=== PATIENT | female | born 1965 | race Caucasian/White ===

== ENCOUNTER 2023-12-12 14:05 | Inpatient (IN) | payer OTHER, SELFPAY ==
[2023-12-10] VITALS (22 sets, daily range): BP systolic 109–240; BP diastolic 67–109; BMI 17.8; BMI 17.2
--- NOTE | 2023-12-10 04:35 | ED.GENMED ---
History of Present Illness
<AUDREY Lopez - Last Filed: 12/10/23 05:26>
General
Chief Complaint: Chest Pain
Source: patient
Exam Limitations: none
Time Seen by Provider: 12/10/23 04:30
History of Present Illness
History of Present Illness:
Patient is a 58 year old female with a PMH of WA and CVA presenting to the ED with complaints of chest pain x 3 hours. This pain was stated as sharp and rated an 8/10. The pain does not radiate anywhere. She admits that this pain is similar to the
episode she had in August when she had an WA. The pain is not worse with exertion or laying back. Patient admits that nitro and aspirin mildly alleviated symptoms. She denies any dizziness headache palpitations sob dyspnea on exertion weakness.
Patient has a PMH of HLD HTN DM CAD afib CKD CVA. She had a CVA in August while she was admitted to the hospital before she had the WA. She is non compliant with her Eliquis use. EKG similar to last one NSR with partial right bundle branch block.
Past History
<AUDREY Lopez - Last Filed: 12/10/23 05:26>
Past History
ED Past Medical History: Arrthythmia, CAD, CHF, COPD, CVA, GERD, HTN, Hypercholesterolemia, WA, Renal failure, Psychiatric (anxiety, depression) and Other (anemia)
ED Past Surgical History: Cardiac (multiple cardiac catheters, coronary stent)
Social History
Alcohol: Chronic alcoholic
Family History
Family History: Diabetes (sister), Hypertension (daughter and mother ), Cancer (pancreatic cancer in mother ) and Other (heart disease in brother and mother )
<Estella Villafana DO - Last Filed: 12/10/23 06:20>
Past History
ED Past Medical History: Renal failure (Right renal artery stenosis status post stent renal artery.)
ED Past Surgical History: Cardiac (multiple cardiac catheters, coronary stent Placed in 2008)
Social History
Alcohol: Former
Living: penitentiary
Employment: Disabled
Review of Systems
<AUDREY Lopez - Last Filed: 12/10/23 05:26>
Review of Systems
Allergies reviewed?: Yes
Constitutional: Reports no symptoms
Respiratory: Reports no symptoms
Cardiac: Reports chest pain
ABD/GI: Reports no symptoms
Neurological: Reports no symptoms
Phy Exam
<AUDREY Lopez - Last Filed: 12/10/23 05:26>
General Physical Exam
General Presentation: mild distress
General age: appears older than age
General Habitus: elderly
General Mental: alert
Cardiovascular Exam
Cardiovascular Exam: regular rate/rhythm, no edema, no gallop, no JVD and no murmur
Pulmonary Exam
Pulmonary Exam: lungs clear, no respiratory distress, no rales, chest non tender, no crackles, no rhonchi, no stridor, no wheezing and no cough
Sensory
Sensory Exam: intact (sensation intact to light touch in upper and lower extremities b/l)
Scores
<AUDREY Lopez - Last Filed: 12/10/23 05:26>
Heart Score for Chest Pain Patients
STEMI patient?: No
History: Slightly or Non-Suspicious
ECG: Normal
Age: >45 - <65 years
Risk Factors: >/= 3 Risk Factors or History of CAD
<Estella Villafana DO - Last Filed: 12/10/23 06:20>
Heart Score for Chest Pain Patients
History: Moderately Suspicious
ECG: Nonspecific Repolarization
Troponin: </= Normal Limit
Heart Score for Chest Pain Patients: 5
Heart Score Risk: 20.3% MACE over next 6 weeks
Course
<AUDREY Lopez - Last Filed: 12/10/23 05:26>
Orders/Labs/Results
Orders:
Orders
12/10/23 04:26
Electrocardiogram (*1) Urgent
Reason for Study: Chest Pain
Cardiac Monitoring- Treatment ONCE
EKG- Treatment ONCE
IV Insert/Care/Rem.- Treatment PRN
O2 Therapy [RESP] Urgent
Titrate/Wean O2 to maintain O2 sat greater than (%): 90
Special Instructions: Maintain sats >/=90%
Pulse Ox/spot Check [RESP] Urgent
Quantity: 1
Special Instructions: ON ROOM AIR
12/10/23 04:49
Complete Blood Count/With Diff Urgent
Comprehensive Metabolic Panel Urgent
Troponin I Urgent
12/10/23 05:10
Nitroglycerin Ointment [Nitro-Bid] 1 inch TOPICAL NOW STA
12/10/23 05:21
Metoprolol [Lopressor] 5 mg IV NOW STA
12/10/23 05:49
Metoprolol [Lopressor] 5 mg IV NOW STA
12/10/23 05:50
Metoprolol [Lopressor] 5 mg .ROUTE .[facility]-MED ONE
Abnormal Lab Results
12/10/23
04:49
RBC 2.99 L 10^6/uL
(4.20-5.40)
Hgb 9.4 L g/dL
(12.0-16.0)
Hct 27.6 L %
(37.0-47.0)
MCH 31.4 H pg
(27.0-31.0)
RDW 15.7 H %
(11.5-14.5)
Absolute Monos (auto) 0.7 H 10^3/uL
(0.1-0.6)
Chloride 111 H mmol/L
(98-107)
Carbon Dioxide 19 L mmol/L
(22-30)
BUN 51 H mg/dl
(7-17)
Creatinine 2.6 H mg/dL
(0.6-1.0)
Glucose 162 H mg/dl
(70-99)
AST 60 H U/L
(14-36)
ALT 85 H U/L
(0-35)
Total Protein 6.1 L g/dl
(6.3-8.2)
Albumin 3.4 L g/dl
(3.5-5.0)
12/10/23 04:49
12/10/23 04:49
Vital Signs
Initial and Last Documented VS:
Initial Vital Signs
Temp Pulse Resp BP Pulse Ox
97.9 F 80 16 220/106 100
12/10/23 04:27 12/10/23 04:27 12/10/23 04:27 12/10/23 04:27 12/10/23 04:27
Last Documented Vital Signs
Temp Pulse Resp BP Pulse Ox
97.9 F 67 14 224/101 97
12/10/23 04:27 12/10/23 06:00 12/10/23 06:00 12/10/23 06:00 12/10/23 05:45
<Estella Villafana, DO - Last Filed: 12/10/23 06:20>
Orders/Labs/Results
Orders:
Orders
12/10/23 04:26
Electrocardiogram (*1) Urgent
Reason for Study: Chest Pain
Cardiac Monitoring- Treatment ONCE
EKG- Treatment ONCE
IV Insert/Care/Rem.- Treatment PRN
O2 Therapy [RESP] Urgent
Titrate/Wean O2 to maintain O2 sat greater than (%): 90
Special Instructions: Maintain sats >/=90%
Pulse Ox/spot Check [RESP] Urgent
Quantity: 1
Special Instructions: ON ROOM AIR
12/10/23 04:49
Complete Blood Count/With Diff Urgent
Comprehensive Metabolic Panel Urgent
Troponin I Urgent
12/10/23 05:10
Nitroglycerin Ointment [Nitro-Bid] 1 inch TOPICAL NOW STA
12/10/23 05:21
Metoprolol [Lopressor] 5 mg IV NOW STA
12/10/23 05:49
Metoprolol [Lopressor] 5 mg IV NOW STA
12/10/23 05:50
Metoprolol [Lopressor] 5 mg .ROUTE .[facility]
Abnormal Lab Results
12/10/23
04:49
RBC 2.99 L 10^6/uL
(4.20-5.40)
Hgb 9.4 L g/dL
(12.0-16.0)
Hct 27.6 L %
(37.0-47.0)
MCH 31.4 H pg
(27.0-31.0)
RDW 15.7 H %
(11.5-14.5)
Absolute Monos (auto) 0.7 H 10^3/uL
(0.1-0.6)
Chloride 111 H mmol/L
(98-107)
Carbon Dioxide 19 L mmol/L
(22-30)
BUN 51 H mg/dl
(7-17)
Creatinine 2.6 H mg/dL
(0.6-1.0)
Glucose 162 H mg/dl
(70-99)
AST 60 H U/L
(14-36)
ALT 85 H U/L
(0-35)
Total Protein 6.1 L g/dl
(6.3-8.2)
Albumin 3.4 L g/dl
(3.5-5.0)
12/10/23 04:49
12/10/23 04:49
Vital Signs
Initial and Last Documented VS:
Initial Vital Signs
Temp Pulse Resp BP Pulse Ox
97.9 F 80 16 220/106 100
12/10/23 04:27 12/10/23 04:27 12/10/23 04:27 12/10/23 04:27 12/10/23 04:27
Last Documented Vital Signs
Temp Pulse Resp BP Pulse Ox
97.9 F 67 14 224/101 97
12/10/23 04:27 12/10/23 06:00 12/10/23 06:00 12/10/23 06:00 12/10/23 05:45
<AUDREY Lopez - Last Filed: 12/10/23 05:26>
MDM/Problems Addressed
Differential Diagnosis Includes:
stable angina, unstable angina, WA
MDM/Problems Addressed:
order labs, ekg normal, give nitro and aspirin for symptoms.
<Cali Oliva [facility] - Last Filed: 12/10/23 05:26>
*Pulse Oximetry
Patient hypoxic: no
*EKG
Interpreted by ED Provider?: Yes
Interpretation: normal
Comparison EKG: no changes
Rate: normal
Rhythm: sinus
Interval: normal interval
QRS Pattern: right bundle branch block
Ischemia: no ischemia
*Critical Care Note
Total Time (30-74mins, 75-104mins- exclusive of procedures): Not Applicable
<Estella Villafana DO - Last Filed: 12/10/23 06:20>
*EKG
Interpretation: abnormal
Comparison EKG: changes noted (Incomplete right bundle branch block is new compared to previous EKGs [place] 1 [place] [facility])
QRS Pattern: right bundle branch block (Incomplete right bundle branch block)
*Varnish Maker Interpretation
Rate: normal
Interpretation: normal
Rhythm: sinus
ED Attending Note
<AUDREY Lopez - Last Filed: 12/10/23 05:26>
-
Portions of this chart may have been created with voice recognition software.� Occasional wrong word or��sound alike� substitutions may have occurred due to the inherent limitations of voice recognition software.
<Estella Villafana DO - Last Filed: 12/10/23 06:20>
ED Attending Note
Patient seen and examined by attending physician: Yes
I performed the substantive portion of visit, reviewed & personally made and approve the management plan that is documented in note by myself or STUART.: Yes
ED Attending Note:
This is a 58-year-old woman, current [facility] pen[facility] who presents via EMS with complaints of substernal chest pain that woke her from sleep 1 to 2 hours ago. Was given 324 mg chewable aspirin and 1 sublingual nitroglycerin by
EMS. Initially reported no improvement in pain but since arrival to the ED pain is improving and she is now chest pain-free. No associated symptoms, no shortness of breath nor diaphoresis nor nausea, no palpitations, no radiation of the pain.
She has extensive past medical history including acute hospitalization in August of this year at outside hospital for acute right hemiparesis, noncompliance with Eliquis with MRI showing multiple acute infarcts. She has history of A-fib, maintained
on Eliquis, history of hypertension, chronic kidney disease stage IV, insulin requiring diabetes, CAD and suffered an WA during hospitalization in August. History of PTCA with stent 2008. History of CHF, GERD, hyperlipidemia, prior history of
alcohol abuse with alcohol related chronic pancreatitis, history of anxiety.
She was most recently hospitalized at [facility] November 07 to November 16 for acute on chronic anemia with hemoglobin of 5, previously 8.2. She received 3 units of packed red blood cells. She was treated for UTI during that hospitalization.
She did suffer an episode of chest pain during that hospitalization, no evidence of WA, no relief with nitroglycerin but did afford relief with GI cocktail.
Patient states current chest pain feels different from that episode of chest pain November 15.
GENERAL: 58-year-old woman appears older than stated age, appears somewhat chronically debilitated. Awake and alert, resting comfortably, appears in no acute distress.
EYE: pupils equal and reactive. Conjunctiva mildly pale. Anicteric
NECK: Supple, nontender, no meningismus, no significant adenopathy. No JVD.
ENT: oral mucosa is moist. No rhinorrhea.
CARDIAC: Regular rate and rhythm. no murmur.
LUNGS: Clear breath sounds bilaterally, no acute respiratory distress, no wheezes/rales/rhonchi
ABDOMEN: Soft, nondistended, without focal tenderness, normoactive BS.
NEUROLOGICAL: Alert and oriented x3, mild, chronic right hemiparesis
SKIN: Warm and dry, mildly pale in color, skin intact. No rash.
MUSCULOSKELETAL: No C/C/E. peripheral pulses are full and equal b/l. No palpable tenderness.
PSYCH: Normal and appropriate interaction.
Concern for ACS, GERD, aortic dissection, PE, musculoskeletal chest pain.
Initial EKG shows normal sinus rhythm, incomplete right bundle branch block appears new compared to previous EKG from [facility], there is no evidence of STEMI.
It is reassuring that patient is currently chest pain-free and comfortable.
Noted to be moderately hypertensive. And prior records no blood pressure is generally well-controlled.
Labs are pending. Will initiate Nitropaste and continue close monitoring. Will give an IV dose of Lopressor for hypertension.
12/10/2023 05:50 AM
Patient remains chest pain-free and comfortable.
Labs are reassuring with stable, slightly improved chronic kidney disease, stable anemia.
Initial troponin within normal limits.
She does however remain significantly hypertensive, thus far no significant improvement after an IV dose of Lopressor. Remains in normal sinus rhythm in the 70s. Will give an additional dose of IV Lopressor.
She has history of extensive atherosclerosis thus dissection is a consideration however reassuring that chest pain has resolved promptly with 1 sublingual nitroglycerin, she has had no associated back pain nor radicular pain, no associated paresis,
paresthesia.
Could consider CTA for evaluation of potential dissection, however will discuss with hospitalist as patient has chronic kidney disease, with creatinine of 2.6.
Consider IV hydralazine if hypertension persists.
Due to significant concern for ACS, non-STEMI, malignant hypertension, will admit to hospitalist service for continued care/evaluation.
Discharge Plan
Departure
Patient Disposition: Admit
Date of Disposition: 12/10/23
Time of Disposition: 05:52
Admit to: IMU
Admit to doctor: Melisa
Presentation/result/management discussed w/ accepting MD/DO: Hospitalist
Condition: Serious
Discharge Problem:
CP r/o WA, Accelerated essential hypertension
Prescriptions:
No Action
acetaminophen 325 mg Tablet
650 mg PO Q6H PRN (Reason: pain/fever)
Rx Instructions:
do not exceed 3g in 24 hours
aspirin 81 mg Tablet,Delayed Release (Dr/Ec)
81 mg PO DAILY
bisacodyl 5 mg Tablet
5 mg PO HS PRN (Reason: constipation)
atorvastatin [Lipitor] 80 mg Tablet
80 mg PO HS
carvedilol 25 mg Tablet
12.5 mg PO BID
ipratropium-albuterol 0.5 mg-3 mg(2.5 mg base)/3 mL Solution For Nebulization
3 ml INHALATION 6XD
dextrose [Glucose Gel] 40 % Gel
15 g PO Q15M PRN (Reason: hypoglycemia)
Rx Instructions:
x3 for blood sugar <60 and able to swallow oral
hydralazine 25 mg Tablet
25 mg PO TID
isosorbide mononitrate 60 mg Tablet Extended Release 24 Hr
60 mg PO DAILY
magnesium hydroxide 400 mg/5 mL Suspension
5 ml PO DAILY
magnesium hydroxide [Milk of Magnesia] 400 mg/5 mL Suspension
30 ml PO DAILY
sodium bicarbonate 650 mg Tablet
1,300 mg PO BID
pantoprazole 40 mg Tablet,Delayed Release (Dr/Ec)
40 mg PO DAILY
ferrous sulfate 325 mg (65 mg iron) Tablet
325 mg PO TID
Fleet Enema 19-7 gram/118 mL Enema
118 ml ME ONCE PRN (Reason: constipation)
folic acid 1 mg Tablet
1 mg PO DAILY
Glucagon Emergency Kit (human) 1 mg Recon Soln
1 mg IM ONCE PRN (Reason: hypoglycemia)
Rx Instructions:
blood glucose <60 and pt unable to take po food/fluids
insulin lispro [Humalog KwikPen Insulin] 100 unit/mL Insulin Pen
4 unit SC AC
insulin lispro [Humalog KwikPen Insulin] 100 unit/mL Insulin Pen
1 sliding scale dose SC DIRECTED
Rx Instructions:
0-200=0
201-250=1U
251-300=2U
301-350=3U
351-400=4U
401-450=5U
Eliquis 2.5 mg Tablet
2.5 mg PO BID
Retacrit 4,000 unit/mL Solution
4,000 unit SC WEEKLY
Rx Instructions:
on tuesday
Referrals:
Galo Palmer DO [Family Provider] -
Interventions
Interventions:
*Risk Screen - Suicide Last Done: 12/10/23 04:27
*General Assessment Last Done: 12/10/23 04:27
*Neglect/Abuse Screening Last Done: 12/10/23 04:27
ED- Cardiac Assessment Last Done: 12/10/23 04:49
Discharge Date and Time
Print Language: SWAZI
[2023-12-10 05:17] LABS: % Basophils 0.6 % (0-2); % Eosinophils 2.2 % (0-6); % Immature Granulocytes 0.4 % (0-0.5); % Lymphocytes 25.4 % (20.5-51.1); % Monocytes 8.5 % (1.7-9.3); % Neutrophils 62.9 % (42.2-75.2); Absolute Basophils 0.1 10^3/uL (0-0.2); Absolute Eosinophils 0.2 10^3/uL (0-0.7); Absolute Monocytes 0.7 10^3/uL (0.1-0.6); Hematocrit 27.6 % (37.0-47.0); Hemoglobin 9.4 g/dL (12.0-16.0); Mean Corp Hgb Conc. 34.1 g/dL (33.0-37.0); Mean Corpuscular Hgb 31.4 pg (27.0-31.0); Mean Corpuscular Volume 92.3 fL (81.0-99.0); Mean Platelet Volume 9.8 fL (7.4-10.4); Nucleated Red Blood Cells % 0 %; Platelet Count 194 10^3/uL (130-400); Red Blood Cell Count 2.99 10^6/uL (4.20-5.40); Red Cell Dist. Width 15.7 % (11.5-14.5); White Blood Cell Count 7.9 10^3/uL (4.8-10.8)
[2023-12-10] MEDS: LOPRESSOR 5 MG IV ×2 (05:23→05:52)
[2023-12-10] MEDS: NITRO-BID 1 INCH TOPICAL (05:23)
[2023-12-10 05:36] LABS: ALT (SGPT) 85 U/L (0-35); AST (SGOT) 60 U/L (14-36); Albumin 3.4 g/dl (3.5-5.0); Alkaline Phosphatase 109 U/L (38-126); Blood Urea Nitrogen 51 mg/dl (7-17); Calcium 9.8 mg/dl (8.4-10.2); Carbon Dioxide 19 mmol/L (22-30); Chloride 111 mmol/L (98-107); Estimated Creatinine Clearance 18 ml/min; Glucose 162 mg/dl (70-99); Sodium 141 mmol/L (135-145); Total Bilirubin 0.3 mg/dl (0.2-1.3); Total Protein 6.1 g/dl (6.3-8.2); eGFR 20.62
[2023-12-10 05:48] LABS: Troponin I 0.032 ng/ml
--- NOTE | 2023-12-10 06:21 | HPS.HSE ---
Family Physician
-
Family Physician: Galo Palmer, DO
Chief Complaint
-
Chest pain
History of Present Illness
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
right-sided weakness iron deficiency anemia insulin-dependent diabetes, h/o alcoholic pancreatitis and chronic panc who presents to the emergency department from senior care with episode of chest pain.
Patient reports going to bed in usual state of health. The pain aroused from sleep. It was substernal pain that was a 10 out of 10. It was nonradiating. There was no associated nausea or vomiting. There was no associated diaphoresis. There was
no associated shortness of breath. No immediate relieving or exacerbating factors.
EMS was called. According to records the patient received sublingual nitroglycerin as well as a aspirin 324 mg. Patient stated that the pain resolved with this initial treatment. Per record EMS felt that the pain continued. On arrival in the
emergency department the patient was chest pain-free.
Patient had multiple recent hospitalizations. She had a hospitalization in August at an outside hospital she was found to have multi embolic infarct secondary to noncompliance with anticoagulation. She had residual dysarthria and weakness and was
discharged to senior care. Patient reports that she is nonambulatory. In November she was admitted to the hospital with anemia thought to be secondary to bowel blood loss. She had a negative occult stool, negative CTA of the abdomen pelvis and
declined upper endoscopy. She was treated with 3 units of packed red blood cells. Hemoglobin on discharge is at around a baseline of around 9.
In the ED patient hypotensive blood pressure of 226/103, pulse 79 oxygen saturation is 96% on room air. ECG with normal sinus rhythm and incomplete right bundle branch block, no acute ST or T wave changes. Troponin 0.03. White count was 7.9,
hemoglobin 9.4 platelet count 194. Electrolytes unremarkable. BUN 51 creatinine 2.6. AST 60 and ALT 85.
Medical History
Past Medical History
Past Medical History: Reports Arrhythmia (paroxysamal atrial fibrillation), CAD, CVA, HTN, Hypercholesterolemia, IDDM, Renal Failure (CKD 4) and Psychiatric (Anxiety)
Past Surgical History: Reports None
Social History
Tobacco: Non-smoker
Alcohol: Former
Drug: None
Personal: Single
Living: [facility]
Employment: Disabled
Family History
Family History: Not pertinent
Allergies / Home Medications
Allergies reflects when Allergies were last updated in [employer].
Home Medications with original date entered in [employer]
Allergy/Medication List:
Allergies
Allergy/AdvReac Type Severity Reaction Status Date / Time
adhesive tape Allergy Rash Verified 12/10/23 04:31
cephalexin [From Keflex] Allergy Unknown Verified 12/10/23 04:31
Home Medications
acetaminophen 325 mg tablet 650 mg PO Q6H PRN pain/fever 12/10/23
apixaban 2.5 mg tablet (Eliquis) 2.5 mg PO BID 12/10/23
aspirin 81 mg tablet,delayed release 81 mg PO DAILY 12/10/23
atorvastatin 80 mg tablet (Lipitor) 80 mg PO HS 12/10/23
bisacodyl 5 mg tablet 5 mg PO HS PRN constipation 12/10/23
carvedilol 25 mg tablet 12.5 mg PO BID 12/10/23
dextrose 40 % oral gel (Glucose Gel) 15 g PO Q15M PRN hypoglycemia 12/10/23
epoetin jaimee-epbx 4,000 unit/mL injection solution (Retacrit) 4,000 unit SC WEEKLY 12/10/23
ferrous sulfate 325 mg (65 mg iron) tablet 325 mg PO TID 12/10/23
folic acid 1 mg tablet 1 mg PO DAILY 12/10/23
glucagon 1 mg solution for injection (Glucagon Emergency Kit) 1 mg IM ONCE PRN hypoglycemia 12/10/23
hydralazine 25 mg tablet 25 mg PO TID 12/10/23
insulin lispro 100 unit/mL subcutaneous pen (Humalog KwikPen (U-100) Insulin) 1 sliding scale dose SC DIRECTED 12/10/23
insulin lispro 100 unit/mL subcutaneous pen (Humalog KwikPen (U-100) Insulin) 4 unit SC AC 12/10/23
ipratropium 0.5 mg-albuterol 3 mg (2.5 mg base)/3 mL nebulization soln 3 ml inhalation 6XD 12/10/23
isosorbide mononitrate 60 mg tablet,extended release 24 hr 60 mg PO DAILY 12/10/23
magnesium hydroxide 400 mg/5 mL oral suspension 5 ml PO DAILY 12/10/23
magnesium hydroxide 400 mg/5 mL oral suspension (Milk of Magnesia) 30 ml PO DAILY 12/10/23
pantoprazole 40 mg tablet,delayed release 40 mg PO DAILY 12/10/23
sodium bicarbonate 650 mg tablet 1,300 mg PO BID 12/10/23
sodium phosphates 19 gram-7 gram/118 mL enema (Fleet Enema) 118 ml MD ONCE PRN constipation 12/10/23
Review of Systems
-
History Source: Patient
Constitutional: Reports No Symptoms
EENT: Reports No Symptoms
Respiratory: Reports No Symptoms
Cardiac: Reports Chest Pain
Abdomen/GI: Reports Abdominal Pain
: Reports No Symptoms
Musculoskeletal: Reports No Symptoms
Skin: Reports No Symptoms
Neurological: Reports No Symptoms
Endocrine: Reports No Symptoms
Hematologic/Lymphatic: Reports No Symptoms
Psych: Reports No Symptoms
Physical Exam
Vital Signs
Vital Signs
Temp Pulse Resp BP Pulse Ox
97.9 F 67 14 224/101 97
12/10/23 04:27 12/10/23 06:00 12/10/23 06:00 12/10/23 06:00 12/10/23 05:45
Physical Exam
General: No Apparent Distress, Comfortable and Slurred Speech
HEENT: NormoCephalic, Anicteric, Moist mucous membranes, Atraumatic, PERRLA and Other (slight right facial droop)
Respiratory: Clear
Cardiac: S1/S2 and Regular Rhythm
Breast: Deferred by me
GI: Soft, Non Tender, Non Distended and Normal Bowel Sounds
Rectal: Deferred by Provider
Genito-urinary: Deferred by me
Musculoskeletal: No Clubbing, No Cyanosis and No Edema
Skin: Warm
Neuro: AO x 3
Hematologic/Lymphatic: No Lymphadenopathy
Psych: Calm
Laboratory Results
-
12/10/23 04:49
12/10/23 04:49
Laboratory Results
Total Bilirubin 0.3 mg/dl (0.2-1.3) 12/10/23 04:49
AST 60 U/L (14-36) H 12/10/23 04:49
ALT 85 U/L (0-35) H 12/10/23 04:49
Alkaline Phosphatase 109 U/L (38-126) 12/10/23 04:49
Troponin I 0.032 ng/ml 12/10/23 04:49
Data Reviewed
-
Medical Tests (Nuc Med, Echo, EKG etc): Image Personally Visualized and interpreted
Lab Data: Labs Reviewed by me
Old Records: Requested and Reviewed
Impression/Plan
-
IMPRESSION:
PLAN:
1. Chest pain - Substernal cp, non-radiating, no associated sob, diaphoresis, nausea or vomiting. No tingling, numbness or weakness. ECG is non-ischemic. Trop negative. CP free in ED after getting aspirin 324 and sl-ntg x 1 by ems. Currently
without chest pain despite HTN. Atypical chest pain versus ACS (1 hour since onset and known CAD s/p PCI)
- admit to telemetry
- troponin q3H
- continue aspirin, eliquis, statin
- continue imdur
- BP management as below
- did not consult cardiology as patient is cp free, normal trop and non-ischemic ECG with uncontrolled HTN
- no CT dissection as patient is free of chest pain
2. HTN - HTN urgency with BP 226/ 105. Denies any neurological symptoms. Reports h/o elevated BP usually however records from [place] on prior hospitalizaton shows BPs 140 systolic. No improvement with lopressor and nitro-paste and adjustment of the
cuff.
- PRN labetolol IV for SBP > 180
- continue coreg 12.5 bid, hydralazine 25 tid imdur 60 daily
- no volume overload on exam, no diuresis
- consider nifedipine if BP uncontrolled with home meds
3. DM II - on premeal and sliding scale only
- aspart 4 units tidac
- sliding scale sensitive achs
4. CVA - embolic cva w/ residual dysarthria. Mild residual right sided weakness. Patient intelligible and coherent. Non-ambulatory
- continue aspirin 81 and eliquis
- continue statin
5. CKD - CKD 4. Cr 2.6. Improvement from around 3 on last hospital admission.
- renal dose all meds
- avoid nephrotoxins
- patient on bicarb supplementation 1300 bid
6. Anemia - blood loss anemia. HGb 9.4, baseline
- iron supplementation
- folate
7. Transaminitis - mild transamintis which is a change from prior normal lfts. AST 60, ALT 80. Normal bili, lipase. No RUQ pain.
- trend for now.
8. pAFIB - Sinus rhythm.
- continue coreg, ac with eliquis 2.5 given weight and renal function.
DVT PPX - on apixaban
Code Status - Full Code
[2023-12-10] MEDS: APRESOLINE 15 MG IV (06:42)
[2023-12-10] MEDS: FLUSH (NSS) 1 FLUSH IV (06:44)
[2023-12-10 06:53] LABS: Lipase 85 U/L (23-300)
[2023-12-10] MEDS: TYLENOL 650 MG PO (07:50)
[2023-12-10] MEDS: ELIQUIS 2.5 MG PO ×2 (08:35→19:49)
[2023-12-10] MEDS: ASPIR LOW (ENTERIC COATED) 81 MG PO (08:35)
[2023-12-10] MEDS: FOLVITE 1 MG PO (08:36)
[2023-12-10] MEDS: FEOSOL 325 MG PO ×3 (08:36→22:44)
[2023-12-10] MEDS: IMDUR (EXTENDED RELEASE) 60 MG PO (08:36)
[2023-12-10] MEDS: SODIUM BICARBONATE 1300 MG PO ×2 (08:37→19:49)
[2023-12-10] MEDS: MILK OF MAGNESIA 5 ML PO (08:37)
[2023-12-10] MEDS: PROTONIX 40 MG PO (08:37)
[2023-12-10] MEDS: DUONEB 3 ML INH (08:54)
--- NOTE | 2023-12-10 11:21 | W.PN.UPDATE ---
Update Note
Progress Note Update
Non-billable addendum
Admitted earlier this AM
reports dull chest pain, central chest
no SOB
feels tired
BP remains elevated in 200s
Assessment:
Central chest pain
Hx of CAD s/p ID with stenting
- suspected related to elevated BP
- initial trop negative, repeat now
- EKG non-ischemic
- obtain Echo
- continue ASA/BB/Statin/Eliquis
- with history of noncompliance with Eliquis; check V/Q scan
Essential HTN with urgency
- reported non-compliance at [facility] and previously
- continue Coreg, Hydralazine, Imdur - titrate as indicated
- may need to add CCB such as nifedipine
IDDM
- continue Aspart 4 units AC
- SSI
- diabetic diet
- A1c: pending
Hx of embolic CVA, in setting of Eliquis noncompliance
- continue ASA/Statin/Eliquis
- reported non-ambulatory at baseline
CKD stage 4
- renally dose all meds
- follow BMP
- avoid nephrotoxins
- continue sodium bicarbonate 1300mg BID
Chronic anemia
- continue oral iron
Transaminitis
- unsure of acute or chronic
- no abd pain
- trend for now
hx of PAF
- continue BB/Eliquis
HX of CHF, unknown type
GERD
HLD
prior history of alcohol abuse with alcohol related chronic pancreatitis
DVT ppx: Eliquis
Code: Full
No prior records available to review. Records requested from [facility]
[2023-12-10] MEDS: COREG 12.5 MG PO ×2 (11:50→19:49)
[2023-12-10] MEDS: APRESOLINE 25 MG PO (11:50)
[2023-12-10] MEDS: DUONEB INH ×4 (12:30→23:17)
[2023-12-10] MEDS: ULTRAM 25 MG PO (14:11)
[2023-12-10 14:51] LABS: Troponin I 0.027 ng/ml
[2023-12-10] MEDS: APRESOLINE 50 MG PO ×2 (15:46→22:44)
[2023-12-10] MEDS: PROCARDIA XL (EXTENDED RELEASE) 30 MG PO (15:46)
[2023-12-10] MEDS: APRESOLINE PO (16:20)
[2023-12-10] MEDS: NOVOLOG FLEXPEN-LOW RESISTANCE SC ×2 (16:21→18:29)
[2023-12-10] MEDS: NOVOLOG FLEXPEN SC ×2 (16:21→18:28)
[2023-12-10 16:56] LABS: Glucose - Point of Care 159 mg/dl (70-99)
[2023-12-10 20:36] LABS: Troponin I 0.027 ng/ml
[2023-12-10 21:36] LABS: Glucose - Point of Care 203 mg/dl (70-99)
[2023-12-10] MEDS: LIPITOR 80 MG PO (22:44)
[2023-12-11] VITALS (7 sets, daily range): BP systolic 95–202; BP diastolic 65–98
[2023-12-11] MEDS: DUONEB INH ×2 (03:27→11:24)
[2023-12-11] MEDS: DUONEB 3 ML INH (07:17)
[2023-12-11 07:21] LABS: Hematocrit 28.9 % (37.0-47.0); Hemoglobin 10.2 g/dL (12.0-16.0); Mean Corp Hgb Conc. 35.3 g/dL (33.0-37.0); Mean Corpuscular Hgb 31.6 pg (27.0-31.0); Mean Corpuscular Volume 89.5 fL (81.0-99.0); Mean Platelet Volume 10.3 fL (7.4-10.4); Platelet Count 189 10^3/uL (130-400); Red Blood Cell Count 3.23 10^6/uL (4.20-5.40); Red Cell Dist. Width 15.3 % (11.5-14.5); White Blood Cell Count 7.5 10^3/uL (4.8-10.8)
[2023-12-11 07:47] LABS: Glucose - Point of Care 172 mg/dl (70-99)
[2023-12-11 08:06] LABS: ALT (SGPT) 63 U/L (0-35); AST (SGOT) 39 U/L (14-36); Albumin 3.5 g/dl (3.5-5.0); Alkaline Phosphatase 93 U/L (38-126); Blood Urea Nitrogen 52 mg/dl (7-17); Calcium 9.7 mg/dl (8.4-10.2); Carbon Dioxide 18 mmol/L (22-30); Chloride 110 mmol/L (98-107); Estimated Creatinine Clearance 19 ml/min; Glucose 165 mg/dl (70-99); Sodium 142 mmol/L (135-145); Total Bilirubin 0.4 mg/dl (0.2-1.3)
[2023-12-11] MEDS: NOVOLOG FLEXPEN 4 UNITS SC ×3 (08:47→17:48)
[2023-12-11] MEDS: NOVOLOG FLEXPEN-LOW RESISTANCE 1 UNITS SC ×3 (08:47→17:47)
[2023-12-11] MEDS: MILK OF MAGNESIA 5 ML PO (08:47)
[2023-12-11] MEDS: FOLVITE 1 MG PO (08:48)
[2023-12-11] MEDS: ELIQUIS 2.5 MG PO ×2 (08:48→19:27)
[2023-12-11] MEDS: FEOSOL 325 MG PO ×3 (08:48→21:42)
[2023-12-11] MEDS: ASPIR LOW (ENTERIC COATED) 81 MG PO (08:48)
[2023-12-11] MEDS: IMDUR (EXTENDED RELEASE) 60 MG PO (08:48)
[2023-12-11] MEDS: PROTONIX 40 MG PO (08:48)
[2023-12-11] MEDS: COREG 12.5 MG PO ×2 (08:48→19:27)
[2023-12-11] MEDS: SODIUM BICARBONATE 1300 MG PO ×2 (08:48→19:27)
[2023-12-11] MEDS: APRESOLINE 50 MG PO ×3 (08:48→21:43)
[2023-12-11] MEDS: PROCARDIA XL (EXTENDED RELEASE) 30 MG PO (08:48)
[2023-12-11 09:44] LABS: Glycohemoglobin (HgbA1c) 5.8 % (4.0-5.6)
--- NOTE | 2023-12-11 11:03 | W.PN.HOSP.TC ---
Today's Communication/Plan
-
stop recently started Nifedipine with hypotension; monitor BPs
V/Q and Echo Tuesday
Assessment / Plan
Assessment / Plan
Assessment:
Central chest pain
Hx of CAD s/p DE with stenting
- suspected related to elevated BP vs PE with Eliquis noncompliance
- trops negative
- EKG non-ischemic
- obtain Echo
- obtain records from [place] regarding recent DE history
- continue ASA/BB/Statin/Eliquis
- with history of noncompliance with Eliquis; check V/Q scan
Essential HTN with urgency
- reported non-compliance at [facility] and previously
- continue Coreg
- continue Hydralazine increased to 50mg TID
- continue Imdur
- trialed added Nifedipine but now hypotension; will hold Nifedipine and reassess.
IDDM
- continue Aspart 4 units AC
- SSI
- diabetic diet
- A1c: 5.8%
Hx of embolic CVA, in setting of Eliquis noncompliance
- continue ASA/Statin/Eliquis
- reported non-ambulatory at baseline therefore defer rehab evals currently
CKD stage 4
- renally dose all meds
- follow BMP
- avoid nephrotoxins
- continue sodium bicarbonate 1300mg BID
Chronic anemia
- continue oral iron
Transaminitis
- unsure of acute or chronic
- no abd pain
- trend for now
hx of PAF
- continue BB/Eliquis
HX of CHF, unknown type
GERD
HLD
prior history of alcohol abuse with alcohol related chronic pancreatitis
DVT ppx: Eliquis
Code: Full
Anticipated Discharge: 24 - 48 hours
Subjective/Interval History
-
Date of Service: December 11, 2023
resting comfortably no complaints at present
Objective Data
-
Labs:
Laboratory Results
12/11/23
05:59
WBC 7.5
Hgb 10.2 L
Hct 28.9 L
Plt Count 189
Sodium 142
Potassium 4.0
Chloride 110 H
Carbon Dioxide 18 L
BUN 52 H
Creatinine 2.4 H
Glucose 165 H
Calcium 9.7
Total Bilirubin 0.4
AST 39 H
ALT 63 H
Alkaline Phosphatase 93
Vital Signs:
Vital Signs
Temp Pulse Resp BP Pulse Ox
97.7 F 71 18 150/94 99
12/11/23 07:10 12/11/23 07:21 12/11/23 07:21 12/11/23 08:49 12/11/23 07:21
I&O
12/10/23 12/11/23 12/12/23
06:59 06:59 06:59
Intake Total 240 / 240
Balance 240 / 240
Physical Exam
-
General: No Apparent Distress and Appears Chronically Ill
HEENT: Normocephalic and Atraumatic
Respiratory: Negative Wheezes
Cardiac: Regular Rhythm and S1/S2
GI: Soft
Genito-urinary: No Costovertebral Tender
Neuro: AO x 3
Hematologic / Lymphatic: No Lymphadenopathy
Psych: Calm
Data Reviewed
-
Total Time Spent with Patient (in minutes): 41
Labs: Labs Reviewed by me
[2023-12-11 11:36] LABS: Glucose - Point of Care 157 mg/dl (70-99)
--- NOTE | 2023-12-11 12:59 | CM ---
CM spoke with nursing at [facility]
Pt is a ST resident there, recent admit from [facility]
Been there for approx one month
She is non-ambulatory, stands/pivots into with assist
Nursing assist with coaxing and cueing for personal care
Notes pt self propels and AxO 3x, difficult speech/understand
Rx- Concept
Per SNF, dtr is primary contact
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
Bedside meeting with pt
OBS form reviewed- copy provided
Return SNF referral sent via [facility]
Will need discussion with SNF on whether [facility] auth will be needed for SNF return
Discharge Disposition- return [facility]
[2023-12-11 17:33] LABS: Glucose - Point of Care 199 mg/dl (70-99)
[2023-12-11 21:18] LABS: Glucose - Point of Care 162 mg/dl (70-99)
[2023-12-11] MEDS: LIPITOR 80 MG PO (21:42)
[2023-12-12] VITALS (8 sets, daily range): BP systolic 109–155; BP diastolic 58–89; PULSE 67; O2SAT 99; BMI 17.0
[2023-12-12 08:03] LABS: Glucose - Point of Care 236 mg/dl (70-99)
[2023-12-12 08:05] LABS: Hematocrit 25.8 % (37.0-47.0); Mean Corp Hgb Conc. 34.9 g/dL (33.0-37.0); Mean Corpuscular Hgb 31.9 pg (27.0-31.0); Mean Corpuscular Volume 91.5 fL (81.0-99.0); Mean Platelet Volume 9.9 fL (7.4-10.4); Platelet Count 182 10^3/uL (130-400); Red Blood Cell Count 2.82 10^6/uL (4.20-5.40); Red Cell Dist. Width 15.3 % (11.5-14.5); White Blood Cell Count 8.9 10^3/uL (4.8-10.8)
[2023-12-12 08:23] LABS: ALT (SGPT) 54 U/L (0-35); AST (SGOT) 37 U/L (14-36); Albumin 3.3 g/dl (3.5-5.0); Alkaline Phosphatase 90 U/L (38-126); Blood Urea Nitrogen 60 mg/dl (7-17); Calcium 9.4 mg/dl (8.4-10.2); Carbon Dioxide 19 mmol/L (22-30); Chloride 107 mmol/L (98-107); Estimated Creatinine Clearance 18 ml/min; Glucose 189 mg/dl (70-99); Potassium 3.9 mmol/L (3.5-5.1); Sodium 138 mmol/L (135-145); Total Bilirubin 0.4 mg/dl (0.2-1.3); Total Protein 5.8 g/dl (6.3-8.2); eGFR 21.61
[2023-12-12] MEDS: NOVOLOG FLEXPEN-LOW RESISTANCE 2 UNITS SC ×2 (10:29→18:02)
[2023-12-12] MEDS: NOVOLOG FLEXPEN 4 UNITS SC ×3 (10:30→18:02)
[2023-12-12] MEDS: FEOSOL 325 MG PO ×3 (10:31→22:55)
[2023-12-12] MEDS: SODIUM BICARBONATE 1300 MG PO ×2 (10:31→19:49)
[2023-12-12] MEDS: FOLVITE 1 MG PO (10:31)
[2023-12-12] MEDS: ASPIR LOW (ENTERIC COATED) 81 MG PO (10:31)
[2023-12-12] MEDS: ELIQUIS 2.5 MG PO ×2 (10:32→19:49)
[2023-12-12] MEDS: PROTONIX 40 MG PO (10:32)
[2023-12-12] MEDS: APRESOLINE 50 MG PO ×3 (10:32→22:55)
[2023-12-12] MEDS: MILK OF MAGNESIA 5 ML PO (10:33)
[2023-12-12] MEDS: COREG 12.5 MG PO ×2 (10:40→19:49)
[2023-12-12] MEDS: IMDUR (EXTENDED RELEASE) 60 MG PO (10:40)
[2023-12-12] MEDS: NOVOLOG FLEXPEN-LOW RESISTANCE 1 UNITS SC (13:58)
[2023-12-12 13:59] LABS: Glucose - Point of Care 160 mg/dl (70-99)
--- NOTE | 2023-12-12 14:12 | W.PN.HOSP.TC ---
Today's Communication/Plan
-
V/Q scan
Assessment / Plan
Assessment / Plan
58yo F with PMHx of Afib on ELiquis, HTN, GURDEEP, DM, CKD stage 4, HTN, embolic stroke with residual dysarthria and R sided weakness, Hx of alcoholic pancreatitis was brought to ED with chest pain. Found HTN urgency. Troponin were low without uptrend,
EKG without acute ST elevation or TWI. Chest pain subsided. w/u for pulmonary embolism with V/Q scan is ongoing
A/P:
#Chest pain, non-cardiac
Serial trop unremarkable
resolved
#Essential HTN with HTN urgency
BP improved
cont home meds
#Chronic transaminitis
2/2 Hx of alcohol abuse
check hepC Ab
outpatient f/u with PCP - referral to GI
#DM type 1
cont insulin, accuchecks, Insulin SS and DM diet
#CKD stage 4
#GURDEEP
#Afib, unspecified
#Hx of CVA
cont home meds
DVT ppx on Eliquis
Full code
I have spent at least 38min reviewing chart, test results and providing direct patient care
Anticipated Discharge: Within 24 hours
Subjective/Interval History
-
Date of Service: December 12, 2023
Objective Data
-
Labs:
Laboratory Results
12/12/23
07:19
WBC 8.9
Hgb 9.0 L
Hct 25.8 L
Plt Count 182
Sodium 138
Potassium 3.9
Chloride 107
Carbon Dioxide 19 L
BUN 60 H
Creatinine 2.5 H
Glucose 189 H
Calcium 9.4
Total Bilirubin 0.4
AST 37 H
ALT 54 H
Alkaline Phosphatase 90
Vital Signs:
Vital Signs
Temp Pulse Resp BP Pulse Ox
98 F 66 20 155/79 99
12/12/23 13:58 12/12/23 13:58 12/12/23 13:58 12/12/23 13:58 12/12/23 13:58
I&O
12/11/23 12/12/23 12/13/23
06:59 06:59 06:59
Intake Total 240 / 240 600 / 600
Balance 240 / 240 600 / 600
Review of Systems
-
History Source: Patient
All other systems: Reviewed and negative
Physical Exam
-
General: No Apparent Distress
HEENT: Normocephalic
Respiratory: Clear to Auscultation
Cardiac: Regular Rhythm
GI: Soft, Nontender and Nondistended
Genito-urinary: No Costovertebral Tender
Musculoskeletal: No Clubbing, No Cyanosis and No Edema
Neuro: Awake, Alert, Oriented and Other (R hemiparesis, dysarthria)
Psych: Calm
--- NOTE | 2023-12-12 16:13 | CM ---
Addendum entered by Mylene Jovel 12/12/23 16:20:
Auth given to Anabel at [facility]
Report# [phone] 2nd floor

Original Note:
Patient for possible transfer back to [facility] tomorrow.
TC to [facility] [phone]
Spoke with [facility]
approved skilled rehab
authorization # [id number]
start date 12/13/23. LCD 12/19/23, NRD 12/20/23
updates to [phone]
patient will require ambulance transport.
Plan: [facility] once medically stable
[2023-12-12 16:21] LABS: Glucose - Point of Care 248 mg/dl (70-99)
[2023-12-12 21:20] LABS: Hepatitis C Antibody Negative (Negative)
[2023-12-12 21:54] LABS: Glucose - Point of Care 111 mg/dl (70-99)
[2023-12-12] MEDS: LIPITOR 40 MG PO (22:55)
[2023-12-13 06:00] VITALS: BMI 17.4
[2023-12-13 07:34] LABS: % Basophils 0.4 % (0-2); % Eosinophils 1.8 % (0-6); % Immature Granulocytes 0.4 % (0-0.5); % Lymphocytes 20.9 % (20.5-51.1); % Monocytes 8.1 % (1.7-9.3); % Neutrophils 68.4 % (42.2-75.2); Absolute Eosinophils 0.2 10^3/uL (0-0.7); Absolute Lymphocytes 1.8 10^3/uL (1.2-3.4); Absolute Monocytes 0.7 10^3/uL (0.1-0.6); Absolute Neutrophils 5.8 10^3/uL (1.4-6.5); Hematocrit 24.6 % (37.0-47.0); Hemoglobin 8.7 g/dL (12.0-16.0); Mean Corp Hgb Conc. 35.4 g/dL (33.0-37.0); Mean Corpuscular Hgb 31.2 pg (27.0-31.0); Mean Corpuscular Volume 88.2 fL (81.0-99.0); Mean Platelet Volume 9.6 fL (7.4-10.4); Nucleated Red Blood Cells % 0 %; Platelet Count 182 10^3/uL (130-400); Red Blood Cell Count 2.79 10^6/uL (4.20-5.40); Red Cell Dist. Width 15.3 % (11.5-14.5); White Blood Cell Count 8.4 10^3/uL (4.8-10.8)
[2023-12-13 07:36] VITALS: BP 130/84
[2023-12-13 08:09] LABS: ALT (SGPT) 47 U/L (0-35); AST (SGOT) 38 U/L (14-36); Albumin 3.1 g/dl (3.5-5.0); Alkaline Phosphatase 84 U/L (38-126); Blood Urea Nitrogen 66 mg/dl (7-17); Calcium 9.3 mg/dl (8.4-10.2); Carbon Dioxide 22 mmol/L (22-30); Chloride 105 mmol/L (98-107); Estimated Creatinine Clearance 19 ml/min; Glucose 155 mg/dl (70-99); Potassium 3.8 mmol/L (3.5-5.1); Sodium 136 mmol/L (135-145); Total Bilirubin 0.3 mg/dl (0.2-1.3); Total Protein 5.5 g/dl (6.3-8.2); eGFR 21.61
[2023-12-13 08:12] LABS: Glucose - Point of Care 180 mg/dl (70-99)
[2023-12-13] MEDS: NOVOLOG FLEXPEN-LOW RESISTANCE 1 UNITS SC (10:39)
[2023-12-13] MEDS: NOVOLOG FLEXPEN 4 UNITS SC ×2 (10:41→13:52)
[2023-12-13] MEDS: MILK OF MAGNESIA 5 ML PO (10:45)
[2023-12-13] MEDS: SODIUM BICARBONATE 1300 MG PO (10:46)
[2023-12-13] MEDS: APRESOLINE 50 MG PO (10:46)
[2023-12-13] MEDS: PROTONIX 40 MG PO (10:46)
[2023-12-13] MEDS: ASPIR LOW (ENTERIC COATED) 81 MG PO (10:46)
[2023-12-13] MEDS: FEOSOL 325 MG PO (10:47)
[2023-12-13] MEDS: ELIQUIS 2.5 MG PO (10:47)
[2023-12-13] MEDS: FOLVITE 1 MG PO (10:47)
[2023-12-13] MEDS: IMDUR (EXTENDED RELEASE) 60 MG PO (10:50)
[2023-12-13] MEDS: COREG 12.5 MG PO (10:50)
--- NOTE | 2023-12-13 11:00 | CM ---
Addendum entered by Mylene Jovel 12/13/23 11:53:
Daughter updated re transport time 2:30 pm.
[facility].
Original Note:
Patient seen bedside.
Patient for possible transfer back to [facility] today.
IMM reviewed with patient and she verbalized understanding.
Auth given to facility.
Ambulance forms completed.
[facility]
Report# [phone] 2nd floor
--- NOTE | 2023-12-13 11:27 | W.PN.HOSP.TC ---
Today's Communication/Plan
-
d/c
Assessment / Plan
Assessment / Plan
58yo F with PMHx of Afib on ELiquis, HTN, GURDEEP, DM, CKD stage 4, HTN, embolic stroke with residual dysarthria and R sided weakness, Hx of alcoholic pancreatitis was brought to ED with chest pain. Found HTN urgency. Troponin were low without uptrend,
EKG without acute ST elevation or TWI. Chest pain subsided. w/u for pulmonary embolism with V/Q scan was not suggestive of PE. BP improved with increase in Hydralazine to 50mg. Medically steady to be d/c
A/P:
#Chest pain, non-cardiac
Serial trop unremarkable
resolved
#Essential HTN with HTN urgency
BP improved
cont home meds
#Chronic transaminitis 2/2 chronic alcohol abuse, concern for cirrhosis
Outpatient GI recommneded to the patient - patient verbalized understanding of the instructions
2/2 Hx of alcohol abuse
check hepC Ab
outpatient f/u with PCP - referral to GI
#DM type 1
cont insulin, accuchecks, Insulin SS and DM diet
#CKD stage 4
#GURDEEP
#Afib, unspecified
#Hx of CVA
cont home meds
DVT ppx on Eliquis
Full code
I have spent at least 38min reviewing chart, test results and providing direct patient care
Anticipated Discharge: Today
Subjective/Interval History
-
Date of Service: December 13, 2023
Objective Data
-
Labs:
Laboratory Results
12/13/23
07:06
WBC 8.4
Hgb 8.7 L
Hct 24.6 L
Plt Count 182
Sodium 136
Potassium 3.8
Chloride 105
Carbon Dioxide 22
BUN 66 H
Creatinine 2.5 H
Glucose 155 H
Calcium 9.3
Total Bilirubin 0.3
AST 38 H
ALT 47 H
Alkaline Phosphatase 84
Vital Signs:
Vital Signs
Temp Pulse Resp BP Pulse Ox
98.6 F 78 18 130/84 95
12/13/23 07:36 12/13/23 07:36 12/13/23 07:36 12/13/23 07:36 12/13/23 07:36
I&O
12/12/23 12/13/23 12/14/23
06:59 06:59 06:59
Intake Total 600 / 600 360 / 360
Balance 600 / 600 360 / 360
Review of Systems
-
History Source: Patient
All other systems: Reviewed and negative
Physical Exam
-
General: No Apparent Distress
HEENT: Normocephalic
Cardiac: Regular Rhythm
Neuro: Awake, Alert, Oriented, AO x 3 and Other (R hemiparesis, chronic dysarthria)
Psych: Calm
--- NOTE | 2023-12-13 11:31 | W.DCSUMMARY ---
Discharge Summary
Discharge Data
Date of Admission: 12/12/23
Date of Discharge: 12/13/23
-
Pending Results: No
Hospital Course
58yo F with PMHx of Afib on ELiquis, HTN, GURDEEP, DM, CKD stage 4, HTN, embolic stroke with residual dysarthria and R sided weakness, Hx of alcoholic pancreatitis was brought to ED with chest pain. Found HTN urgency. Troponin were low without uptrend,
EKG without acute ST elevation or TWI. Chest pain subsided. w/u for pulmonary embolism with V/Q scan was not suggestive of PE. BP improved with increase in Hydralazine to 50mg. Medically steady to be d/c
I have spent at least 37min discharging the patient
A/P:
#Chest pain, non-cardiac
#Essential HTN with HTN urgency
#Chronic anemia with stable Hgb 2/2 CKD
#Chronic transaminitis 2/2 chronic alcohol abuse, concern for cirrhosis
#DM type 1
#CKD stage 4
#GURDEEP
#Afib, unspecified
#Hx of CVA
#L2 compression Fx without new neurological deficit and no pain upon d/c
Discharge Plan
-
Patient Disposition: Intermediate/SNF
Discharge Diagnosis/Procedures: CHest pain
Diet: Diabetic, Carb Controlled
Activity: As tolerated
Driving Restrictions: As prior to admission
Referrals:
Galo Palmer, [Family Provider] -
Prescriptions:
New
atorvastatin 40 mg Tablet
40 mg PO HS Qty: 30 0RF
hydralazine 25 mg Tablet
50 mg PO TID Qty: 90 0RF
Continued
acetaminophen 325 mg Tablet
650 mg PO Q6H PRN (Reason: pain/fever)
Rx Instructions:
do not exceed 3g in 24 hours
aspirin 81 mg Tablet,Delayed Release (Dr/Ec)
81 mg PO DAILY
bisacodyl 5 mg Tablet
5 mg PO HS PRN (Reason: constipation)
carvedilol 25 mg Tablet
12.5 mg PO BID
ipratropium-albuterol 0.5 mg-3 mg(2.5 mg base)/3 mL Solution For Nebulization
3 ml INHALATION 6XD
dextrose [Glucose Gel] 40 % Gel
15 g PO Q15M PRN (Reason: hypoglycemia)
Rx Instructions:
x3 for blood sugar <60 and able to swallow oral
isosorbide mononitrate 60 mg Tablet Extended Release 24 Hr
60 mg PO DAILY
magnesium hydroxide 400 mg/5 mL Suspension
5 ml PO DAILY
magnesium hydroxide [Milk of Magnesia] 400 mg/5 mL Suspension
30 ml PO DAILY
sodium bicarbonate 650 mg Tablet
1,300 mg PO BID
pantoprazole 40 mg Tablet,Delayed Release (Dr/Ec)
40 mg PO DAILY
ferrous sulfate 325 mg (65 mg iron) Tablet
325 mg PO TID
Fleet Enema 19-7 gram/118 mL Enema
118 ml UT ONCE PRN (Reason: constipation)
folic acid 1 mg Tablet
1 mg PO DAILY
Glucagon Emergency Kit (human) 1 mg Recon Soln
1 mg IM ONCE PRN (Reason: hypoglycemia)
Rx Instructions:
blood glucose <60 and pt unable to take po food/fluids
insulin lispro [Humalog KwikPen Insulin] 100 unit/mL Insulin Pen
4 unit SC AC
insulin lispro [Humalog KwikPen Insulin] 100 unit/mL Insulin Pen
1 sliding scale dose SC DIRECTED
Rx Instructions:
0-200=0
201-250=1U
251-300=2U
301-350=3U
351-400=4U
401-450=5U
Eliquis 2.5 mg Tablet
2.5 mg PO BID
Retacrit 4,000 unit/mL Solution
4,000 unit SC WEEKLY
Rx Instructions:
on tuesday
Discontinued
atorvastatin [Lipitor] 80 mg Tablet
80 mg PO HS
hydralazine 25 mg Tablet
25 mg PO TID
Discharge Orders:
Discharge Patient (As Directed); Ordered 12/13/23
Ordered By: Carlos Saba
Discharge Date and Time
Print Language: ARMENIAN
[2023-12-13 11:46] LABS: Glucose - Point of Care 280 mg/dl (70-99)
[2023-12-13] MEDS: NOVOLOG FLEXPEN-LOW RESISTANCE 3 UNITS SC (13:53)
[2023-12-13 14:23] VITALS: BP 110/64
== END 2023-12-13 14:57 | DRG 313 ==
LOC: 4 WEST ACU 14:05
PROVIDERS: Internal Medicine; ADMITTING PHYSICIAN Internal Medicine; ATTENDING PHYSICIAN Internal Medicine; EMERGENCY PHYSICIAN Emergency Medicine; FAMILY PHYSICIAN Internal Medicine
DX: R07.2 Precordial pain (principal); I13.0 Hypertensive heart and chronic kidney disease with heart failure and stage 1 through stage 4 chronic kidney disease, or unspecified chronic kidney disease; N18.4 Chronic kidney disease, stage 4 (severe); I69.351 Hemiplegia and hemiparesis following cerebral infarction affecting right dominant side; I50.9 Heart failure, unspecified; I16.0 Hypertensive urgency; E11.22 Type 2 diabetes mellitus with diabetic chronic kidney disease; I48.0 Paroxysmal atrial fibrillation; F10.10 Alcohol abuse, uncomplicated; R74.01 Elevation of levels of liver transaminase levels; D50.0 Iron deficiency anemia secondary to blood loss (chronic); I25.10 Atherosclerotic heart disease of native coronary artery without angina pectoris; I25.2 Old myocardial infarction; I69.322 Dysarthria following cerebral infarction
CPT/HCPCS: 71045; 71046; 78582; 80053; 82962; 83036; 83690; 84484; 85025; 85027; 86803; 87070; 93005; 93306; 94640; 96374; 96375; 97163; 97167; 99285; A9540; A9567

== ENCOUNTER 2023-12-31 23:24 | Inpatient (IN) | payer OTHER, SELFPAY ==
[2023-12-31 21:28] VITALS: BP 203/74
[2023-12-31 21:29] VITALS: BP 203/74
[2023-12-31 21:52] LABS: % Basophils 0.3 % (0-2); % Eosinophils 3.1 % (0-6); % Immature Granulocytes 0.4 % (0-0.5); % Lymphocytes 21.6 % (20.5-51.1); % Monocytes 9.3 % (1.7-9.3); % Neutrophils 65.3 % (42.2-75.2); Absolute Eosinophils 0.2 10^3/uL (0-0.7); Absolute Lymphocytes 1.6 10^3/uL (1.2-3.4); Absolute Monocytes 0.7 10^3/uL (0.1-0.6); Absolute Neutrophils 4.7 10^3/uL (1.4-6.5); Hematocrit 18.9 % (37.0-47.0); Hemoglobin 6.4 g/dL (12.0-16.0); Mean Corp Hgb Conc. 33.9 g/dL (33.0-37.0); Mean Corpuscular Hgb 32.8 pg (27.0-31.0); Mean Corpuscular Volume 96.9 fL (81.0-99.0); Mean Platelet Volume 9.9 fL (7.4-10.4); Nucleated Red Blood Cells % 0 %; Platelet Count 198 10^3/uL (130-400); Red Blood Cell Count 1.95 10^6/uL (4.20-5.40); Red Cell Dist. Width 15.9 % (11.5-14.5); White Blood Cell Count 7.2 10^3/uL (4.8-10.8)
[2023-12-31 21:55] LABS: ALT (SGPT) 30 U/L (0-35); AST (SGOT) 34 U/L (14-36); Alkaline Phosphatase 98 U/L (38-126); Blood Urea Nitrogen 59 mg/dl (7-17); Carbon Dioxide 18 mmol/L (22-30); Chloride 105 mmol/L (98-107); Glucose 294 mg/dl (70-99); Potassium 4.6 mmol/L (3.5-5.1); Sodium 134 mmol/L (135-145); Total Bilirubin 0.3 mg/dl (0.2-1.3); Total Protein 5.4 g/dl (6.3-8.2); eGFR 18.09
[2023-12-31 22:00] VITALS: BP 187/52
--- NOTE | 2023-12-31 22:07 | ED.GENMED ---
History of Present Illness
General
Chief Complaint: Abnormal Lab Value
Source: patient
Time Seen by Provider: 12/31/23 22:01
History of Present Illness
History of Present Illness:
58yoF with a history of atrial fibrillation on Eliquis, hypertension, prior CVA, type 1 diabetes, chronic anemia, and CKD presenting via EMS for evaluation of an abnormal outpatient lab. Patient had outpatient lab work which showed a hemoglobin of
6.4. She was sent to the ED from [facility] for evaluation. Patient is relatively asymptomatic currently but does states she feels generally weak. She denies any hematochezia or melena. No dizziness, syncope, shortness of breath, fatigue.
Patient was recently hospitalized for chest pain and hemoglobin was 8.7 on 12/13/2023.
Past History
Past History
ED Past Medical History: Arrthythmia, CAD, CHF, COPD, CVA, GERD, HTN, Hypercholesterolemia, [place], Renal failure (Right renal artery stenosis status post stent renal artery.), Psychiatric (anxiety, depression) and Other (anemia)
ED Past Surgical History: Cardiac (multiple cardiac catheters, coronary stent Placed in 2008)
Social History
Alcohol: Former
Living: half-way
Employment: Disabled
Family History
Family History: Diabetes (sister), Hypertension (daughter and mother ), Cancer (pancreatic cancer in mother ) and Other (heart disease in brother and mother )
Phy Exam
Physical Exam
Physical Exam:
Chronically ill appearing female, pallor noted
General Physical Exam
General age: appears older than age
General Skin: warm, dry and pale
ENT Exam
ENT Exam: normocephalic
Cardiovascular Exam
Cardiovascular Exam: regular rate/rhythm
Pulmonary Exam
Pulmonary Exam: lungs clear, no respiratory distress, no crackles and no wheezing
Gastrointestinal Exam
Gastrointestinal Exam: non tender, soft and non distended
Rectal Exam: other (Stool dark brown with positive hemoccult testing. )
Guaiac Status: positive
Neurological Exam
Neurological Exam: other (Chronic dysarthria noted from prior CVA)
Skin Exam
Skin Exam: warm/dry and pallor
Psychiatric Exam
Psychiatric Exam: normal mood/affect
Course
Orders/Labs/Results
Orders:
Orders
12/31/23 21:36
ABO2 Urgent
BBK Wristband Number:
Associate notified that ABO2 has been ordered: [id number]
Date: 12/31/23
Time: 21:49
Foundation Engineer ID: [id number]
Complete Blood Count/With Diff Urgent
Comprehensive Metabolic Panel Routine
12/31/23 22:09
Type+Screen Urgent
BBK Wristband Number:
PTT Urgent
Prothrombin Time Urgent
12/31/23 22:15
Blood Bank Products [* Blood Bank Products] Urgent
Blood Bank Products: *Packed RBC Leuko(PRBC's)
Quantity: 1
Transfuse Today: Yes
Reason: Anemia
Pantoprazole [Protonix IV] 40 mg IV NOW STA
12/31/23 22:44
Admit/Transfer Patient As Directed
Co-Sign Provider:
Level of Care: Inpatient admission
Assign to:: Telemetry
Physician / Group: monae
Diagnosis: rectal bleed
Reason for Telemetry: Arrhythmia
Date to Stop Telemetry: 01/03/24
Time to Stop Telemetry: 11:00
Reason for Hospitalization: rectal bleed
Expected length of stay greater than two midnights?: Yes
ELOS- Estimated Length of Stay in days: 3
I certify the patient meets the requirements for IP care: Yes
PRN Pain Medication Management As Directed
May give lesser potent ordered pain med per pt: Yes
preference::
Protocol:: Medication orders for pain may be administered in a
manner that supports deferring to patient preference
when the pt is:
- Requesting an ordered lesser potent pain medication.
Least to most potent pain medications are defined
as: acetaminophen < NSAID < tramadol < opioids
(morphine, oxycodone, hydromorphone).
- Requesting a lesser dose of the same medication IF
ORDERED.
- Requesting a less intrusive route of administration
if both routes are prescribed by the provider (PO <
IV).
12/31/23 22:46
Code Status As Directed
Resuscitation Status: Full Code
12/31/23 22:49
EKG [Electrocardiogram (*1)] Stat
Reason for Study: Atrial Fibrillation
12/31/23 22:54
HydrALAZINE [Apresoline] 50 mg PO NOW STA
12/31/23 23:03
Carvedilol [Coreg] 25 mg PO NOW STA
01/03/24 11:00
DC Protocol for Telemetry ONCE
Abnormal Lab Results
12/31/23 12/31/23
21:36 22:09
RBC 1.95 L 10^6/uL
(4.20-5.40)
Hgb 6.4 L* g/dL
(12.0-16.0)
Hct 18.9 L* %
(37.0-47.0)
MCH 32.8 H pg
(27.0-31.0)
RDW 15.9 H %
(11.5-14.5)
Absolute Monos (auto) 0.7 H 10^3/uL
(0.1-0.6)
PT 16.3 H Sec
(11.4-14.6)
Sodium 134 L mmol/L
(135-145)
Carbon Dioxide 18 L mmol/L
(22-30)
BUN 59 H mg/dl
(7-17)
Creatinine 2.9 H mg/dL
(0.6-1.0)
Glucose 294 H mg/dl
(70-99)
Total Protein 5.4 L g/dl
(6.3-8.2)
Albumin 3.0 L g/dl
(3.5-5.0)
Antibody Screen Positive A
(Negative)
12/31/23 21:36
12/31/23 21:36
Vital Signs
Initial and Last Documented VS:
Initial Vital Signs
Temp Pulse Resp BP Pulse Ox
98 F 67 15 203/74 99
12/31/23 21:28 12/31/23 21:28 12/31/23 21:28 12/31/23 21:28 12/31/23 21:28
Last Documented Vital Signs
Temp Pulse Resp BP Pulse Ox
98 F 77 14 174/68 100
12/31/23 21:28 12/31/23 23:09 12/31/23 23:00 12/31/23 23:09 12/31/23 21:45
MDM/Problems Addressed
Differential Diagnosis Includes:
58yoF here with a hemoglobin of 6.4 on outpatient labs. Relatively asymptomatic currently. Hx of chronic anemia although hemoglobin was 8.7 earlier this month. She denies active bleeding. VSS. She is pale on exam and chronically ill appearing. Stool
is dark and hemoccult positive. Differential diagnosis includes but is not limited to: GI bleed, iron deficiency anemia, anemia of chronic disease
Initial ED plan: Check CBC, CMP, coags, and type and screen.
*Critical Care Note
Total Time (30-74mins, 75-104mins- exclusive of procedures): Not Applicable
Update Note
Update Note:
Hemoglobin 6.4. Consent obtained and 1 unit PRBC ordered for transfusion as well as 40mg IV Protonix. She was admitted for further evaluation and management.
ED Attending Note
-
Portions of this chart may have been created with voice recognition software.� Occasional wrong word or��sound alike� substitutions may have occurred due to the inherent limitations of voice recognition software.
Discharge Plan
Departure
Patient Disposition: Admit
Date of Disposition: 12/31/23
Time of Disposition: 22:19
Presentation/result/management discussed w/ accepting MD/DO: Hospitalist
Discharge Problem:
GI bleed
Interventions
Interventions:
*Risk Screen - Suicide Last Done: 12/31/23 21:28
*General Assessment Last Done: 12/31/23 21:28
*Neglect/Abuse Screening Last Done: 12/31/23 21:28
*ED COVID-19 Vaccine History Last Done: 12/31/23 21:28
--- NOTE | 2023-12-31 22:23 | HPS.HSE ---
Addendum entered and electronically signed by Aidan Chambers DO 12/31/23 23:22:
Patient seen and examined independently. Agree with findings and plan as set forth by ELLEN Paris.
Patient is a 58y F with PMH significant for prior CVA, DM-I, A-Fib and CKD who [place] to ED from local [place] for evaluation of worsening anemia noted on outpatient labs. Patient herself denies any complaints. She specifically denies any evident
blood loss including epistaxis, hematuria, BRBPR or black stools. She is somewhat pale appearing. Hgb today is 6.4 g/dL and patient was noted to have heme positive stools in the ED.
Ass:
Acute Blood Loss Anemia
Anemia of CKD
Heme Positive Stools / GI Bleed
Paroxysmal A-Fib
Prior CVA - Presumed Embolic
IDDM
CKD IV
Tobacco Use Disorder
Plan:
Admit for further evaluation and treatment.
PRBCs ordered in the ED - patient with positive antibodies so transfusion will be delayed somewhat.
Hemodynamically stable at present.
Hold Eliquis acutely.
PPI infusion started in the ED.
GI evaluation for additional recommendations / possible endoscopic examinations.
Continue other outpatient medications.
Follow H&H for changes and provide additional PRBCs if needed.
Original Note:
Family Physician
-
Family Physician:
Chief Complaint
-
abnormal labs.
History of Present Illness
58yoF with a history of atrial fibrillation on Eliquis, hypertension, prior CVA, type 1 diabetes, chronic anemia, and CKD presenting via EMS for evaluation of an abnormal outpatient lab. patient denied any black stool, bloody stool. denied abdominal
pain,nausea and vomiting. patient denied fever, chills, chest pain, sob.denied dysuria or hematuria.
hgb 6.4, ordered one unit of blood. admitting for further management.
Medical History
Past Medical History
Past Medical History: Reports Other
Additional Past Medical History:
alcohol induced pancreatitis
chest pain
constipation
dysphagia
insomnia
hld
MRSA
CHF
anxiety
CVA
CKD
HTn
GURDEEP
paroxysmal atrial fib
type 2 Dm
UTI
Past Surgical History: Reports None
Social History
Tobacco: Smoker (1.5 packa day)
Alcohol: Former
Drug: None
Personal: Single
Living: Assisted Living
Family History
Family History: Not pertinent
Allergies / Home Medications
Allergies reflects when Allergies were last updated in [facility].
Home Medications with original date entered in [facility]
Allergy/Medication List:
Allergies
Allergy/AdvReac Type Severity Reaction Status Date / Time
adhesive tape Allergy Rash Verified 12/10/23 04:31
cephalexin [From Keflex] Allergy Unknown Verified 12/10/23 04:31
Home Medications
acetaminophen 325 mg tablet 650 mg PO Q6H PRN pain/fever 12/10/23
apixaban 2.5 mg tablet (Eliquis) 2.5 mg PO BID a-FIB 12/10/23
aspirin 81 mg tablet,delayed release 81 mg PO DAILY Blood Clot Prevention/Tx 12/10/23
bisacodyl 5 mg tablet 5 mg PO DAILY PRN constipation 12/10/23
carvedilol 25 mg tablet 25 mg PO BID Blood Pressure 12/10/23
dextrose 40 % oral gel (Glucose Gel) 15 g PO Q15M PRN hypoglycemia 12/10/23
epoetin jaimee-epbx 4,000 unit/mL injection solution (Retacrit) 4,000 unit SC WEEKLY RENAL 12/10/23
ferrous sulfate 325 mg (65 mg iron) tablet 650 mg PO BID Supplement 12/10/23
folic acid 1 mg tablet 1 mg PO DAILY Supplement 12/10/23
glucagon 1 mg solution for injection (Glucagon Emergency Kit) 1 mg IM ONCE PRN hypoglycemia 12/10/23
insulin lispro 100 unit/mL subcutaneous pen (Humalog KwikPen (U-100) Insulin) 1 sliding scale dose SC DIRECTED Diabetes 12/10/23
insulin lispro 100 unit/mL subcutaneous pen (Humalog KwikPen (U-100) Insulin) 4 unit SC AC Diabetes 12/10/23
ipratropium 0.5 mg-albuterol 3 mg (2.5 mg base)/3 mL nebulization soln 3 ml inhalation 6XD Lung/Breathing Issues 12/10/23
isosorbide mononitrate 60 mg tablet,extended release 24 hr 60 mg PO DAILY Heart Disease/Condition 12/10/23
magnesium hydroxide 400 mg/5 mL oral suspension 5 ml PO DAILY Gastrointestinal Issue 12/10/23
magnesium hydroxide 400 mg/5 mL oral suspension (Milk of Magnesia) 30 ml PO DAILY Constipation 12/10/23
pantoprazole 40 mg tablet,delayed release 40 mg PO DAILY Gastrointestinal Issue 12/10/23
sodium bicarbonate 650 mg tablet 1,300 mg PO BID Electrolyte Repletion 12/10/23
sodium phosphates 19 gram-7 gram/118 mL enema (Fleet Enema) 118 ml [place] ONCE PRN constipation 12/10/23
atorvastatin 40 mg tablet 40 mg PO HS #30 tabs 12/13/23
hydralazine 25 mg tablet 50 mg (2 x 25 mg) PO TID #90 tabs 12/13/23
bisacodyl 5 mg rectal suppository 5 mg IL DAILY PRN constipation 12/31/23
insulin glargine 100 unit/mL subcutaneous solution 5 unit SC DAILY 12/31/23
lorazepam 0.5 mg tablet (Ativan) 0.5 mg PO DAILY anxiety 12/31/23
Review of Systems
-
Constitutional: Reports No Symptoms
EENT: Reports No Symptoms
Respiratory: Reports No Symptoms
Cardiac: Reports No Symptoms
Abdomen/GI: Reports No Symptoms
: Reports No Symptoms
Musculoskeletal: Reports No Symptoms
Skin: Reports No Symptoms
Neurological: Reports No Symptoms
Endocrine: Reports No Symptoms
Hematologic/Lymphatic: Reports No Symptoms
Psych: Reports No Symptoms
Physical Exam
Vital Signs
Vital Signs
Temp Pulse Resp BP Pulse Ox
98 F 71 12 187/52 100
12/31/23 21:28 12/31/23 22:00 12/31/23 22:00 12/31/23 22:00 12/31/23 21:45
Physical Exam
General: Well Developed, Well Nourished and No Apparent Distress
HEENT: NormoCephalic, Moist mucous membranes and Atraumatic
Respiratory: Clear
Cardiac: S1/S2 and Regular Rhythm; No Murmur or Rub
GI: Soft, Non Tender, Non Distended and Normal Bowel Sounds; No Organomegaly
Rectal: Deferred by Provider
Musculoskeletal: No Clubbing, No Cyanosis and No Edema
Skin: No Rash
Neuro: Nonfocal/grossly intact
Psych: Agitated
Laboratory Results
-
12/31/23 21:36
12/31/23 21:36
Laboratory Results
Total Bilirubin 0.3 mg/dl (0.2-1.3) 12/31/23 21:36
AST 34 U/L (14-36) 12/31/23 21:36
ALT 30 U/L (0-35) 12/31/23 21:36
Alkaline Phosphatase 98 U/L (38-126) 12/31/23 21:36
Data Reviewed
-
Lab Data: Labs Reviewed by me
Impression/Plan
-
#acute on chronic anemia likely from GI bleed
-hgb 6.4
-Hemoccult positive
-1unit PRBC in ER
-continue to trend hgb
-keep patient NPO
-IV PPI
-GI consult
#CKD stage 1v
-cr 2.9
-ctm
#Essential HTN
-Coreg continued
-BP elevated in ER
-hydralazine continued
-Imdur continued
-gave one dose of hydralazine and Coreg in ER.
#anxiety
Ativan continued
#paroxysmal atrial fib
-obtain EKG
-hold eliquis
#DM type 2
-sliding scale
-Lantus 5units daily
#CKD stage 4
#GURDEEP
#Hx of CVA
-asa continued
-statin continued
#Nicotine dependence
-denied nicotine patch
DVT ppx on scd
Full code
[2023-12-31 22:27] LABS: INR 1.33; PT 16.3 Sec (11.4-14.6)
[2023-12-31 22:28] LABS: APTT 29.9 Sec (23.4-35.0)
[2023-12-31] MEDS: PROTONIX IV 40 MG IV (22:49)
[2023-12-31 23:00] VITALS: BP 174/68
--- NOTE | 2023-12-31 23:04 | W.PN.UPDATE ---
Update Note
Progress Note Update
patient has positive antibody screen so there will be a delay in getting blood for her as they work that up.
[2023-12-31] MEDS: COREG 25 MG PO (23:09)
[2023-12-31] MEDS: APRESOLINE 50 MG PO (23:09)
[2024-01-01] VITALS (13 sets, daily range): BP systolic 82–172; BP diastolic 58–115; PULSE 59–81; BMI 18.0
--- NOTE | 2024-01-01 00:51 | PTCARENOTE ---
Pt arrived onto floor @0051. Pt AAOx3 and a dross puller to the bed. Pt with no complaints of pain or SOB at this time. Pt oriented to room and call jaquez; will continue to monitor.
[2024-01-01] MEDS: DUONEB INH ×3 (03:42→15:45)
[2024-01-01 06:02] LABS: Blood Urea Nitrogen 53 mg/dl (7-17); Carbon Dioxide 20 mmol/L (22-30); Chloride 107 mmol/L (98-107); Estimated Creatinine Clearance 16 ml/min; Glucose 198 mg/dl (70-99); Potassium 4.1 mmol/L (3.5-5.1); Sodium 137 mmol/L (135-145); eGFR 17.37
[2024-01-01 06:44] LABS: Hematocrit 17.6 % (37.0-47.0); Hemoglobin 5.9 g/dL (12.0-16.0); Mean Corp Hgb Conc. 33.5 g/dL (33.0-37.0); Mean Corpuscular Hgb 32.2 pg (27.0-31.0); Mean Corpuscular Volume 96.2 fL (81.0-99.0); Mean Platelet Volume 9.8 fL (7.4-10.4); Platelet Count 196 10^3/uL (130-400); Red Blood Cell Count 1.83 10^6/uL (4.20-5.40); Red Cell Dist. Width 15.7 % (11.5-14.5); White Blood Cell Count 6.2 10^3/uL (4.8-10.8)
[2024-01-01] MEDS: IMDUR (EXTENDED RELEASE) PO (07:46)
[2024-01-01] MEDS: COREG PO ×2 (07:46→19:33)
[2024-01-01] MEDS: APRESOLINE PO ×2 (07:46→23:55)
[2024-01-01] MEDS: ATIVAN 0.5 MG PO (07:47)
[2024-01-01] MEDS: SODIUM BICARBONATE 1300 MG PO ×2 (07:47→19:33)
[2024-01-01] MEDS: FOLVITE 1 MG PO (07:47)
[2024-01-01] MEDS: TYLENOL 650 MG PO ×3 (07:47→22:53)
[2024-01-01] MEDS: ASPIR LOW (ENTERIC COATED) 81 MG PO (07:47)
[2024-01-01] MEDS: FEOSOL 650 MG PO ×2 (07:47→19:33)
[2024-01-01] MEDS: NSS (PRESERVATIVE FREE) 10 ML IV (07:48)
[2024-01-01] MEDS: PROTONIX IV 40 MG IV (07:48)
[2024-01-01 07:49] LABS: Glucose - Point of Care 235 mg/dl (70-99)
[2024-01-01] MEDS: LANTUS 0.05 UNITS SC (07:49)
[2024-01-01] MEDS: DUONEB 3 ML INH (07:59)
[2024-01-01] MEDS: NOVOLOG FLEXPEN-MODERATE RESISTANCE 3 UNITS SC (09:17)
--- NOTE | 2024-01-01 10:30 | PTCARENOTE ---
Patient's H&H 5.9 17.6, blood bank states will take multiple days to receive blood due to positive antibodies, MD Gastelum aware.
--- NOTE | 2024-01-01 11:20 | W.PN.HOSP.TC ---
Today's Communication/Plan
-
Await transfusion
GI consult
Assessment / Plan
Assessment / Plan
Gen-awake, alert, NAD
HEENT-NC, AT, anicteric, clear oral mm
Neck-supple
CV-reg, no M, +S1/S2
Lungs-clear B/L
Abd-soft, NT, ND
Ext-no edema
Musculoskeletal-no cyanosis, clubbing
Skin-warm and dry
Neuro-grossly non-focal
Psych-calm, cooperative
Acute on chronic anemia -likely multifactorial etiology for acute anemia including GI blood loss given heme positive stools. Does have baseline chronic kidney disease induced anemia.
Hemoglobin down to 5.9 this morning. Baseline unknown but but appears to be around 9.
Transfusions ordered but patient has multiple antibodies and blood bank reports there will be a delay in obtaining the blood.
Acute/subacute GI bleed -currently n.p.o. awaiting GI input. Hemodynamically stable. Patient is a unreliable historian. Denies melena or hematochezia. Lives in a detention.
Hold Eliquis.
CKD 4 -stable.
Hyponatremia -resolved.
Paroxysmal atrial fibrillation -hold Eliquis as above.
History of stroke
Hyperlipidemia -on atorvastatin.
DM2 with hyperglycemia -glucose 198 this morning. She in the detention she is on glargine insulin 5 units daily, lispro insulin 4 units AC, lispro sliding scale.
Tobacco dependence
Full code
Anticipated Discharge: > 48 hours
Subjective/Interval History
-
Date of Service: January 01, 2024
Patient seen and examined. No complaints.
Objective Data
-
Labs:
Laboratory Results
01/01/24
05:07
WBC 6.2
Hgb 5.9 L*
Hct 17.6 L*
Plt Count 196
Sodium 137
Potassium 4.1
Chloride 107
Carbon Dioxide 20 L
BUN 53 H
Creatinine 3.0 H
Glucose 198 H
Calcium 9.0
Vital Signs:
Vital Signs
Temp Pulse Resp BP Pulse Ox
97.9 F 65 16 102/59 100
01/01/24 07:41 01/01/24 08:05 01/01/24 08:05 01/01/24 07:41 01/01/24 08:05
Review of Systems
-
History Source: Patient
All other systems: Reviewed and negative
[2024-01-01 11:55] LABS: Glucose - Point of Care 178 mg/dl (70-99)
[2024-01-01] MEDS: NOVOLOG FLEXPEN-MODERATE RESISTANCE 1 UNITS SC (12:05)
--- NOTE | 2024-01-01 13:39 | CON.GI ---
Consultation
-
Date/Time Consultation Requested: 01/01/24 at 8am
Date/Time Consultation Performed: 01/01/24 at 11:30
Requesting Provider: Nirav
Performing Provider: marco
Reason for Consultation: GIBleed
Medical History
Chief Complaint / HPI
Chief Complaint: GI bleed
History of Present Illness:
This patient is a 58-year-old woman with a history of atrial fibrillation on Eliquis, hypertension, CVA and diabetes as well as chronic kidney disease she was sent from [facility] to the [facility] because of low hemoglobin seen on labs. She does
deny GI symptoms such as black stool, nausea or vomiting. She has not had either endoscopy or colonoscopy in the past. Her hgb was 5.9 and the baseline is believed to be 9. She has dysarthria but able to communicate w/o issue
Past Medical History
Past Medical History: Other (Pancreatitis, chest pain, MRSA, CVA, chronic kidney disease, hypertension, iron deficiency anemia, paroxysmal A-fib, diabetes)
Past Surgical History: None
Social History
Tobacco: Smoker
Alcohol: Former
Family History
Family History: Reviewed & Not Pertinent
Allergies / Home Medications
Allergy/AdvReac Type Severity Reaction Status Date / Time
adhesive tape Allergy Rash Verified 12/10/23 04:31
cephalexin [From Keflex] Allergy Unknown Verified 12/10/23 04:31
�Medication �Instructions �Recorded
acetaminophen 325 mg tablet 650 mg PO Q6H PRN pain/fever 12/10/23
apixaban 2.5 mg tablet (Eliquis) 2.5 mg PO BID a-FIB 12/10/23
aspirin 81 mg tablet,delayed 81 mg PO DAILY Blood Clot 12/10/23
release Prevention/Tx
bisacodyl 5 mg tablet 5 mg PO DAILY PRN constipation 12/10/23
carvedilol 25 mg tablet 25 mg PO BID Blood Pressure 12/10/23
dextrose 40 % oral gel (Glucose 15 g PO Q15M PRN hypoglycemia 12/10/23
Gel)
epoetin jaimee-epbx 4,000 unit/mL 4,000 unit SC WEEKLY ANEMIA DUE TO 12/10/23
injection solution (Retacrit) CKD
ferrous sulfate 325 mg (65 mg 650 mg PO BID Supplement 12/10/23
iron) tablet
folic acid 1 mg tablet 1 mg PO DAILY Supplement 12/10/23
glucagon 1 mg solution for 1 mg IM ONCE PRN hypoglycemia 12/10/23
injection (Glucagon Emergency Kit)
insulin lispro 100 unit/mL 1 sliding scale dose SC 12/10/23
subcutaneous pen (Humalog KwikPen DIRECTED Diabetes
(U-100) Insulin)
insulin lispro 100 unit/mL 4 unit SC AC Diabetes 12/10/23
subcutaneous pen (Humalog KwikPen
(U-100) Insulin)
ipratropium 0.5 mg-albuterol 3 mg 3 ml inhalation 6XD Lung/Breathing 12/10/23
(2.5 mg base)/3 mL nebulization Issues
soln
isosorbide mononitrate 60 mg 60 mg PO DAILY Heart 12/10/23
tablet,extended release 24 hr Disease/Condition
magnesium hydroxide 400 mg/5 mL 5 ml PO DAILY Gastrointestinal 12/10/23
oral suspension Issue
magnesium hydroxide 400 mg/5 mL 30 ml PO DAILY Constipation 12/10/23
oral suspension (Milk of Magnesia)
pantoprazole 40 mg tablet,delayed 40 mg PO DAILY Gastrointestinal 12/10/23
release Issue
sodium bicarbonate 650 mg tablet 1,300 mg PO BID Electrolyte 12/10/23
Repletion
sodium phosphates 19 gram-7 118 ml [place] ONCE PRN constipation 12/10/23
gram/118 mL enema (Fleet Enema)
atorvastatin 40 mg tablet 40 mg PO HS #30 tabs 12/13/23
hydralazine 25 mg tablet 50 mg (2 x 25 mg) PO TID #90 tabs 12/13/23
bisacodyl 5 mg rectal suppository 5 mg UT DAILY PRN constipation 12/31/23
insulin glargine 100 unit/mL 5 unit SC DAILY Diabetes 12/31/23
subcutaneous solution
lorazepam 0.5 mg tablet (Ativan) 0.5 mg PO DAILY anxiety 12/31/23
Review of Systems
-
All other systems: A 12 pt ROS was Negative except as stated above in HPI
Vital Signs
Temp Pulse Resp BP Pulse Ox
98.1 F 68 17 103/63 99
01/01/24 11:00 01/01/24 11:00 01/01/24 11:00 01/01/24 11:00 01/01/24 11:00
Physical Exam
Exam
General: No Apparent Distress
Cardiac: S1/S2
GI: Soft and Non Tender
Rectal: Other (hard stool in vault)
Neuro: Awake and Alert
Psych: Calm
Results
WBC 6.2 10^3/uL (4.8-10.8) 01/01/24 05:07
Hgb 5.9 g/dL (12.0-16.0) L* 01/01/24 05:07
Hct 17.6 % (37.0-47.0) L* 01/01/24 05:07
MCV 96.2 fL (81.0-99.0) 01/01/24 05:07
Plt Count 196 10^3/uL (130-400) 01/01/24 05:07
Absolute Neuts (auto) 4.7 10^3/uL (1.4-6.5) 12/31/23 21:36
PT 16.3 Sec (11.4-14.6) H 12/31/23 22:09
INR 1.33 12/31/23 22:09
APTT 29.9 Sec (23.4-35.0) 12/31/23 22:09
Sodium 137 mmol/L (135-145) 01/01/24 05:07
Potassium 4.1 mmol/L (3.5-5.1) 01/01/24 05:07
Chloride 107 mmol/L (98-107) 01/01/24 05:07
Carbon Dioxide 20 mmol/L (22-30) L 01/01/24 05:07
BUN 53 mg/dl (7-17) H 01/01/24 05:07
Creatinine 3.0 mg/dL (0.6-1.0) H 01/01/24 05:07
Calcium 9.0 mg/dl (8.4-10.2) 01/01/24 05:07
Total Bilirubin 0.3 mg/dl (0.2-1.3) 12/31/23 21:36
AST 34 U/L (14-36) 12/31/23 21:36
ALT 30 U/L (0-35) 12/31/23 21:36
Alkaline Phosphatase 98 U/L (38-126) 12/31/23 21:36
Assessment / Plan
-
This patient is a 58-year-old woman with history of atrial fibrillation on Eliquis who has acute drop in her hemoglobin from baseline. She does not have a history of any GI symptoms but is also not had either endoscopy or colonoscopy. She does have
hard stool in the vault. For now I do the following;
1. clear liquids if allowed (d/w Rena nurse to ensure she is allowed based on dysphagia risk)
2. miralax daily
3. enema x1
4. holding eliquis
5. transfuse when able (she has antibodies)
6. ideally start with an egd when able.
-
-
Thank you for consultation and allowing me to participate in the patient's care. Please call the workforce consultant GI physician during the after hours with any questions or concerns.
[2024-01-01] MEDS: MIRALAX 17 GRAMS PO (14:56)
--- NOTE | 2024-01-01 15:25 | PTCARENOTE ---
patient's daughter, evgeny, called nurses unit to receive information regarding her mother. Patient's daughter used a civil engineering project designer via telephone and Mrs. Kim gave floor nurse, Catina, permission to share her information with her
daughter.
[2024-01-01] MEDS: APRESOLINE 50 MG PO (16:32)
[2024-01-01 16:56] LABS: Glucose - Point of Care 121 mg/dl (70-99)
[2024-01-01] MEDS: NOVOLOG FLEXPEN-MODERATE RESISTANCE SC (16:59)
[2024-01-01] MEDS: LIPITOR 40 MG PO (19:35)
[2024-01-01 21:05] LABS: Glucose - Point of Care 256 mg/dl (70-99)
[2024-01-02] VITALS (9 sets, daily range): BP systolic 81–168; BP diastolic 52–81; PULSE 61–87; BMI 18.4
[2024-01-02] MEDS: TYLENOL 650 MG PO (05:49)
[2024-01-02 07:39] LABS: Glucose - Point of Care 162 mg/dl (70-99)
[2024-01-02 07:54] LABS: % Basophils 0.2 % (0-2); % Eosinophils 1.9 % (0-6); % Immature Granulocytes 0.3 % (0-0.5); % Lymphocytes 20.2 % (20.5-51.1); % Monocytes 10.2 % (1.7-9.3); % Neutrophils 67.2 % (42.2-75.2); Absolute Eosinophils 0.1 10^3/uL (0-0.7); Absolute Lymphocytes 1.3 10^3/uL (1.2-3.4); Absolute Monocytes 0.7 10^3/uL (0.1-0.6); Absolute Neutrophils 4.3 10^3/uL (1.4-6.5); Hematocrit 19.7 % (37.0-47.0); Hemoglobin 6.7 g/dL (12.0-16.0); Mean Platelet Volume 9.5 fL (7.4-10.4); Nucleated Red Blood Cells % 0 %; Platelet Count 209 10^3/uL (130-400); Red Blood Cell Count 2.03 10^6/uL (4.20-5.40); Red Cell Dist. Width 15.9 % (11.5-14.5); White Blood Cell Count 6.4 10^3/uL (4.8-10.8)
[2024-01-02 08:07] LABS: Blood Urea Nitrogen 51 mg/dl (7-17); Calcium 9.3 mg/dl (8.4-10.2); Carbon Dioxide 22 mmol/L (22-30); Chloride 104 mmol/L (98-107); Estimated Creatinine Clearance 18 ml/min; Glucose 140 mg/dl (70-99); Potassium 4.4 mmol/L (3.5-5.1); Sodium 137 mmol/L (135-145); eGFR 18.86
[2024-01-02 08:22] LABS: Iron 33 ug/dl (37-170)
[2024-01-02 08:38] LABS: Percent Saturation 14 % (20-50); Total Iron Binding Capacity 225 ug/dl (265-497)
[2024-01-02] MEDS: LANTUS 0.05 UNITS SC (08:41)
[2024-01-02] MEDS: NOVOLOG FLEXPEN-MODERATE RESISTANCE 1 UNITS SC (08:43)
[2024-01-02] MEDS: NSS (PRESERVATIVE FREE) 10 ML IV (08:44)
[2024-01-02] MEDS: PROTONIX IV 40 MG IV (08:44)
[2024-01-02] MEDS: FEOSOL 650 MG PO ×2 (08:44→20:11)
[2024-01-02] MEDS: FOLVITE 1 MG PO (08:45)
[2024-01-02] MEDS: COREG 25 MG PO (08:45)
[2024-01-02] MEDS: APRESOLINE 50 MG PO (08:45)
[2024-01-02] MEDS: IMDUR (EXTENDED RELEASE) 60 MG PO (08:45)
[2024-01-02] MEDS: ASPIR LOW (ENTERIC COATED) 81 MG PO (08:45)
[2024-01-02] MEDS: SODIUM BICARBONATE 1300 MG PO ×2 (08:45→20:11)
[2024-01-02] MEDS: ATIVAN 0.5 MG PO (08:45)
[2024-01-02] MEDS: MIRALAX PO (08:46)
[2024-01-02 11:15] LABS: Glucose - Point of Care 328 mg/dl (70-99)
[2024-01-02] MEDS: NOVOLOG FLEXPEN-MODERATE RESISTANCE 7 UNITS SC ×2 (12:24→17:10)
--- NOTE | 2024-01-02 12:40 | CON.ONC ---
Documented by User: Veronica Wilson MD, Resident 01/02/24 12:59
Impression
Impression
58-year-old female living in a correction with past medical history of chronic kidney disease hypertension diabetes type 1, CVA, paroxysmal A-fib admitted with anemia. 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
Anti-C). Transfusion is not an option for this patient due to potential reactions. Patient is hemodynamically stable and does not have any symptoms of anemia.
Plan
Plan
# Anemia
- Likely multifactorial in the setting of chronic kidney disease, heme positive --> endoscopic evaluation appreciated
- hgb 6.7 today
- Antibody screen positive --> transfusion not possible
- SREEKANTH is an option but is prothrombotic given this patient's history of CVA
- Hold Eliquis
- Check for hemolysis (LDH, haptoglobin, bilirubin)
Patient History
History of Present Illness
Patient is a 58-year-old female with past medical history of CVA, hypertension, diabetes mellitus type 1, paroxysmal A-fib, CKD stage IV presenting with low hemoglobin level on outside studies. Patient does not report any complaints, epistaxis,
melena, hematuria, hematochezia. Her hemoglobin is 6.7 today (baseline seems to be ~9). Patient has had heme positive stools in the ED.
Patient Medication
�Medication �Instructions �Recorded �Confirmed �Last Taken �Type
acetaminophen 325 mg tablet 650 mg PO Q6H PRN pain/fever 12/10/23 12/31/23 Unknown History
apixaban 2.5 mg tablet (Eliquis) 2.5 mg PO BID a-FIB 12/10/23 12/31/23 Unknown History
aspirin 81 mg tablet,delayed 81 mg PO DAILY Blood Clot 12/10/23 12/31/23 Unknown History
release Prevention/Tx
bisacodyl 5 mg tablet 5 mg PO DAILY PRN constipation 12/10/23 12/31/23 Unknown History
carvedilol 25 mg tablet 25 mg PO BID Blood Pressure 12/10/23 12/31/23 Unknown History
dextrose 40 % oral gel (Glucose 15 g PO Q15M PRN hypoglycemia 12/10/23 12/31/23 Unknown History
Gel)
epoetin jaimee-epbx 4,000 unit/mL 4,000 unit SC WEEKLY ANEMIA DUE TO 12/10/23 12/31/23 Unknown History
injection solution (Retacrit) CKD
ferrous sulfate 325 mg (65 mg 650 mg PO BID Supplement 12/10/23 12/31/23 Unknown History
iron) tablet
folic acid 1 mg tablet 1 mg PO DAILY Supplement 12/10/23 12/31/23 Unknown History
glucagon 1 mg solution for 1 mg IM ONCE PRN hypoglycemia 12/10/23 12/31/23 Unknown History
injection (Glucagon Emergency Kit)
insulin lispro 100 unit/mL 1 sliding scale dose SC 12/10/23 12/31/23 Unknown History
subcutaneous pen (Humalog KwikPen DIRECTED Diabetes
(U-100) Insulin)
insulin lispro 100 unit/mL 4 unit SC AC Diabetes 12/10/23 12/31/23 Unknown History
subcutaneous pen (Humalog KwikPen
(U-100) Insulin)
ipratropium 0.5 mg-albuterol 3 mg 3 ml inhalation 6XD Lung/Breathing 12/10/23 12/31/23 Unknown History
(2.5 mg base)/3 mL nebulization Issues
soln
isosorbide mononitrate 60 mg 60 mg PO DAILY Heart 12/10/23 12/31/23 Unknown History
tablet,extended release 24 hr Disease/Condition
magnesium hydroxide 400 mg/5 mL 5 ml PO DAILY Gastrointestinal 12/10/23 12/31/23 Unknown History
oral suspension Issue
magnesium hydroxide 400 mg/5 mL 30 ml PO DAILY Constipation 12/10/23 12/31/23 Unknown History
oral suspension (Milk of Magnesia)
pantoprazole 40 mg tablet,delayed 40 mg PO DAILY Gastrointestinal 12/10/23 12/31/23 Unknown History
release Issue
sodium bicarbonate 650 mg tablet 1,300 mg PO BID Electrolyte 12/10/23 12/31/23 Unknown History
Repletion
sodium phosphates 19 gram-7 118 ml OH ONCE PRN constipation 12/10/23 12/31/23 Unknown History
gram/118 mL enema (Fleet Enema)
atorvastatin 40 mg tablet 40 mg PO HS #30 tabs 12/13/23 12/31/23 Unknown Rx
hydralazine 25 mg tablet 50 mg (2 x 25 mg) PO TID #90 tabs 12/13/23 12/31/23 Unknown Rx
bisacodyl 5 mg rectal suppository 5 mg OH DAILY PRN constipation 12/31/23 12/31/23 Unknown History
insulin glargine 100 unit/mL 5 unit SC DAILY Diabetes 12/31/23 12/31/23 Unknown History
subcutaneous solution
lorazepam 0.5 mg tablet (Ativan) 0.5 mg PO DAILY anxiety 12/31/23 12/31/23 Unknown History
Active Medications
Generic Name Dose Route Start Last Admin
Trade Name Freq PRN Reason Stop Dose Admin
Acetaminophen 650 mg 01/01/24 00:41 01/02/24 05:49
Acetaminophen 325 Mg Tablet PO 01/29/24 00:40 650 mg
Q6H PRN Administration
pain/fever
Albuterol/Ipratropium 3 ml 01/01/24 15:48
Ipratropium 0.5/Albuterol 3 Mg (3 Ml Ampul) INH
R Q4HPRN PRN
SOB, wheezing
Protocol
Aspirin 81 mg 01/01/24 08:00 01/02/24 08:45
Aspirin 81 Mg (Enteric Coated) Tablet PO 01/29/24 07:59 81 mg
DAILY KANIKA Administration
Atorvastatin Calcium 40 mg 01/01/24 22:00 01/01/24 19:35
Atorvastatin (Lipitor) 40 Mg Tablet PO 01/29/24 21:59 40 mg
HS KANIKA Administration
Carvedilol 25 mg 01/01/24 08:00 01/02/24 08:45
Carvedilol 25 Mg Tablet PO 01/29/24 07:59 25 mg
BID KANIKA Administration
Dextrose 12.5 grams 01/01/24 00:41
Dextrose 50% (0.5 Grams/Ml) 50 Ml Syringe IV 01/29/24 00:40
[id number] PRN
hypoglycemia
Protocol
Ferrous Sulfate 650 mg 01/01/24 08:00 01/02/24 08:44
Ferrous Sulfate 325 Mg Tablet PO 01/29/24 07:59 650 mg
BID KANIKA Administration
Folic Acid 1 mg 01/01/24 08:00 01/02/24 08:45
Folic Acid 1 Mg Tablet PO 01/29/24 07:59 1 mg
DAILY KANIKA Administration
Glucagon 1 mg 01/01/24 00:41
Glucagon 1 Mg Vial IM 01/29/24 00:40
PRN PRN
hypoglycemia
Protocol
Hydralazine HCl 50 mg 01/01/24 08:00 01/02/24 08:45
Hydralazine 50 Mg Tablet PO 01/29/24 07:59 50 mg
TID KANIKA Administration
Insulin Glargine 5 units/ 0.05 mls @ 0 mls/hr 01/01/24 08:00 01/02/24 08:41
Device SC 01/29/24 07:59 0.05 mls
DAILY KANIKA Administration
As Directed
Insulin Aspart 0 units 01/01/24 07:30 01/02/24 12:24
Insulin Aspart Moderate Resistance 300 Units/3 Ml Pen.Injctr SC 01/29/24 07:29 7 units
AC KANIKA Administration
Protocol
Isosorbide Mononitrate 60 mg 01/01/24 08:00 01/02/24 08:45
Isosorbide Mononitrate 60 Mg Extended Release Tablet PO 01/29/24 07:59 60 mg
DAILY KANIKA Administration
Lorazepam 0.5 mg 01/01/24 08:00 01/02/24 08:45
Lorazepam 0.5 Mg Tablet PO 01/29/24 07:59 0.5 mg
DAILY KANIKA Administration
Pantoprazole Sodium 40 mg 01/01/24 08:00 01/02/24 08:44
Pantoprazole Sodium 40 Mg/10 Ml Vial IV 01/29/24 07:59 40 mg
DAILY KANIKA Administration
Polyethylene Glycol 17 grams 01/01/24 14:00 01/02/24 08:46
Polyethylene Glycol Powder 17 Grams Packet PO 01/29/24 13:59 Not Given
DAILY KANIKA
Sodium Bicarbonate 1,300 mg 01/01/24 08:00 01/02/24 08:45
Sodium Bicarbonate 650 Mg Tablet PO 01/29/24 07:59 1,300 mg
BID KAINKA Administration
Sodium Chloride 0 flush 01/01/24 03:00
Sodium Chloride 0.9% (Flush) Syringe IV 01/29/24 02:59
PER PROTOCOL KANIKA
Sodium Chloride 10 ml 01/01/24 08:00 01/02/24 08:44
Sodium Chloride 0.9% (Preservative Free) 10 Ml Vial IV 01/29/24 07:59 10 ml
DAILY KANIKA Administration
Review of Systems
-
Unable to obtain full review of systems at this time due to: Dementia and Other (Dysarthria)
History Source: Patient
Physical Exam
-
General: No Apparent Distress
HEENT: Other (Pale )
Genito-Urinary: No Costovertebral Tenderness
Musculoskeletal: No Clubbing, No Cyanosis and No Edema
Psych: Calm
Labs
Lab Results
WBC 6.4 10^3/uL (4.8-10.8) 01/02/24 07:16
RBC 2.03 10^6/uL (4.20-5.40) L 01/02/24 07:16
Hgb 6.7 g/dL (12.0-16.0) L* 01/02/24 07:16
Hct 19.7 % (37.0-47.0) L* 01/02/24 07:16
MCV 97.0 fL (81.0-99.0) 01/02/24 07:16
MCH 33.0 pg (27.0-31.0) H 01/02/24 07:16
MCHC 34.0 g/dL (33.0-37.0) 01/02/24 07:16
RDW 15.9 % (11.5-14.5) H 01/02/24 07:16
Plt Count 209 10^3/uL (130-400) 01/02/24 07:16
MPV 9.5 fL (7.4-10.4) 01/02/24 07:16
Abs Immat Gran (auto) 0.0 10^3/uL (0-0.05) 01/02/24 07:16
Absolute Neuts (auto) 4.3 10^3/uL (1.4-6.5) 01/02/24 07:16
Absolute Lymphs (auto) 1.3 10^3/uL (1.2-3.4) 01/02/24 07:16
Absolute Monos (auto) 0.7 10^3/uL (0.1-0.6) H 01/02/24 07:16
Absolute Eos (auto) 0.1 10^3/uL (0-0.7) 01/02/24 07:16
Absolute Basos (auto) 0.0 10^3/uL (0-0.2) 01/02/24 07:16
Immature Gran % 0.3 % (0-0.5) 01/02/24 07:16
Neutrophils % 67.2 % (42.2-75.2) 01/02/24 07:16
Lymphocytes % 20.2 % (20.5-51.1) L 01/02/24 07:16
Monocytes % 10.2 % (1.7-9.3) H 01/02/24 07:16
Eosinophils % 1.9 % (0-6) 01/02/24 07:16
Basophils % 0.2 % (0-2) 01/02/24 07:16
Creatinine 2.8 mg/dL (0.6-1.0) H 01/02/24 07:16
Vital Signs
Vital Signs
Temp Pulse Resp BP Pulse Ox
98.1 F 61 18 168/61 98
01/02/24 11:09 01/02/24 11:09 01/02/24 11:09 01/02/24 11:09 01/02/24 11:09

Documented by User: Bridget Parsons MD 01/02/24 20:02
Plan
Plan
# Anemia
- Likely multifactorial in the setting of chronic kidney disease, heme positive --> endoscopic evaluation appreciated
- hgb 6.7 today
- Antibody screen positive --> transfusion not possible
- SREEKANTH is an option but is prothrombotic given this patient's history of CVA
- Hold Eliquis
- Check for hemolysis (LDH, haptoglobin, bilirubin)
ATTENDING SUPPLEMENT
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 Hemolysis labs and direct Amaury with AM labs.
Discussed case with blood bank. It would take at least two weeks to find for blood for transfusion. Options would be to use national registry to see if an appropriate donor could be found, or directed donation which would take at least two weeks,
and donor blood could still be incompatible.
She has had transfusions in the past but may not have had this many antibodies at that time.
Transfusion not a realist strategy for her.
With iron sat 14% and ferritin 68 are consistent with deficiency. Start IV iron.
Ideally, she would continue off anticoagulation to prevent further blood loss.
Could consider SREEKANTH but prothrombotic.
Thank you for consult, will follow along with you.
--- NOTE | 2024-01-02 13:01 | W.PN.HOSP.TC ---
Today's Communication/Plan
-
Monitor vital signs see plan
Hold Eliquis
Continue to monitor hemoglobin
Check iron panel, B12, folate
Hematology evaluation
GI to see today
Spoke with daughter through j2ee software engineer
Assessment / Plan
Assessment / Plan
Gen-awake, alert, NAD
HEENT-NC, AT, anicteric, clear oral mm
Neck-supple
CV-reg, no M, +S1/S2
Lungs-clear B/L
Abd-soft, NT, ND
Ext-no edema
Musculoskeletal-no cyanosis, clubbing
Skin-warm and dry
Neuro-grossly non-focal
Psych-calm, cooperative
Acute on chronic anemia -likely multifactorial etiology for acute anemia including GI blood loss given heme positive stools. Does have baseline chronic kidney disease induced anemia.
Hemoglobin 6.7 this morning. has not received any blood transfusion since admission and hgb slowly improving. Baseline unknown but but appears to be around 9.
Transfusions ordered but patient has multiple antibodies and blood bank reports she wont be able to get blood transfusion since she has a lot of antibodies. Spoke with hematology and they do not think patient can get safely blood transfusion. They
advised patient to be off Eliquis. This was discussed with daughter by me as well as explained risk versus benefit. Patient has history of CVA
check iron panel,b12,folate
Acute/subacute GI bleed -on clears; awaiting GI input. Hemodynamically stable. Patient is a unreliable historian. Denies melena or hematochezia. Lives in a residential.
Hold Eliquis.
CKD 4 -stable.
Hyponatremia -resolved.
Paroxysmal atrial fibrillation -hold Eliquis as above.
History of CVA
On aspirin
History of stroke
Hyperlipidemia -on atorvastatin.
DM2 with hyperglycemia -She in the residential she is on glargine insulin 5 units daily, lispro insulin 4 units AC, lispro sliding scale.
Tobacco dependence
Full code
I spent a total of 52 minutes with the patient or on the floor. More than 50% of this time involved counseling and coordination of care.
Anticipated Discharge: 24 - 48 hours
Subjective/Interval History
-
Date of Service: January 02, 2024
denies pain
Objective Data
-
Labs:
Laboratory Results
01/02/24
07:16
WBC 6.4
Hgb 6.7 L*
Hct 19.7 L*
Plt Count 209
Sodium 137
Potassium 4.4
Chloride 104
Carbon Dioxide 22
BUN 51 H
Creatinine 2.8 H
Glucose 140 H
Calcium 9.3
Vital Signs:
Vital Signs
Temp Pulse Resp BP Pulse Ox
98.1 F 61 18 168/61 98
01/02/24 11:09 01/02/24 11:09 01/02/24 11:09 01/02/24 11:09 01/02/24 11:09
I&O
01/01/24 01/02/24 01/03/24
06:59 06:59 06:59
Intake Total 1140 / 1140
Balance 1140 / 1140
--- NOTE | 2024-01-02 13:21 | W.PN.GI.CBS2 ---
Today's Communication / Plan
-
await transfusion
Assessment / Plan
-
This patient is a 58-year-old woman with history of atrial fibrillation on Eliquis who has acute drop in her hemoglobin from baseline. She does not have a history of any GI symptoms but is also not had either endoscopy or colonoscopy. She does have
hard stool in the vault. For now I do the following;
1. clear liquids
2. miralax daily
3. holding eliquis
5. transfuse when able (she has multiple antibodies and still awaiting blood)
6. ideally start with an egd if needed, she does have anemia of chronic disease by iron studies.
Subjective
Subjective
Date of Service: January 02, 2024
Pt did respond to MOM enema and miralax. No vomiting or bleeding
Objective
Data Reviewed
Laboratory Data:
Laboratory Results
01/02/24 07:16
01/02/24 07:16
Laboratory Results
PT 16.3 Sec (11.4-14.6) H 12/31/23 22:09
INR 1.33 12/31/23 22:09
APTT 29.9 Sec (23.4-35.0) 12/31/23 22:09
Total Bilirubin 0.3 mg/dl (0.2-1.3) 12/31/23 21:36
AST 34 U/L (14-36) 12/31/23 21:36
ALT 30 U/L (0-35) 12/31/23 21:36
Alkaline Phosphatase 98 U/L (38-126) 12/31/23 21:36
Vital Signs and I&O:
Vital Signs
Temp Pulse Resp BP Pulse Ox
98.1 F 61 18 168/61 98
01/02/24 11:09 01/02/24 11:09 01/02/24 11:09 01/02/24 11:09 01/02/24 11:09
I&O
01/01/24 01/02/24 01/03/24
06:59 06:59 06:59
Intake Total 1140 / 1140
Balance 1140 / 1140
Physical Exam
Physical Exam
GI: Soft, Non Distended and Non Tender
[2024-01-02 14:39] LABS: Folate > 20.0 ng/ml (2.76-20); Vitamin B12 731 pg/ml (239-931)
[2024-01-02 15:16] LABS: Glucose - Point of Care 334 mg/dl (70-99)
[2024-01-02] MEDS: APRESOLINE PO ×2 (16:00→22:56)
--- NOTE | 2024-01-02 16:21 | CM ---
delicatessen department manager reviewed patient's chart and met with patient and patient was admitted from [facility] in [place], patient was able to stand and pivot to w/c, message left for Anabel at [facility] [phone], to obtain base line
information and bedhold status. delicatessen department manager also asking if patient needs Auth to return, referral sent through [employer].
[facility] [phone] [facility] [phone].
[2024-01-02] MEDS: FERRLECIT 110 MG IV (17:09)
--- NOTE | 2024-01-02 18:00 | PTCARENOTE ---
this RN went in pts room to give evening medication and found open bag of lithuanian fish candy on table. pt admits that her daughter brought in bag of candy for her earlier today. pt is aware that she is on a clear liquid diet and not supposed to be
eating anything. candy moved out of reach and MD notified.
[2024-01-02] MEDS: COREG PO (20:11)
[2024-01-02] MEDS: LIPITOR 40 MG PO (20:15)
--- NOTE | 2024-01-02 20:59 | W.PN.UPDATE ---
Update Note
Progress Note Update
RN notified NEWS VIDEOGRAPHER BP 82/53 @1900, states she feels tired, no active bleeding. Advised manual BP, 84/56, 87, 16, 99, 100%, continuos to wait for blood transfusion, hgb 6.7 in AM, just received Iron transfusion. Will order a NS 500 CC IV bolus,
encourage PO intake.
BP 116/81 HR 70's post fluids.
[2024-01-02 21:13] LABS: Glucose - Point of Care 390 mg/dl (70-99)
[2024-01-02] MEDS: NSS 500 IV (22:17)
[2024-01-03] VITALS (8 sets, daily range): BP systolic 101–128; BP diastolic 64–83; PULSE 64–80; BMI 19.5
[2024-01-03] MEDS: TYLENOL 650 MG PO ×3 (00:47→17:17)
[2024-01-03 07:36] LABS: Glucose - Point of Care 181 mg/dl (70-99)
[2024-01-03] MEDS: NOVOLOG FLEXPEN-MODERATE RESISTANCE 1 UNITS SC (08:12)
[2024-01-03] MEDS: ASPIR LOW (ENTERIC COATED) 81 MG PO (08:13)
[2024-01-03] MEDS: LANTUS 0.05 UNITS SC (08:13)
[2024-01-03] MEDS: NSS (PRESERVATIVE FREE) 10 ML IV (08:13)
[2024-01-03] MEDS: SODIUM BICARBONATE 1300 MG PO ×2 (08:13→21:40)
[2024-01-03] MEDS: PROTONIX IV 40 MG IV (08:13)
[2024-01-03] MEDS: FOLVITE 1 MG PO (08:14)
[2024-01-03] MEDS: FEOSOL 650 MG PO ×2 (08:14→21:40)
[2024-01-03] MEDS: ATIVAN 0.5 MG PO (08:14)
[2024-01-03] MEDS: MIRALAX 17 GRAMS PO (08:15)
[2024-01-03] MEDS: COREG 25 MG PO ×2 (08:15→21:48)
[2024-01-03] MEDS: IMDUR (EXTENDED RELEASE) 60 MG PO (08:15)
[2024-01-03] MEDS: APRESOLINE 50 MG PO ×2 (08:15→17:17)
[2024-01-03 08:39] LABS: % Basophils 0.3 % (0-2); % Eosinophils 3.7 % (0-6); % Immature Granulocytes 0.3 % (0-0.5); % Lymphocytes 22.4 % (20.5-51.1); % Monocytes 10.5 % (1.7-9.3); % Neutrophils 62.5 % (42.2-75.2); Absolute Eosinophils 0.2 10^3/uL (0-0.7); Absolute Lymphocytes 1.3 10^3/uL (1.2-3.4); Absolute Monocytes 0.6 10^3/uL (0.1-0.6); Absolute Neutrophils 3.7 10^3/uL (1.4-6.5); Hematocrit 18.9 % (37.0-47.0); Hemoglobin 6.2 g/dL (12.0-16.0); Mean Corp Hgb Conc. 33.5 g/dL (33.0-37.0); Mean Corpuscular Hgb 31.8 pg (27.0-31.0); Mean Corpuscular Volume 94.9 fL (81.0-99.0); Mean Platelet Volume 9.7 fL (7.4-10.4); Nucleated Red Blood Cells % 0 %; Platelet Count 205 10^3/uL (130-400); Red Blood Cell Count 1.98 10^6/uL (4.20-5.40); Red Cell Dist. Width 15.9 % (11.5-14.5)
[2024-01-03 08:46] LABS: ALT (SGPT) 26 U/L (0-35); AST (SGOT) 28 U/L (14-36); Albumin 2.9 g/dl (3.5-5.0); Alkaline Phosphatase 76 U/L (38-126); Blood Urea Nitrogen 42 mg/dl (7-17); Carbon Dioxide 20 mmol/L (22-30); Chloride 104 mmol/L (98-107); Direct Bilirubin 0.1 mg/dl (0.0-0.4); Estimated Creatinine Clearance 19 ml/min; Glucose 154 mg/dl (70-99); LDH 171 U/L (120-246); Potassium 4.5 mmol/L (3.5-5.1); Sodium 135 mmol/L (135-145); Total Bilirubin 0.2 mg/dl (0.2-1.3); Total Protein 5.3 g/dl (6.3-8.2); eGFR 19.71
--- NOTE | 2024-01-03 10:14 | W.PN.ONC ---
Today's Communication / Plan
-
- Continue IV iron.
- Monitor vitals.
Impression
Impression
58-year-old female living in a senior living with past medical history of chronic kidney disease, hypertension, diabetes type 1, CVA, paroxysmal A-fib admitted with anemia. 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 Patient is hemodynamically stable.
# Anemia
- Likely multifactorial in the setting of chronic kidney disease, heme positive --> endoscopic evaluation appreciated
- hgb 6.2 today
- Antibody screen positive --> transfusion
- SREEKANTH could be considered but is prothrombotic given this patient's history of CVA
- Hold Eliquis
- LDH, bilirubin: WNL
Plan
Plan
Discussed case with blood bank. It would take at least two weeks to find for blood for transfusion. Options would be to use national registry to see if an appropriate donor could be found, or directed donation which would take at least two weeks,
and donor blood could still be incompatible.
She has had transfusions in the past but may not have had this many antibodies at that time.
Transfusion not a realist strategy for her.
Iron sat 14% and ferritin 68 are consistent with deficiency. Continue IV iron.
Hemolysis labs wnl.
Continue off anticoagulation to prevent further blood loss.
Could consider SREEKANTH, but prothrombotic.
Subjective/Objective
Subjective/Objective
Vital Signs:
Vital Signs
Temp Pulse Resp BP Pulse Ox
98.2 F 76 20 114/70 98
01/03/24 07:23 01/03/24 07:23 01/03/24 07:23 01/03/24 07:23 01/03/24 07:23
Lab Results:
Laboratory Data
WBC 6.0 10^3/uL (4.8-10.8) 01/03/24 07:27
Hgb 6.2 g/dL (12.0-16.0) L* 01/03/24 07:27
Plt Count 205 10^3/uL (130-400) 01/03/24 07:27
PT 16.3 Sec (11.4-14.6) H 12/31/23 22:09
INR 1.33 12/31/23 22:09
APTT 29.9 Sec (23.4-35.0) 12/31/23 22:09
eGFR 19.71 01/03/24 07:27
[2024-01-03 11:32] LABS: Glucose - Point of Care 336 mg/dl (70-99)
[2024-01-03] MEDS: NOVOLOG FLEXPEN-MODERATE RESISTANCE 7 UNITS SC ×2 (11:46→17:17)
--- NOTE | 2024-01-03 12:00 | W.PN.HOSP.TC ---
Today's Communication/Plan
-
monitor vitals
see plan
monitor hgb; limit blood draws
cw IV iron
hematology and GI following
no compatible blood available for transfusion
Assessment / Plan
Assessment / Plan
Gen-awake, alert, NAD
HEENT-NC, AT, anicteric, clear oral mm
Neck-supple
CV-reg, no M, +S1/S2
Lungs-clear B/L
Abd-soft, NT, ND
Ext-no edema
Musculoskeletal-no cyanosis, clubbing
Skin-warm and dry
Neuro-grossly non-focal
Psych-calm, cooperative
Acute on chronic anemia -likely multifactorial etiology for acute anemia including GI blood loss given heme positive stools. Does have baseline chronic kidney disease induced anemia.
Hemoglobin 6.2 this morning. has not received any blood transfusion since admission and hgb slowly improving. Baseline unknown but but appears to be around 9.
Transfusions ordered but patient has multiple antibodies and blood bank reports she wont be able to get blood transfusion since she has a lot of antibodies. Spoke with hematology and they do not think patient can get safely blood transfusion. They
advised patient to be off Eliquis. This was discussed with daughter and patient by me as well as explained risk versus benefit. Patient has history of CVA
Iron panel suggestive of iron deficiency anemia, started IV iron
Per hematology continue SREEKANTH however pro thrombotic
Acute/subacute GI bleed -on clears; awaiting GI input. Hemodynamically stable. Patient is a unreliable historian. Denies melena or hematochezia. Lives in a [facility].
Hold Eliquis.
CKD 4 -stable.
Hyponatremia -resolved.
Paroxysmal atrial fibrillation -hold Eliquis as above.
History of CVA
On aspirin
History of stroke
Hyperlipidemia -on atorvastatin.
DM2 with hyperglycemia -She in the [facility] she is on glargine insulin 5 units daily, lispro insulin 4 units AC, lispro sliding scale. Increase glargine to 7 units
Tobacco dependence
Full code
I spent a total of 51 minutes with the patient or on the floor. More than 50% of this time involved counseling and coordination of care.
Anticipated Discharge: Within 24 hours
Subjective/Interval History
-
Date of Service: January 03, 2024
denies pain
Objective Data
-
Labs:
Laboratory Results
01/03/24
07:27
WBC 6.0
Hgb 6.2 L*
Hct 18.9 L*
Plt Count 205
Sodium 135
Potassium 4.5
Chloride 104
Carbon Dioxide 20 L
BUN 42 H
Creatinine 2.7 H
Glucose 154 H
Calcium 9.0
Total Bilirubin 0.2
AST 28
ALT 26
Alkaline Phosphatase 76
Vital Signs:
Vital Signs
Temp Pulse Resp BP Pulse Ox
98.3 F 73 16 113/70 93
01/03/24 11:45 01/03/24 11:45 01/03/24 11:45 01/03/24 11:45 01/03/24 11:45
I&O
01/02/24 01/03/24 01/04/24
06:59 06:59 06:59
Intake Total 1140 / 1140 460 / 460
Balance 1140 / 1140 460 / 460
--- NOTE | 2024-01-03 12:59 | CM ---
Chart reviewed and patient to return to [facility] when stable. Patient will need Auth per Elly in admissions at [facility] [phone]. Patient will need Auth will need to obtain NPI numbers.
Plan; Patient to return to [facility] when stable.
--- NOTE | 2024-01-03 13:10 | W.PN.GI.CBS2 ---
Addendum entered and electronically signed by Jarad Muniz MD 01/03/24 15:47:
I saw and examined the patient.
The ASSISTANT FOREMAN or PA's note was reviewed and I agree with the note.
Comment: No bleeding noted. Brown stool
ABD soft NT
REC:
Unable to get blood transfusion due to Abs
Hgb 6.2 still
Hold off on EGD. Pt somewhat reluctant to have procedures but would agree 'if I had too'
Will follow and recommend EGD when Hgb improved.
Original Note:
Today's Communication / Plan
-
etiology of anemia multi factorial with CKD, dark stools
EGD held for now awaiting transfusion but make take a while with antibodies
cont IV iron
hematology pending
will review timing for EGD +/- colon with Dr. Muniz if unable to get transfusion soon-- IP Vs OP
remains on clear diet
transfuse when able
Eliquis on hold
cont mirlalax daily
cont protonix
Assessment / Plan
-
This patient is a 58-year-old woman with history of atrial fibrillation on Eliquis who has acute drop in her hemoglobin from baseline. She does not have a history of any GI symptoms but is also not had either endoscopy or colonoscopy. She does have
hard stool in the vault. For now I do the following;
-anemia with noted antibodies
-dark stools
-CKD
-PAF - Eliquis prior to admission
-CVA on ASA
-DM
PLAN:
etiology of anemia multi factorial with CKD, dark stools
EGD held for now awaiting transfusion but make take a while with antibodies
cont IV iron
hematology pending
will review timing for EGD +/- colon with Dr. Muniz if unable to get transfusion soon-- IP Vs OP
remains on clear diet
transfuse when able
Eliquis on hold
cont mirlalax daily
cont protonix
Subjective
Subjective
Date of Service: January 03, 2024
01/01 brown stool on clear diet
Objective
Data Reviewed
Laboratory Data:
Laboratory Results
01/03/24 07:27
01/03/24 07:27
Laboratory Results
PT 16.3 Sec (11.4-14.6) H 12/31/23 22:09
INR 1.33 12/31/23 22:09
APTT 29.9 Sec (23.4-35.0) 12/31/23 22:09
Total Bilirubin 0.2 mg/dl (0.2-1.3) 01/03/24 07:27
AST 28 U/L (14-36) 01/03/24 07:27
ALT 26 U/L (0-35) 01/03/24 07:27
Alkaline Phosphatase 76 U/L (38-126) 01/03/24 07:27
Vital Signs and I&O:
Vital Signs
Temp Pulse Resp BP Pulse Ox
98.3 F 73 16 113/70 93
01/03/24 11:45 01/03/24 11:45 01/03/24 11:45 01/03/24 11:45 01/03/24 11:45
I&O
01/02/24 01/03/24 01/04/24
06:59 06:59 06:59
Intake Total 1140 / 1140 460 / 460
Balance 1140 / 1140 460 / 460
Physical Exam
Physical Exam
HEENT: Anicteric and Moist mucous membranes
Cardiology: Normal Sinus Rhythm
Pulmonary: Clear
GI: Soft, Non Distended and Non Tender
Extremities: No Edema
Neuro: Non Focal
[2024-01-03] MEDS: FERRLECIT 110 MG IV (13:49)
[2024-01-03 16:04] LABS: Glucose - Point of Care 320 mg/dl (70-99)
[2024-01-03 21:17] LABS: Glucose - Point of Care 136 mg/dl (70-99)
[2024-01-03] MEDS: LIPITOR 40 MG PO (21:40)
[2024-01-03] MEDS: APRESOLINE PO (21:49)
[2024-01-04] VITALS (10 sets, daily range): BP systolic 78–217; BP diastolic 50–86; PULSE 75–107; BMI 17.7
[2024-01-04] MEDS: TYLENOL 650 MG PO (00:23)
--- NOTE | 2024-01-04 03:25 | PTCARENOTE ---
Pt found to have drastically different blood pressures in each arm. Manual blood pressure in RUE reads 216/68, while manual blood pressure LUE is 116/62. Pt asymptomatic, and reports she 'does not feel any different than before.' Pt denies
headache, and has been voiding fine overnight. ENGINE DESIGNER notified. Will continue to monitor
--- NOTE | 2024-01-04 06:09 | W.PN.ONC2 ---
Today's Communication / Plan
-
Cont IV Ferrlecit Iron 125 mg IV 01/01-01/05 ordered. Hold Kinjalquis. Options limited as suspected GI bleed without ability to safely give transfusions because of multiple antibodies found on crossmatch.
Monitor CBC.
Impression
Impression
58-year-old female living in a custodial with past medical history of chronic kidney disease, hypertension, diabetes type 1, CVA, paroxysmal A-fib admitted with anemia. 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 Patient is hemodynamically stable.
# Anemia
- Likely multifactorial in the setting of chronic kidney disease, heme positive --> endoscopic evaluation appreciated
- Antibody screen positive --> transfusion
- SREEKANTH could be considered but is prothrombotic given this patient's history of CVA
- Hold Eliquis
- LDH, bilirubin: WNL
Plan
Plan
Discussed case with blood bank. It would take at least two weeks to find for blood for transfusion. Options would be to use national registry to see if an appropriate donor could be found, or directed donation which would take at least two weeks,
and donor blood could still be incompatible.
She has had transfusions in the past but may not have had this many antibodies at that time.
Transfusion not a realist strategy for her.
Iron sat 14% and ferritin 68 are consistent with deficiency. Continue IV iron.
Hemolysis labs wnl.
Continue off anticoagulation to prevent further blood loss.
Could consider SREEKANTH, but prothrombotic.
Subjective/Objective
Chief Complaint
ACS Heme Onc F/U
Subjective
Awake and offers no complaints. Dysathria.
Vital Signs:
Vital Signs
Temp Pulse Resp BP Pulse Ox
98.0 F 65 18 116/62 98
01/04/24 03:18 01/04/24 03:18 01/04/24 03:18 01/04/24 03:24 01/04/24 03:18
Lab Results:
Laboratory Data
WBC 6.0 10^3/uL (4.8-10.8) 01/03/24 07:27
Hgb 6.2 g/dL (12.0-16.0) L* 01/03/24 07:27
Plt Count 205 10^3/uL (130-400) 01/03/24 07:27
PT 16.3 Sec (11.4-14.6) H 12/31/23 22:09
INR 1.33 12/31/23 22:09
APTT 29.9 Sec (23.4-35.0) 12/31/23 22:09
eGFR 19.71 01/03/24 07:27
Physical Exam
Cardiology: S1 and S2
Pulmonary: Clear
GI: Soft
Extremities: No C/C/E
[2024-01-04 08:02] LABS: Glucose - Point of Care 150 mg/dl (70-99)
[2024-01-04] MEDS: ASPIR LOW (ENTERIC COATED) 81 MG PO (08:14)
[2024-01-04] MEDS: IMDUR (EXTENDED RELEASE) 60 MG PO (08:15)
[2024-01-04] MEDS: FEOSOL 650 MG PO ×2 (08:15→20:59)
[2024-01-04] MEDS: COREG 25 MG PO (08:16)
[2024-01-04] MEDS: FOLVITE 1 MG PO (08:16)
[2024-01-04] MEDS: ATIVAN 0.5 MG PO (08:19)
[2024-01-04] MEDS: SODIUM BICARBONATE 1300 MG PO ×2 (08:19→20:59)
[2024-01-04] MEDS: APRESOLINE 50 MG PO ×2 (08:19→15:38)
[2024-01-04] MEDS: NOVOLOG FLEXPEN-MODERATE RESISTANCE 1 UNITS SC (08:20)
[2024-01-04] MEDS: LANTUS 0.07 UNITS SC (08:20)
[2024-01-04] MEDS: NSS (PRESERVATIVE FREE) 10 ML IV (08:21)
[2024-01-04] MEDS: PROTONIX IV 40 MG IV (08:22)
[2024-01-04] MEDS: MIRALAX PO (08:24)
[2024-01-04 08:43] LABS: % Basophils 0.4 % (0-2); % Eosinophils 4.2 % (0-6); % Immature Granulocytes 0.4 % (0-0.5); % Lymphocytes 20.3 % (20.5-51.1); % Monocytes 9.9 % (1.7-9.3); % Neutrophils 64.8 % (42.2-75.2); Absolute Eosinophils 0.2 10^3/uL (0-0.7); Absolute Monocytes 0.5 10^3/uL (0.1-0.6); Absolute Neutrophils 3.1 10^3/uL (1.4-6.5); Hematocrit 20.2 % (37.0-47.0); Hemoglobin 6.9 g/dL (12.0-16.0); Mean Corp Hgb Conc. 34.2 g/dL (33.0-37.0); Mean Corpuscular Hgb 32.7 pg (27.0-31.0); Mean Corpuscular Volume 95.7 fL (81.0-99.0); Mean Platelet Volume 9.5 fL (7.4-10.4); Nucleated Red Blood Cells % 0 %; Platelet Count 195 10^3/uL (130-400); Red Blood Cell Count 2.11 10^6/uL (4.20-5.40); Red Cell Dist. Width 15.4 % (11.5-14.5); White Blood Cell Count 4.7 10^3/uL (4.8-10.8)
--- NOTE | 2024-01-04 09:52 | W.PN.GI.CBS2 ---
Addendum entered and electronically signed by Jarad Muniz MD 01/04/24 16:04:
I saw and examined the patient.
The [employer]LD[employer]IDE CHIEF CREATIVE OFFICER or PA's note was reviewed and I agree with the note.
Comment: No complaints
ABD soft NT
Hgb up to 6.9
REC:
I discussed EGD/colonoscopy to evaluate her anemia, and she again declining procedures.
At this point, will sign off. Please call back if pt changes mind or if GI input needed
Original Note:
Today's Communication / Plan
-
etiology of anemia multi factorial with CKD, dark stools, etc
hbg up to 6.9, BUN coming down to 42
last stool 01/01 brown no signs of aggressive GI bleeding
T/c eventual EGD if neg colon
Pt continued to decline GI testing -- I reviewed may miss gastric/colon lesion, PUD, ectasia etc
cont IV iron
appreciate heme input
will allow low residue diet
transfuse when able
cont Miralax daily add Dulcolax today
cont protonix
I reviewed with daughter she will allow patient make decision about scopes. She is aware of risk of not proceeding (missed cancers, PUD, ectasias etc) -- she has declined prior request for EGD/colon at [place] or [place] in past and aware she
continued to decline
Eliquis remains on hold discussed risk with continued therapy vs restart with risk for worsening anemia with daughter
Assessment / Plan
-
This patient is a 58-year-old woman with history of atrial fibrillation on Eliquis who has acute drop in her hemoglobin from baseline. She does not have a history of any GI symptoms but is also not had either endoscopy or colonoscopy. She does have
hard stool in the vault. For now I do the following;
-anemia with noted antibodies
-dark stools
-CKD
-PAF - Eliquis prior to admission
-CVA on ASA
-DM
PLAN:
etiology of anemia multi factorial with CKD, dark stools, etc
hbg up to 6.9, BUN coming down to 42
last stool 01/01 brown no signs of aggressive GI bleeding
T/c eventual EGD if neg colon
Pt continued to decline GI testing -- I reviewed may miss gastric/colon lesion, PUD, ectasia etc
cont IV iron
appreciate heme input
will allow low residue diet
transfuse when able
cont Miralax daily add Dulcolax today
cont protonix
I reviewed with daughter she will allow patient make decision about scopes. She is aware of risk of not proceeding (missed cancers, PUD, ectasias etc) -- she has declined prior request for EGD/colon at [place] or [place] in past and aware she
continued to decline
Tabatha remains on hold discussed risk with continued therapy vs restart with risk for worsening anemia with daughter
Subjective
Subjective
Date of Service: January 04, 2024
01/01 brown loose stool, on clear diet
Objective
Data Reviewed
Laboratory Data:
Laboratory Results
01/04/24 08:07
01/03/24 07:27
Laboratory Results
PT 16.3 Sec (11.4-14.6) H 12/31/23 22:09
INR 1.33 12/31/23 22:09
APTT 29.9 Sec (23.4-35.0) 12/31/23 22:09
Total Bilirubin 0.2 mg/dl (0.2-1.3) 01/03/24 07:27
AST 28 U/L (14-36) 01/03/24 07:27
ALT 26 U/L (0-35) 01/03/24 07:27
Alkaline Phosphatase 76 U/L (38-126) 01/03/24 07:27
Vital Signs and I&O:
Vital Signs
Temp Pulse Resp BP Pulse Ox
98.0 F 70 18 190/70 96
01/04/24 07:45 01/04/24 08:16 01/04/24 07:45 01/04/24 08:16 01/04/24 07:45
I&O
01/03/24 01/04/24 01/05/24
06:59 06:59 06:59
Intake Total 460 / 460 840 / 840
Balance 460 / 460 840 / 840
Physical Exam
Physical Exam
HEENT: Anicteric and Moist mucous membranes
Cardiology: Normal Sinus Rhythm
Pulmonary: Clear
GI: Soft, Non Distended and Non Tender
Rectal: Brown (last stool 01/01 )
Neuro: Non Focal
[2024-01-04] MEDS: DULCOLAX 10 MG RECTAL (10:37)
[2024-01-04 11:47] LABS: Glucose - Point of Care 236 mg/dl (70-99)
[2024-01-04] MEDS: FERRLECIT 110 MG IV (12:48)
[2024-01-04] MEDS: NOVOLOG FLEXPEN-MODERATE RESISTANCE 3 UNITS SC (12:48)
--- NOTE | 2024-01-04 13:12 | W.PN.HOSP.TC ---
Today's Communication/Plan
-
Monitor vital signs
see plan
Continue to monitor hemoglobin
Continue with IV iron
Assessment / Plan
Assessment / Plan
Gen-awake, alert, NAD
HEENT-NC, AT, anicteric, clear oral mm
Neck-supple
CV-reg, no M, +S1/S2
Lungs-clear B/L
Abd-soft, NT, ND
Ext-no edema
Musculoskeletal-no cyanosis, clubbing
Skin-warm and dry
Neuro-grossly non-focal
Psych-calm, cooperative
Acute on chronic anemia -likely multifactorial etiology for acute anemia including GI blood loss given heme positive stools. Does have baseline chronic kidney disease induced anemia.
Hemoglobin 6.2 this morning. has not received any blood transfusion since admission and hgb slowly improving. Baseline unknown but but appears to be around 9.
Transfusions ordered but patient has multiple antibodies and blood bank reports she wont be able to get blood transfusion since she has a lot of antibodies. Spoke with hematology and they do not think patient can get safely blood transfusion. They
advised patient to be off Eliquis. This was discussed with daughter and patient by me as well as explained risk versus benefit. Patient has history of CVA
Iron panel suggestive of iron deficiency anemia, started IV iron
Per hematology continue SREEKANTH however pro thrombotic
Acute/subacute GI bleed -now on LRD; has refused GI scopes in the past. GI is following and will review need for any GI scope. Hemodynamically stable. Patient is a unreliable historian. Denies melena or hematochezia. Lives in a [facility].
Hold Eliquis.
CKD 4 -stable.
Hyponatremia -resolved.
Paroxysmal atrial fibrillation -hold Eliquis as above.
History of CVA
On aspirin
History of stroke
Hyperlipidemia -on atorvastatin.
DM2 with hyperglycemia -She in the [facility] she is on glargine insulin 5 units daily, lispro insulin 4 units AC, lispro sliding scale. Increase glargine to 7 units
Tobacco dependence
Full code
Anticipated Discharge: 24 - 48 hours
Subjective/Interval History
-
Date of Service: January 04, 2024
denies pain
Objective Data
-
Labs:
Laboratory Results
01/04/24
08:07
WBC 4.7 L
Hgb 6.9 L*
Hct 20.2 L*
Plt Count 195
Vital Signs:
Vital Signs
Temp Pulse Resp BP Pulse Ox
98.7 F 72 14 135/69 99
01/04/24 11:41 01/04/24 11:41 01/04/24 11:41 01/04/24 11:41 01/04/24 11:41
I&O
01/03/24 01/04/24 01/05/24
06:59 06:59 06:59
Intake Total 460 / 460 840 / 840
Balance 460 / 460 840 / 840
--- NOTE | 2024-01-04 15:43 | CM ---
senior quality manager reviewed patient's chart and spoke with Catina at [facility] and per Catina patient had switched to intermediate accountant care on 12/30/23 but if there are any new skilled needs binder caser may submit for Auth by calling long term
Authorization at [phone]. senior quality manager will update Elly in admissions at [facility].
[facility] in [place]
Report [phone] 2nd floor
.
[2024-01-04 16:00] LABS: Glucose - Point of Care 409 mg/dl (70-99)
[2024-01-04 16:43] LABS: Glucose 349 mg/dl (70-99)
[2024-01-04] MEDS: NOVOLOG FLEXPEN 4 UNITS SC (16:49)
[2024-01-04] MEDS: NOVOLOG FLEXPEN-MODERATE RESISTANCE 7 UNITS SC (16:50)
[2024-01-04 19:19] LABS: Glucose - Point of Care 215 mg/dl (70-99)
[2024-01-04] MEDS: COREG PO (20:59)
[2024-01-04] MEDS: LIPITOR 40 MG PO (20:59)
[2024-01-04] MEDS: APRESOLINE PO (21:06)
[2024-01-04 21:53] LABS: Glucose - Point of Care 126 mg/dl (70-99)
[2024-01-05] VITALS (7 sets, daily range): BP systolic 72–143; BP diastolic 47–77; PULSE 78–80; BMI 17.7
[2024-01-05 05:36] LABS: Haptoglobin 162 mg/dL (30-200)
[2024-01-05 07:22] LABS: % Basophils 0.4 % (0-2); % Eosinophils 3.1 % (0-6); % Immature Granulocytes 0.6 % (0-0.5); % Lymphocytes 20.9 % (20.5-51.1); Absolute Eosinophils 0.2 10^3/uL (0-0.7); Absolute Lymphocytes 1.4 10^3/uL (1.2-3.4); Absolute Monocytes 0.6 10^3/uL (0.1-0.6); Absolute Neutrophils 4.5 10^3/uL (1.4-6.5); Hemoglobin 6.9 g/dL (12.0-16.0); Mean Corp Hgb Conc. 34.5 g/dL (33.0-37.0); Mean Corpuscular Hgb 32.9 pg (27.0-31.0); Mean Corpuscular Volume 95.2 fL (81.0-99.0); Mean Platelet Volume 9.4 fL (7.4-10.4); Nucleated Red Blood Cells % 0 %; Platelet Count 202 10^3/uL (130-400); Red Cell Dist. Width 15.1 % (11.5-14.5); White Blood Cell Count 6.8 10^3/uL (4.8-10.8)
[2024-01-05 07:40] LABS: Glucose - Point of Care 121 mg/dl (70-99)
[2024-01-05] MEDS: NOVOLOG FLEXPEN-MODERATE RESISTANCE SC ×2 (07:44→12:27)
[2024-01-05] MEDS: COREG 25 MG PO (07:55)
[2024-01-05] MEDS: FOLVITE 1 MG PO (07:55)
[2024-01-05] MEDS: IMDUR (EXTENDED RELEASE) 60 MG PO (07:55)
[2024-01-05] MEDS: FEOSOL 650 MG PO ×2 (07:55→20:22)
[2024-01-05] MEDS: ASPIR LOW (ENTERIC COATED) 81 MG PO (07:55)
[2024-01-05] MEDS: SODIUM BICARBONATE 1300 MG PO ×2 (07:55→20:22)
[2024-01-05] MEDS: APRESOLINE 50 MG PO (07:55)
[2024-01-05] MEDS: PROTONIX IV 40 MG IV (07:56)
[2024-01-05] MEDS: NSS (PRESERVATIVE FREE) 10 ML IV (07:56)
[2024-01-05] MEDS: ATIVAN 0.5 MG PO (07:56)
[2024-01-05] MEDS: NOVOLOG FLEXPEN 4 UNITS SC ×3 (07:57→18:13)
[2024-01-05] MEDS: MIRALAX PO (08:02)
[2024-01-05] MEDS: LANTUS 0.07 UNITS SC (08:06)
--- NOTE | 2024-01-05 10:29 | PN.CDI ---
CDI
- -
CDI:
Physician Documentation Request
Admit Date: 12/31/23 23:24
Dear Doctor Sven ,
Please review the following and provide your response in the progress notes.
Clinical Indicators:
Height: 5 ft 6 in
Weight: 109 lb 8 oz
BMI: 17.7
Other Clinical Notes: Nutrition notes 12/31 & 01/04, '...she states that she lost 10 lbs over the past 3 months and she does not (01/02) 120 lbs 8 oz BMI: 19.4 (normal); (12/31) 111 lbs 3 oz BMI: 17.9 (underweight)...'
If possible, please provide an associated diagnosis related to the abnormal BMI, such as:
BMI < or = to 19
Underweight
Weight Loss
Cachectic
- Other
Use of terms such as suspected, likely, concern for, or probable (associated with a specific diagnosis that is being evaluated, monitored, or treated as if it exists) are acceptable and can be coded in the inpatient setting, when documented at the
time of discharge.
Thank you,
Effie Chase RN
CDI Specialist
[facility]
Please use your independent medical judgment in providing your response.
--- NOTE | 2024-01-05 10:38 | PN.CDI ---
CDI
- -
CDI:
Physician Documentation Request
Admit Date: 12/31/23 23:24
Dear Doctor Sven,
Please review the following and provide your response in the progress notes.
Clinical Indicators:
Pt admitted with GI bleed/ Acute on Chronic Blood loss anemia / Anemia of CKD/ Paroxysmal Afib on Eliquis
GI Progress note 01/03 , ' Eliquis remains on hold discussed risk with continued therapy vs restart with risk for worsening anemia with daughter ...'
Progress note 01/03, ' ... Spoke with hematology and they do not think patient can get safely blood transfusion. They advised patient to be off Eliquis. This was discussed with daughter and patient by me as well as explained risk versus
benefit....'
Please clarify the relationship between these conditions:
Yes, _ABLA/GI bleed __ is related to/associated with/exacerbated by Eliquis use ___.
No, _ABLA GI bleed __ is not related to/associated with/exacerbated by Eliquis use __ but it is due to ___. (Please specify)
Unable to determine
Use of terms such as suspected, likely, concern for, or probable (associated with a specific diagnosis that is being evaluated, monitored, or treated as if it exists) are acceptable and can be coded in the inpatient setting, when documented at the
time of discharge.
Thank you,
Effie Chase RN
CDI Specialist
[facility]
Please use your independent medical judgment in providing your response.
--- NOTE | 2024-01-05 11:21 | W.PN.ONC ---
Today's Communication / Plan
-
Continue IV iron
Minimize blood draws
Hold Eliquis
Monitor hemoglobin and vitals
Impression
Impression
58-year-old female living in a alf with past medical history of chronic kidney disease, hypertension, diabetes type 1, CVA, paroxysmal A-fib admitted with anemia. 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 Patient is hemodynamically stable.
# Anemia
- Likely multifactorial in the setting of chronic kidney disease, heme positive --> endoscopic evaluation appreciated
- Antibody screen positive --> transfusion if able to find matched units
- SREEKANTH could be considered but is prothrombotic given this patient's history of CVA
- Hold Eliquis
- LDH, bilirubin: WNL
Plan
Plan
Discussed case with blood bank. It would take at least two weeks to find for blood for transfusion. Options would be to use national registry to see if an appropriate donor could be found, or directed donation which would take at least two weeks,
and donor blood could still be incompatible.
She has had transfusions in the past but may not have had this many antibodies at that time.
Transfusion not a realist strategy for her.
Iron sat 14% and ferritin 68 are consistent with deficiency. Continue IV iron.
Hemolysis labs wnl.
Continue off anticoagulation to prevent further blood loss.
Could consider SREEKANTH, but prothrombotic.
Subjective/Objective
Subjective/Objective
Vital Signs:
Vital Signs
Temp Pulse Resp BP Pulse Ox
98.4 F 73 18 117/73 98
01/05/24 07:48 01/05/24 07:48 01/05/24 07:48 01/05/24 07:55 01/05/24 07:48
Lab Results:
Laboratory Data
WBC 6.8 10^3/uL (4.8-10.8) 01/05/24 06:26
Hgb 6.9 g/dL (12.0-16.0) L* 01/05/24 06:26
Plt Count 202 10^3/uL (130-400) 01/05/24 06:26
PT 16.3 Sec (11.4-14.6) H 12/31/23 22:09
INR 1.33 12/31/23 22:09
APTT 29.9 Sec (23.4-35.0) 12/31/23 22:09
eGFR 19.71 01/03/24 07:27
[2024-01-05 12:13] LABS: Glucose - Point of Care 97 mg/dl (70-99)
--- NOTE | 2024-01-05 12:45 | W.PN.HOSP.TC ---
Today's Communication/Plan
-
Monitor vital signs see plan
Hemoglobin 6.9, continue to monitor
Continue with IV iron
Hematology following
Continue to hold Eliquis
Assessment / Plan
Assessment / Plan
Gen-awake, alert, NAD
HEENT-NC, AT, anicteric, clear oral mm
Neck-supple
CV-reg, no M, +S1/S2
Lungs-clear B/L
Abd-soft, NT, ND
Ext-no edema
Musculoskeletal-no cyanosis, clubbing
Skin-warm and dry
Neuro-grossly non-focal
Psych-calm, cooperative
Acute on chronic anemia -likely multifactorial etiology for acute anemia including GI blood loss given heme positive stools. Does have baseline chronic kidney disease induced anemia.
Acute blood loss anemia/GI bleed likely exacerbated by Eliquis.
Hemoglobin 6.9 this morning. has not received any blood transfusion since admission and hgb slowly improving. Baseline unknown but but appears to be around 9.
Transfusions ordered but patient has multiple antibodies and blood bank reports she wont be able to get blood transfusion since she has a lot of antibodies. Spoke with hematology and they do not think patient can get safely blood transfusion. They
advised patient to be off Eliquis. This was discussed with daughter and patient by me as well as explained risk versus benefit. Patient has history of CVA. daughter and patient aware not to be on eliquis at this time
Iron panel suggestive of iron deficiency anemia, started IV iron
Per hematology continue SREEKANTH however pro thrombotic
Acute/subacute GI bleed -now on LRD; has refused GI scopes in the past. GI was following for any GI scope. now patient refusing any scope if needed. per daughter patient makes her own decisions per GI. Hemodynamically stable. Denies melena or
hematochezia. Lives in a [facility].
Hold Eliquis.
CKD 4 -stable.
Hyponatremia -resolved.
Paroxysmal atrial fibrillation -hold Eliquis as above.
History of CVA
On aspirin
History of stroke
Hyperlipidemia -on atorvastatin.
DM2 with hyperglycemia -She in the [facility] she is on glargine insulin 5 units daily, lispro insulin 4 units AC, lispro sliding scale. Increased glargine to 7 units
Underweight
Tobacco dependence
Full code
Anticipated Discharge: 24 - 48 hours
Subjective/Interval History
-
Date of Service: January 05, 2024
denies pain
Objective Data
-
Labs:
Laboratory Results
01/05/24
06:26
WBC 6.8
Hgb 6.9 L*
Hct 20.0 L*
Plt Count 202
Vital Signs:
Vital Signs
Temp Pulse Resp BP Pulse Ox
97.7 F 78 18 98/60 95
01/05/24 12:16 01/05/24 12:16 01/05/24 12:16 01/05/24 12:16 01/05/24 12:16
I&O
01/04/24 01/05/24 01/06/24
06:59 06:59 06:59
Intake Total 840 / 840 600 / 600
Balance 840 / 840 600 / 600
--- NOTE | 2024-01-05 13:30 | CM ---
regulated program manager reviewed patient's chart and plan is for patient to return to [facility] in [place] when stable, continuous pillowcase cutter spoke with [facility] , and admissions at [facility] [place]. Admissions have agreed that they will
accept patient back with a pending reference number.
[facility] in [place]
Report [phone] 2nd floor
.
[2024-01-05] MEDS: FERRLECIT 110 MG IV (13:54)
[2024-01-05] MEDS: APRESOLINE PO ×2 (17:18→22:43)
[2024-01-05 17:22] LABS: Glucose - Point of Care 416 mg/dl (70-99)
--- NOTE | 2024-01-05 18:05 | PTCARENOTE ---
Patient's POC BS >400, STAT venous done, resulted 395, MD Machuca notified insulin dose given as ordered. patient asymptomatic. will continue to monitor.
[2024-01-05 18:08] LABS: Glucose 395 mg/dl (70-99)
[2024-01-05] MEDS: NOVOLOG FLEXPEN-MODERATE RESISTANCE 9 UNITS SC (18:12)
[2024-01-05 19:24] LABS: Glucose - Point of Care 376 mg/dl (70-99)
[2024-01-05] MEDS: COREG PO (20:21)
[2024-01-05] MEDS: NOVOLOG FLEXPEN 9 UNITS SC (20:22)
[2024-01-05] MEDS: LIPITOR 40 MG PO (20:22)
[2024-01-05 22:35] LABS: Glucose - Point of Care 179 mg/dl (70-99)
[2024-01-06 03:03] VITALS: BP 106/64
[2024-01-06] MEDS: TYLENOL 650 MG PO (05:56)
[2024-01-06 06:00] VITALS: BMI 17.7
[2024-01-06 06:00] LABS: Glucose - Point of Care 93 mg/dl (70-99)
[2024-01-06 07:30] VITALS: BP 97/62
[2024-01-06 07:37] LABS: Glucose - Point of Care 106 mg/dl (70-99)
[2024-01-06 08:10] LABS: % Basophils 0.5 % (0-2); % Eosinophils 3.4 % (0-6); % Immature Granulocytes 0.3 % (0-0.5); % Lymphocytes 26.7 % (20.5-51.1); % Monocytes 10.3 % (1.7-9.3); % Neutrophils 58.8 % (42.2-75.2); Absolute Eosinophils 0.2 10^3/uL (0-0.7); Absolute Lymphocytes 1.6 10^3/uL (1.2-3.4); Absolute Monocytes 0.6 10^3/uL (0.1-0.6); Absolute Neutrophils 3.5 10^3/uL (1.4-6.5); Hematocrit 20.4 % (37.0-47.0); Hemoglobin 6.8 g/dL (12.0-16.0); Mean Corp Hgb Conc. 33.3 g/dL (33.0-37.0); Mean Corpuscular Hgb 31.5 pg (27.0-31.0); Mean Corpuscular Volume 94.4 fL (81.0-99.0); Mean Platelet Volume 9.4 fL (7.4-10.4); Nucleated Red Blood Cells % 0 %; Platelet Count 192 10^3/uL (130-400); Red Blood Cell Count 2.16 10^6/uL (4.20-5.40); Red Cell Dist. Width 15.3 % (11.5-14.5); White Blood Cell Count 5.9 10^3/uL (4.8-10.8)
--- NOTE | 2024-01-06 08:15 | PTCARENOTE ---
Patient's H&H 6.8/20.4, MD Machuca notified. new orders placed.
--- NOTE | 2024-01-06 08:49 | W.PN.ONC ---
Today's Communication / Plan
-
Continue IV iron
Continue to monitor hemoglobin level and vitals
Minimize blood draws
Impression
Impression
58-year-old female living in a retirement with past medical history of chronic kidney disease, hypertension, diabetes type 1, CVA, paroxysmal A-fib admitted with anemia. 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 Patient is hemodynamically stable.
# Anemia
- Likely multifactorial in the setting of chronic kidney disease, heme positive --> endoscopic evaluation appreciated
- Antibody screen positive --> transfusion if able to find matched units
- SREEKANTH could be considered but is prothrombotic given this patient's history of CVA
- Hold Eliquis
- Hemolysis labs: WNL
Plan
Plan
Discussed case with blood bank. It would take at least two weeks to find for blood for transfusion. Options would be to use national registry to see if an appropriate donor could be found, or directed donation which would take at least two weeks,
and donor blood could still be incompatible.
She has had transfusions in the past but may not have had this many antibodies at that time.
Transfusion not a realist strategy for her.
Iron sat 14% and ferritin 68 are consistent with deficiency. Continue IV iron.
Hemolysis labs wnl.
Continue off anticoagulation to prevent further blood loss.
Could consider SREEKANTH, but prothrombotic.
Subjective/Objective
Subjective/Objective
Vital Signs:
Vital Signs
Temp Pulse Resp BP Pulse Ox
98.4 F 63 18 97/62 92
01/06/24 07:30 01/06/24 07:30 01/06/24 07:30 01/06/24 07:30 01/06/24 07:30
Lab Results:
Laboratory Data
WBC 5.9 10^3/uL (4.8-10.8) 01/06/24 07:28
Hgb 6.8 g/dL (12.0-16.0) L* 01/06/24 07:28
Plt Count 192 10^3/uL (130-400) 01/06/24 07:28
PT 16.3 Sec (11.4-14.6) H 12/31/23 22:09
INR 1.33 12/31/23 22:09
APTT 29.9 Sec (23.4-35.0) 12/31/23 22:09
eGFR 19.71 01/03/24 07:27
[2024-01-06] MEDS: APRESOLINE PO (09:11)
[2024-01-06] MEDS: NOVOLOG FLEXPEN-MODERATE RESISTANCE SC (09:11)
[2024-01-06] MEDS: IMDUR (EXTENDED RELEASE) PO (09:12)
[2024-01-06] MEDS: COREG PO (09:12)
[2024-01-06] MEDS: SODIUM BICARBONATE 1300 MG PO ×2 (09:13→21:55)
[2024-01-06] MEDS: FOLVITE 1 MG PO (09:13)
[2024-01-06] MEDS: FEOSOL 650 MG PO ×2 (09:13→21:55)
[2024-01-06] MEDS: ASPIR LOW (ENTERIC COATED) 81 MG PO (09:13)
[2024-01-06] MEDS: ATIVAN 0.5 MG PO (09:14)
[2024-01-06] MEDS: LANTUS 0.07 UNITS SC (09:14)
[2024-01-06] MEDS: MIRALAX 17 GRAMS PO (09:14)
[2024-01-06] MEDS: NSS (PRESERVATIVE FREE) 10 ML IV (09:14)
[2024-01-06] MEDS: PROTONIX IV 40 MG IV (09:14)
[2024-01-06] MEDS: NOVOLOG FLEXPEN 4 UNITS SC ×3 (09:19→16:27)
[2024-01-06 11:13] VITALS: BP 91/56
[2024-01-06 11:46] LABS: Glucose - Point of Care 193 mg/dl (70-99)
--- NOTE | 2024-01-06 12:27 | W.PN.HOSP.TC ---
Today's Communication/Plan
-
monitor vitals
see plan
hematology following
cw IV iron
hold Eliquis
need better hgb before can plan on dc
hematology spoke with blood bank regarding finding compatible blood; efforts ongoing
Assessment / Plan
Assessment / Plan
Gen-awake, alert, NAD
HEENT-NC, AT, anicteric, clear oral mm
Neck-supple
CV-reg, no M, +S1/S2
Lungs-clear B/L
Abd-soft, NT, ND
Ext-no edema
Musculoskeletal-no cyanosis, clubbing
Skin-warm and dry
Neuro-grossly non-focal
Psych-calm, cooperative
Acute on chronic anemia -likely multifactorial etiology for acute anemia including GI blood loss given heme positive stools. Does have baseline chronic kidney disease induced anemia.
Acute blood loss anemia/GI bleed likely exacerbated by Eliquis.
Hemoglobin 6.9 this morning. has not received any blood transfusion since admission and hgb slowly improving. Baseline unknown but but appears to be around 8-9.
Transfusions ordered but patient has multiple antibodies and blood bank reports she wont be able to get blood transfusion since she has a lot of antibodies. Spoke with hematology and they do not think patient can get safely blood transfusion. They
advised patient to be off Eliquis. This was discussed with daughter and patient by me as well as explained risk versus benefit. Patient has history of CVA. daughter and patient aware not to be on eliquis at this time
Iron panel suggestive of iron deficiency anemia, started IV iron
Per hematology continue SREEKANTH however pro thrombotic
hematology asking blood bank to find from [facility] if can get any compatible blood
Acute/subacute GI bleed -now on LRD; has refused GI scopes in the past. GI was following for any GI scope. now patient refusing any scope if needed. per daughter patient makes her own decisions per GI. Hemodynamically stable. Denies melena or
hematochezia. Lives in a half-way.
Hold Eliquis.
CKD 4 -stable.
Hyponatremia -resolved.
Paroxysmal atrial fibrillation -hold Eliquis as above.
History of CVA
On aspirin
History of stroke
Hyperlipidemia -on atorvastatin.
DM2 with hyperglycemia -She in the half-way she is on glargine insulin 5 units daily, lispro insulin 4 units AC, lispro sliding scale. Increased glargine to 7 units
Underweight
Tobacco dependence
Full code
Anticipated Discharge: 24 - 48 hours
Subjective/Interval History
-
Date of Service: January 06, 2024
denies pain
Objective Data
-
Labs:
Laboratory Results
01/06/24
07:28
WBC 5.9
Hgb 6.8 L*
Hct 20.4 L*
Plt Count 192
Vital Signs:
Vital Signs
Temp Pulse Resp BP Pulse Ox
97.7 F 69 20 91/56 94
01/06/24 11:13 01/06/24 11:13 01/06/24 11:13 01/06/24 11:13 01/06/24 11:13
I&O
01/05/24 01/06/24 01/07/24
06:59 06:59 06:59
Intake Total 600 / 600 720 / 720
Balance 600 / 600 720 / 720
[2024-01-06] MEDS: NOVOLOG FLEXPEN-MODERATE RESISTANCE 1 UNITS SC (12:57)
[2024-01-06] MEDS: FERRLECIT 110 MG IV (14:16)
--- NOTE | 2024-01-06 14:30 | CM ---
Patient to return to [facility] when stable, clinical case manager will need to initiated auth, and provide pending reference number to [facility].
[facility] in [place]
Report [phone] 2nd floor
.
Plan; To return to [facility].
[2024-01-06 15:00] VITALS: BP 114/65
[2024-01-06 16:23] LABS: Glucose - Point of Care 224 mg/dl (70-99)
[2024-01-06] MEDS: APRESOLINE 50 MG PO ×2 (16:26→21:56)
[2024-01-06] MEDS: NOVOLOG FLEXPEN-MODERATE RESISTANCE 3 UNITS SC (16:28)
[2024-01-06 19:00] VITALS: BP 166/52
[2024-01-06 20:48] LABS: Glucose - Point of Care 203 mg/dl (70-99)
[2024-01-06] MEDS: COREG 25 MG PO (21:55)
[2024-01-06] MEDS: LIPITOR 40 MG PO (21:56)
[2024-01-06 23:10] VITALS: BP 118/75
[2024-01-07] VITALS (8 sets, daily range): BP systolic 79–163; BP diastolic 54–74; PULSE 64–67; O2SAT 97–98; BMI 18.2
[2024-01-07 08:08] LABS: % Basophils 0.3 % (0-2); % Eosinophils 4.2 % (0-6); % Immature Granulocytes 0.3 % (0-0.5); % Lymphocytes 22.6 % (20.5-51.1); % Monocytes 7.8 % (1.7-9.3); % Neutrophils 64.8 % (42.2-75.2); Absolute Eosinophils 0.3 10^3/uL (0-0.7); Absolute Lymphocytes 1.4 10^3/uL (1.2-3.4); Absolute Monocytes 0.5 10^3/uL (0.1-0.6); Absolute Neutrophils 4.1 10^3/uL (1.4-6.5); Hematocrit 20.8 % (37.0-47.0); Mean Corp Hgb Conc. 33.7 g/dL (33.0-37.0); Mean Corpuscular Hgb 31.7 pg (27.0-31.0); Mean Corpuscular Volume 94.1 fL (81.0-99.0); Mean Platelet Volume 9.5 fL (7.4-10.4); Nucleated Red Blood Cells % 0 %; Platelet Count 185 10^3/uL (130-400); Red Blood Cell Count 2.21 10^6/uL (4.20-5.40); Red Cell Dist. Width 14.8 % (11.5-14.5); White Blood Cell Count 6.4 10^3/uL (4.8-10.8)
[2024-01-07 09:01] LABS: Glucose - Point of Care 165 mg/dl (70-99)
[2024-01-07] MEDS: LANTUS 0.07 UNITS SC (10:38)
[2024-01-07] MEDS: NOVOLOG FLEXPEN 4 UNITS SC ×3 (10:39→17:47)
[2024-01-07] MEDS: SODIUM BICARBONATE 1300 MG PO ×2 (10:40→21:22)
[2024-01-07] MEDS: IMDUR (EXTENDED RELEASE) 60 MG PO (10:40)
[2024-01-07] MEDS: ASPIR LOW (ENTERIC COATED) 81 MG PO (10:40)
[2024-01-07] MEDS: NOVOLOG FLEXPEN-MODERATE RESISTANCE 1 UNITS SC (10:40)
[2024-01-07] MEDS: ATIVAN 0.5 MG PO (10:41)
[2024-01-07] MEDS: COREG 25 MG PO (10:41)
[2024-01-07] MEDS: NSS (PRESERVATIVE FREE) 10 ML IV (10:42)
[2024-01-07] MEDS: FOLVITE 1 MG PO (10:42)
[2024-01-07] MEDS: FEOSOL 650 MG PO ×2 (10:42→21:22)
[2024-01-07] MEDS: PROTONIX IV 40 MG IV (10:43)
[2024-01-07] MEDS: APRESOLINE PO ×2 (10:44→21:23)
[2024-01-07] MEDS: MIRALAX PO (10:44)
[2024-01-07 11:21] LABS: Glucose - Point of Care 326 mg/dl (70-99)
--- NOTE | 2024-01-07 12:36 | W.PN.HOSP.TC ---
Today's Communication/Plan
-
Monitor vital signs
see plan
Hemoglobin 7 today
If continues to be greater than 7 then likely will start discharge planning
Hematology to see today
Assessment / Plan
Assessment / Plan
Gen-awake, alert, NAD
HEENT-NC, AT, anicteric, clear oral mm
Neck-supple
CV-reg, no M, +S1/S2
Lungs-clear B/L
Abd-soft, NT, ND
Ext-no edema
Musculoskeletal-no cyanosis, clubbing
Skin-warm and dry
Neuro-grossly non-focal
Psych-calm, cooperative
Acute on chronic anemia -likely multifactorial etiology for acute anemia including GI blood loss given heme positive stools. Does have baseline chronic kidney disease induced anemia.
Acute blood loss anemia/GI bleed likely exacerbated by Eliquis.
Hemoglobin 67 this morning. has not received any blood transfusion since admission and hgb slowly improving. Baseline unknown but but appears to be around 8-9.
Transfusions ordered but patient has multiple antibodies and blood bank reports she wont be able to get blood transfusion since she has a lot of antibodies. Spoke with hematology and they do not think patient can get safely blood transfusion. They
advised patient to be off Eliquis. This was discussed with daughter and patient by me as well and explained risk versus benefit. Patient has history of CVA. daughter and patient aware not to be on eliquis at this time
Iron panel suggestive of iron deficiency anemia, finished IV iron
Per hematology continue SREEKANTH however pro thrombotic
hematology asking blood bank to find from [facility] if can get any compatible blood
Acute/subacute GI bleed -now on LRD; has refused GI scopes in the past. GI was following for any GI scope. now patient refusing any scope if needed. per daughter patient makes her own decisions per GI. Hemodynamically stable. Denies melena or
hematochezia. Lives in a retirement.
Hold Eliquis.
CKD 4 -stable.
Hyponatremia -resolved.
Paroxysmal atrial fibrillation -hold Eliquis as above.
History of CVA
On aspirin
History of stroke
Hyperlipidemia -on atorvastatin.
DM2 with hyperglycemia -She in the retirement she is on glargine insulin 5 units daily, lispro insulin 4 units AC, lispro sliding scale. Increased glargine to 7 units
Underweight
Tobacco dependence
Full code
Anticipated Discharge: Within 24 hours
Subjective/Interval History
-
Date of Service: January 07, 2024
Denies pain
Objective Data
-
Labs:
Laboratory Results
01/07/24
07:04
WBC 6.4
Hgb 7.0 L
Hct 20.8 L*
Plt Count 185
Vital Signs:
Vital Signs
Temp Pulse Resp BP Pulse Ox
97.9 F 65 16 110/67 99
01/07/24 07:05 01/07/24 10:41 01/07/24 07:05 01/07/24 10:41 01/07/24 07:05
I&O
01/06/24 01/07/24 01/08/24
06:59 06:59 06:59
Intake Total 720 / 720 720 / 720
Balance 720 / 720 720 / 720
[2024-01-07] MEDS: APRESOLINE 50 MG PO ×2 (13:09→17:46)
[2024-01-07] MEDS: NOVOLOG FLEXPEN-MODERATE RESISTANCE 7 UNITS SC (13:09)
[2024-01-07 16:59] LABS: Glucose - Point of Care 111 mg/dl (70-99)
[2024-01-07] MEDS: NOVOLOG FLEXPEN-MODERATE RESISTANCE SC (17:48)
[2024-01-07] MEDS: COREG PO (21:23)
[2024-01-07] MEDS: LIPITOR 40 MG PO (21:24)
[2024-01-07 21:31] LABS: Glucose - Point of Care 149 mg/dl (70-99)
[2024-01-08 03:00] VITALS: BP 89/63
[2024-01-08] MEDS: TYLENOL 650 MG PO ×2 (03:00→10:48)
[2024-01-08 06:00] VITALS: BMI 17.9
[2024-01-08 07:07] VITALS: BP 116/74
[2024-01-08 08:14] LABS: % Basophils 0.5 % (0-2); % Eosinophils 3.1 % (0-6); % Immature Granulocytes 0.3 % (0-0.5); % Monocytes 8.9 % (1.7-9.3); % Neutrophils 61.2 % (42.2-75.2); Absolute Eosinophils 0.2 10^3/uL (0-0.7); Absolute Lymphocytes 1.7 10^3/uL (1.2-3.4); Absolute Monocytes 0.6 10^3/uL (0.1-0.6); Absolute Neutrophils 3.9 10^3/uL (1.4-6.5); Hematocrit 19.9 % (37.0-47.0); Hemoglobin 6.7 g/dL (12.0-16.0); Mean Corp Hgb Conc. 33.7 g/dL (33.0-37.0); Mean Corpuscular Hgb 31.5 pg (27.0-31.0); Mean Corpuscular Volume 93.4 fL (81.0-99.0); Mean Platelet Volume 9.9 fL (7.4-10.4); Nucleated Red Blood Cells % 0 %; Platelet Count 194 10^3/uL (130-400); Red Blood Cell Count 2.13 10^6/uL (4.20-5.40); Red Cell Dist. Width 14.6 % (11.5-14.5); White Blood Cell Count 6.4 10^3/uL (4.8-10.8)
[2024-01-08 08:43] LABS: Glucose - Point of Care 136 mg/dl (70-99)
[2024-01-08] MEDS: NOVOLOG FLEXPEN 4 UNITS SC ×3 (10:30→17:21)
[2024-01-08] MEDS: NOVOLOG FLEXPEN-MODERATE RESISTANCE SC (10:31)
[2024-01-08] MEDS: NSS (PRESERVATIVE FREE) 10 ML IV (10:32)
[2024-01-08] MEDS: LANTUS 0.07 UNITS SC (10:32)
[2024-01-08] MEDS: PROTONIX IV 40 MG IV (10:32)
[2024-01-08] MEDS: MIRALAX PO (10:32)
[2024-01-08] MEDS: FEOSOL 650 MG PO ×2 (10:33→20:03)
[2024-01-08] MEDS: APRESOLINE 50 MG PO (10:33)
[2024-01-08] MEDS: FOLVITE 1 MG PO (10:33)
[2024-01-08] MEDS: ASPIR LOW (ENTERIC COATED) 81 MG PO (10:33)
[2024-01-08] MEDS: ATIVAN 0.5 MG PO (10:33)
[2024-01-08] MEDS: IMDUR (EXTENDED RELEASE) 60 MG PO (10:34)
[2024-01-08] MEDS: SODIUM BICARBONATE 1300 MG PO ×2 (10:34→20:03)
[2024-01-08] MEDS: COREG 25 MG PO (10:34)
[2024-01-08] MEDS: RETACRIT 10000 UNITS SC (10:35)
[2024-01-08 11:27] VITALS: BP 107/70
--- NOTE | 2024-01-08 11:31 | W.PN.HOSP.TC ---
Today's Communication/Plan
-
Monitor vitals
See plan
Hemoglobin 6.7 today, spoke with hematology and they requested patient to be started on EPO which I ordered
Continue to monitor hemoglobin
Assessment / Plan
Assessment / Plan
Gen-awake, alert, NAD
HEENT-NC, AT, anicteric, clear oral mm
Neck-supple
CV-reg, no M, +S1/S2
Lungs-clear B/L
Abd-soft, NT, ND
Ext-no edema
Musculoskeletal-no cyanosis, clubbing
Skin-warm and dry
Neuro-grossly non-focal
Psych-calm, cooperative
Acute on chronic anemia -likely multifactorial etiology for acute anemia including GI blood loss given heme positive stools. Does have baseline chronic kidney disease induced anemia.
Acute blood loss anemia/GI bleed likely exacerbated by Eliquis.
Hemoglobin 6.7 this morning. has not received any blood transfusion since admission and hgb slowly improving. Baseline unknown but but appears to be around 8-9.
Transfusions ordered but patient has multiple antibodies and blood bank reports she wont be able to get blood transfusion since she has a lot of antibodies. Spoke with hematology and they do not think patient can get safely blood transfusion. They
advised patient to be off Eliquis. This was discussed with daughter and patient by me as well and explained risk versus benefit. Patient has history of CVA. daughter and patient aware not to be on eliquis at this time
spoke with hematology Dr Bone 01/07; he asked me to start epo 95026 SQ every other day; will monitor closely
Iron panel suggestive of iron deficiency anemia, finished IV iron
hematology asking blood bank to find from [place] if can get any compatible blood
Acute/subacute GI bleed -now on LRD; has refused GI scopes in the past. GI was following for any GI scope. now patient refusing any scope if needed. per daughter patient makes her own decisions per GI. Hemodynamically stable. Denies melena or
hematochezia. Lives in a [facility].
Hold Eliquis.
CKD 4 -stable.
Hyponatremia -resolved.
Paroxysmal atrial fibrillation -hold Eliquis as above.
History of CVA
On aspirin
History of stroke
Hyperlipidemia -on atorvastatin.
DM2 with hyperglycemia -She in the [facility] she is on glargine insulin 5 units daily, lispro insulin 4 units AC, lispro sliding scale. Increased glargine to 7 units
Underweight
Tobacco dependence
Full code
I spent a total of 51 minutes with the patient or on the floor. More than 50% of this time involved counseling and coordination of care.
Anticipated Discharge: 24 - 48 hours
Subjective/Interval History
-
Date of Service: January 08, 2024
denies pain
Objective Data
-
Labs:
Laboratory Results
01/08/24
06:08
WBC 6.4
Hgb 6.7 L*
Hct 19.9 L*
Plt Count 194
Vital Signs:
Vital Signs
Temp Pulse Resp BP Pulse Ox
98.0 F 71 18 107/70 99
01/08/24 11:27 01/08/24 11:27 01/08/24 11:27 01/08/24 11:27 01/08/24 11:27
I&O
01/07/24 01/08/24 01/09/24
06:59 06:59 06:59
Intake Total 720 / 720 480 / 480
Balance 720 / 720 480 / 480
[2024-01-08 12:22] LABS: Glucose - Point of Care 198 mg/dl (70-99)
[2024-01-08] MEDS: NOVOLOG FLEXPEN-MODERATE RESISTANCE 1 UNITS SC (12:53)
--- NOTE | 2024-01-08 14:37 | CM ---
CM placed call to [facility] ( ), informed offices are closed, unable to start insurance authorization. Patient LTC resident at [facility], return to [facility] stable, pillowcase cutter will need to initiate auth and provide pending reference
number to [id number].
Plan; return to [facility], will need pending auth.
[facility] in [place]
Report [phone] 2nd floor
.
[2024-01-08 15:00] VITALS: BP 114/67
[2024-01-08 17:01] LABS: Glucose - Point of Care 242 mg/dl (70-99)
[2024-01-08] MEDS: APRESOLINE PO ×2 (17:19→20:04)
[2024-01-08] MEDS: NOVOLOG FLEXPEN-MODERATE RESISTANCE 3 UNITS SC (17:21)
[2024-01-08 19:45] VITALS: BP 95/60
[2024-01-08] MEDS: COREG PO (20:03)
[2024-01-08] MEDS: LIPITOR 40 MG PO (20:04)
[2024-01-08 21:06] LABS: Glucose - Point of Care 135 mg/dl (70-99)
[2024-01-08 23:42] VITALS: BP 130/80
[2024-01-09 03:35] VITALS: BP 138/83
[2024-01-09 06:00] VITALS: BMI 18.3
[2024-01-09 07:38] LABS: Glucose - Point of Care 148 mg/dl (70-99)
[2024-01-09 07:44] VITALS: BP 124/92
[2024-01-09 07:47] LABS: % Basophils 0.7 % (0-2); % Eosinophils 2.3 % (0-6); % Immature Granulocytes 0.3 % (0-0.5); % Lymphocytes 25.7 % (20.5-51.1); % Monocytes 8.5 % (1.7-9.3); % Neutrophils 62.5 % (42.2-75.2); Absolute Eosinophils 0.1 10^3/uL (0-0.7); Absolute Lymphocytes 1.5 10^3/uL (1.2-3.4); Absolute Monocytes 0.5 10^3/uL (0.1-0.6); Absolute Neutrophils 3.7 10^3/uL (1.4-6.5); Hematocrit 20.5 % (37.0-47.0); Hemoglobin 7.4 g/dL (12.0-16.0); Mean Corp Hgb Conc. 36.1 g/dL (33.0-37.0); Mean Corpuscular Hgb 33.3 pg (27.0-31.0); Mean Corpuscular Volume 92.3 fL (81.0-99.0); Mean Platelet Volume 9.4 fL (7.4-10.4); Nucleated Red Blood Cells % 0 %; Platelet Count 183 10^3/uL (130-400); Red Blood Cell Count 2.22 10^6/uL (4.20-5.40); Red Cell Dist. Width 14.3 % (11.5-14.5)
[2024-01-09] MEDS: NOVOLOG FLEXPEN-MODERATE RESISTANCE SC (09:26)
[2024-01-09] MEDS: SODIUM BICARBONATE 1300 MG PO ×2 (09:41→20:10)
[2024-01-09] MEDS: NSS (PRESERVATIVE FREE) 10 ML IV (09:41)
[2024-01-09] MEDS: ATIVAN 0.5 MG PO (09:41)
[2024-01-09] MEDS: PROTONIX IV 40 MG IV (09:41)
[2024-01-09] MEDS: IMDUR (EXTENDED RELEASE) 60 MG PO (09:41)
[2024-01-09] MEDS: FEOSOL 650 MG PO ×2 (09:41→20:10)
[2024-01-09] MEDS: APRESOLINE 50 MG PO ×3 (09:42→20:09)
[2024-01-09] MEDS: FOLVITE 1 MG PO (09:42)
[2024-01-09] MEDS: MIRALAX PO ×2 (09:42→09:59)
[2024-01-09] MEDS: ASPIR LOW (ENTERIC COATED) 81 MG PO (09:42)
[2024-01-09] MEDS: LANTUS 0.07 UNITS SC (09:42)
[2024-01-09] MEDS: COREG 25 MG PO ×2 (09:42→20:10)
[2024-01-09] MEDS: NOVOLOG FLEXPEN 4 UNITS SC ×3 (09:47→17:52)
--- NOTE | 2024-01-09 10:39 | W.PN.HOSP.TC ---
Today's Communication/Plan
-
Continue EPO 10,000 units every other day
Trend daily CBC
Discontinued Eliquis
Assessment / Plan
Assessment / Plan
#Acute on chronic anemia
#Acute blood loss anemia/GIB
#Chronic anemia of CKD
-Likely multifactorial worsening to her blood counts; 2/2 likely GI bleed and anemia from worsening renal function; Hgb baseline 8-9
-Hemoglobin was as low as 5.4 on this hospital stay; has not received any blood transfusions since admission due to antibody presence
-Hematology following, due to presence of antibodies from previous transfusions they do not think she could receive blood here
-Home Eliquis was discontinued; previous hospitalist had risks and benefits discussion with the patient and her daughter
-S/p IV iron; was started on EPO 10,000 units subcu every other day; hemoglobin up to 7.4 today
-Hematology in contact with blood bank, attempting to obtain compatible blood from [place]
-Patient has refused endoscopy, understands risks
Plan
-Continue with EPO SQ every other day
-Trend daily CBC to monitor hemoglobin
-Discontinue Eliquis permanently
-Monitor clinically for recurrent GI bleed
#CKD 4
-Baseline creatinine near 2.7-3.0; complicated by acidemia, anemia
-Unclear etiology but likely related to diabetes and hypertension
-Renal function has been at baseline here
-Stable
#Paroxysmal atrial fibrillation
-Home medications included carvedilol and Eliquis twice daily
-Eliquis was held on admission due to severe anemia and likely GIB
-Risk/benefits discussion with family, Eliquis discontinued
#History of CVA
-Suspect this is related to paroxysmal atrial fibrillation
-Home medications include high intensity statin, aspirin, Eliquis
-Eliquis was discontinued as above; remains on aspirin and statin
#Hyperlipidemia
-Unclear history of ASCVD, may be related to CVA
-Home medications include high intensity statin
#DM2 with hyperglycemia
-Home medications include Lantus 5 units daily, insulin lispro 4 units AC, ISS
-Was hyperglycemic despite home regimen here, Lantus increased to 7 units
-Continue with ISS and Accu-Cheks, glucose goal 140-200
#Underweight
-Will encourage oral intake, monitor calorie counts here
-Ordered Ensure with meals
#Tobacco dependence
-Encouraged cessation
DVT prophylaxis: SCDs
Diet: Carbohydrate controlled
CODE STATUS: Full code
Anticipated Discharge: 24 - 48 hours
Subjective/Interval History
-
Date of Service: January 09, 2024
Seen and examined at bedside. No acute events reported overnight. AFVSS as of this morning.
Her blood counts have started to improve, hemoglobin up from 6.7-7.4 this morning. Was started on EPO 10,000 units subcutaneous every other day
She denies any acute complaints today and states she feels well. Denies chest pain, fevers or chills, dyspnea, abdomen pain, lightheadedness, bleeding or bruising, paresthesias or weakness. Questions when she can leave the hospital.
Objective Data
-
Labs:
Laboratory Results
01/09/24
07:25
WBC 6.0
Hgb 7.4 L
Hct 20.5 L*
Plt Count 183
Vital Signs:
Vital Signs
Temp Pulse Resp BP Pulse Ox
98.1 F 65 17 124/92 97
01/09/24 07:44 01/09/24 07:44 01/09/24 07:44 01/09/24 07:44 01/09/24 07:44
I&O
01/08/24 01/09/24 01/10/24
06:59 06:59 06:59
Intake Total 480 / 480
Balance 480 / 480
Review of Systems
-
History Source: Patient
All other systems: Reviewed and negative
Physical Exam
-
General: No Apparent Distress, Comfortable and Other (Thin, frail-appearing)
HEENT: Normocephalic, Atraumatic, Moist Mucous Membranes and Anicteric
Respiratory: Clear to Auscultation and Non Labored Respirations; Negative Wheezes, Rales or Rhonchi
Cardiac: Regular Rhythm, S1/S2 and Murmur; Negative Rub or Gallop
GI: Soft, Nontender, Nondistended and Normal Bowel Sounds
Musculoskeletal: No Clubbing, No Cyanosis and No Edema
Skin: Warm, Dry and Normal Turgor; Negative Rash or Jaundice
Neuro: AO x 3, Nonfocal/Grossly Intact and Central Nerve's Intact
Psych: Calm
Data Reviewed
-
Labs: Labs Reviewed by me and Discussed with Patient
[2024-01-09 11:40] VITALS: BP 63/44
--- NOTE | 2024-01-09 12:05 | W.PN.ONC ---
Today's Communication / Plan
-
Continue EPO 28124 SQ every other day
Monitor Hb level and vitals closely
Impression
Impression
58-year-old female living in a long-term with past medical history of chronic kidney disease, hypertension, diabetes type 1, CVA, paroxysmal A-fib admitted with anemia. 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 Patient is hemodynamically stable. No new complaints.
# Anemia
- Likely multifactorial in the setting of chronic kidney disease, heme positive --> endoscopic evaluation appreciated - patient refusing
- Antibody screen positive --> transfusion if able to find matched units
- SREEKANTH could be considered but is prothrombotic given this patient's history of CVA
- Hold Eliquis
- Hemolysis labs: WNL
- Hemoglobin is 7.4 today after starting EPO yesterday
- Continue EPO SQ every other day
Plan
Plan
Discussed case with blood bank. It would take at least two weeks to find for blood for transfusion. Options would be to use national registry to see if an appropriate donor could be found, or directed donation which would take at least two weeks,
and donor blood could still be incompatible.
She has had transfusions in the past but may not have had this many antibodies at that time.
Transfusion not a realist strategy for her.
Iron sat 14% and ferritin 68 are consistent with deficiency. IV iron discontinued.
Hemolysis labs wnl.
Continue off anticoagulation to prevent further blood loss.
Could EPO SQ every other day.
Subjective/Objective
Subjective/Objective
Vital Signs:
Vital Signs
Temp Pulse Resp BP Pulse Ox
97.6 F 73 18 63/44 98
01/09/24 11:40 01/09/24 11:40 01/09/24 11:40 01/09/24 11:40 01/09/24 11:40
Lab Results:
Laboratory Data
WBC 6.0 10^3/uL (4.8-10.8) 01/09/24 07:25
Hgb 7.4 g/dL (12.0-16.0) L 01/09/24 07:25
Plt Count 183 10^3/uL (130-400) 01/09/24 07:25
PT 16.3 Sec (11.4-14.6) H 12/31/23 22:09
INR 1.33 12/31/23 22:09
APTT 29.9 Sec (23.4-35.0) 12/31/23 22:09
eGFR 19.71 01/03/24 07:27
[2024-01-09 12:52] LABS: Glucose - Point of Care 199 mg/dl (70-99)
[2024-01-09 14:47] VITALS: BP 147/65
[2024-01-09] MEDS: NOVOLOG FLEXPEN-MODERATE RESISTANCE 1 UNITS SC (15:17)
--- NOTE | 2024-01-09 16:13 | CM ---
Chart reviewed and plan is for patient to return to [facility] when stable. needs Auth initiated, but can leaving with pending Auth per admissions at [facility].
[facility] in [place]
Report [phone] 2nd floor
.
[2024-01-09 16:53] LABS: Glucose - Point of Care 269 mg/dl (70-99)
[2024-01-09] MEDS: NOVOLOG FLEXPEN-MODERATE RESISTANCE 5 UNITS SC (17:53)
[2024-01-09 19:30] VITALS: BP 94/56
[2024-01-09] MEDS: LIPITOR 40 MG PO (20:09)
--- NOTE | 2024-01-09 20:37 | W.PN.UPDATE ---
Update Note
Progress Note Update
pt looks like she may have shingles right hand. +vesicles not open. pt states she has had shingles before.
will start valtrex 1000mg daily (based on crcl)
[2024-01-09] MEDS: VALTREX 1000 MG PO (21:10)
[2024-01-09 21:48] LABS: Glucose - Point of Care 154 mg/dl (70-99)
[2024-01-09 23:00] VITALS: BP 172/66
[2024-01-10 04:00] VITALS: BP 94/64
[2024-01-10 05:24] VITALS: BMI 17.7
[2024-01-10 07:19] VITALS: BP 106/73
[2024-01-10 07:32] LABS: Glucose - Point of Care 131 mg/dl (70-99)
[2024-01-10 07:39] LABS: % Basophils 0.5 % (0-2); % Eosinophils 1.8 % (0-6); % Immature Granulocytes 0.2 % (0-0.5); % Lymphocytes 27.6 % (20.5-51.1); % Monocytes 9.3 % (1.7-9.3); % Neutrophils 60.6 % (42.2-75.2); Absolute Eosinophils 0.1 10^3/uL (0-0.7); Absolute Lymphocytes 1.7 10^3/uL (1.2-3.4); Absolute Monocytes 0.6 10^3/uL (0.1-0.6); Absolute Neutrophils 3.7 10^3/uL (1.4-6.5); Hematocrit 22.4 % (37.0-47.0); Hemoglobin 7.7 g/dL (12.0-16.0); Mean Corp Hgb Conc. 34.4 g/dL (33.0-37.0); Mean Corpuscular Hgb 33.5 pg (27.0-31.0); Mean Corpuscular Volume 97.4 fL (81.0-99.0); Mean Platelet Volume 9.5 fL (7.4-10.4); Nucleated Red Blood Cells % 0 %; Platelet Count 217 10^3/uL (130-400); Red Cell Dist. Width 14.4 % (11.5-14.5); White Blood Cell Count 6.1 10^3/uL (4.8-10.8)
[2024-01-10] MEDS: APRESOLINE PO (08:11)
[2024-01-10] MEDS: ASPIR LOW (ENTERIC COATED) 81 MG PO (08:12)
[2024-01-10] MEDS: ATIVAN 0.5 MG PO (08:13)
[2024-01-10] MEDS: COREG PO (08:13)
[2024-01-10] MEDS: FEOSOL 650 MG PO (08:13)
[2024-01-10] MEDS: FOLVITE 1 MG PO (08:13)
[2024-01-10] MEDS: NSS (PRESERVATIVE FREE) 10 ML IV (08:14)
[2024-01-10] MEDS: IMDUR (EXTENDED RELEASE) PO (08:14)
[2024-01-10] MEDS: SODIUM BICARBONATE 1300 MG PO (08:14)
[2024-01-10] MEDS: PROTONIX IV 40 MG IV (08:14)
[2024-01-10] MEDS: MIRALAX 17 GRAMS PO (08:14)
[2024-01-10] MEDS: LANTUS 0.07 UNITS SC (08:32)
[2024-01-10] MEDS: NOVOLOG FLEXPEN-MODERATE RESISTANCE SC ×2 (08:33→17:03)
[2024-01-10] MEDS: NOVOLOG FLEXPEN 4 UNITS SC ×2 (08:33→12:12)
[2024-01-10 08:38] LABS: Blood Urea Nitrogen 50 mg/dl (7-17); Calcium 9.3 mg/dl (8.4-10.2); Carbon Dioxide 24 mmol/L (22-30); Chloride 101 mmol/L (98-107); Estimated Creatinine Clearance 16 ml/min; Glucose 117 mg/dl (70-99); Potassium 4.2 mmol/L (3.5-5.1); Sodium 135 mmol/L (135-145); eGFR 17.37
[2024-01-10] MEDS: RETACRIT 10000 UNITS SC (09:30)
--- NOTE | 2024-01-10 10:20 | W.PN.HOSP.TC ---
Today's Communication/Plan
-
Supportive measures for suspected herpetic berta
Continue EPO EOD and trend CBC while here
Possible discharge today
Assessment / Plan
Assessment / Plan
#Acute on chronic anemia
#Acute blood loss anemia/GIB
#Chronic anemia of CKD
-Likely multifactorial worsening to her blood counts; 2/2 likely GI bleed and anemia from worsening renal function; Hgb baseline 8-9
-Hemoglobin was as low as 5.4 on this hospital stay; has not received any blood transfusions since admission due to antibody presence
-Hematology following, due to presence of antibodies from previous transfusions they do not think she could receive blood here
-Home Eliquis was discontinued; previous hospitalist had risks and benefits discussion with the patient and her daughter
-S/p IV iron; was started on EPO 10,000 units subcu every other day; hemoglobin up to 7.7 today
-Patient has refused endoscopy, understands risks
Plan
-Continue with EPO SQ every other day
-Trend daily CBC to monitor hemoglobin
-Discontinue Eliquis permanently
-Monitor clinically for recurrent GI bleed
#Pustular rash of RUE
-Suspect this is herpetic berta but cannot rule out HFMD yet to present elsewhere
-Pustular lesions with surrounding erythema/purple hue with some pain to palpation
-With her severe renal insufficiency would not benefit from antivirals
-Will continue supportive measurements and monitor clinically
#CKD 4
-Baseline creatinine near 2.7-3.0; complicated by acidemia, anemia
-Unclear etiology but likely related to diabetes and hypertension
-Renal function has been at baseline here
-Stable
#Paroxysmal atrial fibrillation
-Home medications included carvedilol and Eliquis twice daily
-Eliquis was held on admission due to severe anemia and likely GIB
-Risk/benefits discussion with family, Eliquis discontinued
#History of CVA
-Suspect this is related to paroxysmal atrial fibrillation
-Home medications include high intensity statin, aspirin, Eliquis
-Eliquis was discontinued as above; remains on aspirin and statin
#Hyperlipidemia
-Unclear history of ASCVD, may be related to CVA
-Home medications include high intensity statin
#DM2 with hyperglycemia
-Home medications include Lantus 5 units daily, insulin lispro 4 units AC, ISS
-Was hyperglycemic despite home regimen here, Lantus increased to 7 units
-Continue with ISS and Accu-Cheks, glucose goal 140-200
#Underweight
-Will encourage oral intake, monitor calorie counts here
-Ordered Ensure with meals
#Tobacco dependence
-Encouraged cessation
DVT prophylaxis: SCDs
Diet: Carbohydrate controlled
CODE STATUS: Full code
Anticipated Discharge: Within 24 hours
Subjective/Interval History
-
Date of Service: January 10, 2024
Seen and examined at bedside. No acute events overnight. AFVSS this point.
She does have a new rash on the right upper extremity, distally. Purple/pustular lesions with dorsal hand and palm, fingers as well. Denies pruritus, does have some pain to palpation. No signs of lesions on contralateral hand or oral mucosa.
Suspect herpetic berta
She denies any acute complaints other than the rash. Denies chest pain, dyspnea, fevers or chills, pruritus, abnormal bleeding or bruising, paresthesias or weakness.
Objective Data
-
Labs:
Laboratory Results
01/10/24
07:22
WBC 6.1
Hgb 7.7 L
Hct 22.4 L
Plt Count 217
Sodium 135
Potassium 4.2
Chloride 101
Carbon Dioxide 24
BUN 50 H
Creatinine 3.0 H
Glucose 117 H
Calcium 9.3
Vital Signs:
Vital Signs
Temp Pulse Resp BP Pulse Ox
98.0 F 75 17 106/73 99
01/10/24 07:19 01/10/24 07:19 01/10/24 07:19 01/10/24 08:13 01/10/24 07:19
I&O
01/09/24 01/10/24 01/11/24
06:59 06:59 06:59
Intake Total 1380 / 1380
Balance 1380 / 1380
Review of Systems
-
History Source: Patient
All other systems: Reviewed and negative
Physical Exam
-
General: No Apparent Distress, Comfortable and Other (Thin female)
HEENT: Normocephalic, Atraumatic and Moist Mucous Membranes
Respiratory: Clear to Auscultation and Non Labored Respirations
Cardiac: Regular Rhythm, S1/S2 and Murmur; Negative Rub or Gallop
GI: Soft, Nontender, Nondistended and Normal Bowel Sounds
Musculoskeletal: No Clubbing, No Cyanosis and No Edema
Skin: Warm, Dry and Rash (Discrete pustular lesions of the distal RUE including the palm; not seen contralaterally oral and oral mucosa); Negative Ulcers
Neuro: AO x 3, Nonfocal/Grossly Intact and Central Nerve's Intact
Psych: Calm
--- NOTE | 2024-01-10 11:03 | W.PN.UPDATE ---
Update Note
Progress Note Update
okay for d/c per heme standpoint
Would rec. weekly CBC monitoring
s/p course of IV iron
Eliquis has been d/c'd
SREEKANTH initiated inpatient, unlikely to be authorized for injection in NH setting
We'll arrange outpatient heme f/u in next 1-2 weeks to reassess and consider the role for continued SREEKANTH treatment
[2024-01-10] MEDS: TYLENOL 650 MG PO (11:08)
[2024-01-10 11:12] VITALS: BP 189/78
[2024-01-10 12:03] LABS: Glucose - Point of Care 329 mg/dl (70-99)
[2024-01-10] MEDS: NOVOLOG FLEXPEN-MODERATE RESISTANCE 7 UNITS SC (12:11)
[2024-01-10 15:16] VITALS: BP 163/56
--- NOTE | 2024-01-10 15:20 | CM ---
Patient has been approved for 6 days skilled at [facility], Auth received from insurance , Auth number [id number], from Becky at [facility].
[facility] in [place]
Report [phone] 2nd floor
.
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
[2024-01-10] MEDS: APRESOLINE 50 MG PO (15:36)
[2024-01-10 16:59] LABS: Glucose - Point of Care 120 mg/dl (70-99)
--- NOTE | 2024-01-10 17:01 | W.DCSUMMARY ---
Discharge Summary
Discharge Data
Date of Admission: 12/31/23
Date of Discharge: 01/10/24
-
Pending Results: No
Hospital Course
58-year-old female with AF (on Eliquis), stage IV CKD, T2DM, HTN, anemia, H/oh CVA, smoker that presented to the hospital with acute on chronic anemia and hemoglobin level of 5.4 at its lowest. Type and screen was obtained however patient had
complex antibody presence that prohibited blood transfusions in the hospital due to excessive risk for transfusion reactions. Suspected etiology for her anemia was multifactorial from iron deficiency, GIB (positive Hemoccult), as well as kidney
disease. She was started on IV iron and folate supportively. She was subsequently started on EPO injections of 10,000 units every other day while in the hospital. Hemoglobin started to improve with uptrend towards 7.7 on day of discharge. Will
follow-up with hematology at discharge for optimization of her EPO regimen. Should continue on current weekly dosing of Retacrit pending evaluation by hematology outpatient. Referral was provided should continue oral iron and B vitamins after
discharge. Discontinued Eliquis permanently after risk/benefits discussion with daughter and patient.
Over the night prior to discharge she developed a vesicular/pustular rash to the right hand and wrist. Was noted to be painful to palpation though not pruritic. No oral mucosal lesions seen while in the hospital, no involvement of contralateral
hand. Skin involvement did include the palm of the right hand. Suspicion high for herpetic berta though cannot rule out HFMD. With severe renal insufficiency and estimated creatinine clearance of 16 mL/min felt antiviral therapy high risk.
Recommend supportive care with [id number] Tylenol and follow-up with PCP at discharge.
Discharge Plan
-
Patient Disposition: Long-Term/SNF
Discharge Diagnosis/Procedures: Acute on chronic anemia
Herpetic berta
Condition: Fair
Diet: Low Sodium, Diabetic, Carb Controlled and Other diet
Additional Diets: Low potassium
Activity: As tolerated
Driving Restrictions: Not until seen by your Dr
Bathing Restrictions: None
Blood Work: CBC in 7 days after discharge to recheck hemoglobin
Activity Restrictions/Additional Instructions:
Patient should have follow-up with primary care physician/family doctor within 7 days of discharge from the hospital. Patient should also follow-up with hematology, referral provided if patient needs section gang.
Patient was started on Procrit in the hospital. Monitor for signs of new hypertension which may result from this medication, however blood pressure was stable upon initiation in the hospital.
Instructions: Epoetin Ricardo
Referrals:
Doretha Hicks MD [Active] - in two weeks (Call office to schedule)
Galo Palmer DO [Family Provider] -
Additional Discharge Medication Instructions: STOP Eliquis
CONTINUE with iron supplement and folate supplement
CONTINUE erythropoietin weekly as currently prescribed
PLAN for new Procrit regimen after office visit with hematology in 2 weeks
START Tylenol 650 mg as needed for pain from herpetic berta
Prescriptions:
Continued
acetaminophen 325 mg Tablet
650 mg PO Q6H PRN (Reason: pain/fever)
Rx Instructions:
do not exceed 3g in 24 hours
aspirin 81 mg Tablet,Delayed Release (Dr/Ec)
81 mg PO DAILY
bisacodyl 5 mg Tablet
5 mg PO DAILY PRN (Reason: constipation)
carvedilol 25 mg Tablet
25 mg PO BID
ipratropium-albuterol 0.5 mg-3 mg(2.5 mg base)/3 mL Solution For Nebulization
3 ml INHALATION 6XD
dextrose [Glucose Gel] 40 % Gel
15 g PO Q15M PRN (Reason: hypoglycemia)
Rx Instructions:
x3 for blood sugar <60 and able to swallow oral
isosorbide mononitrate 60 mg Tablet Extended Release 24 Hr
60 mg PO DAILY
magnesium hydroxide 400 mg/5 mL Suspension
5 ml PO DAILY
magnesium hydroxide [Milk of Magnesia] 400 mg/5 mL Suspension
30 ml PO DAILY
sodium bicarbonate 650 mg Tablet
1,300 mg PO BID
pantoprazole 40 mg Tablet,Delayed Release (Dr/Ec)
40 mg PO DAILY
ferrous sulfate 325 mg (65 mg iron) Tablet
650 mg PO BID
Fleet Enema 19-7 gram/118 mL Enema
118 ml NJ ONCE PRN (Reason: constipation)
folic acid 1 mg Tablet
1 mg PO DAILY
Glucagon Emergency Kit (human) 1 mg Recon Soln
1 mg IM ONCE PRN (Reason: hypoglycemia)
Rx Instructions:
blood glucose <60 and pt unable to take po food/fluids
insulin lispro [Humalog KwikPen Insulin] 100 unit/mL Insulin Pen
4 unit SC AC
insulin lispro [Humalog KwikPen Insulin] 100 unit/mL Insulin Pen
1 sliding scale dose SC DIRECTED
Rx Instructions:
0-200=0
201-250=1U
251-300=2U
301-350=3U
351-400=4U
401-450=5U
Retacrit 4,000 unit/mL Solution
4,000 unit SC WEEKLY
Rx Instructions:
on tuesday
atorvastatin 40 mg Tablet
40 mg PO HS Qty: 30 0RF
hydralazine 25 mg Tablet
50 mg PO TID Qty: 90 0RF
lorazepam [Ativan] 0.5 mg Tablet
0.5 mg PO DAILY
Changed
insulin glargine 100 unit/mL Solution
7 unit SC DAILY Qty: 0 0RF
Discontinued
Eliquis 2.5 mg Tablet
2.5 mg PO BID
bisacodyl 5 mg Suppository
5 mg NJ DAILY PRN (Reason: constipation)
Discharge Orders:
Discharge Patient (As Directed); Ordered 01/10/24
Ordered By: Steve Driver
Discharge Date and Time
Print Language: [id number]
== END 2024-01-10 17:15 | DRG 813 ==
LOC: 4 WEST ACU 23:24
PROVIDERS: Hospitalist; Internal Medicine; Physician Assistant; Registered Nurse; ADMITTING PHYSICIAN Hospitalist; ATTENDING PHYSICIAN Internal Medicine; CONSULT PHYSICIAN Internal Medicine; CONSULT PHYSICIAN Internal Medicine Hematology & Oncology; EMERGENCY PHYSICIAN Emergency Medicine; FAMILY PHYSICIAN Internal Medicine
DX: D68.32 Hemorrhagic disorder due to extrinsic circulating anticoagulants (principal); D62 Acute posthemorrhagic anemia; I13.0 Hypertensive heart and chronic kidney disease with heart failure and stage 1 through stage 4 chronic kidney disease, or unspecified chronic kidney disease; N18.4 Chronic kidney disease, stage 4 (severe); Z68.1 Body mass index [BMI] 19.9 or less, adult; K92.1 Melena; E87.1 Hypo-osmolality and hyponatremia; T45.515A Adverse effect of anticoagulants, initial encounter; E11.22 Type 2 diabetes mellitus with diabetic chronic kidney disease; E11.65 Type 2 diabetes mellitus with hyperglycemia; I48.0 Paroxysmal atrial fibrillation; I50.9 Heart failure, unspecified; I25.10 Atherosclerotic heart disease of native coronary artery without angina pectoris; G47.00 Insomnia, unspecified; D63.1 Anemia in chronic kidney disease; R63.6 Underweight; B02.9 Zoster without complications; E78.00 Pure hypercholesterolemia, unspecified; F17.200 Nicotine dependence, unspecified, uncomplicated; F32.A Depression, unspecified; F41.9 Anxiety disorder, unspecified; R76.0 Raised antibody titer; D50.9 Iron deficiency anemia, unspecified; Z86.73 Personal history of transient ischemic attack (TIA), and cerebral infarction without residual deficits; Z95.828 Presence of other vascular implants and grafts; Z95.5 Presence of coronary angioplasty implant and graft; Z88.1 Allergy status to other antibiotic agents; Z79.899 Other long term (current) drug therapy; Z79.82 Long term (current) use of aspirin; Z79.01 Long term (current) use of anticoagulants; Z79.4 Long term (current) use of insulin
CPT/HCPCS: 80048; 80053; 82248; 82607; 82728; 82746; 82947; 82962; 83010; 83540; 83550; 83615; 85025; 85027; 85610; 85730; 86850; 86870; 86900; 86901; 87070; 93005; 94640; 96374; 96375; 97162; 97166; 97530; 99284; 99406; J2916; Q5106

== ENCOUNTER 2024-01-31 12:17 | Inpatient (IN) | payer OTHER, SELFPAY ==
[2024-01-31] VITALS (20 sets, daily range): BP systolic 70–189; BP diastolic 57–109; BMI 16.5
[2024-01-31 08:52] LABS: % Basophils 0.6 % (0-2); % Eosinophils 4.7 % (0-6); % Immature Granulocytes 0.2 % (0-0.5); % Lymphocytes 31.7 % (20.5-51.1); % Monocytes 8.3 % (1.7-9.3); % Neutrophils 54.5 % (42.2-75.2); Absolute Eosinophils 0.2 10^3/uL (0-0.7); Absolute Lymphocytes 1.5 10^3/uL (1.2-3.4); Absolute Monocytes 0.4 10^3/uL (0.1-0.6); Absolute Neutrophils 2.6 10^3/uL (1.4-6.5); Hematocrit 34.2 % (37.0-47.0); Hemoglobin 11.2 g/dL (12.0-16.0); Mean Corp Hgb Conc. 32.7 g/dL (33.0-37.0); Mean Corpuscular Hgb 32.4 pg (27.0-31.0); Mean Corpuscular Volume 98.8 fL (81.0-99.0); Mean Platelet Volume 9.5 fL (7.4-10.4); Nucleated Red Blood Cells % 0 %; Platelet Count 184 10^3/uL (130-400); Red Blood Cell Count 3.46 10^6/uL (4.20-5.40); Red Cell Dist. Width 13.6 % (11.5-14.5); White Blood Cell Count 4.7 10^3/uL (4.8-10.8)
--- NOTE | 2024-01-31 09:02 | ED.GENMED ---
History of Present Illness
General
Chief Complaint: Blood Pressure Problem
Source: patient
Exam Limitations: none
Time Seen by Provider: 01/31/24 08:45
History of Present Illness
History of Present Illness:
58-year-old female with history of A-fib CHF coronary artery disease insulin-dependent diabetes presents from cardiology office today. Patient typically lives at [facility]. She was sent by the cardiology office as she was having elevated blood
pressure in the before her scheduled nuclear test. Patient notes ongoing chest pain as well. The pain started last evening is constant in nature to the center of her chest. She is accompanied by a DRIVER and caregiver from the facility. Patient
does have ability provide history. She has not had any of her morning medications yet.
Past History
Past History
ED Past Medical History: Arrthythmia, CAD, CHF, COPD, CVA, GERD, HTN, Hypercholesterolemia, [place], Renal failure (Right renal artery stenosis status post stent renal artery.), Psychiatric (anxiety, depression) and Other (anemia)
ED Past Surgical History: Cardiac (multiple cardiac catheters, coronary stent Placed in 2008)
Social History
Alcohol: Former
Living: senior care
Employment: Disabled
Family History
Family History: Diabetes (sister), Hypertension (daughter and mother ), Cancer (pancreatic cancer in mother ) and Other (heart disease in brother and mother )
Phy Exam
Physical Exam
Physical Exam:
General: Well-appearing female no acute respiratory distress
HEENT: Normocephalic atraumatic
Heart: Regular rate and rhythm no murmurs
Lungs: Clear no wheeze
Abdomen is soft nontender nondistended no guarding or rebound normal bowel sounds
Extremities: No cyanosis
Skin: Warm no rash
Course
Orders/Labs/Results
Orders:
Orders
01/31/24 08:33
Electrocardiogram (*1) Urgent
Reason for Study: Chest Pain
Cardiac Monitoring- Treatment ONCE
EKG- Treatment ONCE
IV Insert/Care/Rem.- Treatment PRN
O2 Therapy [RESP] Urgent
Titrate/Wean O2 to maintain O2 sat greater than (%): 90
Special Instructions: Maintain sats >/=90%
Pulse Ox/spot Check [RESP] Urgent
Quantity: 1
Special Instructions: ON ROOM AIR
01/31/24 08:34
Complete Blood Count/With Diff Urgent
Comprehensive Metabolic Panel Urgent
Troponin I Urgent
01/31/24 09:00
Aspirin Chewable [Low Strength Aspirin] 324 mg PO NOW STA
01/31/24 09:01
HydrALAZINE [Apresoline] 50 mg PO NOW STA
01/31/24 09:14
Carvedilol [Coreg] 25 mg PO NOW STA
01/31/24 09:25
CR Chest Portable - 1 View Urgent
Comment:
Reason For Exam: chest pain
Reason Study Needs to be Portable: Unable to Transport
01/31/24 09:42
Echo 2D MMode Color/Doppler Routine
Reason for Study: HTN Emergency, CP
01/31/24 12:00
EKG [Electrocardiogram (*1)] Routine
Reason for Study: Chest Pain
Comment: Complete with troponin
Troponin I Routine
Abnormal Lab Results
01/31/24
08:34
WBC 4.7 L 10^3/uL
(4.8-10.8)
RBC 3.46 L 10^6/uL
(4.20-5.40)
Hgb 11.2 L g/dL
(12.0-16.0)
Hct 34.2 L %
(37.0-47.0)
MCH 32.4 H pg
(27.0-31.0)
MCHC 32.7 L g/dL
(33.0-37.0)
BUN 38 H mg/dl
(7-17)
Creatinine 2.7 H mg/dL
(0.6-1.0)
Glucose 117 H mg/dl
(70-99)
AST 41 H U/L
(14-36)
ALT 56 H U/L
(0-35)
Troponin I 0.037 H* ng/ml
Total Protein 5.7 L g/dl
(6.3-8.2)
Albumin 3.3 L g/dl
(3.5-5.0)
01/31/24 08:34
01/31/24 08:34
Vital Signs
Initial and Last Documented VS:
Initial Vital Signs
Temp Pulse Resp BP Pulse Ox
98.3 F 56 16 189/109 100
01/31/24 08:27 01/31/24 08:27 01/31/24 08:27 01/31/24 08:27 01/31/24 08:27
Last Documented Vital Signs
Temp Pulse Resp BP Pulse Ox
98.3 F 52 11 178/101 100
01/31/24 08:27 01/31/24 09:33 01/31/24 08:45 01/31/24 09:33 01/31/24 08:27
MDM/Problems Addressed
Differential Diagnosis Includes:
Chest pain with elevated blood pressure. Differential could include ACS versus symptomatic hypertension versus GERD. Pain is not pleuritic she not hypoxic nor tachycardic. Do not PE.
Will obtain EKG and labs. Aspirin ordered for pain. Patient's normal blood pressure medicine ordered including Coreg and hydralazine.
*Critical Care Note
Total Time (30-74mins, 75-104mins- exclusive of procedures): Not Applicable
Update Note
Update Note:
Troponin slightly elevated at 0.037. Patient does have underlying kidney dysfunction but she is not a dialysis patient. In the setting of chest pain, will consider this as a source. Cannot did cardiology for their evaluation. Aspirin ordered
carvedilol and Coreg ordered. Chest x-ray ordered as well.
ED Attending Note
-
Portions of this chart may have been created with voice recognition software.� Occasional wrong word or��sound alike� substitutions may have occurred due to the inherent limitations of voice recognition software.
Discharge Plan
Departure
Patient Disposition: Admit
Date of Disposition: 01/31/24
Time of Disposition: 10:15
Admit to: Telemetry
Presentation/result/management discussed w/ accepting MD/DO: Hospitalist
Discharge Problem:
Hypertensive urgency, Elevated troponin level
Prescriptions:
No Action
acetaminophen 325 mg Tablet
650 mg PO Q6HPRN PRN (Reason: pain/fever)
Rx Instructions:
do not exceed 3g in 24 hours
aspirin 81 mg Tablet,Delayed Release (Dr/Ec)
81 mg PO DAILY
bisacodyl 5 mg Tablet
5 mg PO DAILYPRN PRN (Reason: constipation)
carvedilol 25 mg Tablet
25 mg PO BID
ipratropium-albuterol 0.5 mg-3 mg(2.5 mg base)/3 mL Solution For Nebulization
3 ml INHALATION Q4HPRN PRN (Reason: sob)
isosorbide mononitrate 60 mg Tablet Extended Release 24 Hr
60 mg PO DAILY
magnesium hydroxide 400 mg/5 mL Suspension
5 ml PO DAILY
magnesium hydroxide [Milk of Magnesia] 400 mg/5 mL Suspension
30 ml PO [id number] PRN (Reason: constipation)
sodium bicarbonate 650 mg Tablet
1,300 mg PO BID
pantoprazole 40 mg Tablet,Delayed Release (Dr/Ec)
40 mg PO DAILY
ferrous sulfate 325 mg (65 mg iron) Tablet
650 mg PO BID
Fleet Enema 19-7 gram/118 mL Enema
118 ml VT DAILYPRN PRN (Reason: if no bm aftr dulcolax)
folic acid 1 mg Tablet
1 mg PO DAILY
insulin lispro [Humalog KwikPen Insulin] 100 unit/mL Insulin Pen
4 unit SC AC
Retacrit 4,000 unit/mL Solution
4,000 unit SC WE
atorvastatin 40 mg Tablet
40 mg PO HS Qty: 30 0RF
hydralazine 25 mg Tablet
50 mg PO TID Qty: 90 0RF
lorazepam [Ativan] 0.5 mg Tablet
0.5 mg PO DAILY
insulin glargine 100 unit/mL Solution
7 unit SC DAILY Qty: 0 0RF
polyethylene glycol 3350 [Miralax] 17 gram Powder In Packet
17 g PO DAILY
acetaminophen [Tylenol 8 Hour] 650 mg Tablet Extended Release
1,300 mg PO Q12H
bisacodyl [Dulcolax (bisacodyl)] 10 mg Suppository
10 mg VT DAILYPRN PRN (Reason: if no bm aftr mom)
sorbitol 70 % Solution
30 ml PO DAILYPRN PRN (Reason: constipaiton)
simethicone [Gas-X] 80 mg Tablet,Chewable
125 mg PO Q6HPRN PRN (Reason: gas pains)
escitalopram oxalate [Lexapro] 10 mg Tablet
10 mg PO DAILY
acyclovir 5 % Cream
1 applic TOPICAL DAILY
cholecalciferol (vitamin D3) [Vitamin D3] 50 mcg (2,000 unit) Tablet
50 mcg PO DAILY
Nephronex-SL 800-2,000 mcg-unit Tablet,Disintegrating
1 tab PO DAILY
Referrals:
Galo Palmer DO [Family Provider] -
Interventions
Interventions:
*General Assessment Last Done: 01/31/24 09:25
*Neglect/Abuse Screening Last Done: 01/31/24 09:26
*ED COVID-19 Vaccine History Last Done: 01/31/24 09:24
ED- Neurological Assessment Last Done: 01/31/24 09:26
Discharge Date and Time
Print Language: SERBIAN
[2024-01-31 09:05] LABS: ALT (SGPT) 56 U/L (0-35); AST (SGOT) 41 U/L (14-36); Albumin 3.3 g/dl (3.5-5.0); Alkaline Phosphatase 75 U/L (38-126); Blood Urea Nitrogen 38 mg/dl (7-17); Calcium 9.4 mg/dl (8.4-10.2); Carbon Dioxide 23 mmol/L (22-30); Chloride 106 mmol/L (98-107); Glucose 117 mg/dl (70-99); Sodium 139 mmol/L (135-145); Total Bilirubin 0.2 mg/dl (0.2-1.3); Total Protein 5.7 g/dl (6.3-8.2); eGFR 19.71
[2024-01-31] MEDS: LOW STRENGTH ASPIRIN 324 MG PO (09:17)
[2024-01-31] MEDS: APRESOLINE 50 MG PO (09:18)
[2024-01-31 09:23] LABS: Troponin I 0.037 ng/ml
[2024-01-31] MEDS: COREG 25 MG PO ×2 (09:33→21:12)
--- NOTE | 2024-01-31 10:18 | CON.CAR ---
Addendum entered and electronically signed by ELLEN London 01/31/24 14:59:
Attempted to call patient's daughter x 2 for update at the patient's request.
Phone line busy on both attempts.
Addendum entered and electronically signed by Cornell Christensen MD 01/31/24 11:37:
I saw and examined the patient.
The LEATH[employer] M[employer]ER's note was reviewed and I agree with the note.
Comment:
Katelyn Kim is a 58-year-old female with hypertension, CKD stage IV, paroxysmal atrial fibrillation, prior CVA, dyslipidemia, type 2 diabetes, and recent admission with anemia who presented for a stress test today and was complaining of chest pain
with blood pressures > 200/100. She was sent to the ED where she was found to have a troponin of 0.03 and BP 189/109. On interview she continues to complain of 8/10 chest pain. On exam she has regular rate and rhythm with no murmurs/rubs/gallops,
clear lungs, and no lower extremity edema. Labs are notable for creatinine 2.7, Hemoglobin 11.2, Troponin 0.037. ECG shows sinus bradycardia with nonspecific ST T wave changes.
In summary, this is a 58-year-old female with multiple cardiac risk factors presenting with NSTEMI. It is unclear if this is type II NSTEMI due to demand in the setting of her hypertension (held meds for stress test) or if this is true ACS. Next
troponin is due at 12 PM and we will continue to follow until downtrending. We will also get an echocardiogram to further risk stratify her. We will start nitro drip with the goal of getting her chest pain-free. She has received 325 mg of
aspirin. We will not start systemic anticoagulation due to her recent admission in December with severe anemia (hemoglobin 5.4, unable to get blood transfusion due to complex antibodies). We can reevaluate once her next troponins come back and
echocardiogram results. Continue carvedilol, isosorbide, and hydralazine. Continue atorvastatin 40 mg daily. We will update a lipid panel.
Original Note:
Consultation
Consultation Request
Date/Time Consultation Requested: 01/31/2024 09:50
Date/Time Consultation Performed: 01/31/2024 10:20
Requesting Provider: Dr. Long
Performing Provider: ELLEN Nash for Dr. Christensen
Reason for Consultation: Chest pain
Medical History
-
Chief Complaint: Chest pain
History of Present Illness:
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
testing and was experiencing chest pain. BP when she arrived to 200/110. She was sent to the emergency department for evaluation. Initial troponin 0.037. She endorsed midsternal anterior chest pain that radiated into her left shoulder. She
denies associated symptoms of dizziness, shortness of breath, and diaphoresis. She was given 50 mg of hydralazine. Her systolic blood pressure is still greater than 170 mmHg and she is having residual chest discomfort 2/10 in severity. Start
nitroglycerin drip. CXR is pending. Her renal function is at its baseline.
She had a recent admission late last month with acute on chronic anemia. The suspected etiology for her anemia was multifactorial from iron deficiency, GI bleed (positive Hemoccult), and in the setting of her kidney disease. She was started on EPO
injections by hematology. She is on Retacrit and folate. Her apixaban was permanently discontinued.
Past Medical History
Past Medical History: Arrhythmias (Paroxysmal atrial fibrillation), CVA, HTN, Hypercholesterolemia, IDDM and Other (Chronic anemia)
Social History
Tobacco: Former Smoker
Alcohol: None
Drug: None
Living: Jail ([facility])
Family History
Family History: Unable to Obtain
Allergies / Home Medications
Allergy/AdvReac Type Severity Reaction Status Date / Time
adhesive tape Allergy Rash Verified 12/10/23 04:31
cephalexin [From Keflex] Allergy Unknown Verified 12/10/23 04:31
�Medication �Instructions �Recorded �Confirmed �Type
acetaminophen 325 mg tablet 650 mg PO Q6HPRN PRN pain/fever 12/10/23 01/31/24 History
aspirin 81 mg tablet,delayed 81 mg PO DAILY Blood Clot 12/10/23 01/31/24 History
release Prevention/Tx
bisacodyl 5 mg tablet 5 mg PO DAILYPRN PRN constipation 12/10/23 01/31/24 History
carvedilol 25 mg tablet 25 mg PO BID Blood Pressure 12/10/23 01/31/24 History
epoetin jaimee-epbx 4,000 unit/mL 4,000 unit SC WE 12/10/23 01/31/24 History
injection solution (Retacrit)
ferrous sulfate 325 mg (65 mg 650 mg PO BID Supplement 12/10/23 01/31/24 History
iron) tablet
folic acid 1 mg tablet 1 mg PO DAILY Supplement 12/10/23 01/31/24 History
insulin lispro 100 unit/mL 4 unit SC AC Diabetes 12/10/23 01/31/24 History
subcutaneous pen (Humalog KwikPen
(U-100) Insulin)
ipratropium 0.5 mg-albuterol 3 mg 3 ml inhalation Q4HPRN PRN sob 12/10/23 01/31/24 History
(2.5 mg base)/3 mL nebulization
soln
isosorbide mononitrate 60 mg 60 mg PO DAILY Heart 12/10/23 01/31/24 History
tablet,extended release 24 hr Disease/Condition
magnesium hydroxide 400 mg/5 mL 5 ml PO DAILY Gastrointestinal 12/10/23 01/31/24 History
oral suspension Issue
magnesium hydroxide 400 mg/5 mL 30 ml PO [id number] PRN constipation 12/10/23 01/31/24 History
oral suspension (Milk of Magnesia)
pantoprazole 40 mg tablet,delayed 40 mg PO DAILY Gastrointestinal 12/10/23 01/31/24 History
release Issue
sodium bicarbonate 650 mg tablet 1,300 mg PO BID Electrolyte 12/10/23 01/31/24 History
Repletion
sodium phosphates 19 gram-7 118 ml TN DAILYPRN PRN if no bm 12/10/23 01/31/24 History
gram/118 mL enema (Fleet Enema) aftr dulcolax
atorvastatin 40 mg tablet 40 mg PO HS #30 tabs 12/13/23 01/31/24 Rx
hydralazine 25 mg tablet 50 mg (2 x 25 mg) PO TID #90 tabs 12/13/23 01/31/24 Rx
lorazepam 0.5 mg tablet (Ativan) 0.5 mg PO DAILY anxiety 12/31/23 01/31/24 History
insulin glargine 100 unit/mL 7 unit (0.07 mL) SC DAILY Diabetes 01/10/24 01/31/24 Rx
subcutaneous solution #0 mL
acetaminophen 650 mg 1,300 mg PO Q12H 01/31/24 01/31/24 History
tablet,extended release (Tylenol 8
Hour)
acyclovir 5 % topical cream 1 applic topical DAILY right hand 01/31/24 01/31/24 History
bisacodyl 10 mg rectal suppository 10 mg TN DAILYPRN PRN if no bm 01/31/24 01/31/24 History
(Dulcolax (bisacodyl)) aftr mom
cholecalciferol (vitamin D3) 50 50 mcg PO DAILY 01/31/24 01/31/24 History
mcg (2,000 unit) tablet (Vitamin
D3)
escitalopram oxalate 10 mg tablet 10 mg PO DAILY 01/31/24 01/31/24 History
(Lexapro)
polyethylene glycol 3350 17 gram 17 g PO DAILY 01/31/24 01/31/24 History
oral powder packet (Miralax)
simethicone 80 mg chewable tablet 125 mg PO Q6HPRN PRN gas pains 01/31/24 01/31/24 History
sorbitol 70 % solution 30 ml PO DAILYPRN PRN constipaiton 01/31/24 01/31/24 History
vit B complex with C#19-FA-D3 800 1 tab PO DAILY 01/31/24 01/31/24 History
mcg-2,000 unit disintegrating
tablet
Review of Systems
-
History Source: Patient
All other systems: Negative unless noted
Constitutional: Fatigue
EENT: No Symptoms
Respiratory: No Symptoms
Cardiac: Chest Pain
Abdomen/GI: No Symptoms
: No Symptoms
Musculoskeletal: No Symptoms
Skin: No Symptoms
Neurological: Weakness
Endocrine: No Symptoms
Hematologic/Lymphatic: No Symptoms
Physical Exam
Vital Signs
Temp Pulse Resp BP Pulse Ox
98.3 F 52 11 178/101 100
01/31/24 08:27 01/31/24 09:33 01/31/24 08:45 01/31/24 09:33 01/31/24 08:27
Lab Results
01/31/24 08:34
01/31/24 08:34
Troponin I 0.037 ng/ml H* 01/31/24 08:34
Physical Exam
General: Well Developed and No Apparent Distress
HEENT: Normocephalic and Anicteric
Respiratory: Clear and Non Labored Respirations
Cardiac: S1/S2 and Regular Rhythm
Breast: Deferred by me
GI: Soft, Non Tender, Non Distended and Normal Bowel Sounds
Rectal: Deferred by Provider
Genito-urinary: No Costovertebral Tender
Musculoskeletal: No Clubbing, No Cyanosis and No Edema
Skin: Warm and Dry
Neuro: AO x 3
Hematologic/Lymphatic: No Lymphadenopathy
Psych: Calm
Impression / Plan
-
BACKGROUND: 58 F with hypertension, CKD, paroxysmal atrial fibrillation, prior CVA, dyslipidemia, type 2 diabetes mellitus, and recent admission with anemia presented for stress testing and was experiencing chest pain. BP when she
arrived to 200/110. She was sent to the emergency department for evaluation.
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 Gardner
IMPRESSION/PLAN:
NSTEMI
-Initial troponin 0.037, trend
-Start NTG gtt for 06/21 midsternal anterior CP
-Could be Type II in the setting of hypertensive emergency
-Inferior T wave inversion
-Echocardiogram today
-Cardiac catheterization would complicate both her renal disease and anemia if she required PCI
Hypertensive emergency
-Resume carvedilol and hydralazine
-Start nitroglycerin drip for BP and chest pain
-She reports gestational hypertension but no diagnosis of preeclampsia
Chronic kidney disease, Stage IV
-Renal function at baseline
-Avoid nephrotoxic agents and renally dose appropriate medications
Paroxysmal atrial fibrillation
-In sinus rhythm
-Oral Anticoagulation: Apixaban 2.5 mg BID discontinued last admission due to anemia
-[id number]: score at least 5 (HTN, Diabetes Mellitus, prior Stroke/TIA, female gender)
Anemia, chronic, multifactorial
-Her multiple antibodies make transfusions more challenging
-Prior admission suspected etiology was multifactorial from iron deficiency, GIB (positive Hemoccult), and kidney disease
-Continue folate and Retacrit
Prior CVA, embolic, with residual dysarthria and right-sided weakness
Dyslipidemia, on atorvastatin, fasting lipid panel in a.m.
Type 2 diabetes mellitus, on insulin, with chronic kidney disease and hyperglycemia, HgbA1c 5.8%
Chronic ambulatory dysfunction, wheelchair-bound
DATA:
Transthoracic echocardiogram, 12/12/2023:
Normal left ventricular chamber size. Moderate concentric left ventricular
hypertrophy. Overall, preserved left ventricular systolic function. Left
ventricular ejection fraction is 50-55%. Sharath EPIQ left ventricular global
longitudinal strain is -11.5%.
No significant valvular disease.
No prior study available for comparison.
Data Reviewed
-
EKG: Report Reviewed by me (Sinus bradycardia, left axis deviation, nonspecific ST abnormality, rate 54)
Medical Tests (Nuc Med, Echo etc): Report Reviewed by me (Prior echo as above)
Labs: Labs Reviewed by me
Old Records: Reviewed
[2024-01-31] MEDS: NITROGLYCERIN PREMIX 250 IV (10:52)
--- NOTE | 2024-01-31 11:51 | HPS.HSE ---
Family Physician
-
Family Physician: Galo Palmer, DO
Chief Complaint
-
Chest pain
History of Present Illness
58-year-old female with past medical history of hypertension, CKD stage IV, paroxysmal atrial fibrillation, prior CVA, hyperlipidemia, type 2 diabetes mellitus, anemia came to the hospital today with complaining of chest pain. Patient had stress
test scheduled today where prior to the test she started complaining of chest pain and had elevated blood pressure of 200/100. In the ED patient continued to have chest pain and mild troponin elevation. She was subsequently started on nitro drip.
She also did not got her blood pressure medication at [facility] so she was given her daily routine blood pressure medications in the ED. Currently she still has some chest pain. Denies any diaphoresis. Denies any shortness of breath. Denies any
abdominal pain, nausea, vomiting, diarrhea, constipation.
Medical History
Past Medical History
Past Medical History: Reports Arrhythmia (Paroxysmal atrial fibrillation), CVA, HTN, Hypercholesterolemia and IDDM
Past Surgical History: Reports Cardiac
Social History
Tobacco: Non-smoker
Alcohol: Former
Family History
Family History: Not pertinent
Allergies / Home Medications
Allergies reflects when Allergies were last updated in [facility].
Home Medications with original date entered in [facility]
Allergy/Medication List:
Allergies
Allergy/AdvReac Type Severity Reaction Status Date / Time
adhesive tape Allergy Rash Verified 12/10/23 04:31
cephalexin [From Keflex] Allergy Unknown Verified 12/10/23 04:31
Home Medications
acetaminophen 325 mg tablet 650 mg PO Q6HPRN PRN pain/fever 12/10/23
aspirin 81 mg tablet,delayed release 81 mg PO DAILY Blood Clot Prevention/Tx 12/10/23
bisacodyl 5 mg tablet 5 mg PO DAILYPRN PRN constipation 12/10/23
carvedilol 25 mg tablet 25 mg PO BID Blood Pressure 12/10/23
epoetin jaimee-epbx 4,000 unit/mL injection solution (Retacrit) 4,000 unit SC WE anemia 12/10/23
ferrous sulfate 325 mg (65 mg iron) tablet 650 mg PO BID Supplement 12/10/23
folic acid 1 mg tablet 1 mg PO DAILY Supplement 12/10/23
insulin lispro 100 unit/mL subcutaneous pen (Humalog KwikPen (U-100) Insulin) 4 unit SC AC Diabetes 12/10/23
ipratropium 0.5 mg-albuterol 3 mg (2.5 mg base)/3 mL nebulization soln 3 ml inhalation Q4HPRN PRN sob 12/10/23
isosorbide mononitrate 60 mg tablet,extended release 24 hr 60 mg PO DAILY Heart Disease/Condition 12/10/23
magnesium hydroxide 400 mg/5 mL oral suspension 5 ml PO DAILY Gastrointestinal Issue 12/10/23
magnesium hydroxide 400 mg/5 mL oral suspension (Milk of Magnesia) 30 ml PO [id number] PRN constipation 12/10/23
pantoprazole 40 mg tablet,delayed release 40 mg PO DAILY Gastrointestinal Issue 12/10/23
sodium bicarbonate 650 mg tablet 1,300 mg PO BID Electrolyte Repletion 12/10/23
sodium phosphates 19 gram-7 gram/118 mL enema (Fleet Enema) 118 ml [place] DAILYPRN PRN if no bm aftr dulcolax 12/10/23
lorazepam 0.5 mg tablet (Ativan) 0.5 mg PO DAILY anxiety 12/31/23
insulin glargine 100 unit/mL subcutaneous solution 7 unit (0.07 mL) SC DAILY Diabetes #0 mL 01/10/24
acetaminophen 650 mg tablet,extended release (Tylenol 8 Hour) 1,300 mg PO Q12H pain 01/31/24
acyclovir 5 % topical cream 1 applic topical DAILY right hand 01/31/24
atorvastatin 40 mg tablet 40 mg PO HS High Cholesterol 01/31/24
bisacodyl 10 mg rectal suppository (Dulcolax (bisacodyl)) 10 mg [place] DAILYPRN PRN if no bm aftr mom 01/31/24
cholecalciferol (vitamin D3) 50 mcg (2,000 unit) tablet (Vitamin D3) 50 mcg PO DAILY Supplement 01/31/24
escitalopram oxalate 10 mg tablet (Lexapro) 10 mg PO DAILY depression/anxiety 01/31/24
hydralazine 25 mg tablet 50 mg PO TID Blood Pressure 01/31/24
polyethylene glycol 3350 17 gram oral powder packet (Miralax) 17 g PO DAILY Constipation 01/31/24
simethicone 80 mg chewable tablet 125 mg PO Q6HPRN PRN gas pain 01/31/24
sorbitol 70 % solution 30 ml PO DAILYPRN PRN constipation 01/31/24
vit B complex with C#19-FA-D3 800 mcg-2,000 unit disintegrating tablet 1 tab PO DAILY Supplement 01/31/24
Review of Systems
-
History Source: Patient
A 12 point ROS was completed and negative except as noted: Yes
Cardiac: Reports Chest Pain
Physical Exam
Vital Signs
Vital Signs
Temp Pulse Resp BP Pulse Ox
98.3 F 57 11 178/101 95
01/31/24 08:27 01/31/24 10:30 01/31/24 10:30 01/31/24 09:33 01/31/24 11:01
Physical Exam
General: Well Nourished and No Apparent Distress
HEENT: Anicteric and Moist mucous membranes
Respiratory: Clear and Non Labored Respirations; No Wheezes
Cardiac: S1/S2 and Regular Rhythm
GI: Soft, Non Tender, Non Distended and Normal Bowel Sounds
Rectal: Deferred by Provider
Genito-urinary: No Davalos
Musculoskeletal: No Edema
Neuro: Awake, Alert, Oriented and AO x 3
Psych: Calm
Laboratory Results
-
01/31/24 08:34
01/31/24 08:34
Laboratory Results
Total Bilirubin 0.2 mg/dl (0.2-1.3) 01/31/24 08:34
AST 41 U/L (14-36) H 01/31/24 08:34
ALT 56 U/L (0-35) H 01/31/24 08:34
Alkaline Phosphatase 75 U/L (38-126) 01/31/24 08:34
Troponin I 0.037 ng/ml H* 01/31/24 08:34
Data Reviewed
-
Lab Data: Labs Reviewed by me and Discussed with Patient
Impression/Plan
-
Elevated troponin, suspect non-STEMI
Could be secondary to type II NSTEMI secondary to hypertension
Trend troponin
Echocardiogram
Cardiology following
Nitro drip
Full dose aspirin given
Daily aspirin starting tomorrow
History of multiple antibodies last admission blood where no blood was found per [facility]. Hematology recommended Retacrit periodically. Will have to be very cautious if requires any procedures.
Trial of Maalox
Discussed with cardiology, okay for diet today
Continue Coreg, isosorbide and hydralazine
Acute on chronic anemia
Follow-up with hematology outpatient
retacrit outpatient once ok with hematology
CKD stage IV
Baseline creatinine 2.7-3
Monitor
History of hypertension
Appears uncontrolled at this time
Continue with Coreg, isosorbide and hydralazine
Proximal atrial fibrillation
Continue with Coreg
Eliquis stopped on last admission due to GI bleed and severe anemia. This was discussed with patient and her daughter.
History of CVA
Continue aspirin
Hyperlipidemia
Type 2 diabetes mellitus
Continue with insulin
Insulin sliding scale, Accu-Cheks
Underweight
Tobacco dependence
DVT prophylaxis
SCDs
Full code
I spent a total of 78 minutes with the patient or on the floor. More than 50% of this time involved counseling and coordination of care.
[2024-01-31] MEDS: MAALOX 30 ML PO (12:08)
[2024-01-31 13:04] LABS: Troponin I 0.039 ng/ml
--- NOTE | 2024-01-31 16:22 | PTCARENOTE ---
Patient admitted to IVU. Left chest wall reproducible chest pain, rating it a 9 out 10. Nitro gtt infusing at 32 mcg/min, will titrate for BP per orders. BP 127/79, HR 64, resting on her left side. She is AO x 2, garbled speech. Lungs CTA on room
air, denies SOB. Healed old sacral ulcer. Skin on her feet are dry and flakey. Plan of care reviewed, call jaquez in reach
[2024-01-31] MEDS: TYLENOL 650 MG PO (17:53)
[2024-01-31] MEDS: PROTONIX 40 MG PO (17:53)
[2024-01-31] MEDS: APRESOLINE 75 MG PO ×2 (17:53→22:05)
[2024-01-31 18:20] LABS: Troponin I 0.041 ng/ml
[2024-01-31 18:35] LABS: Glucose - Point of Care 113 mg/dl (70-99)
[2024-01-31] MEDS: NOVOLOG FLEXPEN-LOW RESISTANCE SC (18:36)
[2024-01-31] MEDS: NOVOLOG FLEXPEN 4 UNITS SC (18:55)
[2024-01-31] MEDS: SODIUM BICARBONATE 1300 MG PO (21:13)
[2024-01-31] MEDS: FEOSOL 650 MG PO (21:13)
[2024-01-31] MEDS: LIPITOR 40 MG PO (22:06)
[2024-01-31 22:16] LABS: Glucose - Point of Care 262 mg/dl (70-99)
--- NOTE | 2024-01-31 22:17 | PTCARENOTE ---
Assumed pt care. Walking rounds completed with previous RN. Pt resting in bed at time of assessment. Sleeping between care, arousing to voice/tactile stimulation. Orientated to self and location, disoriented to time - reorientation provided. Pt
with chronic RUE/RLE weakness. Pt on RA, POX 95%, harsh/moist non-productive cough present. Posterior BS clear/equal. Pt in NSR/SB on monitor, denies CP, NTG gtt con't per protocol, heart tones normal, B/L pulses weakly palpable. Pt turned &
repositioned in bed. BS audible, NPO at midnight, tolerating sips of water & pills. Pt due to void - bladder scanned without any retention - purewik in place & maintained. PIV present & patent. See MAY.
[2024-01-31 23:18] LABS: Troponin I 0.057 ng/ml
[2024-01-31] MEDS: TYLENOL PO (23:46)
[2024-02-01] VITALS (39 sets, daily range): BP systolic 104–228; BP diastolic 60–105; PULSE 52; BMI 17.1
--- NOTE | 2024-02-01 00:44 | PTCARENOTE ---
Pt BP on RUE increasing > 170 despite addition of PO anti-hypertensives & titration of NTG gtt. BP obtained on LUE with a 80 mmHg differential from RUE. BP obtained on RLE and correlating with LUE. BP continued to be checked on LUE. CTS LEIF made
aware.
RUE:177/84
LUE:118/83
RLE:114/73
[2024-02-01 05:02] LABS: % Basophils 0.3 % (0-2); % Eosinophils 3.7 % (0-6); % Immature Granulocytes 0.3 % (0-0.5); % Lymphocytes 26.8 % (20.5-51.1); % Monocytes 9.9 % (1.7-9.3); Absolute Eosinophils 0.2 10^3/uL (0-0.7); Absolute Lymphocytes 1.6 10^3/uL (1.2-3.4); Absolute Monocytes 0.6 10^3/uL (0.1-0.6); Absolute Neutrophils 3.5 10^3/uL (1.4-6.5); Hematocrit 26.9 % (37.0-47.0); Hemoglobin 9.1 g/dL (12.0-16.0); Mean Corp Hgb Conc. 33.8 g/dL (33.0-37.0); Mean Corpuscular Hgb 32.5 pg (27.0-31.0); Mean Corpuscular Volume 96.1 fL (81.0-99.0); Mean Platelet Volume 9.4 fL (7.4-10.4); Nucleated Red Blood Cells % 0 %; Platelet Count 159 10^3/uL (130-400); Red Cell Dist. Width 13.2 % (11.5-14.5)
[2024-02-01 05:26] LABS: ALT (SGPT) 40 U/L (0-35); AST (SGOT) 30 U/L (14-36); Albumin 2.9 g/dl (3.5-5.0); Alkaline Phosphatase 67 U/L (38-126); Blood Urea Nitrogen 44 mg/dl (7-17); Calcium 8.9 mg/dl (8.4-10.2); Carbon Dioxide 21 mmol/L (22-30); Chloride 104 mmol/L (98-107); Estimated Creatinine Clearance 17 ml/min; Glucose 147 mg/dl (70-99); HDL Cholesterol 76 mg/dl; LDL Cholesterol, Calculated 65 mg/dl; Sodium 136 mmol/L (135-145); Total Bilirubin 0.2 mg/dl (0.2-1.3); Total Cholesterol 163 mg/dl (50-199); Total Protein 5.1 g/dl (6.3-8.2); Triglyceride 111 mg/dl (10-149); Very Low Density Lipoprotein 22 mg/dl (0-30); eGFR 19.71
[2024-02-01 05:44] LABS: Troponin I 0.047 ng/ml
[2024-02-01] MEDS: TYLENOL PO ×2 (06:17→23:38)
[2024-02-01] MEDS: ASPIR LOW (ENTERIC COATED) 81 MG PO (08:00)
[2024-02-01] MEDS: PROTONIX 40 MG PO (08:00)
[2024-02-01] MEDS: SODIUM BICARBONATE 1300 MG PO ×2 (08:01→19:56)
[2024-02-01] MEDS: FOLVITE 1 MG PO (08:01)
[2024-02-01] MEDS: FEOSOL 650 MG PO ×2 (08:01→19:56)
[2024-02-01] MEDS: ATIVAN 0.5 MG PO (08:01)
[2024-02-01] MEDS: VITAMIN D3 (cholecalciferol) 50 MCG PO (08:01)
[2024-02-01] MEDS: B COMPLEX w/VITAMIN C 1 CAPLET PO (08:01)
[2024-02-01] MEDS: LEXAPRO 10 MG PO (08:02)
[2024-02-01] MEDS: APRESOLINE 75 MG PO ×3 (08:02→22:06)
[2024-02-01] MEDS: MIRALAX 17 GRAMS PO (08:09)
[2024-02-01] MEDS: IMDUR (EXTENDED RELEASE) 90 MG PO (08:11)
[2024-02-01 09:01] LABS: Glucose - Point of Care 152 mg/dl (70-99)
[2024-02-01] MEDS: NOVOLOG FLEXPEN SC ×2 (09:30→12:44)
--- NOTE | 2024-02-01 09:34 | PTCARENOTE ---
Assumed care. Patient AO 2-3 confused to time, knows she is in a hospital. Right sided weakness and garbled speech from a prior CVA. SB BBB with PAC's and PVC's, denies pain. Pills given with water, NPO. Purwick draining dark yellow urine, call jaquez
in reach
[2024-02-01] MEDS: ZOVIRAX OINTMENT 5% 1 APPLIC TOPICAL (10:15)
[2024-02-01] MEDS: COREG 25 MG PO ×2 (10:15→19:56)
--- NOTE | 2024-02-01 11:17 | W.PN.CD ---
Today's Communication / Plan
-
Carotid/Subclavian US to evaluate for stenosis.
Renal US to evaluate for renal artery stenosis.
Check BP's on RUE only.
If BP cannot be controlled, we will add nifedipine 30 mg daily.
No role for invasive ischemic evaluation at this time. Troponin elevation is NOT consistent with ACS.
Impression / Plan
-
IMPRESSION/PLAN: 58 female with hypertension, CKD, paroxysmal atrial fibrillation, prior CVA with residual dysarthria and ambulatory dysfunction, dyslipidemia, type 2 diabetes mellitus, and recent admission with GIB/anemia
complicated by numerous antibodies making transfusion difficult, transferred from outpatient stress testing with chest pain/hypertensive emergency.
#Non-LA troponin elevation
-Acute.
-Troponin 0.037 --> 0.039 --> 0.041 --> 0.057 --> 0.047 in the context of severely elevated blood pressure and CKD.
-Nitro gtt for chest pain/BP control.
-Her GI blood loss, multiple anti-bodies, frailty and CKD make her a highly undesirable candidate for catheterization/PCI given its potential to worsen renal function and obligate the patient to anti-platelet medications.
#Hypertensive emergency
-Acute.
-Resume carvedilol and isosorbide mononitrate 60 mg daily + hydralazine at higher dose (50 mg TID --> 75 mg TID).
-If BP remains uncontrolled, we will start nifedipine 30 mg daily.
-Renal function limits ACEI/ARB/ARNi/MRA use.
-Renal artery Duplex.
-Given discrepancy in BP's, check carotid/subclavian US to evaluation for left subclavian stenosis.
#Chronic kidney disease, Stage IV
-Chronic, stable.
-Renal function at baseline.
-Avoid nephrotoxic agents and renally dose appropriate medications.
#Paroxysmal atrial fibrillation
-Currently in sinus rhythm.
-Rate control with carvedilol.
-[id number]: score at least 5 (HTN, Diabetes Mellitus, prior Stroke/TIA, female gender).
-Oral Anticoagulation: Apixaban 2.5 mg BID discontinued last admission due to anemia.
#Anemia
-Chronic, multifactorial (GI blood loss, CKD)
-Her multiple antibodies make transfusions more challenging.
-Prior admission suspected etiology was multifactorial from iron deficiency and kidney disease.
-Continue folate and Retacrit.
#Prior CVA, embolic, with residual dysarthria and right-sided weakness
#Dyslipidemia, on atorvastatin, fasting lipid panel in a.m.
#Type 2 diabetes mellitus, on insulin, with chronic kidney disease and hyperglycemia, HgbA1c 5.8%
#Chronic ambulatory dysfunction, wheelchair-bound
Primary aerial photograph interpreter: Dr. Gardner
Subjective/Interval History:
17 beats of NSVT earlier today.
Nursing documents an 80 mmHg difference in right vs. left brachial BP - implying left subclavian artery stenosis.
BP continues to remain elevated.
Home hydralazine increased to 75 mg TID (from 50 mg TID).
Hbg 11.2 --> 9.1.
Troponin trend is inconsistent with ACS, likely due to severe hypertension, likely decreased coronary perfusion pressure.
DATA:
Transthoracic echocardiogram, 12/12/2023:
Normal left ventricular chamber size. Moderate concentric left ventricular
hypertrophy. Overall, preserved left ventricular systolic function. Left
ventricular ejection fraction is 50-55%. Sharath EPIQ left ventricular global
longitudinal strain is -11.5%.
No significant valvular disease.
No prior study available for comparison.
Physical Exam
Vital Signs/Labs
Vital Signs
Temp Pulse Resp BP Pulse Ox
36.8 C 59 18 118/78 99
02/01/24 07:41 02/01/24 08:02 02/01/24 07:41 02/01/24 08:02 02/01/24 07:41
01/30/24 01/31/24 02/01/24
11:59 11:59 11:59
Actual Weight 48.9 kg 48 kg
02/01/24 04:42
02/01/24 04:42
Triglycerides 111 mg/dl (10-149) 02/01/24 04:42
LDL Cholesterol, Calc 65 mg/dl 02/01/24 04:42
VLDL Cholesterol, Calc 22 mg/dl (0-30) 02/01/24 04:42
HDL Cholesterol 76 mg/dl 02/01/24 04:42
LAB Results
01/31/24 01/31/24 01/31/24
08:34 12:18 17:19
Troponin I 0.037 H* 0.039 H* 0.041 H*
01/31/24 02/01/24
22:37 04:42
Troponin I 0.057 H* D 0.047 H*
Physical Exam
Constitutional: No acute distress and Comfortable
EENT: Anicteric and Moist mucous membranes
Cardiovascular: Rhythm & rate is regular, Pedal edema is absent, JVD pressure is normal, S1S2 is normal and Murmur/rub/gallop absent
Respiratory: Respiratory effort normal, Lungs clear to auscul., Wheeze Absent, Crackles Absent and Rhonchi Absent
GI: Soft, Distention absent, Flat, Non tender and Normal bowel sounds
Neuro/Psych: AO x 3
Data Reviewed
-
Date of Service: February 01, 2024
Medical Decision Making: Reviewed Test Results, Independent Historian Assessment, Test Interpretation and Review of Case with other Provider
EKG: Tracing Personally Visualized and interpreted and Report Reviewed by me
Echo: Report Reviewed by me
X-Ray/CT/US/MRI/NUC/PET: Report Reviewed by me
Labs: Labs Reviewed by me
Old Records: Reviewed
[2024-02-01] MEDS: NOVOLOG FLEXPEN-LOW RESISTANCE SC ×2 (11:55→12:45)
[2024-02-01 12:23] LABS: Glucose - Point of Care 149 mg/dl (70-99)
--- NOTE | 2024-02-01 12:32 | PTCARENOTE ---
Patient sleeping, 17 beat run of non-sustained wide complex tachycardia, denies chest pain. VSS
[2024-02-01] MEDS: LANTUS SC (12:43)
--- NOTE | 2024-02-01 12:59 | CM ---
Addendum entered by Jennifer Levin 02/01/24 15:39:
Received telephone call from Sabrina Aldridge to review discharge plans. She confirms the plan is for her to return to [facility] when medically stable.
Original Note:
Reviewed chart. Met with Mrs. Kim to review discharge plans. She could not recall the name of the facility that she is residing in. Telephone call to Sabrina aldridge to review discharge plans. Left message. Telephone call to [facility] to
review with them. Mrs. Kim was admitted to them on 11/17/23 for SNF/Rehab. Will need physical and occupational therapy Will need to pre-cert with her insurance to see if she will have any skilled care needs. Will need to pre-cert with her
insurance for SNF. Medical work-up in progress. The discharge plan is to return to [facility] when medically stable.
[2024-02-01] MEDS: TYLENOL 650 MG PO ×2 (13:03→18:19)
--- NOTE | 2024-02-01 13:08 | PTCARENOTE ---
Tylenol given for left upper tooth pain
--- NOTE | 2024-02-01 13:16 | W.PN.HOSP.TC ---
Addendum entered and electronically signed by Archie Machuca MD 02/01/24 18:28:
Discussed with daughter over the phone
Original Note:
Today's Communication/Plan
-
Monitor vital signs see plan
Continue with aspirin
Cardiology to see today, currently n.p.o.
monitor hgb
wean nitro as tolerated
Assessment / Plan
Assessment / Plan
General: Well Nourished and No Apparent Distress
HEENT: Anicteric and Moist mucous membranes
Respiratory: Clear and Non Labored Respirations; No Wheezes
Cardiac: S1/S2 and Regular Rhythm
GI: Soft, Non Tender, Non Distended and Normal Bowel Sounds
Musculoskeletal: No Edema
Neuro: Awake, Alert, Oriented and AO x 3
Psych: Calm
Elevated troponin, suspect non-STEMI
Could be secondary to type II NSTEMI secondary to hypertension
Echo 01/30 without wall motion abnormality
Cardiology following
Nitro drip, wean as tolerated
Continue with aspirin
History of multiple antibodies last admission blood where no blood was found per [place]. Hematology recommended Retacrit periodically. Will have to be very cautious if requires any procedures.
Trial of Maalox
N.p.o., diet per cardiology
Continue Coreg, isosorbide and hydralazine
Acute on chronic anemia
Follow-up with hematology outpatient
retacrit outpatient once ok with hematology
CKD stage IV
Baseline creatinine 2.7-3
Monitor
History of hypertension
Appears uncontrolled at this time
Continue with Coreg, isosorbide and hydralazine
Proximal atrial fibrillation
Continue with Coreg
Eliquis stopped on last admission due to GI bleed and severe anemia. This was discussed with patient and her daughter.
History of CVA
Continue aspirin
Hyperlipidemia
Type 2 diabetes mellitus
Continue with insulin
Insulin sliding scale, Accu-Cheks
Underweight
Tobacco dependence
DVT prophylaxis
SCDs
Full code
I spent a total of 52 minutes with the patient or on the floor. More than 50% of this time involved counseling and coordination of care.
Anticipated Discharge: Within 24 hours
Subjective/Interval History
-
Date of Service: February 01, 2024
denies nausea
Objective Data
-
Labs:
Laboratory Results
02/01/24
04:42
WBC 6.0
Hgb 9.1 L
Hct 26.9 L
Plt Count 159
Sodium 136
Potassium 4.0
Chloride 104
Carbon Dioxide 21 L
BUN 44 H
Creatinine 2.7 H
Glucose 147 H
Calcium 8.9
Total Bilirubin 0.2
AST 30
ALT 40 H
Alkaline Phosphatase 67
Vital Signs:
Vital Signs
Temp Pulse Resp BP Pulse Ox
98.4 F 58 18 145/91 99
02/01/24 11:26 02/01/24 12:33 02/01/24 11:26 02/01/24 12:33 02/01/24 11:26
I&O
01/31/24 02/01/24 02/02/24
06:59 06:59 06:59
Intake Total 400 / 400
Balance 400 / 400
[2024-02-01] MEDS: LANTUS 0.04 UNITS SC (14:29)
[2024-02-01 14:31] LABS: Glycohemoglobin (HgbA1c) 5.8 % (4.0-5.6)
[2024-02-01] MEDS: NOVOLOG FLEXPEN-LOW RESISTANCE 2 UNITS SC (18:13)
[2024-02-01] MEDS: NOVOLOG FLEXPEN 4 UNITS SC (18:13)
[2024-02-01 18:14] LABS: Glucose - Point of Care 235 mg/dl (70-99)
[2024-02-01 21:40] LABS: Glucose - Point of Care 270 mg/dl (70-99)
[2024-02-01] MEDS: LIPITOR 40 MG PO (22:06)
--- NOTE | 2024-02-01 22:48 | PTCARENOTE ---
Pt.'s SBP trending up to 220's; 2200 Hydralazine given as ordered, nitro titrated up to 35 mcg/min. Of note, pt.'s right forearm #20 INT leaking, line flushed with positive blood return. New # 20 INT started left upper arm and nitro gtt switched
to that site; right arm #20 dc'd. Will further re-evaluate BP's.
[2024-02-02] VITALS (35 sets, daily range): BP systolic 122–229; BP diastolic 57–127; PULSE 65; O2SAT 100; BMI 17.1
[2024-02-02] MEDS: APRESOLINE 10 MG IV (02:30)
--- NOTE | 2024-02-02 02:37 | PTCARENOTE ---
Pt.'s SBP still running >180 even after changing IV site and titrating nitro gtt up to 55 mcg/min. BP rechecked with machine ensuring arm straight and pt. supine - results consistent - as well as manually (results 182/80). All BP's done on right
arm. Pt. not in any pain or distress. LEIF Yarbrough, notified, instructed to titrate nitro up to 65 mcg/min and give hydralazine 10 mg IV.
[2024-02-02] MEDS: PROCARDIA XL (EXTENDED RELEASE) 30 MG PO ×2 (04:03→22:34)
--- NOTE | 2024-02-02 04:06 | W.PN.UPDATE ---
Update Note
Progress Note Update
-high BP upto 200s overnight (on RUE with multiple checks). Pt is sleeping, asymptomatic, in nsr 68 bpm. No response to increased doses of iv Nitro or iv Hydralazine. Started Nifedipine. Will give am Coreg early.
[2024-02-02 05:26] LABS: % Basophils 0.3 % (0-2); % Eosinophils 3.8 % (0-6); % Immature Granulocytes 0.3 % (0-0.5); % Lymphocytes 22.3 % (20.5-51.1); % Monocytes 8.5 % (1.7-9.3); % Neutrophils 64.8 % (42.2-75.2); Absolute Eosinophils 0.2 10^3/uL (0-0.7); Absolute Lymphocytes 1.4 10^3/uL (1.2-3.4); Absolute Monocytes 0.5 10^3/uL (0.1-0.6); Absolute Neutrophils 3.9 10^3/uL (1.4-6.5); Hematocrit 25.1 % (37.0-47.0); Mean Corp Hgb Conc. 35.9 g/dL (33.0-37.0); Mean Corpuscular Hgb 33.3 pg (27.0-31.0); Mean Platelet Volume 9.4 fL (7.4-10.4); Nucleated Red Blood Cells % 0 %; Platelet Count 154 10^3/uL (130-400); Red Cell Dist. Width 12.7 % (11.5-14.5); White Blood Cell Count 6.1 10^3/uL (4.8-10.8)
[2024-02-02 05:53] LABS: ALT (SGPT) 35 U/L (0-35); AST (SGOT) 28 U/L (14-36); Albumin 2.9 g/dl (3.5-5.0); Alkaline Phosphatase 91 U/L (38-126); Blood Urea Nitrogen 49 mg/dl (7-17); Carbon Dioxide 23 mmol/L (22-30); Chloride 103 mmol/L (98-107); Estimated Creatinine Clearance 16 ml/min; Glucose 165 mg/dl (70-99); Potassium 4.1 mmol/L (3.5-5.1); Sodium 134 mmol/L (135-145); Total Bilirubin 0.2 mg/dl (0.2-1.3); Total Protein 5.1 g/dl (6.3-8.2); eGFR 18.86
--- NOTE | 2024-02-02 05:57 | PTCARENOTE ---
Addendum entered by Leandra Harris RN 02/02/24 06:02:
BP's continued on right arm; calf's just taken for comparison sake (results consistent)
Original Note:
Pt.'s BP 174/72 on right calf; 153/127 on left calf. BP still elevated following hydralazine IV x 1; Kitty Gregg notified, orders for Procardia XL obtained and given at 0403, BP currently 165/68. Nitro continues at 75 mcg/min.
[2024-02-02] MEDS: TYLENOL PO (07:07)
[2024-02-02 07:48] LABS: Glucose - Point of Care 179 mg/dl (70-99)
--- NOTE | 2024-02-02 08:29 | W.PN.CD ---
Today's Communication / Plan
-
Wean off nitro gtt.
Duplex US pending.
Uptitrate nifedipine or hydralazine as nitroglycerin is stopped.
Begin discharge planning.
Impression / Plan
-
IMPRESSION/PLAN: 58 female with hypertension, CKD, paroxysmal atrial fibrillation, prior CVA with residual dysarthria and ambulatory dysfunction, dyslipidemia, type 2 diabetes mellitus, and recent admission with GIB/anemia
complicated by numerous antibodies making transfusion difficult, transferred from outpatient stress testing with chest pain/hypertensive emergency.
#Non-SC troponin elevation
-Acute.
-Troponin 0.037 --> 0.039 --> 0.041 --> 0.057 --> 0.047 in the context of severely elevated blood pressure and CKD.
-Nitro gtt for chest pain/BP control.
-Her GI blood loss, multiple anti-bodies, frailty and CKD make her a highly undesirable candidate for catheterization/PCI given its potential to worsen renal function and obligate the patient to anti-platelet medications.
#Hypertensive emergency
-Acute.
-Renal function limits ACEI/ARB/ARNi/MRA use.
-BP is currently controlled on nitro gtt, carvedilol 25 mg BID, hydralazine 75 mg TID, isosorbide mononitrate 90 mg daily and nifedipine 30 mg daily.
-Renal artery and carotid/subclavian artery Duplex US are pending.
-Wean nitro gtt to off. This may require uptitration of the nifedipine and/or hydralazine.
#Chronic kidney disease, Stage IV
-Chronic, stable.
-Renal function at baseline.
-Avoid nephrotoxic agents and renally dose appropriate medications.
#Paroxysmal atrial fibrillation
-Currently in sinus rhythm.
-Rate control with carvedilol.
-[id number]: score at least 5 (HTN, Diabetes Mellitus, prior Stroke/TIA, female gender).
-Oral Anticoagulation: Apixaban 2.5 mg BID discontinued last admission due to anemia - continue to hold at this time as risk > benefit.
#Anemia
-Chronic, multifactorial (GI blood loss, CKD)
-Her multiple antibodies make transfusions more challenging.
-Prior admission suspected etiology was multifactorial from iron deficiency and kidney disease.
-Continue folate and Retacrit.
#Prior CVA
-Chronic, embolic
-Residual dysarthria and right-sided weakness.
#Dyslipidemia
-Chronic, stable.
-Total cholesterol = 163, LDL = 65, HDL = 76, Triglycerides = 111.
-Continue atorvastatin. Goal LDL < 55.
#IDDM2
-Chronic, stable.
-With chronic kidney disease
-HgbA1c 5.8%.
#Chronic ambulatory dysfunction, wheelchair-bound.
Primary senior mechanical development engineer: Dr. Gardner
Subjective/Interval History:
Patient severely hypertensive overnight.
Hydralazine given with minimal benefit.
Nitro gtt in place.
Nifedipine started and carvedilol given early.
Pressure is much better controlled this morning, now 130's.
Hbg stable.
DATA:
Transthoracic echocardiogram, 12/12/2023:
Normal left ventricular chamber size. Moderate concentric left ventricular
hypertrophy. Overall, preserved left ventricular systolic function. Left
ventricular ejection fraction is 50-55%. Sharath EPIQ left ventricular global
longitudinal strain is -11.5%.
No significant valvular disease.
No prior study available for comparison.
Physical Exam
Vital Signs/Labs
Vital Signs
Temp Pulse Resp BP Pulse Ox
36.8 C 69 20 133/61 99
02/02/24 07:43 02/02/24 06:30 02/02/24 07:43 02/02/24 06:30 02/02/24 07:43
01/31/24 02/01/24 02/02/24
11:59 11:59 11:59
Actual Weight 48.9 kg 48 kg 47.9 kg
02/02/24 05:16
02/02/24 05:16
Triglycerides 111 mg/dl (10-149) 02/01/24 04:42
LDL Cholesterol, Calc 65 mg/dl 02/01/24 04:42
VLDL Cholesterol, Calc 22 mg/dl (0-30) 02/01/24 04:42
HDL Cholesterol 76 mg/dl 02/01/24 04:42
LAB Results
01/31/24 01/31/24 01/31/24
08:34 12:18 17:19
Troponin I 0.037 H* 0.039 H* 0.041 H*
01/31/24 02/01/24
22:37 04:42
Troponin I 0.057 H* D 0.047 H*
Physical Exam
Constitutional: No acute distress and Comfortable
EENT: Anicteric and Moist mucous membranes
Cardiovascular: Rhythm & rate is regular, Pedal edema is absent, JVD pressure is normal, S1S2 is normal and Murmur/rub/gallop absent
Respiratory: Respiratory effort normal, Lungs clear to auscul., Wheeze Absent, Crackles Absent and Rhonchi Absent
GI: Soft, Distention absent, Flat, Non tender and Normal bowel sounds
Neuro/Psych: AO x 3
Data Reviewed
-
Date of Service: February 02, 2024
Medical Decision Making: Reviewed Test Results, Independent Historian Assessment, Test Interpretation and Review of Case with other Provider
EKG: Tracing Personally Visualized and interpreted and Report Reviewed by me
Echo: Report Reviewed by me
X-Ray/CT/US/MRI/NUC/PET: Image Personally Visualized and interpreted and Report Reviewed by me
Labs: Labs Reviewed by me
Old Records: Reviewed
[2024-02-02] MEDS: ASPIR LOW (ENTERIC COATED) 81 MG PO (09:22)
[2024-02-02] MEDS: PROTONIX 40 MG PO (09:22)
[2024-02-02] MEDS: B COMPLEX w/VITAMIN C 1 CAPLET PO (09:22)
[2024-02-02] MEDS: COREG 25 MG PO ×2 (09:24→19:20)
[2024-02-02] MEDS: IMDUR (EXTENDED RELEASE) 90 MG PO (09:24)
[2024-02-02] MEDS: VITAMIN D3 (cholecalciferol) 50 MCG PO (09:24)
[2024-02-02] MEDS: ATIVAN PO (09:24)
[2024-02-02] MEDS: FEOSOL 650 MG PO ×2 (09:25→19:20)
[2024-02-02] MEDS: LEXAPRO 10 MG PO (09:26)
[2024-02-02] MEDS: FOLVITE 1 MG PO (09:27)
[2024-02-02] MEDS: SODIUM BICARBONATE 1300 MG PO ×2 (09:27→19:20)
[2024-02-02] MEDS: MIRALAX PO (09:28)
[2024-02-02] MEDS: APRESOLINE 75 MG PO ×3 (09:35→22:34)
[2024-02-02] MEDS: NOVOLOG FLEXPEN 4 UNITS SC ×3 (09:48→17:20)
[2024-02-02] MEDS: LANTUS 0.07 UNITS SC (09:49)
[2024-02-02] MEDS: NOVOLOG FLEXPEN-LOW RESISTANCE 1 UNITS SC (09:49)
[2024-02-02] MEDS: ZOVIRAX OINTMENT 5% 1 APPLIC TOPICAL (09:51)
--- NOTE | 2024-02-02 13:09 | W.PN.HOSP.TC ---
Today's Communication/Plan
-
Monitor vital signs see plan
PT/OT
Ultrasound carotid/subclavian
renal artery ultrasound
Continue BP meds
Monitor hemoglobin
Assessment / Plan
Assessment / Plan
General: Well Nourished and No Apparent Distress
HEENT: Anicteric and Moist mucous membranes
Respiratory: Clear and Non Labored Respirations; No Wheezes
Cardiac: S1/S2 and Regular Rhythm
GI: Soft, Non Tender, Non Distended and Normal Bowel Sounds
Musculoskeletal: No Edema
Neuro: Awake, Alert, Oriented and AO x 3
Psych: Calm
Elevated troponin, suspect non-STEMI
Could be secondary to type II NSTEMI secondary to hypertension
Echo 01/30 without wall motion abnormality
Cardiology following
Nitro drip, wean as tolerated.
Continue with aspirin
History of multiple antibodies last admission blood where no blood was found per [place]. Hematology recommended Retacrit periodically. Will have to be very cautious if requires any procedures.
Trial of Maalox
No plan for ischemic evaluation per cardiology
Continue Coreg, isosorbide and hydralazine
History of hypertension
Hypertensive emergency on admission
Currently on nitro drip, blood pressure overnight again was very high
Now started on nifedipine, increase hydralazine
Continue with Coreg, isosorbide
Check Ultrasound carotid/subclavian, check renal artery ultrasound
Acute on chronic anemia
Follow-up with hematology outpatient
retacrit outpatient once ok with hematology
Mild hyponatremia
monitor
CKD stage IV
Baseline creatinine 2.7-3
Monitor
Proximal atrial fibrillation
Continue with Coreg
Eliquis stopped on last admission due to GI bleed and severe anemia. This was discussed with patient and her daughter.
History of CVA
Continue aspirin
Hyperlipidemia
Type 2 diabetes mellitus
Continue with insulin
Insulin sliding scale, Accu-Cheks
Underweight
Tobacco dependence
DVT prophylaxis
SCDs
Full code
I spent a total of 51 minutes with the patient or on the floor. More than 50% of this time involved counseling and coordination of care.
Anticipated Discharge: Within 24 hours
Subjective/Interval History
-
Date of Service: February 02, 2024
Denies chest pain
Objective Data
-
Labs:
Laboratory Results
02/02/24
05:16
WBC 6.1
Hgb 9.0 L
Hct 25.1 L
Plt Count 154
Sodium 134 L
Potassium 4.1
Chloride 103
Carbon Dioxide 23
BUN 49 H
Creatinine 2.8 H
Glucose 165 H
Calcium 9.0
Total Bilirubin 0.2
AST 28
ALT 35
Alkaline Phosphatase 91
Vital Signs:
Vital Signs
Temp Pulse Resp BP Pulse Ox
97.8 F 67 20 140/57 98
02/02/24 12:00 02/02/24 08:30 02/02/24 12:00 02/02/24 08:30 02/02/24 12:00
I&O
02/01/24 02/02/24 02/03/24
06:59 06:59 06:59
Intake Total 400 / 400 867 / 867
Output Total 650 / 650
Balance 400 / 400 217 / 217
--- NOTE | 2024-02-02 14:17 | PTCARENOTE ---
Pt went for carotid and renal artery u/s.
[2024-02-02 14:35] LABS: Glucose - Point of Care 256 mg/dl (70-99)
[2024-02-02] MEDS: NOVOLOG FLEXPEN-LOW RESISTANCE 3 UNITS SC (14:42)
[2024-02-02] MEDS: TYLENOL 650 MG PO ×2 (14:48→17:18)
--- NOTE | 2024-02-02 15:31 | CM ---
Addendum entered by Jennifer Levin 02/02/24 16:50:
Sent referral to [facility] Admissions.
Addendum entered by Jennifer Levin 02/02/24 16:39:
Telephone call to /[facility] to start pre-cert for SNF/Rehab. at [facility]. Approved SNF/Rehab from 02/03/24 to 02/06/24 with next review due on 02/07/24. Will update [facility] Admissions tomorrow. Medical work-up in progress. The
discharge plan is to return to [facility] when medically stable.
Original Note:
Reviewed chart. TT attending checking for tentative discharge date to be able to start pre-cert process. Awaiting response. Telephone call to [facility] to confirm ability to accept Mrs. Kim back when medically stable. Will need
to pre-cert with her insurance. The telephone number for report ([phone] ask for second floor.) ) and fax number is ([phone]). Prior to admission Mrs. Kim was a resident at [facility]. She was receiving skilled care there.
Medical work-up in progress. The discharge plan is to return to [facility] when auth. completed when medically stable.
[2024-02-02 16:53] LABS: Glucose - Point of Care 242 mg/dl (70-99)
[2024-02-02] MEDS: NOVOLOG FLEXPEN-LOW RESISTANCE 2 UNITS SC (17:20)
[2024-02-02 22:07] LABS: Glucose - Point of Care 192 mg/dl (70-99)
[2024-02-02] MEDS: LIPITOR 40 MG PO (22:35)
[2024-02-03] VITALS (13 sets, daily range): BP systolic 114–210; BP diastolic 50–77; PULSE 55; O2SAT 96; BMI 17.4
[2024-02-03] MEDS: TYLENOL PO ×2 (00:39→06:58)
--- NOTE | 2024-02-03 01:16 | PTCARENOTE ---
BP up to 229/89 at 2200; JULIA Oliveira notified, order for Procardia XL 30 mg x 1 obtained and given. Repeat SBP since ranging 120's-160's. Pt. sleeping.
[2024-02-03 04:30] LABS: % Basophils 0.5 % (0-2); % Immature Granulocytes 0.5 % (0-0.5); % Lymphocytes 24.1 % (20.5-51.1); % Monocytes 8.2 % (1.7-9.3); % Neutrophils 62.7 % (42.2-75.2); Absolute Eosinophils 0.3 10^3/uL (0-0.7); Absolute Lymphocytes 1.6 10^3/uL (1.2-3.4); Absolute Monocytes 0.5 10^3/uL (0.1-0.6); Absolute Neutrophils 4.1 10^3/uL (1.4-6.5); Hematocrit 31.2 % (37.0-47.0); Hemoglobin 10.1 g/dL (12.0-16.0); Mean Corp Hgb Conc. 32.4 g/dL (33.0-37.0); Mean Corpuscular Volume 98.7 fL (81.0-99.0); Mean Platelet Volume 9.6 fL (7.4-10.4); Nucleated Red Blood Cells % 0 %; Platelet Count 169 10^3/uL (130-400); Red Blood Cell Count 3.16 10^6/uL (4.20-5.40); Red Cell Dist. Width 13.3 % (11.5-14.5); White Blood Cell Count 6.5 10^3/uL (4.8-10.8)
[2024-02-03 05:13] LABS: ALT (SGPT) 33 U/L (0-35); AST (SGOT) 29 U/L (14-36); Albumin 3.1 g/dl (3.5-5.0); Alkaline Phosphatase 76 U/L (38-126); Blood Urea Nitrogen 51 mg/dl (7-17); Calcium 9.1 mg/dl (8.4-10.2); Carbon Dioxide 24 mmol/L (22-30); Chloride 100 mmol/L (98-107); Estimated Creatinine Clearance 16 ml/min; Glucose 122 mg/dl (70-99); Sodium 136 mmol/L (135-145); Total Bilirubin 0.2 mg/dl (0.2-1.3); Total Protein 5.4 g/dl (6.3-8.2); eGFR 18.09
[2024-02-03 08:00] LABS: Glucose - Point of Care 148 mg/dl (70-99)
[2024-02-03] MEDS: NOVOLOG FLEXPEN-LOW RESISTANCE SC (08:00)
--- NOTE | 2024-02-03 08:11 | W.PN.CD ---
Today's Communication / Plan
-
Increase nifedipine to 30 mg BID.
Increase hydralazine 100 mg TID.
All BP measurements should be taken from RUE.
I spoke with the daughter and updated her on the patient's current condition and plan of care.
Impression / Plan
-
IMPRESSION/PLAN: 58 female with hypertension, CKD, paroxysmal atrial fibrillation, prior CVA with residual dysarthria and ambulatory dysfunction, dyslipidemia, type 2 diabetes mellitus, and recent admission with GIB/anemia
complicated by numerous antibodies making transfusion difficult, transferred from outpatient stress testing with chest pain/hypertensive emergency.
#Non-RI troponin elevation
-Acute.
-Troponin 0.037 --> 0.039 --> 0.041 --> 0.057 --> 0.047 in the context of severely elevated blood pressure and CKD.
-Nitro gtt for chest pain/BP control.
-Her GI blood loss, multiple anti-bodies, frailty and CKD make her a highly undesirable candidate for catheterization/PCI given its potential to worsen renal function and obligate the patient to anti-platelet medications.
#Hypertensive emergency
-Acute. Hypertensive overnight.
-All BP's should be taken from the RUE due to left subclavian artery stenosis.
-Renal function limits ACEI/ARB/ARNi/MRA use.
-BP medications include carvedilol 25 mg BID, hydralazine 75 mg TID, isosorbide mononitrate 90 mg daily and nifedipine 30 mg daily.
-Increase nifedipine to 30 mg BID (to avoid overnight BP spikes).
-Increase hydralazine to 100 mg TID.
#Chronic kidney disease, Stage IV
-Chronic, stable.
-Renal function at baseline.
-Avoid nephrotoxic agents and renally dose appropriate medications.
#Paroxysmal atrial fibrillation
-Currently in sinus rhythm.
-Rate control with carvedilol.
-[id number]: score at least 5 (HTN, Diabetes Mellitus, prior Stroke/TIA, female gender).
-Oral Anticoagulation: Apixaban 2.5 mg BID discontinued last admission due to anemia - continue to hold at this time as risk > benefit.
#Anemia
-Chronic, multifactorial (GI blood loss, CKD)
-Her multiple antibodies make transfusions more challenging.
-Prior admission suspected etiology was multifactorial from iron deficiency and kidney disease.
-Continue folate and Retacrit.
#Prior CVA
-Chronic, embolic.
-Residual dysarthria and right-sided weakness.
-Carotid artery US shows 50-69% LICA stenosis, left subclavian artery stenosis.
#Dyslipidemia
-Chronic, stable.
-Total cholesterol = 163, LDL = 65, HDL = 76, Triglycerides = 111.
-Continue atorvastatin. Goal LDL < 55.
#IDDM2
-Chronic, stable.
-With chronic kidney disease
-HgbA1c 5.8%.
#Chronic ambulatory dysfunction, wheelchair-bound.
Primary shroud line tier: Dr. Gardner
Subjective/Interval History:
Patient tolerated weaning of nitroglycerin gtt yesterday, but became severely hypertensive overnight.
Additional nifedipine given with improvement.
Renal US is inconclusive.
Carotid US confirms left subclavian artery stenosis.
DATA:
Transthoracic echocardiogram, 12/12/2023:
Normal left ventricular chamber size. Moderate concentric left ventricular
hypertrophy. Overall, preserved left ventricular systolic function. Left
ventricular ejection fraction is 50-55%. Sharath EPIQ left ventricular global
longitudinal strain is -11.5%.
No significant valvular disease.
No prior study available for comparison.
Renal US, 02/02/2024:
IMPRESSION:
Technically challenging examination. Left renal artery not visualized.
Moderately elevated velocities observed within the right renal artery measuring 275 cm/s. Renal to aortic ratio mildly elevated measuring 2.85. No dampening of the distal waveforms with normal intraparenchymal resistive indices and waveforms.
Findings indeterminate. Echogenic right renal kidney suspicious for underlying medical renal disease.
Carotid Artery Duplex US, 02/02/2024:
IMPRESSION:
Extensively calcified carotid arteries bilaterally with posterior acoustic shadowing, limiting evaluation. Elevated velocities identified within the proximal LEFT ICA measuring 185 cm/s consistent with estimated stenosis of 50-69 percent.
Reversed flow within the left vertebral artery compatible with left subclavian artery stenosis.
Physical Exam
Vital Signs/Labs
Vital Signs
Temp Pulse Resp BP Pulse Ox
36.9 C 74 16 150/62 98
02/03/24 07:55 02/03/24 07:00 02/03/24 07:55 02/03/24 03:57 02/03/24 07:55
02/01/24 02/02/24 02/03/24
11:59 11:59 11:59
Actual Weight 48 kg 47.9 kg 48.9 kg
02/03/24 04:05
02/03/24 04:06
Triglycerides 111 mg/dl (10-149) 02/01/24 04:42
LDL Cholesterol, Calc 65 mg/dl 02/01/24 04:42
VLDL Cholesterol, Calc 22 mg/dl (0-30) 02/01/24 04:42
HDL Cholesterol 76 mg/dl 02/01/24 04:42
LAB Results
01/31/24 01/31/24 01/31/24
08:34 12:18 17:19
Troponin I 0.037 H* 0.039 H* 0.041 H*
01/31/24 02/01/24
22:37 04:42
Troponin I 0.057 H* D 0.047 H*
Physical Exam
Constitutional: No acute distress and Comfortable
EENT: Anicteric and Moist mucous membranes
Cardiovascular: Rhythm & rate is regular, Pedal edema is absent, JVD pressure is normal, S1S2 is normal and Murmur/rub/gallop absent
Respiratory: Respiratory effort normal, Lungs clear to auscul., Wheeze Absent, Crackles Absent and Rhonchi Absent
GI: Soft, Distention absent, Flat, Non tender and Normal bowel sounds
Neuro/Psych: AO x 3
Data Reviewed
-
Date of Service: February 03, 2024
Medical Decision Making: Reviewed Test Results, Independent Historian Assessment and Test Interpretation
EKG: Tracing Personally Visualized and interpreted and Report Reviewed by me
Echo: Tracing Personally Visualized and interpreted and Report Reviewed by me
X-Ray/CT/US/MRI/NUC/PET: Image Personally Visualized and interpreted and Report Reviewed by me
Medical Tests (PFT, Pathology etc): Image Personally Visualized and interpreted and Report Reviewed by me
Labs: Labs Reviewed by me
Old Records: Reviewed
[2024-02-03] MEDS: ATIVAN PO (08:29)
[2024-02-03] MEDS: MIRALAX 17 GRAMS PO (08:41)
[2024-02-03] MEDS: B COMPLEX w/VITAMIN C 1 CAPLET PO (08:42)
[2024-02-03] MEDS: PROTONIX 40 MG PO (08:42)
[2024-02-03] MEDS: ASPIR LOW (ENTERIC COATED) 81 MG PO (08:42)
[2024-02-03] MEDS: PROCARDIA XL (EXTENDED RELEASE) 30 MG PO ×2 (08:42→20:15)
[2024-02-03] MEDS: FEOSOL 650 MG PO ×2 (08:43→20:14)
[2024-02-03] MEDS: SODIUM BICARBONATE 1300 MG PO ×2 (08:43→20:15)
[2024-02-03] MEDS: IMDUR (EXTENDED RELEASE) 90 MG PO (08:44)
[2024-02-03] MEDS: VITAMIN D3 (cholecalciferol) 50 MCG PO (08:45)
[2024-02-03] MEDS: LEXAPRO 10 MG PO (08:45)
[2024-02-03] MEDS: APRESOLINE 75 MG PO (08:46)
[2024-02-03] MEDS: FOLVITE 1 MG PO (08:46)
[2024-02-03] MEDS: LANTUS 0.07 UNITS SC (08:47)
[2024-02-03] MEDS: NOVOLOG FLEXPEN 4 UNITS SC ×3 (08:47→17:14)
[2024-02-03] MEDS: ZOVIRAX OINTMENT 5% 1 APPLIC TOPICAL (08:48)
[2024-02-03] MEDS: COREG 25 MG PO ×2 (08:54→20:22)
--- NOTE | 2024-02-03 09:57 | PTCARENOTE ---
Pt changed from moderate precautions to contact precautions for Positive MRSA swab result.
--- NOTE | 2024-02-03 11:18 | PTCARENOTE ---
Dr Machuca aware of positive MRSA result.
--- NOTE | 2024-02-03 13:40 | W.PN.HOSP.TC ---
Today's Communication/Plan
-
Monitor vital signs see plan
Increase nifedipine, hydralazine
Continue Coreg
Hopeful DC when blood pressure better
Assessment / Plan
Assessment / Plan
General: Well Nourished and No Apparent Distress
HEENT: Anicteric and Moist mucous membranes
Respiratory: Clear and Non Labored Respirations; No Wheezes
Cardiac: S1/S2 and Regular Rhythm
GI: Soft, Non Tender, Non Distended and Normal Bowel Sounds
Musculoskeletal: No Edema
Neuro: Awake, Alert, Oriented and AO x 3
Psych: Calm
Elevated troponin, suspect non-STEMI
Could be secondary to type II NSTEMI secondary to hypertension
Echo 01/30 without wall motion abnormality
Cardiology following
Nitro drip, wean as tolerated.
Continue with aspirin
History of multiple antibodies last admission blood where no blood was found per [place]. Hematology recommended Retacrit periodically. Will have to be very cautious if requires any procedures.
Trial of Maalox
No plan for ischemic evaluation per cardiology
Continue Coreg, isosorbide and hydralazine
History of hypertension,uncontrolled
Hypertensive emergency on admission
Currently on nitro drip, blood pressure this morning again was high
Now started on nifedipine which is increased, increased hydralazine
Continue with Coreg, isosorbide
Renal US is inconclusive.
Carotid US confirms left subclavian artery stenosis. Discussed with cardiology. Patient to follow up with vascular surgery outpatient
All BP measurements should be taken from RUE
Acute on chronic anemia
Follow-up with hematology outpatient
retacrit outpatient once ok with hematology
Mild hyponatremia
monitor
CKD stage IV
Baseline creatinine 2.7-3
Monitor
Proximal atrial fibrillation
Continue with Coreg
Eliquis stopped on last admission due to GI bleed and severe anemia. This was discussed with patient and her daughter.
History of CVA
Continue aspirin
Hyperlipidemia
Type 2 diabetes mellitus
Continue with insulin
Insulin sliding scale, Accu-Cheks
Underweight
Tobacco dependence
DVT prophylaxis
SCDs, heparin
Full code
Anticipated Discharge: Within 24 hours
Subjective/Interval History
-
Date of Service: February 03, 2024
denies pain
Objective Data
-
Labs:
Laboratory Results
02/03/24 02/03/24
04:05 04:06
WBC 6.5
Hgb 10.1 L
Hct 31.2 L
Plt Count 169
Sodium 136
Potassium 4.0
Chloride 100
Carbon Dioxide 24
BUN 51 H
Creatinine 2.9 H
Glucose 122 H
Calcium 9.1
Total Bilirubin 0.2
AST 29
ALT 33
Alkaline Phosphatase 76
Vital Signs:
Vital Signs
Temp Pulse Resp BP Pulse Ox
98 F 61 16 114/62 99
02/03/24 11:38 02/03/24 13:00 02/03/24 11:38 02/03/24 11:49 02/03/24 11:38
I&O
02/02/24 02/03/24 02/04/24
06:59 06:59 06:59
Intake Total 867 / 867 240 / 240
Output Total 650 / 650 400 / 400
Balance 217 / 217 -160 / -160
[2024-02-03 13:53] LABS: Glucose - Point of Care 251 mg/dl (70-99)
[2024-02-03] MEDS: NOVOLOG FLEXPEN-LOW RESISTANCE 3 UNITS SC (13:53)
[2024-02-03] MEDS: TYLENOL 650 MG PO ×2 (13:55→17:09)
--- NOTE | 2024-02-03 15:24 | CM ---
Reviewed chart. Mrs. Kim not ready today to return to [facility]. Telephone call to [facility] to change the SNF/Auth date. She is approved to go to [facility] on Tuesday02/04/24 if medically stable. The auth number is [id number] from
02/04/24 to 02/09/24. NRD 02/10/24. Telephone call to Anabel at [facility] to give her the auths. Anabel cell phone number is ([phone]). Please call her if she is being discharged. The report telephone number is [phone],2nd
floor. The fax number is [phone]. Medical work-up in progress. The discharge plan is to return to [facility] when medically stable.
[2024-02-03] MEDS: APRESOLINE 100 MG PO ×2 (17:08→22:27)
[2024-02-03] MEDS: NOVOLOG FLEXPEN-LOW RESISTANCE 2 UNITS SC (17:14)
[2024-02-03 17:15] LABS: Glucose - Point of Care 209 mg/dl (70-99)
[2024-02-03] MEDS: HEPARIN 5000 UNITS SC (20:14)
[2024-02-03] MEDS: LIPITOR 40 MG PO (22:27)
[2024-02-03 22:35] LABS: Glucose - Point of Care 132 mg/dl (70-99)
[2024-02-04] MEDS: TYLENOL 650 MG PO ×3 (00:40→11:19)
--- NOTE | 2024-02-04 02:28 | PTCARENOTE ---
Assumed care of the pt @1900 AAOx3 ,SR on the monitor ,VSS BP 154/57 ,incontinent purewick in place. q2 turns and incont care provided.
[2024-02-04 04:16] VITALS: BP 179/67
[2024-02-04 04:59] LABS: % Basophils 0.5 % (0-2); % Eosinophils 4.9 % (0-6); % Immature Granulocytes 0.4 % (0-0.5); % Lymphocytes 31.1 % (20.5-51.1); % Neutrophils 54.1 % (42.2-75.2); Absolute Eosinophils 0.3 10^3/uL (0-0.7); Absolute Lymphocytes 1.8 10^3/uL (1.2-3.4); Absolute Monocytes 0.5 10^3/uL (0.1-0.6); Absolute Neutrophils 3.1 10^3/uL (1.4-6.5); Hemoglobin 9.1 g/dL (12.0-16.0); Mean Corp Hgb Conc. 33.7 g/dL (33.0-37.0); Mean Corpuscular Volume 97.8 fL (81.0-99.0); Mean Platelet Volume 9.9 fL (7.4-10.4); Nucleated Red Blood Cells % 0 %; Platelet Count 162 10^3/uL (130-400); Red Blood Cell Count 2.76 10^6/uL (4.20-5.40); Red Cell Dist. Width 13.1 % (11.5-14.5); White Blood Cell Count 5.7 10^3/uL (4.8-10.8)
[2024-02-04 05:08] LABS: ALT (SGPT) 30 U/L (0-35); AST (SGOT) 28 U/L (14-36); Alkaline Phosphatase 67 U/L (38-126); Blood Urea Nitrogen 54 mg/dl (7-17); Calcium 8.8 mg/dl (8.4-10.2); Carbon Dioxide 24 mmol/L (22-30); Chloride 99 mmol/L (98-107); Estimated Creatinine Clearance 18 ml/min; Glucose 100 mg/dl (70-99); Potassium 4.2 mmol/L (3.5-5.1); Sodium 132 mmol/L (135-145); Total Bilirubin 0.1 mg/dl (0.2-1.3); Total Protein 5.3 g/dl (6.3-8.2); eGFR 20.62
[2024-02-04 05:32] VITALS: BP 188/70
[2024-02-04 05:49] VITALS: BMI 17.6
[2024-02-04] MEDS: PROCARDIA XL (EXTENDED RELEASE) 30 MG PO (05:52)
[2024-02-04] MEDS: COREG 25 MG PO (05:53)
[2024-02-04] MEDS: APRESOLINE 100 MG PO (05:54)
--- NOTE | 2024-02-04 06:11 | PTCARENOTE ---
Pt's BP 188/70 rechecked x2 Eric[place]on [employer]ENDER notified and ordered to give am Procardia, Hydralazine, Coreg PO now.
[2024-02-04 06:24] VITALS: BP 156/58
[2024-02-04 08:01] VITALS: BP 150/68
[2024-02-04 08:10] LABS: Glucose - Point of Care 139 mg/dl (70-99)
[2024-02-04] MEDS: NOVOLOG FLEXPEN 4 UNITS SC ×2 (08:10→11:17)
[2024-02-04] MEDS: NOVOLOG FLEXPEN-LOW RESISTANCE SC (08:10)
[2024-02-04] MEDS: B COMPLEX w/VITAMIN C 1 CAPLET PO (08:13)
[2024-02-04] MEDS: MIRALAX 17 GRAMS PO (08:13)
[2024-02-04] MEDS: IMDUR (EXTENDED RELEASE) 90 MG PO (08:13)
[2024-02-04] MEDS: SODIUM BICARBONATE 1300 MG PO (08:13)
[2024-02-04] MEDS: FEOSOL 650 MG PO (08:14)
[2024-02-04] MEDS: VITAMIN D3 (cholecalciferol) 50 MCG PO (08:15)
[2024-02-04] MEDS: FOLVITE 1 MG PO (08:15)
[2024-02-04] MEDS: PROTONIX 40 MG PO (08:15)
[2024-02-04] MEDS: ASPIR LOW (ENTERIC COATED) 81 MG PO (08:15)
[2024-02-04] MEDS: ATIVAN 0.5 MG PO (08:15)
[2024-02-04] MEDS: LEXAPRO 10 MG PO (08:16)
[2024-02-04] MEDS: HEPARIN 5000 UNITS SC (08:17)
[2024-02-04] MEDS: LANTUS 0.07 UNITS SC (08:17)
[2024-02-04] MEDS: ZOVIRAX OINTMENT 5% 1 APPLIC TOPICAL (08:19)
--- NOTE | 2024-02-04 09:03 | PTCARENOTE ---
Assumed care of pt from night RN. Pt received awake but drowsy, Ox3. Right side weaker than left due to past CVA. VSs, CM shows NSR NSR 60-70's, POX 99% on RA. B/P's done in RA as ordered.
--- NOTE | 2024-02-04 09:49 | W.PN.CD ---
Today's Communication / Plan
-
add cardura
Impression / Plan
-
IMPRESSION/PLAN: 58 female with hypertension, CKD, paroxysmal atrial fibrillation, prior CVA with residual dysarthria and ambulatory dysfunction, dyslipidemia, type 2 diabetes mellitus, and recent admission with GIB/anemia
complicated by numerous antibodies making transfusion difficult, transferred from outpatient stress testing with chest pain/hypertensive emergency.
#Non-ischemic myocardial injury
-Acute.
-Troponin 0.037 --> 0.039 --> 0.041 --> 0.057 --> 0.047 in the context of severely elevated blood pressure and CKD.
-Her GI blood loss, multiple anti-bodies, frailty and CKD make her a highly undesirable candidate for catheterization/PCI given its potential to worsen renal function and obligate the patient to anti-platelet medications.
#Hypertensive emergency: improved
-All BP's should be taken from the RUE due to left subclavian artery stenosis.
-Renal function limits ACEI/ARB/ARNi/MRA use.
-BP medications include carvedilol 25 mg BID, hydralazine 100 mg TID, isosorbide mononitrate 90 mg daily and nifedipine 30 mg bid.
-add cardura 1mg bid
#Chronic kidney disease, Stage IV
-Chronic, stable.
-Renal function at baseline.
-Avoid nephrotoxic agents and renally dose appropriate medications.
#Paroxysmal atrial fibrillation
-Currently in sinus rhythm.
-Rate control with carvedilol.
-[id number]: score at least 5 (HTN, Diabetes Mellitus, prior Stroke/TIA, female gender).
-Oral Anticoagulation: Apixaban 2.5 mg BID discontinued last admission due to anemia - continue to hold at this time as risk > benefit.
#Anemia
-Chronic, multifactorial (GI blood loss, CKD)
-Her multiple antibodies make transfusions more challenging.
-Prior admission suspected etiology was multifactorial from iron deficiency and kidney disease.
-Continue folate and Retacrit.
#Prior CVA
-Chronic, embolic.
-Residual dysarthria and right-sided weakness.
-Carotid artery US shows 50-69% LICA stenosis, left subclavian artery stenosis.
#Dyslipidemia
-Chronic, stable.
-Total cholesterol = 163, LDL = 65, HDL = 76, Triglycerides = 111.
-Continue atorvastatin, now increased to 80mg. Goal LDL < 55.
#IDDM2
-Chronic, stable.
-With chronic kidney disease
-HgbA1c 5.8%.
#Chronic ambulatory dysfunction, wheelchair-bound.
Primary laboratory chemical assistant: Dr. Gardner
Subjective/Interval History:
No cardiac complaints.
DATA:
Transthoracic echocardiogram, 12/12/2023:
Normal left ventricular chamber size. Moderate concentric left ventricular
hypertrophy. Overall, preserved left ventricular systolic function. Left
ventricular ejection fraction is 50-55%. Sharath EPIQ left ventricular global
longitudinal strain is -11.5%.
No significant valvular disease.
No prior study available for comparison.
Renal US, 02/02/2024:
IMPRESSION:
Technically challenging examination. Left renal artery not visualized.
Moderately elevated velocities observed within the right renal artery measuring 275 cm/s. Renal to aortic ratio mildly elevated measuring 2.85. No dampening of the distal waveforms with normal intraparenchymal resistive indices and waveforms.
Findings indeterminate. Echogenic right renal kidney suspicious for underlying medical renal disease.
Carotid Artery Duplex US, 02/02/2024:
IMPRESSION:
Extensively calcified carotid arteries bilaterally with posterior acoustic shadowing, limiting evaluation. Elevated velocities identified within the proximal LEFT ICA measuring 185 cm/s consistent with estimated stenosis of 50-69 percent.
Reversed flow within the left vertebral artery compatible with left subclavian artery stenosis.
Physical Exam
Vital Signs/Labs
Vital Signs
Temp Pulse Resp BP Pulse Ox
98.6 F 66 16 150/68 99
02/04/24 08:07 02/04/24 08:07 02/04/24 08:07 02/04/24 08:01 02/04/24 08:50
02/03/24 02/04/24 02/05/24
06:59 06:59 06:59
Actual Weight 48.9 kg 49.4 kg
02/04/24 04:23
02/04/24 04:23
Triglycerides 111 mg/dl (10-149) 02/01/24 04:42
LDL Cholesterol, Calc 65 mg/dl 02/01/24 04:42
VLDL Cholesterol, Calc 22 mg/dl (0-30) 02/01/24 04:42
HDL Cholesterol 76 mg/dl 02/01/24 04:42
Physical Exam
Constitutional: No acute distress and Comfortable
EENT: Moist mucous membranes
Cardiovascular: Rhythm & rate is regular, Pedal edema is absent, JVD pressure is normal and Systolic murmur absent
Respiratory: Respiratory effort normal and Lungs clear to auscul.
Neuro/Psych: Alert
Data Reviewed
-
Date of Service: February 04, 2024
EKG: Other (Tele: SR 60s)
Labs: Labs Reviewed by me
[2024-02-04] MEDS: CARDURA 1 MG PO (10:01)
--- NOTE | 2024-02-04 10:10 | PTCARENOTE ---
Pt started on Cardura as per MAR for better B/P control.
--- NOTE | 2024-02-04 10:35 | W.PN.HOSP.TC ---
Addendum entered and electronically signed by Archie Machuca MD 02/04/24 10:45:
Time of discharge 39 minutes
Original Note:
Today's Communication/Plan
-
monitor vitals
see plan
cw BP meds; cadura added. further meds titration at [facility]. discussed with cardiology
monitor hgb
Assessment / Plan
Assessment / Plan
General: Well Nourished and No Apparent Distress
HEENT: Anicteric and Moist mucous membranes
Respiratory: Clear and Non Labored Respirations; No Wheezes
Cardiac: S1/S2 and Regular Rhythm
GI: Soft, Non Tender, Non Distended and Normal Bowel Sounds
Musculoskeletal: No Edema
Neuro: Awake, Alert, Oriented and AO x 3
Psych: Calm
Elevated troponin, suspect non-STEMI
Could be secondary to type II NSTEMI secondary to hypertension
Echo 01/30 without wall motion abnormality
Cardiology following
Nitro drip, wean as tolerated.
Continue with aspirin
History of multiple antibodies last admission blood where no blood was found per [place]. Hematology recommended Retacrit periodically. Will have to be very cautious if requires any procedures.
Trial of Maalox
No plan for ischemic evaluation per cardiology
Continue Coreg, isosorbide and hydralazine; added cadura. Discussed with cardiology and further medication titration to be titrated at [facility].
History of hypertension,uncontrolled
Hypertensive emergency on admission
Currently on nitro drip, blood pressure this morning again was high
Now started on nifedipine which is increased, increased hydralazine
Continue with Coreg, isosorbide
Renal US is inconclusive.
Carotid US confirms left subclavian artery stenosis. Discussed with cardiology. Patient to follow up with vascular surgery outpatient
All BP measurements should be taken from RUE
Acute on chronic anemia
Follow-up with hematology outpatient
retacrit outpatient once ok with hematology
Mild hyponatremia
monitor
CKD stage IV
Baseline creatinine 2.7-3
Monitor
Proximal atrial fibrillation
Continue with Coreg
Eliquis stopped on last admission due to GI bleed and severe anemia. This was discussed with patient and her daughter.
History of CVA
Continue aspirin
Hyperlipidemia
Type 2 diabetes mellitus
Continue with insulin
Insulin sliding scale, Accu-Cheks
Underweight
Tobacco dependence
DVT prophylaxis
SCDs, heparin
Full code
Anticipated Discharge: Today
Subjective/Interval History
-
Date of Service: February 04, 2024
denies pain
Objective Data
-
Labs:
Laboratory Results
02/04/24
04:23
WBC 5.7
Hgb 9.1 L
Hct 27.0 L
Plt Count 162
Sodium 132 L
Potassium 4.2
Chloride 99
Carbon Dioxide 24
BUN 54 H
Creatinine 2.6 H
Glucose 100 H
Calcium 8.8
Total Bilirubin 0.1 L
AST 28
ALT 30
Alkaline Phosphatase 67
Vital Signs:
Vital Signs
Temp Pulse Resp BP Pulse Ox
98.6 F 66 16 150/68 99
02/04/24 08:07 02/04/24 08:07 02/04/24 08:07 02/04/24 08:01 02/04/24 08:50
I&O
02/03/24 02/04/24 02/05/24
06:59 06:59 06:59
Intake Total 240 / 240 120 / 120
Output Total 400 / 400 450 / 450
Balance -160 / -160 -330 / -330
--- NOTE | 2024-02-04 10:44 | W.DCSUMMARY ---
Discharge Summary
Discharge Data
Date of Admission: 01/31/24
Date of Discharge: 02/04/24
-
Pending Results: No
Hospital Course
58-year-old female with past medical history of GI bleed, multiple blood antibodies, chronic anemia, CKD, paroxysmal atrial fibrillation, CVA, hyperlipidemia, type 2 diabetes mellitus came to the hospital with chest pain and hypertensive emergency.
Patient was initially started on nitro drip. Cardiology continue to follow follow patient throughout hospitalization. Given patient history of multiple blood antibodies, she was not a good candidate for ischemic evaluation per cardiology. Her
blood pressure medications were titrated and she was also started on nifedipine and Cardura which was new for her. Over time her blood pressure continue to improve and her chest pain improved as well. She also got an ultrasound which was
consistent with left subclavian artery stenosis for which she was instructed to follow-up with vascular surgery outpatient. Once her symptoms continue to improve, she was then discharged back to SNF with instructions to follow-up with all her
physicians outpatient.
Discharge Plan
-
Patient Disposition: Assisted/SNF
Discharge Diagnosis/Procedures: Suspect nonischemic myocardial injury
Hypertensive emergency
Chronic anemia
Hyponatremia
Paroxysmal atrial fibrillation
Left subclavian artery stenosis
Diet: As tolerated
Activity: As tolerated
Driving Restrictions: As prior to admission
Bathing Restrictions: None
Activity Restrictions/Additional Instructions:
All BP measurements should be taken from RUE
Referrals:
Cornell Christensen MD [Active] -
Galo Palmer DO [Family Provider] - in less than 1 week
Oliver Fierro MD [Active] -
Prescriptions:
New
doxazosin 1 mg Tablet
1 mg PO BID Qty: 0 0RF
isosorbide mononitrate 30 mg Tablet Extended Release 24 Hr
90 mg PO DAILY Qty: 0 0RF
hydralazine 25 mg Tablet
100 mg PO TID Qty: 0 0RF
nifedipine 30 mg Tablet Extended Release
30 mg PO BID Qty: 0 0RF
Continued
acetaminophen 325 mg Tablet
650 mg PO Q6HPRN PRN (Reason: pain/fever)
Rx Instructions:
do not exceed 3g in 24 hours
aspirin 81 mg Tablet,Delayed Release (Dr/Ec)
81 mg PO DAILY
bisacodyl 5 mg Tablet
5 mg PO DAILYPRN PRN (Reason: constipation)
carvedilol 25 mg Tablet
25 mg PO BID
ipratropium-albuterol 0.5 mg-3 mg(2.5 mg base)/3 mL Solution For Nebulization
3 ml INHALATION Q4HPRN PRN (Reason: sob)
magnesium hydroxide 400 mg/5 mL Suspension
5 ml PO DAILY
magnesium hydroxide [Milk of Magnesia] 400 mg/5 mL Suspension
30 ml PO [id number] PRN (Reason: constipation)
sodium bicarbonate 650 mg Tablet
1,300 mg PO BID
pantoprazole 40 mg Tablet,Delayed Release (Dr/Ec)
40 mg PO DAILY
ferrous sulfate 325 mg (65 mg iron) Tablet
650 mg PO BID
Fleet Enema 19-7 gram/118 mL Enema
118 ml IL DAILYPRN PRN (Reason: if no bm aftr dulcolax)
folic acid 1 mg Tablet
1 mg PO DAILY
insulin lispro [Humalog KwikPen Insulin] 100 unit/mL Insulin Pen
4 unit SC AC
Retacrit 4,000 unit/mL Solution
4,000 unit SC WE
insulin glargine 100 unit/mL Solution
7 unit SC DAILY Qty: 0 0RF
polyethylene glycol 3350 [Miralax] 17 gram Powder In Packet
17 g PO DAILY
acetaminophen [Tylenol 8 Hour] 650 mg Tablet Extended Release
1,300 mg PO Q12H
bisacodyl [Dulcolax (bisacodyl)] 10 mg Suppository
10 mg IL DAILYPRN PRN (Reason: if no bm aftr mom)
sorbitol 70 % Solution
30 ml PO DAILYPRN PRN (Reason: constipation )
simethicone 80 mg Tablet,Chewable
125 mg PO Q6HPRN PRN (Reason: gas pain )
escitalopram oxalate [Lexapro] 10 mg Tablet
10 mg PO DAILY
acyclovir 5 % Cream
1 applic TOPICAL DAILY
cholecalciferol (vitamin D3) [Vitamin D3] 50 mcg (2,000 unit) Tablet
50 mcg PO DAILY
vit B complex with C #19-FA-D3 800-2,000 mcg-unit Tablet,Disintegrating
1 tab PO DAILY
atorvastatin 40 mg tablet
40 mg PO HS
lorazepam [Ativan] 0.5 mg Tablet
0.5 mg PO DAILY Qty: 3 0RF
Discontinued
isosorbide mononitrate 60 mg Tablet Extended Release 24 Hr
60 mg PO DAILY
hydralazine 25 mg tablet
50 mg PO TID
Discharge Orders:
Discharge Patient (As Directed); Ordered 02/04/24
Ordered By: Archie Machuca
Care Plan Goals
Care Plan Goals:
Problem: Readiness for enhanced knowledge related to diagnosis and treatment plan
Goal: Understand your diagnosis and treatment plan needs, including medications if applicable.
Instructions: Know your diagnosis, underlying causes and treatment plan options, including medications if applicable. Consult with your health care team to learn about your diagnosis and treatment plan, including medications if applicable.
Discharge Date and Time
Discharge Date/Time: 02/04/24 12:35
Print Language: ROMANIAN
[2024-02-04 11:03] VITALS: BP 163/64
[2024-02-04 11:05] LABS: Glucose - Point of Care 250 mg/dl (70-99)
[2024-02-04] MEDS: NOVOLOG FLEXPEN-LOW RESISTANCE 3 UNITS SC (11:17)
--- NOTE | 2024-02-04 12:33 | PTCARENOTE ---
Report called to Faiza Castaneda RN from [facility]. Pt transferred to [facility] via ambulance.
== END 2024-02-04 12:35 | DRG 305 ==
LOC: IVU 12:17
PROVIDERS: Nurse Practitioner Gerontology; ADMITTING PHYSICIAN Internal Medicine; CONSULT PHYSICIAN Student in an Organized Health Care Education/Training Program; EMERGENCY PHYSICIAN Emergency Medicine; FAMILY PHYSICIAN Internal Medicine
DX: I16.1 Hypertensive emergency (principal); E87.1 Hypo-osmolality and hyponatremia; N18.4 Chronic kidney disease, stage 4 (severe); Z68.1 Body mass index [BMI] 19.9 or less, adult; I69.351 Hemiplegia and hemiparesis following cerebral infarction affecting right dominant side; I5A Non-ischemic myocardial injury (non-traumatic); I69.322 Dysarthria following cerebral infarction; I13.0 Hypertensive heart and chronic kidney disease with heart failure and stage 1 through stage 4 chronic kidney disease, or unspecified chronic kidney disease; E11.22 Type 2 diabetes mellitus with diabetic chronic kidney disease; I48.0 Paroxysmal atrial fibrillation; I50.9 Heart failure, unspecified; I25.10 Atherosclerotic heart disease of native coronary artery without angina pectoris; D50.0 Iron deficiency anemia secondary to blood loss (chronic); F32.A Depression, unspecified; R26.2 Difficulty in walking, not elsewhere classified; R63.6 Underweight; F17.200 Nicotine dependence, unspecified, uncomplicated; E78.00 Pure hypercholesterolemia, unspecified; F41.9 Anxiety disorder, unspecified; Z82.49 Family history of ischemic heart disease and other diseases of the circulatory system; Z83.3 Family history of diabetes mellitus; Z80.8 Family history of malignant neoplasm of other organs or systems; Z95.5 Presence of coronary angioplasty implant and graft; Z79.82 Long term (current) use of aspirin; Z79.4 Long term (current) use of insulin; Z91.048 Other nonmedicinal substance allergy status; Z88.1 Allergy status to other antibiotic agents; Z99.3 Dependence on wheelchair; I70.8 Atherosclerosis of other arteries
CPT/HCPCS: 71045; 80053; 80061; 82962; 83036; 84484; 85025; 87070; 87147; 93005; 93306; 93880; 93975; 97163; 97167; 97530; 99285; 99406

== ENCOUNTER 2024-07-22 16:43 | Inpatient (IN) | payer MEDICARE, OTHER, SELFPAY ==
[2024-07-22] VITALS (10 sets, daily range): BP systolic 94–180; BP diastolic 62–116; BMI 14.3
--- NOTE | 2024-07-22 14:12 | ED.GENMED ---
History of Present Illness
General
Chief Complaint: Breathing Problem
Source: jail records
Exam Limitations: non verbal-adult
Time Seen by Provider: 07/22/24 14:06
Nursing documentation reviewed up to this point in time: agreed with
History of Present Illness
History of Present Illness:
59-year-old female with past medical history of prior stroke with residual right hemiparesis and dysarthria and dysphagia, COPD, hypertension, hyperlipidemia, CAD, CHF, atrial fibrillation, CKD, diabetes [facility] status. Patient is very lethargic and is limited as a historian�per staff at baseline she is very slow in her response time and limited with communication but today much worse.
She was apparently more lethargic than usual and essentially not responding verbally. She has been coughing for the past few days, 07/20 had an outpatient chest x-ray that apparently showed pneumonia. She was started on Levaquin the next day but
apparently has been spitting out her medication and clinical status worsening which prompted ER visit.
Past History
Past History
ED Past Medical History: Arrthythmia, CAD, CHF, COPD, CVA, GERD, HTN, Hypercholesterolemia, MA, Renal failure (Right renal artery stenosis status post stent renal artery.), Psychiatric (anxiety, depression) and Other (anemia)
ED Past Surgical History: Cardiac (multiple cardiac catheters, coronary stent Placed in 2008)
Social History
Alcohol: Former
Living: jail
Employment: Disabled
Family History
Family History: Diabetes (sister), Hypertension (daughter and mother ), Cancer (pancreatic cancer in mother ) and Other (heart disease in brother and mother )
Review of Systems
Review of Systems
Unable to obtain full review of systems at this time due to: non-verbal
All Other Systems: Not applicable
Phy Exam
Physical Exam
Physical Exam:
General: Laying in bed lethargic but wakes to voice and does make eye contact; no verbal response will groan to certain questions but no intelligible speech; she appears chronically ill and cachectic
Head: Normocephalic, atraumatic
Eyes: Conjunctiva normal, pupils equal round and reactive to light bilaterally
Throat: Airway intact, handling secretions
Neck: Trachea midline, no JVD
Lungs: Hypoxic requiring 2 L nasal cannula; breath sounds are diminished at the lung bases; mild tachypnea
Heart: Regular rate and rhythm, no murmurs, gallops, or rubs appreciated
Abd: Soft, non distended, no apparent tenderness
Neuro: Contracted
Extremities: No edema in extremities, warm and well-perfused
Scores
Heart Failure Risk
Heart Failure Risk Score: Not Applicable
Heart Score for Chest Pain Patients
STEMI patient?: Not applicable
Withdrawal Assessment of Alcohol
Withdrawal Assessment Completed?: Not applicable
Sepsis
Sepsis Screening
Sepsis Assessment: Sepsis
Sepsis Screen
Sepsis Screen: Sepsis
Date: 07/22/24
Time: 15:44
Course
Orders/Labs/Results
Orders:
Orders
07/22/24 13:56
CBC/With Diff [Complete Blood Count/With Diff] Urgent
CMP [Comprehensive Metabolic Panel] Urgent
Lactic Acid Urgent
Manual Differential Urgent
07/22/24 14:08
Urinalysis Reflex To Culture Urgent
Date Specimen was Collected: 07/22/24
Time Specimen was Collected: 14:34
Acetaminophen 1000MG/100Ml [Ofirmev] 1,000 mg in 100 ml IV ONCE
Acetaminophen IV Indication:: ED Narcotic Naive Pt-ONCE
07/22/24 14:09
LevoFLOXacin 750 MG/150 ML [Levaquin] 750 mg in 150 ml IV NOW
07/22/24 14:10
Electrocardiogram (*1) Urgent
Reason for Study: QTc Monitoring
EKG- Treatment ONCE
07/22/24 14:32
COVID-19 Antigen Urgent
Source: Nasal Swab
Blood Culture Q30M
NASRIN Source: Blood/Venous
Specimen Description:
Influenza A+B Rapid Molecular Urgent
NASRIN Source: Nasal Swab
Specimen Description:
07/22/24 15:00
0.9% Sodium Chloride 500 ml [Nss] 500 ml IV BOLUS
07/22/24 15:06
Blood Culture Q30M
NASRIN Source: Blood/Venous
Specimen Description:
07/22/24 15:18
CR Chest Portable - 1 View Urgent
Comment:
Reason For Exam: cough, fever
Reason Study Needs to be Portable: Unable to Transport
07/22/24 15:28
0.9% Sodium Chloride 1000 ml [Nss] 1,000 ml IV BOLUS
Abnormal Lab Results
07/22/24
13:56
WBC 16.7 H 10^3/uL
(4.8-10.8)
RBC 3.12 L 10^6/uL
(4.20-5.40)
Hgb 9.6 L g/dL
(12.0-16.0)
Hct 28.8 L %
(37.0-47.0)
MPV 10.5 H fL
(7.4-10.4)
Abs Neuts (Manual) 14.6 H 10^3/uL
(1.4-6.5)
Band Neutrophils 21 H %
(0-3)
Lymphocytes (Manual) 4 L %
(20-51)
Potassium 5.2 H mmol/L
(3.5-5.1)
Chloride 108 H mmol/L
(98-107)
Carbon Dioxide 17 L mmol/L
(22-30)
BUN 78 H mg/dl
(7-17)
Creatinine 5.5 H* mg/dL
(0.6-1.0)
Glucose 100 H mg/dl
(70-99)
Lactic Acid 2.1 H mmol/L
(0.7-2.0)
AST 59 H U/L
(14-36)
ALT 39 H U/L
(0-35)
Total Protein 6.0 L g/dl
(6.3-8.2)
Albumin 3.2 L g/dl
(3.5-5.0)
07/22/24 13:56
07/22/24 13:56
Vital Signs
Initial and Last Documented VS:
Initial Vital Signs
Temp Pulse Resp Pulse Ox
38.1 C H 96 25 89
07/22/24 13:36 07/22/24 13:36 07/22/24 13:36 07/22/24 13:36
Last Documented Vital Signs
Temp Pulse Resp BP Pulse Ox
38.1 C H 87 21 180/116 95
07/22/24 13:36 07/22/24 15:15 07/22/24 15:15 07/22/24 13:42 07/22/24 13:43
Procedures
IV Access
Indication: RN unable to obtain and Physician skill needed
Performed by:: Brent Moon MD
Site:: 20G
Gauge:: left forearm
Ultrasound Guidance: Yes
MDM/Problems Addressed
Differential Diagnosis Includes:
Pneumonia, UTI, viral illness
MDM/Problems Addressed:
59-year-old female presents for change in mental status�increasingly lethargic today in the setting of recently diagnosed pneumonia as an outpatient. They had been treating her with Levaquin but were having trouble getting her to swallow the pills.
She is hypertensive, heart rate mid 90s, respiratory rate 24-26, febrile, hypoxic requiring 2 L nasal cannula. Physical exam as above. Will place large-bore IV send labs including CBC and CMP, lactate and blood cultures, COVID and flu swabs,
urinalysis. Check chest x-ray. Provide antibiotics with concern for sepsis secondary to pneumonia. Will provide gentle fluids�cautious fluids due to CHF history but she does appear mildly hypovolemic. Anticipate admission pending initial workup
and treatment.
Labs reviewed: CBC shows leukocytosis to 16.7. Stable anemia with a hemoglobin of 9.6. CMP shows acute on chronic renal insufficiency with a creatinine of 5.5 from baseline of around 2. She has metabolic acidosis likely on the basis of renal
failure. Marginal hyperkalemia potassium 5.2. Her lactate was slightly elevated at 2.1. IV fluids in progress. COVID and flu negative. Chest x-ray reviewed by me shows bibasilar right greater than left pneumonia. Will admit for continued
treatment of sepsis secondary to pneumonia. Discussed case with hospitalist.
Chronic conditions affecting care:
CVA, CHF
*Radiology
Radiology exam reviewed: preliminary read by ED provider and radiology read reviewed
*Pulse Oximetry
Patient hypoxic: yes
*EKG
Interpreted by ED Provider?: Yes
Heart Rate: 84
Rate: normal
Rhythm: sinus
Rolette: normal axis
Interval: normal interval
QRS Pattern: left vent hypertrophy
Ischemia: no ischemia
*Critical Care Note
Total Time (30-74mins, 75-104mins- exclusive of procedures): 31
comment:
Critical care statement: A total of 31 minutes of critical care time was provided for this patient. This includes management of unstable vital signs, evaluation of the patient at bedside, frequent reassessment, discussion with
consultants/hospitalist, and review of pertinent medical records. This time was separate from time utilized to perform any aforementioned documented procedures
Data Reviewed
Review of Other/Old Records Reveals: Labs and Records
Source: records, jail and jail records
Patient Management
Discussion with other providers: Hospitalist (Discussed with hospitalist) and correction staff (Discussed with jail staff directly)
Escalation/DeEscalation of care consider admission/obs:
Admission indicated
ED Attending Note
-
Portions of this chart may have been created with voice recognition software.� Occasional wrong word or��sound alike� substitutions may have occurred due to the inherent limitations of voice recognition software.
Discharge Plan
Departure
Patient Disposition: Admit
Date of Disposition: 07/22/24
Time of Disposition: 15:28
Admit to doctor: Earlene
Presentation/result/management discussed w/ accepting MD/DO: Hospitalist
Discharge Problem:
Pneumonia, Sepsis, Acute renal failure
Prescriptions:
No Action
acetaminophen 325 mg Tablet
650 mg PO Q6HPRN PRN (Reason: pain/fever)
Rx Instructions:
do not exceed 3g in 24 hours
aspirin 81 mg Tablet,Delayed Release (Dr/Ec)
81 mg PO DAILY
bisacodyl 5 mg Tablet
5 mg PO DAILYPRN PRN (Reason: constipation)
carvedilol 25 mg Tablet
25 mg PO BID
ipratropium-albuterol 0.5 mg-3 mg(2.5 mg base)/3 mL Solution For Nebulization
3 ml INHALATION Q4HPRN PRN (Reason: sob)
magnesium hydroxide 400 mg/5 mL Suspension
5 ml PO DAILY
magnesium hydroxide [Milk of Magnesia] 400 mg/5 mL Suspension
30 ml PO [id number] PRN (Reason: constipation)
sodium bicarbonate 650 mg Tablet
1,300 mg PO BID
pantoprazole 40 mg Tablet,Delayed Release (Dr/Ec)
40 mg PO DAILY
ferrous sulfate 325 mg (65 mg iron) Tablet
650 mg PO BID
Fleet Enema 19-7 gram/118 mL Enema
118 ml MT DAILYPRN PRN (Reason: if no bm aftr dulcolax)
folic acid 1 mg Tablet
1 mg PO DAILY
insulin lispro [Humalog KwikPen Insulin] 100 unit/mL Insulin Pen
4 unit SC AC
Retacrit 4,000 unit/mL Solution
4,000 unit SC WE
insulin glargine 100 unit/mL Solution
7 unit SC DAILY Qty: 0 0RF
polyethylene glycol 3350 [Miralax] 17 gram Powder In Packet
17 g PO DAILY
acetaminophen [Tylenol 8 Hour] 650 mg Tablet Extended Release
1,300 mg PO Q12H
bisacodyl [Dulcolax (bisacodyl)] 10 mg Suppository
10 mg MT DAILYPRN PRN (Reason: if no bm aftr mom)
sorbitol 70 % Solution
30 ml PO DAILYPRN PRN (Reason: constipation )
simethicone 80 mg Tablet,Chewable
125 mg PO Q6HPRN PRN (Reason: gas pain )
escitalopram oxalate [Lexapro] 10 mg Tablet
10 mg PO DAILY
acyclovir 5 % Cream
1 applic TOPICAL DAILY
cholecalciferol (vitamin D3) [Vitamin D3] 50 mcg (2,000 unit) Tablet
50 mcg PO DAILY
vit B complex with C #19-FA-D3 800-2,000 mcg-unit Tablet,Disintegrating
1 tab PO DAILY
atorvastatin 40 mg tablet
40 mg PO HS
doxazosin 1 mg Tablet
1 mg PO BID Qty: 0 0RF
isosorbide mononitrate 30 mg Tablet Extended Release 24 Hr
90 mg PO DAILY Qty: 0 0RF
hydralazine 25 mg Tablet
100 mg PO TID Qty: 0 0RF
nifedipine 30 mg Tablet Extended Release
30 mg PO BID Qty: 0 0RF
lorazepam [Ativan] 0.5 mg Tablet
0.5 mg PO DAILY Qty: 3 0RF
Referrals:
Galo Palmer DO [Family Provider] -
Interventions
Interventions:
*Risk Screen - Suicide Last Done: 07/22/24 13:36
*General Assessment Last Done: 07/22/24 13:36
*Neglect/Abuse Screening Last Done: 07/22/24 13:36
ED- Cardiac Assessment Last Done: 07/22/24 13:36
ED- Pulmonary Assessment Last Done: 07/22/24 13:36
Discharge Date and Time
Print Language: COLOMBIAN
[2024-07-22 14:14] LABS: Hematocrit 28.8 % (37.0-47.0); Hemoglobin 9.6 g/dL (12.0-16.0); Mean Corp Hgb Conc. 33.3 g/dL (33.0-37.0); Mean Corpuscular Hgb 30.8 pg (27.0-31.0); Mean Corpuscular Volume 92.3 fL (81.0-99.0); Mean Platelet Volume 10.5 fL (7.4-10.4); Platelet Count 196 10^3/uL (130-400); Red Blood Cell Count 3.12 10^6/uL (4.20-5.40); Red Cell Dist. Width 14.2 % (11.5-14.5); White Blood Cell Count 16.7 10^3/uL (4.8-10.8)
[2024-07-22 14:19] LABS: Lactic Acid 2.1 mmol/L (0.7-2.0)
[2024-07-22 14:24] LABS: ALT (SGPT) 39 U/L (0-35); AST (SGOT) 59 U/L (14-36); Albumin 3.2 g/dl (3.5-5.0); Alkaline Phosphatase 66 U/L (38-126); Blood Urea Nitrogen 78 mg/dl (7-17); Calcium 9.3 mg/dl (8.4-10.2); Carbon Dioxide 17 mmol/L (22-30); Chloride 108 mmol/L (98-107); Glucose 100 mg/dl (70-99); Potassium 5.2 mmol/L (3.5-5.1); Sodium 141 mmol/L (135-145); Total Bilirubin 0.9 mg/dl (0.2-1.3); eGFR 8.34
[2024-07-22 14:52] LABS: Nucleated Red Blood Cells % 0 %
[2024-07-22 14:54] LABS: Absolute Neutrophils -Man Diff 14.6 10^3/uL (1.4-6.5); Band Neutrophils 21 % (0-3); Lymphocytes 4 % (20-51); Metamyelocytes 1 % (-); Monocytes 7 % (2-9); Segmented Neutrophils 67 % (42-75)
[2024-07-22 14:55] LABS: Normal RBC Morphology Yes; Platelets Checked Yes; Total Cells Counted 100
[2024-07-22 15:02] LABS: COVID-19 Antigen Negative (Negative)
[2024-07-22] MEDS: OFIRMEV 100 IV (15:08)
[2024-07-22] MEDS: NSS 500 IV (15:08)
[2024-07-22] MEDS: LEVAQUIN 150 IV (15:26)
--- NOTE | 2024-07-22 15:29 | HPS.HSE ---
Addendum entered and electronically signed by Pantera Henao MD 07/22/24 22:56:
Correction for level of care in H & P
IMU , not IP MS
Addendum entered and electronically signed by Pantera Henao MD 07/22/24 22:53:
Final CXR report
Suspect diffuse pneumonitis with superimposed bibasilar pneumonia.
Cannot rule out component of underlying chronic interstitial lung disease.
Addendum entered and electronically signed by Pantera Henao MD 07/22/24 16:41:
My read on CXR ? R LLL infiltrate
Pending final CXR report
Original Note:
Family Physician
-
Family Physician: Galo Palmer, DO
Chief Complaint
-
AMS , lethargic
History of Present Illness
I could not get any information from the patient with TME
Information gathered by chart review and speaking with the ER staff.
HPI
59F very limited historian Res of [facility] , HX POS MRSA screen, IDDM, prior CVA with residual right hemiparesis, dysarthria and dysphagia, GI bleed, multiple blood antibodies, chronic anemia, CKD4, Prx AF, CVA, hyperlipidemias seen at ER:
- evaluation of change in mental status.
- very lethargic and is limited as a historian�per staff at baseline
- very slow in her response time and limited with communication but today much worse.
- She was apparently more lethargic than usual and essentially not responding verbally.
- She has been coughing for the past few days,
- 07/20/24 OP CXR : apparently POS PNA. EXERCISE MANAGER OP Levaquin the next day but has been spitting out her medication
- clinical status worsening which prompted ER visit.
At ER
- 2 L NS
- IV LVQ
- Tylenol
Medical History
Past Medical History
Past Medical History: Reports Arrhythmia (Paroxysmal atrial fibrillation), CVA, HTN, Hypercholesterolemia and IDDM
Past Surgical History: Reports Cardiac
Social History
Tobacco: Non-smoker
Alcohol: Former
Family History
Family History: Not pertinent
Allergies / Home Medications
Allergies reflects when Allergies were last updated in [employer].
Home Medications with original date entered in [employer]
Allergy/Medication List:
Allergies
Allergy/AdvReac Type Severity Reaction Status Date / Time
adhesive tape Allergy Rash Verified 12/10/23 04:31
cephalexin [From Keflex] Allergy Unknown Verified 12/10/23 04:31
Home Medications
acetaminophen 325 mg tablet 650 mg PO Q6HPRN PRN pain/fever 12/10/23
aspirin 81 mg tablet,delayed release 81 mg PO DAILY Blood Clot Prevention/Tx 12/10/23
bisacodyl 5 mg tablet 5 mg PO DAILYPRN PRN constipation 12/10/23
carvedilol 25 mg tablet 25 mg PO BID Blood Pressure 12/10/23
epoetin jaimee-epbx 4,000 unit/mL injection solution (Retacrit) 4,000 unit SC WE anemia 12/10/23
ferrous sulfate 325 mg (65 mg iron) tablet 650 mg PO BID Supplement 12/10/23
folic acid 1 mg tablet 1 mg PO DAILY Supplement 12/10/23
insulin lispro 100 unit/mL subcutaneous pen (Humalog KwikPen (U-100) Insulin) 4 unit SC AC Diabetes 12/10/23
ipratropium 0.5 mg-albuterol 3 mg (2.5 mg base)/3 mL nebulization soln 3 ml inhalation Q4HPRN PRN sob 12/10/23
isosorbide mononitrate 60 mg tablet,extended release 24 hr 60 mg PO DAILY Heart Disease/Condition 12/10/23
magnesium hydroxide 400 mg/5 mL oral suspension 5 ml PO DAILY Gastrointestinal Issue 12/10/23
magnesium hydroxide 400 mg/5 mL oral suspension (Milk of Magnesia) 30 ml PO [id number] PRN constipation 12/10/23
pantoprazole 40 mg tablet,delayed release 40 mg PO DAILY Gastrointestinal Issue 12/10/23
sodium bicarbonate 650 mg tablet 1,300 mg PO BID Electrolyte Repletion 12/10/23
sodium phosphates 19 gram-7 gram/118 mL enema (Fleet Enema) 118 ml FL DAILYPRN PRN if no bm aftr dulcolax 12/10/23
lorazepam 0.5 mg tablet (Ativan) 0.5 mg PO DAILY anxiety 12/31/23
insulin glargine 100 unit/mL subcutaneous solution 7 unit (0.07 mL) SC DAILY Diabetes #0 mL 01/10/24
acetaminophen 650 mg tablet,extended release (Tylenol 8 Hour) 1,300 mg PO Q12H pain 01/31/24
acyclovir 5 % topical cream 1 applic topical DAILY right hand 01/31/24
atorvastatin 40 mg tablet 40 mg PO HS High Cholesterol 01/31/24
bisacodyl 10 mg rectal suppository (Dulcolax (bisacodyl)) 10 mg FL DAILYPRN PRN if no bm aftr mom 01/31/24
cholecalciferol (vitamin D3) 50 mcg (2,000 unit) tablet (Vitamin D3) 50 mcg PO DAILY Supplement 01/31/24
escitalopram oxalate 10 mg tablet (Lexapro) 10 mg PO DAILY depression/anxiety 01/31/24
hydralazine 25 mg tablet 50 mg PO TID Blood Pressure 01/31/24
polyethylene glycol 3350 17 gram oral powder packet (Miralax) 17 g PO DAILY Constipation 01/31/24
simethicone 80 mg chewable tablet 125 mg PO Q6HPRN PRN gas pain 01/31/24
sorbitol 70 % solution 30 ml PO DAILYPRN PRN constipation 01/31/24
vit B complex with C#19-FA-D3 800 mcg-2,000 unit disintegrating tablet 1 tab PO DAILY Supplement 01/31/24
Review of Systems
-
Constitutional: Reports See HPI and Other (lethargy )
EENT: Reports No Symptoms
Respiratory: Reports No Symptoms
Cardiac: Reports No Symptoms
Abdomen/GI: Reports No Symptoms
: Reports No Symptoms
Musculoskeletal: Reports No Symptoms
Skin: Reports No Symptoms
Neurological: Reports No Symptoms
Endocrine: Reports No Symptoms
Hematologic/Lymphatic: Reports No Symptoms
Physical Exam
Vital Signs
Vital Signs
Temp Pulse Resp BP Pulse Ox
100.5 F H 87 21 180/116 95
07/22/24 13:36 07/22/24 15:15 07/22/24 15:15 07/22/24 13:42 07/22/24 13:43
Physical Exam
General: Cachectic; No Well Developed (chronically ill looking ), Well Nourished (underweight ) or Conversant (lethargic )
HEENT: Anicteric and Moist mucous membranes
Respiratory: Clear and Non Labored Respirations; No Wheezes
Cardiac: S1/S2 and Regular Rhythm
GI: Soft, Non Tender, Non Distended and Normal Bowel Sounds
Rectal: Deferred by Provider
Genito-urinary: No Davalos
Musculoskeletal: No Edema
Neuro: Other (residual right hemiparesis, dysarthria and dysphagia from prio CVA ); No Alert (lethargic )
Psych: Other (lethargic )
Laboratory Results
-
07/22/24 13:56
07/22/24 13:56
Laboratory Results
Lactic Acid Cancelled 07/22/24 14:08
Total Bilirubin 0.9 mg/dl (0.2-1.3) 07/22/24 13:56
AST 59 U/L (14-36) H 07/22/24 13:56
ALT 39 U/L (0-35) H 07/22/24 13:56
Alkaline Phosphatase 66 U/L (38-126) 07/22/24 13:56
Data Reviewed
-
Diagnostic Radiology: Other (pending report )
Medical Tests (Nuc Med, Echo, EKG etc): Report Reviewed by me
Lab Data: Labs Reviewed by me
Old Records: Reviewed
Impression/Plan
-
Vital Signs
Temp Pulse Resp BP Pulse Ox
100.5 F H 87 21 180/116 95
07/22/24 13:36 07/22/24 15:15 07/22/24 15:15 07/22/24 13:42 07/22/24 13:43
07/22/24
13:36 07/22/24
13:42 07/22/24
13:43
Temp 100.5 F H
Temp route: Axillary
Pulse 96 95
Resp Rate 25 22
Blood pressure 180/116
SaO2 89
Oxygen Mode of Delivery Room air
Abnormal Lab
07/22/24
13:56
WBC 16.7 H
RBC 3.12 L
Hgb 9.6 L
Hct 28.8 L
MPV 10.5 H
Abs Neuts (Manual) 14.6 H
Band Neutrophils 21 H
Lymphocytes (Manual) 4 L
Potassium 5.2 H
Chloride 108 H
Carbon Dioxide 17 L
BUN 78 H
Creatinine 5.5 H*
Glucose 100 H
Lactic Acid 2.1 H
AST 59 H
ALT 39 H
Total Protein 6.0 L
Albumin 3.2 L
Lab comparism
02/04/24 07/22/24 07/22/24
04:23 13:56 14:32
Hgb 9.1 L 9.6 L
Sodium 132 L 141
Potassium 4.2 5.2 H
Chloride 99 108 H
Carbon Dioxide 24 17 L
BUN 54 H 78 H
Creatinine 2.6 H 5.5 H*
eGFR 20.62 8.34
Lactic Acid 2.1 H
AST 28 59 H
ALT 30 39 H
Albumin 3.0 L 3.2 L
SARS-CoV-2 Antigen Negative
Last hospitalist admission: 01/31/24 -04/05/23
Discharge Diagnosis/Procedures:
Suspect nonischemic myocardial injury
Hypertensive emergency
Chronic anemia
Hyponatremia
Paroxysmal atrial fibrillation
Left subclavian artery stenosis
ASSESSMENT & PLAN
NO SPEED BELT SANDER TODAY for Rx reconciliation. Pending [facility]GS[employer] FILLER for out patient Rx reconciliation
PNA presumed aspiration PNA complicated by sepsis
Associated lethargic hypoactive TME
- await final CXR report
- switch to IV Zosyn in place of IV LVQ
- septic IV NS
- Trend SIRS picture ( T, HR, RR and WCC)
- f/u BCx
- NC O2 to keep POx > 93
ANT due to sepsis
NEG Bladder scan for retention
HX CKD4
- septic fluid
Chr stable anemia due to advanced CKD
HX multiple antibodies last admission blood where no blood was found per [facility].
- on daily ASA
- on OP Retracit per heme
- f/u with OP Heme
Systolic HTN
Suboptimal HTN control
HX Benign HTN
- c/w EXERCISE MANAGER Coreg, iIMN and hydralazine
Proximal AF
- EXERCISE MANAGER Coreg for rate control
- No longer on Eliquis since second last admission due to GI bleed and severe anemia. ( This was discussed with patient and her daughter)
HX CVA with residual right hemiparesis, dysarthria and dysphagia,
- on EXERCISE MANAGER ASA
Hyperlipidemia
T2DM
- Hold latus
- add ISS low
Underweight
Protein estevan malnutrition due to chr illness
Tobacco dependence
DVT Px: SCD
Ful code
IP MS
[2024-07-22] MEDS: NSS 1000 IV (16:29)
--- NOTE | 2024-07-22 20:55 | PTCARENOTE ---
Received pt from ED RN. Pt pulled over to our bed. Pt is AAOx2 (time), drowsy/lethargic, forgetful, hx right hemiparesis, moves all her extremities. Spoke with daughter on the phone states her mom has aphasia. Pt only answering yes or no questions.
NSR/sinus remedios on the monitor. On 2L NC O2 sat 95%, lungs diminished. Pt incont, pw in place. Pt coughing with oral intake, pt made NPO. SCDs in place. CHG bath and mouth care provided. Call jaquez in reach. Safe environment maintained.
--- NOTE | 2024-07-22 20:56 | PHA.VAN.IN ---
Assessment
- Assessment
Renal Function: Appears elevated from baseline
Maximum Temperature: 100.5
Minimum Temperature: 98.1
Concomitant Antimicrobials: PIPERACILIN/TAZOBACTAM
Historical Micro: History of MRSA infection
Plan
- Plan
Initial / Loading Dose: 1000MG ONCE
Maintenance Regimen: DOSE BY LEVEL
Monitoring: Random level with am labs
Pharmacokinetics Vancomycin I
- -
Patient Age: 59
Patient Sex: Female
Vancomycin Day #: 1
Indication: Pulmonary/Respiratory
Requesting Provider: Edda NYE
Pertinent Antimicrobial Allergies:
CEPHALEXIN
Height / Weight:
Height 5 ft 8 in
Actual Weight 42.7 kg
Pertinent Past Medical History: CKD
- Vital Signs / Lab Results
Temp Pulse Resp BP Pulse Ox
98.1 F 68 30 170/66 95
07/22/24 20:50 07/22/24 19:30 07/22/24 18:15 07/22/24 19:00 07/22/24 13:43
Lab Results - Hematology
07/22/24
13:56
WBC 16.7 H
Band Neutrophils 21 H
Lab Results - Chemistry
07/22/24
13:56
BUN 78 H
Creatinine 5.5 H*
Albumin 3.2 L
07/22/24 07/22/24
13:56 14:08
Lactic Acid 2.1 H Cancelled
Microbiology Results
07/22/24 14:32 Influenza Types A & B (KOLBY) - Final
Nasal Swab Negative for Influenza A & B, NAAT
Negative results must be combined with clinical observations
and patient history.
Nucleic Acid Amplification test (NAAT)performed on the
[employer] platform.
[2024-07-22] MEDS: VANCOCIN 200 IV (21:30)
[2024-07-22 23:09] LABS: Glucose - Point of Care 114 mg/dl (70-99)
[2024-07-23] VITALS (22 sets, daily range): BP systolic 87–154; BP diastolic 46–105; BMI 14.3
[2024-07-23 00:07] LABS: Lactic Acid 1.1 mmol/L (0.7-2.0)
[2024-07-23] MEDS: ZOSYN 50 IV (01:25)
[2024-07-23 04:22] LABS: Hematocrit 26.2 % (37.0-47.0); Hemoglobin 9.1 g/dL (12.0-16.0); Mean Corp Hgb Conc. 34.7 g/dL (33.0-37.0); Mean Corpuscular Volume 89.1 fL (81.0-99.0); Mean Platelet Volume 9.7 fL (7.4-10.4); Platelet Count 169 10^3/uL (130-400); Red Blood Cell Count 2.94 10^6/uL (4.20-5.40); Red Cell Dist. Width 13.8 % (11.5-14.5); Urine Albumin 4+ (Neg - Trace); Urine Bilirubin Negative (Negative); Urine Character Slightly Cloudy (Clear); Urine Color Yellow; Urine Glucose Negative (Negative); Urine Ketone Negative (Negative); Urine Leukocyte 2+ (Negative); Urine Nitrite Negative (Negative); Urine Occult Blood 4+ (Negative); Urine Urobilinogen Negative (Neg - 1+); White Blood Cell Count 22.6 10^3/uL (4.8-10.8)
[2024-07-23 04:36] LABS: Urine Amorphous Seen; Urine Mucus Many; Urine Squamous Cell >30 /LPF (Few)
[2024-07-23 04:37] LABS: Urine White Cell >100 /HPF (0-5)
[2024-07-23 04:42] LABS: Urine Bacteria Many (Negative)
[2024-07-23 04:47] LABS: Urine Urothelial Cell >30 /LPF (FEW)
[2024-07-23 04:50] LABS: Vancomycin Random 21.4 ug/ml
[2024-07-23 04:51] LABS: ALT (SGPT) 33 U/L (0-35); AST (SGOT) 44 U/L (14-36); Albumin 2.7 g/dl (3.5-5.0); Alkaline Phosphatase 64 U/L (38-126); Blood Urea Nitrogen 83 mg/dl (7-17); Carbon Dioxide 15 mmol/L (22-30); Chloride 109 mmol/L (98-107); Estimated Creatinine Clearance 8 ml/min; Glucose 124 mg/dl (70-99); Potassium 4.5 mmol/L (3.5-5.1); Sodium 138 mmol/L (135-145); Total Bilirubin 0.8 mg/dl (0.2-1.3); Total Protein 5.3 g/dl (6.3-8.2); eGFR 8.72
[2024-07-23 07:51] LABS: Glucose - Point of Care 105 mg/dl (70-99)
--- NOTE | 2024-07-23 08:47 | PHA.VAN.FU ---
Vancomycin Assessment / Plan
- Assessment
Renal Function: Stable (5.5->5.3)
WBC's are: Trending Up
In the past 24 hrs, patient has been: Febrile (100.5 -07/22/24 13:36)
Concomitant Antimicrobials: Pip/tazo
- Assessment - Therapeutic Drug Monitoring
Random Level: 21.4 ~ 7 hours after 1 gm LD
- Dosing Plan
Continue: continue dose by level
Dosing by Level: Hold off on dosing today
- Monitoring Plan
Random Level: repeat random level AM 07/24
- Follow Up
Pharmacy will continue to follow.
Vancomycin Follow UP
- -
Patient Age: 59
Patient Sex: Female
Vancomycin Day #: 2
Indication: Pulmonary/Respiratory
Requesting Provider: Edda NYE
Pertinent Antimicrobial Allergies:
CEPHALEXIN
Height / Weight:
Height 5 ft 8 in
Actual Weight 42.7 kg
Pertinent Past Medical History: CKD
- Vital Signs / Lab Results
Temp Pulse Resp BP Pulse Ox
98.3 F 57 14 112/74 96
07/23/24 04:04 07/23/24 06:00 07/23/24 06:00 07/23/24 06:00 07/23/24 06:00
Lab Results - Hematology
07/22/24 07/23/24
13:56 04:11
WBC 16.7 H 22.6 H
Band Neutrophils 21 H
Lab Results - Chemistry
07/22/24 07/23/24
13:56 04:11
BUN 78 H 83 H
Creatinine 5.5 H* 5.3 H*
Estimated Creat Clear 8
Albumin 3.2 L 2.7 L
07/22/24 07/22/24 07/22/24
13:56 14:08 23:43
Lactic Acid 2.1 H Cancelled 1.1
07/23/24 07/23/24 07/23/24
00:36 04:36 08:36
Lactic Acid Cancelled Cancelled Cancelled
Lab Results - Urine
07/23/24
04:11
Urine Nitrite (Reflex) Negative
Leukocyte Esterase Rfl 2+ A
Ur Squamous Epith Cells >30
Microbiology Results
07/22/24 15:06 Blood Culture - Preliminary
Blood/Venous Positive culture in progress
Gram Stain - Preliminary
07/22/24 14:32 Influenza Types A & B (KOLBY) - Final
Nasal Swab Negative for Influenza A & B, NAAT
Negative results must be combined with clinical observations
and patient history.
Nucleic Acid Amplification test (NAAT)performed on the
[employer] platform.
Therapeutic Drug Monitoring
Random Vancomycin 21.4 ug/ml 07/23/24 04:11
--- NOTE | 2024-07-23 08:52 | W.PN.HOSP.TC ---
Today's Communication/Plan
-
non-con CT A/P
change abx to Vanc/Cefepime
Renal Consult
ID Consult
repeat Blood cultures tomorrow AM
TTE
Sodium Bicarb 150 @ 100
awaiting med rec
Assessment / Plan
Assessment / Plan
CXR
IMPRESSION:
Suspect diffuse pneumonitis with superimposed bibasilar pneumonia. Cannot rule out component of underlying chronic interstitial lung disease.
TME 2/2 Sepsis
PNA presumed aspiration PNA complicated by sepsis
Gram + Cocci Bacteremia
- patient was given Levaquin at [facility], admitted on Vanc/Zosyn. Given ARF, will change to Vanc/Cefepime
- start sodium bicarb
- trend blood cultures
- ID consult
- TTE
-non-con CT A/P
- PT and ST consults; patient is NPO
Acute Renal Failure
NEG Bladder scan for retention
HX CKD4
-s/p 1.5L
-additional 500cc
-start sodium bicarb IVF @ 100
-non-con CT A/P
Chr stable anemia due to advanced CKD
HX multiple antibodies last admission blood where no blood was found per [place].
- on daily ASA
- on OP Retracit per heme
- f/u with OP Heme
Systolic HTN
Suboptimal HTN control
HX Benign HTN
- c/w POLYSOM TECH Coreg, iIMN and hydralazine awaiting med rec
Proximal AF
- POLYSOM TECH Coreg for rate control
- No longer on Eliquis since second last admission due to GI bleed and severe anemia. ( This was discussed with patient and her daughter)
HX CVA with residual right hemiparesis, dysarthria and dysphagia,
- on POLYSOM TECH ASA
Hyperlipidemia
T2DM
- Hold latus
- add ISS low
Underweight
Protein estevan malnutrition due to chr illness
Tobacco dependence
DVT Px: SCD
Ful code
IP MS
51 minutes spent on patient care
Anticipated Discharge: > 48 hours
Subjective/Interval History
-
Date of Service: July 23, 2024
patient is alert, denies pain
Objective Data
-
Labs:
Laboratory Results
07/23/24
04:11
WBC 22.6 H
Hgb 9.1 L
Hct 26.2 L
Plt Count 169
Sodium 138
Potassium 4.5
Chloride 109 H
Carbon Dioxide 15 L
BUN 83 H
Creatinine 5.3 H*
Glucose 124 H
Calcium 9.0
Total Bilirubin 0.8
AST 44 H
ALT 33
Alkaline Phosphatase 64
Vital Signs:
Vital Signs
Temp Pulse Resp BP Pulse Ox
98.3 F 57 14 112/74 96
07/23/24 04:04 07/23/24 06:00 07/23/24 06:00 07/23/24 06:00 07/23/24 06:00
I&O
07/22/24 07/23/24 07/24/24
06:59 06:59 06:59
Intake Total 250 / 250
Output Total 250 / 250
Balance 0 / 0
Review of Systems
-
Unable to obtain full review of systems at this time due to: Other (patient dysarthria)
History Source: Patient
Physical Exam
-
General: No Apparent Distress and Other (frail appearing)
HEENT: PERRLA
Respiratory: Negative Wheezes or Rales
Cardiac: Regular Rhythm and S1/S2
GI: Soft and Nontender
Musculoskeletal: No Edema
Skin: Warm and Dry; Negative Rash
Neuro: Awake and Alert
Psych: Calm
Data Reviewed
-
Diagnostic Radiology: Report Reviewed by me
Labs: Labs Reviewed by me
[2024-07-23] MEDS: NSS 500 IV (09:31)
[2024-07-23] MEDS: SODIUM BICARBONATE 1150 MEQ IV ×2 (09:33→21:07)
--- NOTE | 2024-07-23 09:34 | W.CON.NEPH ---
Consultation
-
Date/Time Consultation Requested: 07/23/2024 9:00 AM
Date/Time Consultation Performed: 07/23/2024 9:35 AM
Requesting Provider: Dr. Brown
Performing Provider: Dr. Avila
Reason for Consultation: Acute kidney injury
Medical History
-
Chief Complaint: Acute kidney injury
History of Present Illness:
The patient is a 59-year-old female with a past medical history of CKD stage IV who maintains a baseline creatinine of 2.6 as of January 2024, hypertension maintained on carvedilol hydralazine and nifedipine, previous CVA with subsequent right
hemiparesis maintained on ASA, PAF off anticoagulation therapy due to previous significant GI bleeding,[facility]. Patient is very
lethargic and is limited as a historian�per staff at baseline she is very slow in her response time and limited with communication but today much worse. She was apparently more lethargic than usual and essentially not responding verbally. She has
been coughing for the past few days, 07/20 had an outpatient chest x-ray that apparently showed pneumonia. She was started on Levaquin the next day but apparently has been spitting out her medication and clinical status worsening which prompted ER
visit. The patient was notably hypotensive on admission and had chest x-ray findings consistent with bilateral pneumonia. She was also in acute renal failure with her creatinine of 5.5 and nephrology was asked to see this critically ill patient
for acute kidney injury and metabolic acidosis in the setting of evolving staph bacteremia with subsequent Sepsis.
Past Medical History
PAF CAD, CHF, COPD, CVA, GERD, HTN, Hypercholesterolemia, NH, Renal failure (Right renal artery stenosis status post stent renal artery.), CKD 4 (2.6 in 02/04) Psychiatric (anxiety, depression) and Other (anemia)
ED Past Surgical History: Cardiac (multiple cardiac catheters, coronary stent Placed in 2008)
Social History
Tobacco: Former Smoker
Living: Halfway
Family History
Family History: Not Pertinent
Allergies / Home Medications
Allergy/AdvReac Type Severity Reaction Status Date / Time
adhesive tape Allergy Rash Verified 12/10/23 04:31
cephalexin [From Keflex] Allergy Unknown Verified 12/10/23 04:31
�Medication �Instructions �Recorded �Confirmed �Type
acetaminophen 325 mg tablet 650 mg PO Q6HPRN PRN pain/fever 12/10/23 01/31/24 History
aspirin 81 mg tablet,delayed 81 mg PO DAILY Blood Clot 12/10/23 01/31/24 History
release Prevention/Tx
bisacodyl 5 mg tablet 5 mg PO DAILYPRN PRN constipation 12/10/23 01/31/24 History
carvedilol 25 mg tablet 25 mg PO BID Blood Pressure 12/10/23 01/31/24 History
epoetin jaimee-epbx 4,000 unit/mL 4,000 unit SC WE anemia 12/10/23 01/31/24 History
injection solution (Retacrit)
ferrous sulfate 325 mg (65 mg 650 mg PO BID Supplement 12/10/23 01/31/24 History
iron) tablet
folic acid 1 mg tablet 1 mg PO DAILY Supplement 12/10/23 01/31/24 History
insulin lispro 100 unit/mL 4 unit SC AC Diabetes 12/10/23 01/31/24 History
subcutaneous pen (Humalog KwikPen
(U-100) Insulin)
ipratropium 0.5 mg-albuterol 3 mg 3 ml inhalation Q4HPRN PRN sob 12/10/23 01/31/24 History
(2.5 mg base)/3 mL nebulization
soln
magnesium hydroxide 400 mg/5 mL 5 ml PO DAILY Gastrointestinal 12/10/23 01/31/24 History
oral suspension Issue
magnesium hydroxide 400 mg/5 mL 30 ml PO T11ORIN PRN constipation 12/10/23 01/31/24 History
oral suspension (Milk of Magnesia)
pantoprazole 40 mg tablet,delayed 40 mg PO DAILY Gastrointestinal 12/10/23 01/31/24 History
release Issue
sodium bicarbonate 650 mg tablet 1,300 mg PO BID Electrolyte 12/10/23 01/31/24 History
Repletion
sodium phosphates 19 gram-7 118 ml AR DAILYPRN PRN if no bm 12/10/23 01/31/24 History
gram/118 mL enema (Fleet Enema) aftr dulcolax
insulin glargine 100 unit/mL 7 unit (0.07 mL) SC DAILY Diabetes 01/10/24 01/31/24 Rx
subcutaneous solution #0 mL
acetaminophen 650 mg 1,300 mg PO Q12H pain 01/31/24 01/31/24 History
tablet,extended release (Tylenol 8
Hour)
acyclovir 5 % topical cream 1 applic topical DAILY right hand 01/31/24 01/31/24 History
atorvastatin 40 mg tablet 40 mg PO HS High Cholesterol 01/31/24 01/31/24 History
bisacodyl 10 mg rectal suppository 10 mg AR DAILYPRN PRN if no bm 01/31/24 01/31/24 History
(Dulcolax (bisacodyl)) aftr mom
cholecalciferol (vitamin D3) 50 50 mcg PO DAILY Supplement 01/31/24 01/31/24 History
mcg (2,000 unit) tablet (Vitamin
D3)
escitalopram oxalate 10 mg tablet 10 mg PO DAILY depression/anxiety 01/31/24 01/31/24 History
(Lexapro)
polyethylene glycol 3350 17 gram 17 g PO DAILY Constipation 01/31/24 01/31/24 History
oral powder packet (Miralax)
simethicone 80 mg chewable tablet 125 mg PO Q6HPRN PRN gas pain 01/31/24 01/31/24 History
sorbitol 70 % solution 30 ml PO DAILYPRN PRN constipation 01/31/24 01/31/24 History
vit B complex with C#19-FA-D3 800 1 tab PO DAILY Supplement 01/31/24 01/31/24 History
mcg-2,000 unit disintegrating
tablet
doxazosin 1 mg tablet 1 mg PO BID #0 tabs 02/04/24 Rx
hydralazine 25 mg tablet 100 mg (4 x 25 mg) PO TID #0 tabs 02/04/24 Rx
isosorbide mononitrate 30 mg 90 mg (3 x 30 mg) PO DAILY #0 tabs 02/04/24 Rx
tablet,extended release 24 hr
lorazepam 0.5 mg tablet (Ativan) 0.5 mg PO DAILY anxiety #3 tabs 02/04/24 Rx
nifedipine 30 mg tablet,extended 30 mg PO BID #0 tabs 02/04/24 Rx
release
Review of Systems
-
Neurological: Other (Baseline right hemiparesis, dysarthria, dysphagia)
Physical Exam
Vital Signs
Vital Signs
Temp Pulse Resp BP Pulse Ox
98.3 F 66 17 93/65 89
07/23/24 04:04 07/23/24 08:01 07/23/24 08:01 07/23/24 08:01 07/23/24 08:01
Lab Results
07/23/24 04:11
07/23/24 04:11
WBC 22.6 10^3/uL (4.8-10.8) H 07/23/24 04:11
RBC 2.94 10^6/uL (4.20-5.40) L 07/23/24 04:11
Hgb 9.1 g/dL (12.0-16.0) L 07/23/24 04:11
Hct 26.2 % (37.0-47.0) L 07/23/24 04:11
Plt Count 169 10^3/uL (130-400) 07/23/24 04:11
Sodium 138 mmol/L (135-145) 07/23/24 04:11
Potassium 4.5 mmol/L (3.5-5.1) 07/23/24 04:11
Chloride 109 mmol/L (98-107) H 07/23/24 04:11
Carbon Dioxide 15 mmol/L (22-30) L 07/23/24 04:11
BUN 83 mg/dl (7-17) H 07/23/24 04:11
Creatinine 5.3 mg/dL (0.6-1.0) H* 07/23/24 04:11
eGFR 8.72 07/23/24 04:11
Glucose 124 mg/dl (70-99) H 07/23/24 04:11
Calcium 9.0 mg/dl (8.4-10.2) 07/23/24 04:11
Albumin 2.7 g/dl (3.5-5.0) L 07/23/24 04:11
Physical Exam
General: frail, ill appearing, awake and alert
HEENT: PERRL, EOMI, Anicteric, Conjunctivae Clear, Ear/Nose Intact, Hearing Normal, Oropharynx Clear/Moist, Dentition Intact, Facial Symmetry, Neck Supple, Neck: Trachea Midline, No JVD and No Thyromegaly, no Bruits
Respiratory: coarseto auscultation bilaterally with normal lung excursion
Cardiac: S1/S2 and Regular Rate/Rhythm
Breast: Deferred by me
Abdomen: Soft, Nontender, Nondistended, Normal Bowel Sounds and No Hepatosplenomegaly
Rectal: Deferred by Provider
Genito-urinary: No xiao,
Extremities: No Clubbing, No Cyanosis and No Edema
Skin: No Rash or open lesions
Neuro: right hemiparesis
Hematologic/Lymphatic: No Cervical Lymphadenopathy, No Submandibular Lymphadenopathy and No Supraclavicular Lymphadenopathy
Psych: Mood/afflect pleasant, Insight/judgement good and Appropriate
Vascular: plus 1 pedal and radial pulses
Data Reviewed
-
Radiology: Image Personally Visualized and interpreted (Chest x-ray personally reviewed notes bilateral lower lobe opacities)
Medical Tests (Nuc Med, Echo etc): Other (EKG report notes sinus rhythm at 84 beats per minute)
Labs: Labs Reviewed by me (BMP CBC urinalysis)
Old Records: Reviewed (Reviewed previous creatinine level of 2.6 from February 04, 2024)
Assessment/Plan
-
Impression:
ANT
CKD 4 (2.6 as of 02/04)
Metabolic acidosis
Bilateral pneumonia
Sepsis with staph bacteremia
History of diabetes
History of PAF
Chronic anemia
History of hypertension
History of CVA with residual right hemiparesis dysarthria and dysphagia
History of COPD
Plan:
ANT/Metabolic acidosis
-ANT likely prerenal he mediated in the setting of septic physiology with hemodynamic compromise
- No acute hemodialysis requirement
-Concur with alkalize IV fluids in setting of hypotension and acute kidney injury and metabolic acidosis (non gapped and gapped)
- Check postvoid bladder scan with low threshold for Xiao catheter placed
-Maintain MAP at 65 or greater in setting of sepsis with acute kidney injury to augment renal perfusion pressure, may require pressor support
-Antibiotics renally dosed
-Patient is critically ill with hemodynamic instability Staph bacteremia with associated pneumonia in the setting of sepsis with subsequent acute kidney injury
Total Time Spent with Patient (in minutes): 45 minutes
[2024-07-23] MEDS: MAXIPIME 1000 MG IV (10:35)
[2024-07-23] MEDS: STERILE WATER FOR INJECTION 10 ML IV (10:35)
--- NOTE | 2024-07-23 11:16 | PTCARENOTE ---
Addendum entered by Rochelle Beltrán RN 07/23/24 11:40:
patient with very loose teeth, careful oral care provided
Original Note:
assessments per work list. fluid bolus administered, fluids with bicarb initiated post bolus. no urine output, bladder scanned and reported to insulation machine operator. ID and hospitalist updated with positive blood cultures
--- NOTE | 2024-07-23 11:20 | CON.ID ---
Addendum entered and electronically signed by Bebo Shaw DO 07/23/24 14:47:
Correction re: Recommendations
Continue with cefepime (rather than stated zosyn) for the present.
Original Note:
Consultation
-
Date/Time Consultation Requested: 07/23/2024 0844
Date/Time Consultation Performed: 07/23/2024 11:00
Requesting Provider: Dr. Brown
Performing Provider: Dr. Shaw
Reason for Consultation: Pneumonia
Chief Complaint / Past History
History of Present Illness
Katelyn Kim is a 59-year-old female being evaluated at the request of Dr. Brown in regards to pneumonia. History is obtained from chart review, along with patient interview, although the patient was not able to provide significant history to me.
The patient has an underlying history of CVA with right residual hemiparesis and [facility]. According to reviewed notes, the patient was sent to [facility] ER for evaluation of change in mental status. According to
notes, the patient is usually slow in her responses at baseline, but it was found to be much worse by the staff at the penitentiary. She appeared more lethargic than usual to them and had limited verbal responses for them. Also noted that she had
been having a cough for several days, and a recent CXR showed infiltrates. She was placed on Levaquin at the [facility], but had been spitting out her medications.
Here, evaluation revealed a fever, along with leukocytosis. Additionally, the patient has been found to be in ANT. Imaging has revealed pneumonia, and Infectious Diseases is asked to comment upon further antimicrobial therapy.
Past History
Additional Past Medical History:
P A-fib
CAD; Hx AK
CHF
COPD
Hx CVA with right residual hemiparesis
GERD
HTN
HLD
Anxiety/depression
DM
Hx right renal artery stenosis
Additional Past Surgical History:
PCI with stenting
Right renal artery stent
Allergy History:
adhesive tape Allergy (Verified 12/10/23 04:31)
Rash
cephalexin [From Keflex] Allergy (Verified 12/10/23 04:31)
Unknown
Medications Reviewed: Yes
Current Antibiotics:
Cefepime 1 g IV every 24 hours
Vancomycin (dosing per pharmacy)
Social History
Tobacco: Non-Smoker
Alcohol: None
Drug: None
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
Employment: Not Employed
Review of Systems
Vital Signs
Temp Pulse Resp BP Pulse Ox
98.1 F 75 18 120/60 95
07/23/24 07:45 07/23/24 10:14 07/23/24 10:14 07/23/24 10:14 07/23/24 10:14
Physical Exam
Physical Exam
Constitutional: Comfortable, Chronically Ill and Cachetic
Eyes: Pupils Equal, Pupils Round, No Conjunctival Hemorrhage and Sclera Anicteric
Oral: Poor Dentition, No Thrush and No Ulcers
Cardiovascular: Regular Rate and S1/S2; Negative S3/S4 or Murmur
Pulmonary: Rhonchi (Throughout) and Non Labored
Gastrointestinal: Soft, Non Tender, Non Distended and Normal Bowel Sounds
Extremities: Other (Significant extremity muscle wasting.); Negative Edema, Cyanosis or Erythema
Skin: Warm and Dry; Negative Rash or Jaundice
Neurological: Awake and Other (Responsive to voice and touch.)
Psychological: Calm
.
Lab / Diagnostic Study Results
07/23/24 04:11
07/23/24 04:11
Total Counted 100 07/22/24 13:56
Abs Neuts (Manual) 14.6 10^3/uL (1.4-6.5) H 07/22/24 13:56
Segmented Neutrophils 67 % (42-75) 07/22/24 13:56
Band Neutrophils 21 % (0-3) H 07/22/24 13:56
Lymphocytes (Manual) 4 % (20-51) L 07/22/24 13:56
Lactic Acid Cancelled 07/23/24 08:36
Ur Squamous Epith Cells >30 /LPF (Few) 07/23/24 04:11
Microbiology Results
Micro:
07/22/24 14:32 Blood Culture - Preliminary
Blood/Venous Positive culture in progress
Gram Stain - Preliminary
07/22/24 15:06 Blood Culture - Preliminary
Blood/Venous Staph aureus MRSA
Gram Stain - Preliminary
07/23/24 04:11 Urine Culture - Pending
Urine
07/22/24 14:32 Influenza Types A & B ([facility]) - Final
Nasal Swab Negative for Influenza A & B, NAAT
Negative results must be combined with clinical observations
and patient history.
Nucleic Acid Amplification test (NAAT)performed on the
[employer] platform.
Imaging:
07/23/2024 CT abdomen/pelvis without contrast: Abnormal airspace opacities in left upper lobe, left lower lobe, right middle lobe and right lower lobe most likely represent pneumonia. Findings are most severe in the right lower lobe. No effusion
noted. No abnormal focal hepatic lesions noted. No hydronephrosis seen. Urinary bladder shows a small volume of gas in the antedependent position. In addition, there is also abnormal crescent shaped collection of gas along the right side of the
urinary bladder and most likely intramural gas. Please see full dictation for additional detail. Film personally viewed.
07/22/2024 CXR (portable): Diffuse interstitial prominence noted. Superimposed bibasilar airspace opacities (R >L) noted. No significant pleural effusion. Please see full dictation for additional detail.
Assessment / Plan
MRSA bacteremia
B/L Pneumonia
Complicated UTI
Leukocytosis
ANT on CKD
P A-fib
CAD; Hx AK
CHF
COPD
Hx CVA with right residual hemiparesis
GERD
HTN
HLD
Anxiety/depression
DM
Hx right renal artery stenosis
Recommendations:
Continue with empiric Zosyn in the treatment of suspected aspiration pneumonia.
- Check sputum culture
Continue with vancomycin given recovery of MRSA in the blood.
- Follow Vanco levels closely to prevent nephrotoxicity.
- Will repeat blood cultures 07/24 to assess clearance
Recommend Urology evaluation given finding of bladder wall air.
Follow white count and temperature curve.
Trend creatinine and Est. CrCl to guide further antibiotic dosing.
Further recommendations as additional data is returned.
Care Review
Plan reviewed with: Physician (Hospitalist)
--- NOTE | 2024-07-23 11:57 | CM ---
Placed a call to patient's daughter in an attempt to obtain information for assessment. Had to leave a voice mail message. Encouraged return call and provided CM contact information.
[2024-07-23 12:35] LABS: Glucose - Point of Care 98 mg/dl (70-99)
[2024-07-23] MEDS: NOVOLOG FLEXPEN-LOW RESISTANCE SC ×2 (12:49→17:35)
[2024-07-23 15:00] LABS: Glycohemoglobin (HgbA1c) 5.4 % (4.0-5.6)
[2024-07-23] MEDS: ASPIRIN 300 MG RECTAL (15:29)
[2024-07-23 15:42] LABS: Urine Sodium 18 mmol/L (30-90)
--- NOTE | 2024-07-23 16:27 | CONS.URO ---
Addendum entered and electronically signed by Finesse Joya MD 08/03/24 12:12:
Date of consultation: 07/23/24
Original Note:
Consultation
-
Requesting Provider: Kevin
Performing Provider: Mahnaz
Reason for Consultation: emphysematous cystitis, ANT
Medical History
History of Present Illness
59F resident @[facility] presents w/ change in mental status - more lethargic than usual per [facility] staff.
Noted to have cough for several days w/ recent CXR showing infiltrates - Levaquin started, but patient spit out medications.
H/o CVA w/ residual right hemiparesis.
CT imaging demonstrated pneumonia and findings c/w emphysematous cystitis.
Cr markedly elevated >5.3 (baseline mid 2 range, h/o CKD4).
No prior urologic history noted.
Past Medical History
Past Medical History: Arrhythmia (pAF), CAD, CHF, CVA (residual right hemiparesis), GERD, HTN, Psychiatric (anxiety, depression) and Other (HLD, DM, right renal artery stenosis)
Past Surgical History: Cardiac (PCI w/ stent) and Other (right renal artery stenting)
Social History
Unable to obtain full social history at this time due to: Dementia and Acuity
Living: Residential
Employment: Not Employed
Family History
Family History: Reviewed & Not Pertinent
Allergies/Home Medications
Allergies
Allergy/AdvReac Type Severity Reaction Status Date / Time
adhesive tape Allergy Rash Verified 12/10/23 04:31
cephalexin [From Keflex] Allergy Unknown Verified 12/10/23 04:31
Home Medications
�Medication �Instructions �Recorded �Confirmed �Type
acetaminophen 325 mg tablet 650 mg PO Q6HPRN PRN MILD 12/10/23 07/23/24 History
PAIN/TEMP >100.4F
aspirin 81 mg tablet,delayed 81 mg PO DAILY Blood Clot 12/10/23 07/23/24 History
release Prevention/Tx
bisacodyl 5 mg tablet 5 mg PO DAILYPRN PRN constipation 12/10/23 07/23/24 History
carvedilol 25 mg tablet 25 mg PO BID Blood Pressure 12/10/23 07/23/24 History
epoetin jaimee-epbx 4,000 unit/mL 4,000 unit SC WE anemia 12/10/23 07/23/24 History
injection solution (Retacrit)
ferrous sulfate 325 mg (65 mg 650 mg PO BID Supplement 12/10/23 07/23/24 History
iron) tablet
folic acid 1 mg tablet 1 mg PO DAILY Supplement 12/10/23 07/23/24 History
insulin lispro 100 unit/mL 4 unit SC AC Diabetes 12/10/23 07/23/24 History
subcutaneous pen (Humalog KwikPen
(U-100) Insulin)
ipratropium 0.5 mg-albuterol 3 mg 3 ml inhalation Q6HPRN PRN sob 12/10/23 07/23/24 History
(2.5 mg base)/3 mL nebulization
soln
magnesium hydroxide 400 mg/5 mL 5 ml PO DAILY Supplement 12/10/23 07/23/24 History
oral suspension
magnesium hydroxide 400 mg/5 mL 30 ml PO [id number] PRN IF NO BM 12/10/23 07/23/24 History
oral suspension (Milk of Magnesia) WITHIN 3 DAYS
pantoprazole 40 mg tablet,delayed 40 mg PO DAILY Gastrointestinal 12/10/23 07/23/24 History
release Issue
sodium bicarbonate 650 mg tablet 1,300 mg PO BID Gastrointestinal 12/10/23 07/23/24 History
Issue
sodium phosphates 19 gram-7 118 ml AL DAILYPRN PRN if no bm 12/10/23 07/23/24 History
gram/118 mL enema (Fleet Enema) aftr dulcolax
insulin glargine 100 unit/mL 7 unit (0.07 mL) SC DAILY Diabetes 01/10/24 07/23/24 Rx
subcutaneous solution #0 mL
acetaminophen 650 mg 650 mg PO Q12H pain 01/31/24 07/23/24 History
tablet,extended release (Tylenol 8
Hour)
atorvastatin 40 mg tablet 40 mg PO HS High Cholesterol 01/31/24 07/23/24 History
bisacodyl 10 mg rectal suppository 10 mg AL DAILYPRN PRN if no bm 01/31/24 07/23/24 History
(Dulcolax (bisacodyl)) aftr mom
cholecalciferol (vitamin D3) 50 50 mcg PO DAILY Supplement 01/31/24 07/23/24 History
mcg (2,000 unit) tablet (Vitamin
D3)
escitalopram oxalate 10 mg tablet 10 mg PO DAILY depression/anxiety 01/31/24 07/23/24 History
(Lexapro)
polyethylene glycol 3350 17 gram 17 g PO DAILY Constipation 01/31/24 07/23/24 History
oral powder packet (Miralax)
simethicone 80 mg chewable tablet 125 mg PO Q6HPRN PRN gas pain 01/31/24 07/23/24 History
sorbitol 70 % solution 30 ml PO DAILYPRN PRN constipation 01/31/24 07/23/24 History
lorazepam 0.5 mg tablet (Ativan) 0.5 mg PO DAILY anxiety #3 tabs 02/04/24 07/23/24 Rx
nifedipine 30 mg tablet,extended 30 mg PO BID #0 tabs 02/04/24 07/23/24 Rx
release
calcium carbonate (Calcium 600) 600 mg PO DAILY Supplement 07/23/24 07/23/24 History
dextrose 40 % oral gel (Glucose 15 g PO Q15M PRN BS <60 AND UNABLE 07/23/24 07/23/24 History
Gel) TO SWALLOW ORAL
diclofenac sodium 1 % topical gel 2 - 4 g topical Q6HPRN PRN JOINT 07/23/24 07/23/24 History
PAIN
doxazosin 1 mg tablet 1 mg PO BID Blood Pressure 07/23/24 07/23/24 History
glucagon 1 mg/0.2 mL subcutaneous 1 mg SC Q20M PRN BS <60 AND UNABLE 07/23/24 07/23/24 History
solution TO TAKE FOOD/FLUID
hydralazine 50 mg tablet 50 mg PO TIDPRN PRN SBP >160 07/23/24 07/23/24 History
isosorbide mononitrate 30 mg 90 mg PO DAILY Heart Failure 07/23/24 07/23/24 History
tablet,extended release 24 hr
loperamide 2 mg tablet (Imodium 2 mg PO Q8H DIARRHEA 07/23/24 07/23/24 History
A-D)
midodrine 5 mg tablet 5 mg PO DAILYPRN PRN BP <100/60 07/23/24 07/23/24 History
ondansetron HCl 4 mg tablet 4 mg PO Q8H PRN NAUSEA/VOMITING 07/23/24 07/23/24 History
tramadol 50 mg tablet 50 mg PO BID CHEST PAIN 07/23/24 07/23/24 History
vitamin B complex 1 tab PO DAILY Supplement 07/23/24 07/23/24 History
Review of Systems
-
Unable to obtain full review of systems at this time due to: Dementia and Acuity
History Source: Patient, Residential and Physician
A 12 point Review of Systems was completed except as noted: Yes
Physical Exam
Vital Signs
Vital Signs
Temp Pulse Resp BP Pulse Ox
98.5 F 66 15 115/81 96
07/23/24 15:41 07/23/24 16:00 07/23/24 16:00 07/23/24 16:00 07/23/24 16:00
Lab / Testing Results
Laboratory Results
07/23/24 04:11
07/23/24 04:11
Physical Exam
General: No Apparent Distress
HEENT: Normocephalic and Anicteric
Respiratory: Non Labored Respirations
Cardiac: Regular Rhythm
Breast: Deferred by me
GI: Soft, Non Tender and Non Distended
Rectal: Deferred by Provider
Genito-urinary: No Costovertebral Tend
Skin: Warm and Dry
Neuro: Awake
Hematologic/Lymphatic: No Lymphadenopathy
Psych: Confused
Assessment / Plan
-
Emphysematous cystitis
Pneumonia
Leukocytosis
ANT on CKD4
WBC >22
Cr 5.3
UA >100 WBCs, many bacteria
UCx pending
BCx x1 MRSA
- Recommend Davalos catheter placement to maximize bladder emptying during acute illness
- IV antibiotics per ID, UCx S/S pending
- No indication for uro-surgical intervention - CT imaging w/o obstructive uropathy
- Consider long-term indwelling catheter (q4wk changes @[facility]) given high suspicious for neurogenic bladder secondary to CVA
D/w Dr. Brown.
Urology will sign off - please call w/ questions.
Data Reviewed
-
Total Time Spent with Patient (in minutes): 20
CT Scan: Image personally visualized and interpreted, Report Reviewed by Me and Discussed with Physician
Lab Data: Labs Reviewed and Discussed with Physician
Old Records: Reviewed
[2024-07-23 17:38] LABS: Glucose - Point of Care 83 mg/dl (70-99)
--- NOTE | 2024-07-23 21:25 | PTCARENOTE ---
Received patient AAOx2, disoriented to time. Drowsy, flat affect, loose top teeth. NS 60s, BP stable, normothermic. On 1 liter nasal cannula saturating 95%, lung sounds diminished throughout. Moist, nonproductive cough. NPO, mouth care done.
Purewick in place, patient incontinent and oliguric. Foams on heels and shins, foam on sacrum CDI. PIVs patent, WNL. Sodium bicarb gtt ongoing per order. Hourly rounding and patient safety checks ongoing.
[2024-07-23 23:22] LABS: Glucose - Point of Care 77 mg/dl (70-99)
[2024-07-24] VITALS (24 sets, daily range): BP systolic 89–150; BP diastolic 68–97; PULSE 77; O2SAT 92; BMI 14.9
[2024-07-24] MEDS: NOVOLOG FLEXPEN-LOW RESISTANCE SC ×4 (00:18→17:49)
[2024-07-24 05:16] LABS: Glucose - Point of Care 68 mg/dl (70-99)
[2024-07-24] MEDS: DEXTROSE 50% SYRINGE 12.5 GRAMS IV (05:21)
[2024-07-24 05:23] LABS: Blood Urea Nitrogen 82 mg/dl (7-17); Calcium 8.2 mg/dl (8.4-10.2); Carbon Dioxide 23 mmol/L (22-30); Chloride 106 mmol/L (98-107); Estimated Creatinine Clearance 10 ml/min; Glucose 68 mg/dl (70-99); Potassium 3.5 mmol/L (3.5-5.1); Sodium 139 mmol/L (135-145); Vancomycin Random 13.7 ug/ml
[2024-07-24 05:24] LABS: Hematocrit 26.8 % (37.0-47.0); Hemoglobin 9.1 g/dL (12.0-16.0); Mean Corpuscular Hgb 30.1 pg (27.0-31.0); Mean Corpuscular Volume 88.7 fL (81.0-99.0); Mean Platelet Volume 9.5 fL (7.4-10.4); Platelet Count 159 10^3/uL (130-400); Red Blood Cell Count 3.02 10^6/uL (4.20-5.40); Red Cell Dist. Width 14.1 % (11.5-14.5); White Blood Cell Count 20.3 10^3/uL (4.8-10.8)
[2024-07-24 05:49] LABS: Glucose - Point of Care 164 mg/dl (70-99)
[2024-07-24 07:37] LABS: Glucose - Point of Care 112 mg/dl (70-99)
[2024-07-24] MEDS: ASPIRIN 300 MG RECTAL (07:41)
[2024-07-24] MEDS: SODIUM BICARBONATE 1150 MEQ IV (07:41)
--- NOTE | 2024-07-24 08:30 | W.PN.NEPH.PH ---
Today's Communication / Plan
-
IVFs reduced
creatinine improving and oliguric ~400cc
no HD requirement
hemodynaically stable
Assessment/Plan
-
Impression:
ANT
CKD 4 (2.6 as of 02/04)
Left kidney atrophy
Metabolic acidosis
Bilateral pneumonia
Sepsis with staph bacteremia (MRSA)
History of diabetes
History of PAF
Chronic anemia
History of hypertension
History of CVA with residual right hemiparesis dysarthria and dysphagia
History of COPD
Plan:
ANT/Metabolic acidosis
-ANT likely prerenal he mediated in the setting of septic physiology with hemodynamic compromise
-CT : no hydronephrosis
-creatinine down to 4.4 from 5.5, oliguric ~400cc
- No acute hemodialysis requirement
-hemodynamically stable
-Concur with IV fluids in setting of hypotension and acute kidney injury and metabolic acidosis (non gapped and gapped): will slow rate
- Davalos catheter to be placed per urology
-MRSA: noted possible Aortic valve vegetation on TTE
-emphysematous cystitis on CT
-Antibiotics renally dosed: to be adjusted by ID
-Patient is critically ill with hemodynamic instability Staph bacteremia with associated pneumonia in the setting of sepsis with subsequent acute kidney injury
-
-
Date of Service: July 24, 2024
CC / HPI / ROS
-
Chief Complaint:
ANT
History of Present Illness:
hemodynamically stable
MRSA bacteremia on antibiotic therapy
Leukocytosis persist
creatinine down to 4.4
Review of Systems:
oliguric ~400cc
denies sob or chest pain
No fever
Labs
-
Labs:
WBC 20.3 10^3/uL (4.8-10.8) H 07/24/24 04:49
RBC 3.02 10^6/uL (4.20-5.40) L 07/24/24 04:49
Hgb 9.1 g/dL (12.0-16.0) L 07/24/24 04:49
Hct 26.8 % (37.0-47.0) L 07/24/24 04:49
Plt Count 159 10^3/uL (130-400) 07/24/24 04:49
Sodium 139 mmol/L (135-145) 07/24/24 04:49
Potassium 3.5 mmol/L (3.5-5.1) 07/24/24 04:49
Chloride 106 mmol/L (98-107) 07/24/24 04:49
Carbon Dioxide 23 mmol/L (22-30) 07/24/24 04:49
BUN 82 mg/dl (7-17) H 07/24/24 04:49
Creatinine 4.4 mg/dL (0.6-1.0) H* 07/24/24 04:49
eGFR 10.90 07/24/24 04:49
Glucose 68 mg/dl (70-99) L 07/24/24 04:49
Calcium 8.2 mg/dl (8.4-10.2) L 07/24/24 04:49
Albumin 2.7 g/dl (3.5-5.0) L 07/23/24 04:11
Physical Exam
-
Vital Signs:
Vital Signs
Temp Pulse Resp BP Pulse Ox
98.3 F 66 18 146/77 95
07/24/24 08:00 07/24/24 08:04 07/24/24 08:04 07/24/24 08:04 07/24/24 08:04
Cardiovascular:: Regular rate and rhythm
Respiratory:: Bilateral: Coarse
Lung Excursion:: Normal
Abdomen:: Nontender
Bowel Sounds:: Normal
Extremity Edema:: None: Bilateral:
--- NOTE | 2024-07-24 08:39 | PTCARENOTE ---
pt received from previous rn- aox2, pt with flat affect, pt with hx of cva, nsr on monitor, 1LNC. pt denies pain. pt with moist nonproductive cough. oral care provided. pt incontinent, pericare provided. pt turned and repositioned. sodium bicarb gtt
continues per order. all safety precautions in place.
[2024-07-24 08:44] LABS: % Basophils 0.6 % (0-2); % Eosinophils 0.1 % (0-6); % Immature Granulocytes 0.9 % (0-0.5); % Lymphocytes 4.2 % (20.5-51.1); % Monocytes 4.7 % (1.7-9.3); % Neutrophils 89.5 % (42.2-75.2); Absolute Basophils 0.1 10^3/uL (0-0.2); Absolute Immature Granulocytes 0.2 10^3/uL (0-0.05); Absolute Lymphocytes 0.9 10^3/uL (1.2-3.4); Absolute Neutrophils 18.1 10^3/uL (1.4-6.5); Nucleated Red Blood Cells % 0 %
--- NOTE | 2024-07-24 08:49 | PHA.VAN.FU ---
Vancomycin Assessment / Plan
- Assessment
Renal Function: SCR Decreasing
WBC's are: Trending Down
In the past 24 hrs, patient has been: Afebrile
Concomitant Antimicrobials: cefepime
- Assessment - Therapeutic Drug Monitoring
Random Level: 13.7 - drawn ~24.5H after previous level of 21.4
Calculated ke: 0.0181
Calculated half life (H): 38
- Dosing Plan
Dosing by Level: Re-dose today (Vanc 500mg)
- Monitoring Plan
Random Level: 07/25 0600
- Follow Up
Pharmacy will continue to follow.
Vancomycin Follow UP
- -
Patient Age: 59
Patient Sex: Female
Vancomycin Day #: 3
Indication: Pulmonary/Respiratory
Requesting Provider: Dr. Henao / [facility]
Pertinent Antimicrobial Allergies:
cephalexin - unknown
Height / Weight:
Height 5 ft 8 in
Actual Weight 44.3 kg
IBW in k
Pertinent Past Medical History: BMI ~15, CKD 4 (SCR 2.6)
- Vital Signs / Lab Results
Temp Pulse Resp BP Pulse Ox
98.3 F 66 18 146/77 95
07/24/24 08:00 07/24/24 08:04 07/24/24 08:04 07/24/24 08:04 07/24/24 08:04
Lab Results - Hematology
07/22/24 07/23/24 07/24/24
13:56 04:11 04:49
WBC 16.7 H 22.6 H 20.3 H
Band Neutrophils 21 H
Lab Results - Chemistry
07/22/24 07/23/24 07/24/24
13:56 04:11 04:49
BUN 78 H 83 H 82 H
Creatinine 5.5 H* 5.3 H* 4.4 H*
Estimated Creat Clear 8 10
Albumin 3.2 L 2.7 L
07/22/24 07/22/24 07/22/24
13:56 14:08 23:43
Lactic Acid 2.1 H Cancelled 1.1
07/23/24 07/23/24 07/23/24
00:36 04:36 08:36
Lactic Acid Cancelled Cancelled Cancelled
Microbiology Results
07/22/24 15:06 Blood Culture - Preliminary
Blood/Venous Staph aureus MRSA
Gram Stain - Preliminary
07/22/24 14:32 Blood Culture - Preliminary
Blood/Venous Positive culture in progress
Gram Stain - Preliminary
07/22/24 14:32 Influenza Types A & B (KOLBY) - Final
Nasal Swab Negative for Influenza A & B, NAAT
Negative results must be combined with clinical observations
and patient history.
Nucleic Acid Amplification test (NAAT)performed on the
[employer] platform.
Therapeutic Drug Monitoring
Random Vancomycin 13.7 ug/ml 07/24/24 04:49
--- NOTE | 2024-07-24 09:06 | W.PN.HOSP.TC ---
Addendum entered and electronically signed by Laila Brown MD 07/31/24 09:01:
severe sepsis present on admission
-antibiotics as below
acute respiratory failure with hypoxia
-O2 support as needed
Original Note:
Today's Communication/Plan
-
IV Vancomycin/Cefepime, will need long antibiotic course with TTE findings. Patient is not a surgical candidate, there is no indication for CHINMAY, discussed with ID
VSE today, patient remains NPO
xiao catheter
appreciate consultants
Assessment / Plan
Assessment / Plan
CXR
IMPRESSION:
Suspect diffuse pneumonitis with superimposed bibasilar pneumonia. Cannot rule out component of underlying chronic interstitial lung disease.
TTE 07/23/24
CONCLUSIONS
Normal LV size with low normal systolic function and no regional wall motion
abnormalities.
LVEF is 50-55% by visual estimation. Mild concentric LVH.
Stage II diastolic dysfunction suggestive of abnormal relaxation and increased
filling pressures.
Normal right ventricular size and function.
Possible aortic valve vegetation seen on views 57, 68, and 70.
Mild tricuspid regurgitation.
Estimated pulmonary artery pressure of 52 mmHg assuming a right atrial pressure
of 3 mmHg.
Compared to prior from January 31, 2024, new possible aortic valve vegetation
seen and estimated PASP is mild to moderately elevated on today's study.
CT A/P
IMPRESSION:
1. Findings as above most consistent with emphysematous cystitis.
2. Bilateral pneumonia, most severe in the right lower lobe.
3. Approximately 2.7 cm left adrenal mass, most likely adenoma.
4. Atrophic changes of the left kidney. No hydronephrosis.
Sepsis 2/2 MRSA Bacteremia, Aspiration pneumonia and Emphysematous Cystitis
MRSA Bacteremia with possible vegetation on aortic valve; [place] valve endocarditis
Emphysematous Cystitis
- patient was given Levaquin at senior living, admitted on Vanc/Zosyn. Given ARF, will change to Vanc/Cefepime
- follow up repeat blood cultures
- ID consult appreciated
- TTE results above
- Urology consult appreciated, continue xiao catheter and IV antibiotics
- Patient is not a surgical candidate, there is no indication for CHINMAY, discussed with ID
TME 2/2 above
- PT and ST consults; patient is NPO - VSE today
Acute Renal Failure
NEG Bladder scan for retention
HX CKD4
-prerenal in setting of sepsis
-improving with IVF
-appreciate Renal
-no hydronephrosis seen on CT scan
Chr stable anemia due to advanced CKD
HX multiple antibodies last admission blood where no blood was found per [place].
- on daily ASA
- on OP Retracit per heme
- f/u with OP Heme
Systolic HTN
Suboptimal HTN control
HX Benign HTN
- c/w ENGINEER SPECIALIST Coreg, iIMN and hydralazine awaiting med rec
Proximal AF
- ENGINEER SPECIALIST Coreg for rate control
- No longer on Eliquis since second last admission due to GI bleed and severe anemia. ( This was discussed with patient and her daughter)
HX CVA with residual right hemiparesis, dysarthria and dysphagia,
- on ENGINEER SPECIALIST ASA
Hyperlipidemia
T2DM
- Hold latus
- add ISS low
Underweight
Protein estevan malnutrition due to chr illness
Tobacco dependence
DVT Px: SCD
Ful code
IP MS
51 minutes spent on patient care
Anticipated Discharge: > 48 hours
Subjective/Interval History
-
Date of Service: July 24, 2024
patient fatigued, intermittent coughing
Objective Data
-
Labs:
Laboratory Results
07/24/24 07/24/24
04:49 09:00
WBC 20.3 H
Hgb 9.1 L
Hct 26.8 L
Plt Count 159
Sodium 139 Pending
Potassium 3.5 Pending
Chloride 106 Pending
Carbon Dioxide 23 Pending
BUN 82 H Pending
Creatinine 4.4 H* Pending
Glucose 68 L Pending
Calcium 8.2 L Pending
Vital Signs:
Vital Signs
Temp Pulse Resp BP Pulse Ox
98.3 F 66 18 146/77 95
07/24/24 08:00 07/24/24 08:04 07/24/24 08:04 07/24/24 08:04 07/24/24 08:04
I&O
07/23/24 07/24/24 07/25/24
06:59 06:59 06:59
Intake Total 250 / 250 2500 / 2500 100 / 100
Output Total 250 / 250 300 / 300 100 / 100
Balance 0 / 0 2200 / 2200 0 / 0
Review of Systems
-
History Source: Patient
All other systems: Reviewed and negative
Physical Exam
-
General: No Apparent Distress and Other (frail appearing)
HEENT: PERRLA
Respiratory: Negative Wheezes or Rales
Cardiac: Regular Rhythm and S1/S2
GI: Soft and Nontender
Musculoskeletal: No Edema
Skin: Warm and Dry; Negative Rash
Neuro: Awake and Alert
Psych: Calm
Data Reviewed
-
Diagnostic Radiology: Report Reviewed by me
Labs: Labs Reviewed by me
--- NOTE | 2024-07-24 09:08 | W.PN.ID1 ---
Date of Service
Date of Service: July 24, 2024
Today's Communication
See below.
Assessment / Plan
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
MRSA bacteremia
B/L Pneumonia
Leukocytosis
ANT on CKD
E. coli bacteruria vs UTI
P A-fib
CAD; Hx NC
CHF
COPD
Hx CVA with right residual hemiparesis
GERD
HTN
HLD
Anxiety/depression
DM
Hx right renal artery stenosis
Recommendations:
TTE: Compared to prior from January 31, 2024, new possible aortic valve vegetation
seen and estimated PASP is mild to moderately elevated
Patient is not a surgical candidate; CHINMAY will not traveler changer.
Recommend treat with 6 weeks of IV Vancomycin.
Need to follow Vanco level closely and adjust based on renal function as needed.
Repeat blood cultures until clear.
Overall prognosis is poor.
Can continue cefepime pending final Ucx data.
Chief Complaint
-: Pneumonia and Bacteremia
Subjective / Review of Systems
Not feeling any better - weak.
Vital Signs / Physical Exam
Vital Signs
Vital Signs
Temp Pulse Resp BP Pulse Ox
98.3 F 66 18 146/77 95
07/24/24 08:00 07/24/24 08:04 07/24/24 08:04 07/24/24 08:04 07/24/24 08:04
Physical Exam
Constitutional: Acutely Ill and Chronically Ill
Eyes: Sclera Anicteric
Cardiovascular: Regular Rate and S1/S2
Pulmonary: Rales (bibasilar)
Gastrointestinal: Soft, Non Tender, Non Distended and Normal Bowel Sounds
Extremities: Negative Edema
Musculoskeletal: Negative Spinal Tenderness
Neurological: Awake
Objective Data
Lab Data
Lab Results
07/24/24 04:49
Estimated Creat Clear 10 ml/min 07/24/24 04:49
Lactic Acid Cancelled 07/23/24 08:36
Total Bilirubin 0.8 mg/dl (0.2-1.3) 07/23/24 04:11
AST 44 U/L (14-36) H 07/23/24 04:11
ALT 33 U/L (0-35) 07/23/24 04:11
Alkaline Phosphatase 64 U/L (38-126) 07/23/24 04:11
Most recent labs reviewed.
Micro Results:
07/22/24 15:06 Blood Culture - Preliminary
Blood/Venous Staph aureus MRSA
Gram Stain - Preliminary
07/22/24 14:32 Blood Culture - Preliminary
Blood/Venous Positive culture in progress
Gram Stain - Preliminary
07/23/24 04:11 Urine Culture - Pending
Urine
07/22/24 14:32 Influenza Types A & B (KOLBY) - Final
Nasal Swab Negative for Influenza A & B, NAAT
Negative results must be combined with clinical observations
and patient history.
Nucleic Acid Amplification test (NAAT)performed on the
[employer] platform.
Imaging:
07/23/2024 CT abdomen/pelvis without contrast: Abnormal airspace opacities in left upper lobe, left lower lobe, right middle lobe and right lower lobe most likely represent pneumonia. Findings are most severe in the right lower lobe. No effusion
noted. No abnormal focal hepatic lesions noted. No hydronephrosis seen. Urinary bladder shows a small volume of gas in the antedependent position. In addition, there is also abnormal crescent shaped collection of gas along the right side of the
urinary bladder and most likely intramural gas. Please see full dictation for additional detail. Film personally viewed.
07/22/2024 CXR (portable): Diffuse interstitial prominence noted. Superimposed bibasilar airspace opacities (R >L) noted. No significant pleural effusion. Please see full dictation for additional detail.
Care Review
Plan reviewed with: Physician (Dr. Brown and [place])
[2024-07-24] MEDS: STERILE WATER FOR INJECTION 10 ML IV (09:48)
[2024-07-24] MEDS: MAXIPIME 1000 MG IV (09:48)
[2024-07-24] MEDS: D5/0.9% SODIUM CHLORIDE 1000 IV (09:56)
[2024-07-24] MEDS: VANCOCIN HCL 500 MG 100 IV (10:04)
[2024-07-24 11:13] LABS: Glucose - Point of Care 108 mg/dl (70-99)
--- NOTE | 2024-07-24 11:40 | PTOTSP ---
Speech Language Pathology
VIDEOFLUOROSCOPIC SWALLOWING EXAMINATION (VSE) completed. Inconsistent swallow function noted with significant aspiration at times, but not at others. Study terminated after the following trials given significant amount of aspiration: thin via
tsp, mildly thick liquids via tsp/cup/single straw sip. Cough present in response to aspiration, but was extremely weak and ineffective.
Question etiology of dysphagia. Pt with hx of CVA, but is on regular solids/thin liquids at facility. Prognosis for improvement guarded. Pt is at a high risk for aspiration with any P.O. at this time.
Recommend:
(1) Strict NPO
(2) Oral care 4x/day with suctioning as needed
(3) Non-oral meds
(4) Allow ice chips post oral care given supervision per Aspiration Risk Hydration Protocol (ARHP)
(5) INSURANCE LEGAL ASSISTANT to continue to follow
[2024-07-24 11:53] LABS: Blood Urea Nitrogen 78 mg/dl (7-17); Calcium 8.4 mg/dl (8.4-10.2); Carbon Dioxide 28 mmol/L (22-30); Chloride 103 mmol/L (98-107); Estimated Creatinine Clearance 9 ml/min; Glucose 70 mg/dl (70-99); Potassium 3.3 mmol/L (3.5-5.1); Sodium 140 mmol/L (135-145); eGFR 10.33
--- NOTE | 2024-07-24 12:16 | PTCARENOTE ---
xiao inserted per order without difficulty, draining yellow urine. pt increased to 4LNC.
pt off floor for video swallow- see note. pt worked with pt and ot- oob to chair. chair alarm on and functioning. Dr. Brown aware of lab results
[2024-07-24] MEDS: KCL 260 MEQ IV (13:01)
--- NOTE | 2024-07-24 13:52 | PTCARENOTE ---
pt desatting to 88% on 4LNC, increased to 6LNC, Dr. Brown aware, cxr ordered.
--- NOTE | 2024-07-24 14:57 | PN.CDI ---
CDI
- -
CDI:
Physician Documentation Request
Admit Date: 07/22/24 16:43
Dear Doctor Kevin,
Hospitalist progress notes states 'Protein estevan malnutrition due to chr illness '
07/24 notes and assessment states 'subcutaneous loss over rib cage moderate, orbital-severe. Assessment muscle loss over Temporal - moderate, Quads - Severe, Calf-severe, clavicle- moderate. BMI 14.3. With weight loss > 10% in 6 month and observed
muscle and fat wasting pt mets AND/ASPEN criteria for severe protein calorie malnutrition of chronic illness.'
Based on the above information and your assessment, could you further clarify the type of malnutrition:
Severe Malnutrition
Other (please specify)
[place] Criteria ([facility] Hospitalist 2017)
2 or more criteria must be present for either
non severe or severe malnutrition
Note that the criteria differs related to the
presence of an acute or chronic illness
Acute Illness Chronic Illness
Energy Intake Non Severe: <75% for >7 days Non Severe: <75% for >1 month
Severe: <50% for >5 days Severe: <75% for >1 month
Weight Loss Non Severe: 1-2% over 1 week Non Severe: 5% over 1 month
5% over 1 month 7.5% over 3 months
7.5% over 3 months 10% over 6 months
1 year N/A 20% over 1 year
Severe: >2% over 1 week Severe: >5% over 1 month
>5% over 1 month >7.5% over 3 months
>7.5% over 3 months >10% over 6 months
1 year N/A >20% over 1 year
Body Fat Non Severe: Mild Decrease Non Severe: Mild Loss
Severe: Moderate Decrease Severe: Severe Loss
Muscle Mass Non Severe: Mild Decrease Non Severe: Mild Loss
Severe: Moderate Decrease Severe: Severe Loss
Fluid Accumulation Non Severe: Mild Accumulation Non Severe: Mild Accumulation
Severe: Moderate to severe Severe: Moderate to severe
accumulation accumulation
Reduced Diplomatic Interpreter/Translator Strength Non Severe: N/A Non Severe: N/A
Severe: Measurably reduced Severe: Measurably reduced
Use of terms such as suspected, likely, concern for, or probable (associated with a specific diagnosis that is being evaluated, monitored, or treated as if it exists) are acceptable and can be coded in the inpatient setting, when documented at the
time of discharge.
Thank you,
Fina Baird RN, BSN
CDI Specialist
tiger text
Please use your independent medical judgment in providing your response.
[2024-07-24 15:17] LABS: Glucose - Point of Care 107 mg/dl (70-99)
--- NOTE | 2024-07-24 16:16 | W.PN.UPDATE ---
Addendum entered and electronically signed by Laila Brown MD 07/24/24 18:20:
daughter agreeable to hospice. patient comfortable now. will place formal hospice consult and discussed withdrawing care tomorrow. we discussed patient will likely pass here in the hospital.
Original Note:
Update Note
Progress Note Update
spoke to daughter about patient's poor prognosis. She confirmed patient is DNR. She is coming in this afternoon to discuss comfort care.
[2024-07-24 17:39] LABS: Glucose - Point of Care 118 mg/dl (70-99)
--- NOTE | 2024-07-24 18:38 | PTCARENOTE ---
Dr. Brown at bedside with daughter Drew Schwartz ([id number]) lamp shade joiner used- daughter updateed and educated- requesting hospice, consult placed.
[2024-07-24 23:25] LABS: Glucose - Point of Care 145 mg/dl (70-99)
[2024-07-25] VITALS (12 sets, daily range): BP systolic 114–144; BP diastolic 59–95
[2024-07-25] MEDS: NOVOLOG FLEXPEN-LOW RESISTANCE SC (00:05)
[2024-07-25] MEDS: D5/0.9% SODIUM CHLORIDE 1000 IV (00:56)
[2024-07-25 03:17] LABS: Glucose - Point of Care 177 mg/dl (70-99)
[2024-07-25 05:23] LABS: Glucose - Point of Care 163 mg/dl (70-99)
[2024-07-25] MEDS: NOVOLOG FLEXPEN-LOW RESISTANCE 1 UNITS SC (06:15)
--- NOTE | 2024-07-25 07:06 | W.PN.HOSP.TC ---
Today's Communication/Plan
-
Hospice meeting today then transition to comfort care
patient currently appears comfortable
Assessment / Plan
Assessment / Plan
CXR
IMPRESSION:
Suspect diffuse pneumonitis with superimposed bibasilar pneumonia. Cannot rule out component of underlying chronic interstitial lung disease.
CXR 07/24/24
IMPRESSION:
There is slightly increased patchy airspace opacities within the right mid/lower lung and left lower lung likely due to slightly worsening multifocal pneumonia.
TTE 07/23/24
CONCLUSIONS
Normal LV size with low normal systolic function and no regional wall motion
abnormalities.
LVEF is 50-55% by visual estimation. Mild concentric LVH.
Stage II diastolic dysfunction suggestive of abnormal relaxation and increased
filling pressures.
Normal right ventricular size and function.
Possible aortic valve vegetation seen on views 57, 68, and 70.
Mild tricuspid regurgitation.
Estimated pulmonary artery pressure of 52 mmHg assuming a right atrial pressure
of 3 mmHg.
Compared to prior from January 31, 2024, new possible aortic valve vegetation
seen and estimated PASP is mild to moderately elevated on today's study.
CT A/P
IMPRESSION:
1. Findings as above most consistent with emphysematous cystitis.
2. Bilateral pneumonia, most severe in the right lower lobe.
3. Approximately 2.7 cm left adrenal mass, most likely adenoma.
4. Atrophic changes of the left kidney. No hydronephrosis.
Sepsis 2/2 MRSA Bacteremia, Aspiration pneumonia and Emphysematous Cystitis
MRSA Bacteremia with possible vegetation on aortic valve; apache valve endocarditis
Emphysematous Cystitis
TME 2/2 above
- patient was given Levaquin at [facility], admitted on Vanc/Zosyn. Given ARF, changed to Vanc/Cefepime
- ID consult appreciated
- TTE results above, concerning for aortic valve endocarditis
- Urology consult appreciated
- Patient is not a surgical candidate, there is no indication for CHINMAY, discussed with ID
- *GOC discussions had on 07/24/24. Given TME and baseline dysphagia from prior strokes, patient is not safe to eat and drink. In setting of severe dysphagia, renal failure, endocarditis, respiratory failure decision made to transition to
comfort/hospice. Post hospice meeting today, I will plan to discontinue antibiotics and fluids and provide only comfort medications.
Acute Renal Failure
HX CKD4
-appreciate renal
-comfort care/hospice
Chr stable anemia due to advanced CKD
HX multiple antibodies last admission blood where no blood was found per [facility].
Systolic HTN
HX Benign HTN
Proximal AF
- KILN HAND Coreg for rate control
- No longer on Eliquis since second last admission due to GI bleed and severe anemia. ( This was discussed with patient and her daughter)
HX CVA with residual right hemiparesis, dysarthria and dysphagia,
- on KILN HAND ASA
Hyperlipidemia
T2DM
-stop BGL checks as we are moving to comfort care
Underweight
Protein estevan malnutrition due to chr illness
Severe Malnutrition - appreciate dietary
Tobacco dependence
DVT Px: SCD
Ful code
IP MS
51 minutes spent on patient care
Anticipated Discharge: > 48 hours
Subjective/Interval History
-
Date of Service: July 25, 2024
patient is resting comfortably
Objective Data
-
Labs:
Laboratory Results
07/25/24
06:00
WBC Cancelled
Hgb Cancelled
Hct Cancelled
Plt Count Cancelled
Sodium Cancelled
Potassium Cancelled
Chloride Cancelled
Carbon Dioxide Cancelled
BUN Cancelled
Creatinine Cancelled
Glucose Cancelled
Calcium Cancelled
Vital Signs:
Vital Signs
Temp Pulse Resp BP Pulse Ox
98.8 F 63 16 142/82 98
07/25/24 03:09 07/25/24 05:00 07/25/24 05:00 07/25/24 05:00 07/25/24 05:00
I&O
07/24/24 07/25/24 07/26/24
06:59 06:59 06:59
Intake Total 2500 / 2500 1320 / 1320
Output Total 300 / 300 750 / 750
Balance 2200 / 2200 570 / 570
Review of Systems
-
Unable to obtain full review of systems at this time due to: Patient Non-verbal
History Source: Patient
Physical Exam
-
General: No Apparent Distress and Other (frail appearing)
HEENT: PERRLA
Respiratory: Negative Wheezes or Rales
Cardiac: Regular Rhythm and S1/S2
GI: Soft and Nontender
Musculoskeletal: No Edema
Skin: Warm and Dry; Negative Rash
Neuro: Awake and Alert
Psych: Calm
Data Reviewed
-
Diagnostic Radiology: Report Reviewed by me
Labs: Labs Reviewed by me
--- NOTE | 2024-07-25 08:45 | W.PN.NEPH.PH ---
Today's Communication / Plan
-
comfort
Assessment/Plan
-
Impression:
ANT
CKD 4 (2.6 as of 02/04)
Left kidney atrophy
Metabolic acidosis
Bilateral pneumonia
Sepsis with staph bacteremia (MRSA)
History of diabetes
History of PAF
Chronic anemia
History of hypertension
History of CVA with residual right hemiparesis dysarthria and dysphagia
History of COPD
Plan:
family has decided on comfort measures
no further labs
open diet
will sign off
-
-
Date of Service: July 25, 2024
CC / HPI / ROS
-
Chief Complaint:
ANT
History of Present Illness:
hemodynamically stable
MRSA bacteremia on antibiotic therapy
Leukocytosis persists
ANT/Cr up to 4.6
K low 3.3
Review of Systems:
oliguric
denies sob or chest pain
No fever
Labs
-
Labs:
WBC Cancelled 07/25/24 06:00
RBC Cancelled 07/25/24 06:00
Hgb Cancelled 07/25/24 06:00
Hct Cancelled 07/25/24 06:00
Plt Count Cancelled 07/25/24 06:00
Sodium Cancelled 07/25/24 06:00
Potassium Cancelled 07/25/24 06:00
Chloride Cancelled 07/25/24 06:00
Carbon Dioxide Cancelled 07/25/24 06:00
BUN Cancelled 07/25/24 06:00
Creatinine Cancelled 07/25/24 06:00
eGFR Cancelled 07/25/24 06:00
Glucose Cancelled 07/25/24 06:00
Calcium Cancelled 07/25/24 06:00
Albumin 2.7 g/dl (3.5-5.0) L 07/23/24 04:11
Physical Exam
-
Vital Signs:
Vital Signs
Temp Pulse Resp BP Pulse Ox
98.5 F 63 16 142/82 98
07/25/24 07:30 07/25/24 05:00 07/25/24 05:00 07/25/24 05:00 07/25/24 05:00
Cardiovascular:: Regular rate and rhythm
Respiratory:: Bilateral: Coarse
Lung Excursion:: Normal
Abdomen:: Nontender and Soft
Bowel Sounds:: Normal
Extremity Edema:: None: Bilateral:
[2024-07-25] MEDS: STERILE WATER FOR INJECTION 10 ML IV (09:04)
[2024-07-25] MEDS: ASPIRIN 300 MG RECTAL (09:04)
[2024-07-25] MEDS: MAXIPIME 1000 MG IV (09:05)
--- NOTE | 2024-07-25 09:28 | HOSPNOTE ---
Left a message with the jet pilot for daughter to please call back to discuss hospice and to sign consent forms.
--- NOTE | 2024-07-25 09:30 | PTCARENOTE ---
Patient has no c/o pain at present. Patients only request is to drink water and eat something. Ice chip given to patient, mouth care done. Patient has two very loose teeth. Daughter at bedside and is requesting to speak with physician. Physician
notified.
--- NOTE | 2024-07-25 09:39 | W.PN.UPDATE ---
Update Note
Progress Note Update
I spoke to daughter this morning
full comfort care order set in place
patient can have a regular diet which is her main wish
--- NOTE | 2024-07-25 11:01 | PN.CDI ---
CDI
- -
CDI:
Physician Documentation Request
Admit Date: 07/22/24 16:43
Dear Doctor Kevin,
Patient admitted for Sepsis 2/2 MRSA Bacteremia, Aspiration pneumonia and Emphysematous Cystitis as well as ANT on CKD 4
07/22 lactic acid 2.1
Please clarify which of the following most accurately describes the status of the patient's infection:
Severe Sepsis
- Sepsis with associated acute organ dysfunction
Sepsis only
Other
Use of terms such as suspected, likely, concern for, or probable (associated with a specific diagnosis that is being evaluated, monitored, or treated as if it exists) are acceptable and can be coded in the inpatient setting, when documented at the
time of discharge.
Thank you,
Fina Baird RN, BSN
CDI Specialist
tiger text
Please use your independent medical judgment in providing your response.
--- NOTE | 2024-07-25 11:23 | W.DCSUMMARY ---
Discharge Summary
Discharge Data
Date of Admission: 07/22/24
Date of Discharge: 07/25/24
-
Pending Results: No
Hospital Course
Discharging Physician : Dr. Laila Brown
Disposition : Inpatient Hospice
Dischrage Diagnosis: MRSA Bactremia and Aortic Valve Endocarditis, Aspiration Pneumonia, severe dysphagia, renal failure
Hospital Course :
Ms. Katelyn Kim is a 59 yo woman, resident of [facility] with hx IDDM, prior CVA with residual right hemiparesis, dysarthria and dysphagia, GI Bleed, CKD IV, paroxysmal afib presents to the ER with change in mentation, very lethargic. Labs with
leukocytosis acute on chronic renal failure with creatinine 5.5. Patient was admitted for sepsis secondary to pneumonia and was found to have MRSA Bacteremia with TTE concerning for aortic valve endocarditis. She received broad spectrum
antibiotics and IVF. She had severe dysarthria with significant aspiration on VSE, study needed to be aborted. She had rising oxygen needs and worsening pneumonia.
GOC discussions had with KARLOS, daughter, on 07/24/24. Given TME and baseline dysphagia from prior strokes, patient is not safe to eat and drink. In setting of severe dysphagia, renal failure, endocarditis, respiratory failure decision made to
transition to comfort/hospice.
She is discharged to inpatient hospice.
Time spent on discharge was 40 minutes.
Important imaging findings :
CXR
IMPRESSION:
Suspect diffuse pneumonitis with superimposed bibasilar pneumonia. Cannot rule out component of underlying chronic interstitial lung disease.
CXR 07/24/24
IMPRESSION:
There is slightly increased patchy airspace opacities within the right mid/lower lung and left lower lung likely due to slightly worsening multifocal pneumonia.
TTE 07/23/24
CONCLUSIONS
Normal LV size with low normal systolic function and no regional wall motion
abnormalities.
LVEF is 50-55% by visual estimation. Mild concentric LVH.
Stage II diastolic dysfunction suggestive of abnormal relaxation and increased
filling pressures.
Normal right ventricular size and function.
Possible aortic valve vegetation seen on views 57, 68, and 70.
Mild tricuspid regurgitation.
Estimated pulmonary artery pressure of 52 mmHg assuming a right atrial pressure
of 3 mmHg.
Compared to prior from January 31, 2024, new possible aortic valve vegetation
seen and estimated PASP is mild to moderately elevated on today's study.
CT A/P
IMPRESSION:
1. Findings as above most consistent with emphysematous cystitis.
2. Bilateral pneumonia, most severe in the right lower lobe.
3. Approximately 2.7 cm left adrenal mass, most likely adenoma.
4. Atrophic changes of the left kidney. No hydronephrosis.
Procedure findings :
Discharge Plan
-
Patient Disposition: Hospice - Inpatient
Discharge Diagnosis/Procedures: MRSA Bacteremia and aortic valve endocarditis, renal failure, aspiration pneumonia
Diet: Regular
Activity: As tolerated
Driving Restrictions: No driving
Bathing Restrictions: None
Other Services: Hospice
Referrals:
Galo Palmer, DO [Family Provider] -
Prescriptions:
Discontinued
acetaminophen 325 mg Tablet
650 mg PO Q6HPRN PRN (Reason: MILD PAIN/TEMP >100.4F)
Rx Instructions:
do not exceed 3g in 24 hours
aspirin 81 mg Tablet,Delayed Release (Dr/Ec)
81 mg PO DAILY
bisacodyl 5 mg Tablet
5 mg PO DAILYPRN PRN (Reason: constipation)
carvedilol 25 mg Tablet
25 mg PO BID
Rx Instructions:
HOLD FOR SBP <110
ipratropium-albuterol 0.5 mg-3 mg(2.5 mg base)/3 mL Solution For Nebulization
3 ml INHALATION Q6HPRN PRN (Reason: sob)
magnesium hydroxide 400 mg/5 mL Suspension
5 ml PO DAILY
magnesium hydroxide [Milk of Magnesia] 400 mg/5 mL Suspension
30 ml PO [id number] PRN (Reason: IF NO BM WITHIN 3 DAYS)
sodium bicarbonate 650 mg Tablet
1,300 mg PO BID
pantoprazole 40 mg Tablet,Delayed Release (Dr/Ec)
40 mg PO DAILY
ferrous sulfate 325 mg (65 mg iron) Tablet
650 mg PO BID
Fleet Enema 19-7 gram/118 mL Enema
118 ml IN DAILYPRN PRN (Reason: if no bm aftr dulcolax)
folic acid 1 mg Tablet
1 mg PO DAILY
insulin lispro [Humalog KwikPen Insulin] 100 unit/mL Insulin Pen
4 unit SC AC
Retacrit 4,000 unit/mL Solution
4,000 unit SC WE
Rx Instructions:
HOLD IF HGB >10
insulin glargine 100 unit/mL Solution
7 unit SC DAILY Qty: 0 0RF
polyethylene glycol 3350 [Miralax] 17 gram Powder In Packet
17 g PO DAILY
acetaminophen [Tylenol 8 Hour] 650 mg Tablet Extended Release
650 mg PO Q12H
bisacodyl [Dulcolax (bisacodyl)] 10 mg Suppository
10 mg IN DAILYPRN PRN (Reason: if no bm aftr mom)
sorbitol 70 % Solution
30 ml PO DAILYPRN PRN (Reason: constipation )
simethicone 80 mg Tablet,Chewable
125 mg PO Q6HPRN PRN (Reason: gas pain )
escitalopram oxalate [Lexapro] 10 mg Tablet
10 mg PO DAILY
cholecalciferol (vitamin D3) [Vitamin D3] 50 mcg (2,000 unit) Tablet
50 mcg PO DAILY
atorvastatin 40 mg tablet
40 mg PO HS
nifedipine 30 mg Tablet Extended Release
30 mg PO BID Qty: 0 0RF
Rx Instructions:
HOLD FOR SBP <110, HR <60
lorazepam [Ativan] 0.5 mg Tablet
0.5 mg PO DAILY Qty: 3 0RF
ondansetron HCl 4 mg Tablet
4 mg PO Q8H PRN (Reason: NAUSEA/VOMITING)
dextrose [Glucose Gel] 40 % Gel
15 g PO Q15M PRN (Reason: BS <60 AND UNABLE TO SWALLOW ORAL)
loperamide [Imodium A-D] 2 mg Tablet
2 mg PO Q8H
tramadol 50 mg Tablet
50 mg PO BID
calcium carbonate [Calcium 600] 600 mg calcium (1,500 mg) Tablet
600 mg PO DAILY
vitamin B complex Tablet
1 tab PO DAILY
hydralazine 50 mg Tablet
50 mg PO TIDPRN PRN (Reason: SBP >160)
diclofenac sodium 1 % Gel
2 - 4 g TOPICAL Q6HPRN PRN (Reason: JOINT PAIN)
glucagon 1 mg/0.2 mL Solution
1 mg SC Q20M PRN (Reason: BS <60 AND UNABLE TO TAKE FOOD/FLUID)
doxazosin 1 mg tablet
1 mg PO BID
Rx Instructions:
HOLD FOR SBP <110
isosorbide mononitrate 30 mg tablet extended release 24 hr
90 mg PO DAILY
Rx Instructions:
HOLD FOR SBP <110
midodrine 5 mg Tablet
5 mg PO DAILYPRN PRN (Reason: BP <100/60)
Discharge Orders:
Discharge Patient (As Directed); Ordered 07/25/24
Ordered By: Laila Brown
Discharge Date and Time
Print Language: UGANDAN
--- NOTE | 2024-07-25 11:30 | PN.CDI ---
CDI
- -
CDI:
Physician Documentation Request
Admit Date: 07/22/24 16:43
Dear Doctor Kevin,
07/25 progress note states 'In setting of severe dysphagia, renal failure, endocarditis, respiratory failure decision made to transition to comfort/hospice'
Please clarify the type and acuity of respiratory failure:
Type Acuity
Respiratory failure with hypoxia Acute
Respiratory failure with hypercapnia Chronic
Respiratory failure with hypoxia and hypercapnia Acute on Chronic
Other, please specify
Use of terms such as suspected, likely, concern for, or probable (associated with a specific diagnosis that is being evaluated, monitored, or treated as if it exists) are acceptable and can be coded in the inpatient setting, when documented at the
time of discharge.
Thank you,
Fina Baird RN, BSN
CDI Specialist
tiger text
Please use your independent medical judgment in providing your response.
--- NOTE | 2024-07-25 11:30 | CM ---
Hospice consult completed. Patient discharged from ICU and admitted to inpatient hospice. CM will continue to support family and hospice team as needed.
== END 2024-07-25 11:29 | disposition hospice, inpatient (51) | DRG 871 ==
LOC: ICU 16:43
PROVIDERS: Emergency Medicine; ADMITTING PHYSICIAN Internal Medicine; ATTENDING PHYSICIAN Student in an Organized Health Care Education/Training Program; CONSULT PHYSICIAN Internal Medicine Infectious Disease; CONSULT PHYSICIAN Specialist; CONSULT PHYSICIAN Surgery; EMERGENCY PHYSICIAN Emergency Medicine; FAMILY PHYSICIAN Internal Medicine
DX: A41.02 Sepsis due to Methicillin resistant Staphylococcus aureus (principal); E43 Unspecified severe protein-calorie malnutrition; J96.01 Acute respiratory failure with hypoxia; G92.8 Other toxic encephalopathy; I33.0 Acute and subacute infective endocarditis; J69.0 Pneumonitis due to inhalation of food and vomit; J96.90 Respiratory failure, unspecified, unspecified whether with hypoxia or hypercapnia; N17.9 Acute kidney failure, unspecified; E87.20 Acidosis, unspecified; I69.351 Hemiplegia and hemiparesis following cerebral infarction affecting right dominant side; N18.4 Chronic kidney disease, stage 4 (severe); I13.0 Hypertensive heart and chronic kidney disease with heart failure and stage 1 through stage 4 chronic kidney disease, or unspecified chronic kidney disease; Z68.1 Body mass index [BMI] 19.9 or less, adult; R65.20 Severe sepsis without septic shock; B95.62 Methicillin resistant Staphylococcus aureus infection as the cause of diseases classified elsewhere; I35.8 Other nonrheumatic aortic valve disorders; D63.1 Anemia in chronic kidney disease; E11.22 Type 2 diabetes mellitus with diabetic chronic kidney disease; F17.200 Nicotine dependence, unspecified, uncomplicated; I48.0 Paroxysmal atrial fibrillation; I50.9 Heart failure, unspecified; F32.A Depression, unspecified; F41.9 Anxiety disorder, unspecified; I25.10 Atherosclerotic heart disease of native coronary artery without angina pectoris; I25.2 Old myocardial infarction; I69.391 Dysphagia following cerebral infarction; Z79.4 Long term (current) use of insulin; Z79.899 Other long term (current) drug therapy; Z82.49 Family history of ischemic heart disease and other diseases of the circulatory system; Z88.1 Allergy status to other antibiotic agents; Z91.048 Other nonmedicinal substance allergy status; Z11.52 Encounter for screening for COVID-19; Z51.5 Encounter for palliative care
CPT/HCPCS: 71045; 74176; 74230; 80048; 80053; 80202; 81003; 81015; 82570; 82962; 83036; 83605; 83735; 84300; 85025; 85027; 87040; 87086; 87088; 87147; 87150; 87154; 87186; 87205; 87502; 87811; 92610; 92611; 93005; 93306; 96365; 96366; 96375; 97163; 99291

== ENCOUNTER 2024-07-25 11:30 | Inpatient (IN) | payer OTHER, SELFPAY ==
--- NOTE | 2024-07-25 11:36 | HPS.HSE ---
Family Physician
-
Family Physician: NO INTERVIEW UNKNOWN
Chief Complaint
-
hospice inpatient
History of Present Illness
Ms. Katelyn Kim is a 59 yo woman, resident of [facility] with hx IDDM, prior CVA with residual right hemiparesis, dysarthria and dysphagia, GI Bleed, CKD IV, paroxysmal afib presents to the ER with change in mentation, very lethargic. Labs with
leukocytosis acute on chronic renal failure with creatinine 5.5. Patient was admitted for sepsis secondary to pneumonia and was found to have MRSA Bacteremia with TTE concerning for aortic valve endocarditis. She received broad spectrum
antibiotics and IVF. She had severe dysarthria with significant aspiration on VSE, study needed to be aborted. She had rising oxygen needs and worsening pneumonia.
GOC discussions had with KARLOS, daughter, on 07/24/24. Given TME and baseline dysphagia from prior strokes, patient is not safe to eat and drink. In setting of severe dysphagia, renal failure, endocarditis, respiratory failure decision made to
transition to comfort/hospice.
Medical History
Past Medical History
Past Medical History: Reports Arrhythmia (Paroxysmal atrial fibrillation), CVA, HTN, Hypercholesterolemia and IDDM
Past Surgical History: Reports Cardiac
Social History
Tobacco: Non-smoker
Alcohol: Former
Family History
Family History: Not pertinent
Allergies / Home Medications
Allergies reflects when Allergies were last updated in [employer].
Home Medications with original date entered in [employer]
Allergy/Medication List:
Allergies
Allergy/AdvReac Type Severity Reaction Status Date / Time
adhesive tape Allergy Rash Verified 12/10/23 04:31
cephalexin [From Keflex] Allergy Unknown Verified 12/10/23 04:31
Home Medications
acetaminophen 325 mg tablet 650 mg PO Q6HPRN PRN pain/fever 12/10/23
aspirin 81 mg tablet,delayed release 81 mg PO DAILY Blood Clot Prevention/Tx 12/10/23
bisacodyl 5 mg tablet 5 mg PO DAILYPRN PRN constipation 12/10/23
carvedilol 25 mg tablet 25 mg PO BID Blood Pressure 12/10/23
epoetin jaimee-epbx 4,000 unit/mL injection solution (Retacrit) 4,000 unit SC WE anemia 12/10/23
ferrous sulfate 325 mg (65 mg iron) tablet 650 mg PO BID Supplement 12/10/23
folic acid 1 mg tablet 1 mg PO DAILY Supplement 12/10/23
insulin lispro 100 unit/mL subcutaneous pen (Humalog KwikPen (U-100) Insulin) 4 unit SC AC Diabetes 12/10/23
ipratropium 0.5 mg-albuterol 3 mg (2.5 mg base)/3 mL nebulization soln 3 ml inhalation Q4HPRN PRN sob 12/10/23
isosorbide mononitrate 60 mg tablet,extended release 24 hr 60 mg PO DAILY Heart Disease/Condition 12/10/23
magnesium hydroxide 400 mg/5 mL oral suspension 5 ml PO DAILY Gastrointestinal Issue 12/10/23
magnesium hydroxide 400 mg/5 mL oral suspension (Milk of Magnesia) 30 ml PO [id number] PRN constipation 12/10/23
pantoprazole 40 mg tablet,delayed release 40 mg PO DAILY Gastrointestinal Issue 12/10/23
sodium bicarbonate 650 mg tablet 1,300 mg PO BID Electrolyte Repletion 12/10/23
sodium phosphates 19 gram-7 gram/118 mL enema (Fleet Enema) 118 ml DE DAILYPRN PRN if no bm aftr dulcolax 12/10/23
lorazepam 0.5 mg tablet (Ativan) 0.5 mg PO DAILY anxiety 12/31/23
insulin glargine 100 unit/mL subcutaneous solution 7 unit (0.07 mL) SC DAILY Diabetes #0 mL 01/10/24
acetaminophen 650 mg tablet,extended release (Tylenol 8 Hour) 1,300 mg PO Q12H pain 01/31/24
acyclovir 5 % topical cream 1 applic topical DAILY right hand 01/31/24
atorvastatin 40 mg tablet 40 mg PO HS High Cholesterol 01/31/24
bisacodyl 10 mg rectal suppository (Dulcolax (bisacodyl)) 10 mg DE DAILYPRN PRN if no bm aftr mom 01/31/24
cholecalciferol (vitamin D3) 50 mcg (2,000 unit) tablet (Vitamin D3) 50 mcg PO DAILY Supplement 01/31/24
escitalopram oxalate 10 mg tablet (Lexapro) 10 mg PO DAILY depression/anxiety 01/31/24
hydralazine 25 mg tablet 50 mg PO TID Blood Pressure 01/31/24
polyethylene glycol 3350 17 gram oral powder packet (Miralax) 17 g PO DAILY Constipation 01/31/24
simethicone 80 mg chewable tablet 125 mg PO Q6HPRN PRN gas pain 01/31/24
sorbitol 70 % solution 30 ml PO DAILYPRN PRN constipation 01/31/24
vit B complex with C#19-FA-D3 800 mcg-2,000 unit disintegrating tablet 1 tab PO DAILY Supplement 01/31/24
Review of Systems
-
Unable to obtain full review of systems at this time due to: Patient Non-verbal
History Source: Patient
Physical Exam
Vital Signs
Vital Signs
Temp Pulse Resp BP Pulse Ox
100.5 F H 87 21 180/116 95
07/22/24 13:36 07/22/24 15:15 07/22/24 15:15 07/22/24 13:42 07/22/24 13:43
Physical Exam
General: Cachectic
HEENT: Anicteric and Moist mucous membranes
Respiratory: Clear and Non Labored Respirations; No Wheezes
Cardiac: S1/S2 and Regular Rhythm
GI: Soft, Non Tender, Non Distended and Normal Bowel Sounds
Rectal: Deferred by Provider
Genito-urinary: No Davalos
Musculoskeletal: No Edema
Neuro: Other (residual right hemiparesis, dysarthria from prior CVA)
Psych: Other (lethargic )
Data Reviewed
-
Diagnostic Radiology: Report Reviewed by me
Lab Data: Labs Reviewed by me
Impression/Plan
-
Sepsis 2/2 MRSA Bacteremia, Aspiration pneumonia and Emphysematous Cystitis
MRSA Bacteremia with possible vegetation on aortic valve; lower [place] valve endocarditis
Emphysematous Cystitis
TME 2/2 above
Severe Dysarthria 2/2 TME and prior hx CVA with baseline dysarthria
Acute Renal Failure
Hx CVA with residual right hemiparesis, dysarthria, dysphagia
-GOC discussions had on 07/24/24. Given TME and baseline dysphagia from prior strokes, patient is not safe to eat and drink. In setting of severe dysphagia, renal failure, endocarditis, respiratory failure decision made to transition to
comfort/hospice. Post hospice meeting today, I will plan to discontinue antibiotics and fluids and provide only comfort medications.
-admit to inpatient hospice
-fluids, antibiotics stopped
-appreciate hospice administrator consult
-IV Dilaudid PRN, progress to gtt if needed
-IV ativan PRN
-plan of care discussed with daughter via crystal report developer
DNR
76 minutes spent on patient care
[2024-07-25 11:46] VITALS: BMI 14.8
[2024-07-25 12:00] VITALS: BP 142/91
--- NOTE | 2024-07-25 12:23 | CM ---
Following history obtained prior to inpatient hospice status. Patient's daughter and son-in-law are deaf. They use a phone ev[employer] for laundry agent services. Call # [phone] to initiate services. Coordinate with patient's daughter, Sabrina. CAT SCAN TECHNOLOGIST
patient was living at [facility] since approximately December,. She was bedridden. Daughter reports mental health difficulties in the past as well substance abuse with crack. Last use approximately one year ago. Patient is now inpatient
hospice.
[2024-07-25] MEDS: ROBINUL 0.2 MG IV ×2 (13:56→19:53)
[2024-07-25] MEDS: DILAUDID 0.5 MG IV ×2 (13:57→19:52)
--- NOTE | 2024-07-25 14:01 | PTCARENOTE ---
Patient drinking apple juice for comfort. Patient has a wet, gurgly voice, moderate dyspnea and frequent moist cough. Robinul and Dilaudid given for symptoms. Plan of care explained to patient, patient verbalized understanding.
--- NOTE | 2024-07-25 14:44 | HOSPNOTE ---
Patient was admitted onto hospice services. Admissions was notified for a bed on [facility]. No beds available at this time. Patient will be seen daily by hospice nurse.
--- NOTE | 2024-07-25 17:00 | PTCARENOTE ---
Patient resting comfortably, opens eye to voice. Patient refused to be turned at present. Daughter and son in law at bedside. Dinner ordered for patient.
--- NOTE | 2024-07-25 18:15 | PTCARENOTE ---
Patient sleeping, did not awaken to verbal stimuli. Daughter remains at bedside.
[2024-07-25 19:46] VITALS: BP 103/71
--- NOTE | 2024-07-25 19:55 | PTCARENOTE ---
risk assessment consultant, pt opens eyes to verbal, shakes head yes when asked if having pain, also having wet COMPUTATIONAL SCIENTIST cough- prn dilaudid/robinul per MAY. RH IV WNL. Davalos draining yellow urine. dtr at bedside. will monitor.
[2024-07-26] MEDS: DILAUDID 0.5 MG IV ×3 (02:44→22:42)
[2024-07-26] MEDS: ROBINUL 0.2 MG IV (02:45)
--- NOTE | 2024-07-26 08:59 | W.PN.HOSP.TC ---
Today's Communication/Plan
-
comfort care
Assessment / Plan
Assessment / Plan
Severe Sepsis 2/2 MRSA Bacteremia, Aspiration pneumonia and Emphysematous Cystitis
MRSA Bacteremia with possible vegetation on aortic valve; [place] valve endocarditis
Emphysematous Cystitis
TME 2/2 above
Severe Dysarthria 2/2 TME and prior hx CVA with baseline dysarthria
Acute Renal Failure
Respiratory Failure with Hypoxia 2/2 Aspiartion event/aspiration pneumonia
Hx CVA with residual right hemiparesis, dysarthria, dysphagia
-GOC discussions had on 07/24/24. Given TME and baseline dysphagia from prior strokes, patient is not safe to eat and drink. In setting of severe dysphagia, renal failure, endocarditis, respiratory failure decision made to transition to
comfort/hospice.
-admit to inpatient hospice
-fluids, antibiotics stopped
-appreciate evaluation assistant consult
-IV Dilaudid PRN, progress to gtt if needed
-IV ativan PRN - will shedule in evenings given report of restless night, patient looks comfortable now
-IV haldol PRN
-plan of care discussed with daughter via ways operator, she's aware patient may pass within hours to days
DNR
Anticipated Discharge: 24 - 48 hours
Subjective/Interval History
-
Date of Service: July 26, 2024
seen with daughter at bedside, ways operator used
patient intermittently eating
she appears comfortable; daughter reported restless night
Objective Data
-
Vital Signs:
Vital Signs
Temp Pulse Resp BP Pulse Ox
97.4 F 70 22 103/71 79
07/25/24 23:22 07/25/24 19:46 07/25/24 12:00 07/25/24 19:46 07/25/24 19:46
I&O
07/25/24 07/26/24 07/27/24
06:59 06:59 06:59
Output Total 500 / 500
Balance -500 / -500
Review of Systems
-
Unable to obtain full review of systems at this time due to: Patient Non-verbal
History Source: Patient
Physical Exam
-
General: No Apparent Distress and Other (frail appearing)
HEENT: PERRLA
Respiratory: Negative Wheezes or Rales
Cardiac: Regular Rhythm and S1/S2
GI: Soft and Nontender
Musculoskeletal: No Edema
Skin: Warm and Dry; Negative Rash
Neuro: Awake and Alert
Psych: Calm
Data Reviewed
-
Diagnostic Radiology: Report Reviewed by me
Labs: Labs Reviewed by me
--- NOTE | 2024-07-26 09:33 | CM ---
Inpatient hospice. Transferring to .
[2024-07-26 10:08] VITALS: BP 116/74
--- NOTE | 2024-07-26 12:16 | HOSPNOTE ---
Patient is inpatient hospice appropriate for management of shortness of breath and pain. Patient is now non verbal so FLACC scale performed and patient was medicated appropriately. Daughter at bedside and support provided. Patient will need Robinol
Q4 for increased secretions. Patient will be seen daily by hospice. Daughter updated.
--- NOTE | 2024-07-26 15:54 | HOSPNOTE ---
Zipper Slide Attacher visited 59 year old patient to conduct Initial VALUATION MANAGER Assessment. Patient admitted onto Hospice Services and [facility] Level of Care with the Primary Diagnosis of Acute Renal Failure. Nurse reported patient resting comfortably and
daughter has been by patient's bedside. VALUATION MANAGER observed patient asleep and resting well upon VALUATION MANAGER entry into patient's room. VALUATION MANAGER greeted patient and patient awaken to VALUATION MANAGER voice. Patient is non-verbal. Patient nodded her head yes to indicate that she was
doing okay. Patient nodded her head no to indicate that she wasn't in pain. Patient did not show signs of distress. There was no family present at patient's bedside initially. Breather Security entered patient's room expressing patient's family
members reported they lost a cell phone and he was there to assist them in locating their phone. Patient's daughter Sabrina and a young man entered patient's room. VALUATION MANAGER greeted them and asked how they were doing, they are doing fine and gave thumbs
up. Sabrina reported her family and friends are her supports. Sabrina reported patient has 1 daughter and no grandchildren. Sabrina reported patient has 3 siblings and they reside in [place], [place]. Sabrina reported patient was employed at [employer]
and resigned in 2004. Sabrina reported patient receives Social Security Disability (SSD). Sabrnia reported patient loved watching TV, cooking, and hangout with her family. Sabrina reported patient is Denominational and she's affiliated with [facility] in [place], [place] and her wishes are to be Cremated; home will be provided later. Sabrina reported she doesn't need anything. Family appears to be coping appropriately. Prayer and Emotional Support Provided.
Patient meets [facility] criteria for SN Assessments, management of pain, and dyspnea that could not be managed at home and/or in an Outpatient setting.
VALUATION MANAGER will conduct visits once a week while on [facility] Level of Care to provide supportive services and to monitor for additional services.
[2024-07-26 19:50] VITALS: BP 134/83
[2024-07-26] MEDS: ATIVAN 0.5 MG IV (20:15)
[2024-07-26] MEDS: NSS (PRESERVATIVE FREE) 0.25 ML IV (20:17)
[2024-07-26 23:10] VITALS: BP 120/74
[2024-07-27] MEDS: ROBINUL 0.2 MG IV ×3 (03:17→14:18)
[2024-07-27] MEDS: DILAUDID 0.5 MG IV ×5 (03:17→10:50)
[2024-07-27 07:00] VITALS: BP 168/99
[2024-07-27] MEDS: ZOFRAN 4 MG IV (09:04)
--- NOTE | 2024-07-27 11:17 | HOSPNOTE ---
Patient will be started on a morphine drip. I informed daughter using the language line what the drip means and why it is needed. Patient has increased secretions from yesterday, no PO intake and appears to be uncomfortable. Patient has received IV
pushes and per protocol the drip will be started. Patient will be seen daily by hospice nurse. Patient continues to be inpatient appropriate for management of pain and secretions.
[2024-07-27] MEDS: DILAUDID 50 IV (12:20)
--- NOTE | 2024-07-27 12:54 | W.PN.HSP.1 ---
Assessment / Plan
-
59-year-old female with recent MRSA bacteremia and aspiration pneumonia now on hospice
# MRSA bacteremia with possible vegetation on aortic valve-[place] valve endocarditis
# Aspiration pneumonia
# Emphysematous cystitis
# TME
# Acute renal failure
# Chronic anemia
#'s systolic hypertension
# Paroxysmal atrial fibrillation
# History of CVA with residual right hemiparesis, dysarthria and dysphagia
# Hyperlipidemia
# Diabetes
# Underweight
# Tobacco dependence
Today's Communication
Patient is on hospice
Wakes up but not able to communicate
On as needed Dilaudid-now being switched to drip for symptom management
Discussed with nursing
Discussed with daughter at bedside
Physical Exam
-
Temp Pulse Resp BP Pulse Ox
98.2 F 80 22 168/99 96
07/27/24 07:00 07/27/24 07:00 07/27/24 07:00 07/27/24 07:00 07/27/24 07:00
[2024-07-27] MEDS: ATIVAN 0.5 MG IV ×2 (14:17→19:54)
[2024-07-27] MEDS: DILAUDID 0.25 MG IV ×2 (14:19→15:08)
[2024-07-27] MEDS: HALDOL 0.5 MG IV (15:11)
[2024-07-27 19:10] VITALS: BP 172/73
[2024-07-27] MEDS: NSS (PRESERVATIVE FREE) 0.25 ML IV (19:55)
[2024-07-27] MEDS: FLUSH (NSS) 2 FLUSH IV (20:00)
--- NOTE | 2024-07-28 06:31 | PTCARENOTE ---
Patient's symptoms controlled with Dilaudid gtt at step 1 and with repositioning.
[2024-07-28 07:07] VITALS: BP 155/63
--- NOTE | 2024-07-28 10:12 | W.PN.HSP.1 ---
Assessment / Plan
-
59-year-old female with recent MRSA bacteremia and aspiration pneumonia now on hospice
# MRSA bacteremia with possible vegetation on aortic valve-[place] valve endocarditis
# Aspiration pneumonia
# Emphysematous cystitis
# TME
# Acute renal failure
# Chronic anemia
#'s systolic hypertension
# Paroxysmal atrial fibrillation
# History of CVA with residual right hemiparesis, dysarthria and dysphagia
# Hyperlipidemia
# Diabetes
# Underweight
# Tobacco dependence
Today's Communication
Wakes up but not able to communicate
Dilaudid- drip for symptom management
Discussed with nursing
Discussed with daughter at bedside using antenna design engineer.
All questions answered.
Physical Exam
-
Temp Pulse Resp BP Pulse Ox
100.2 F 87 16 155/63 97
07/28/24 07:07 07/28/24 07:07 07/28/24 07:07 07/28/24 07:07 07/28/24 08:00
[2024-07-28] MEDS: ROBINUL 0.2 MG IV (11:07)
[2024-07-28] MEDS: ATIVAN 0.5 MG IV ×3 (11:07→19:16)
--- NOTE | 2024-07-28 11:28 | HOSPNOTE ---
[place] is on Dilaudid drip step 1. Daughter is present during the visit. patient is mildly restless. cough and secretions present. report with facility RN Nayla. Ativan and [place] are given during the visit. Support to daughter provided,
questions answered. Patient remains appropriate for a GIP level of care to manage respiratory symptoms and pain.
--- NOTE | 2024-07-28 12:27 | CHAP ---
Katelyn was sleeping comfortably, non-responsive. She did not show signs of pain. Daughter Sabrina was present, and Commuter Train Operator communicated with her using the language line. She shared that her mother would appreciate prayer. Commuter Train Operator provided
emotional and spiritual support through presence, dialogue, Scripture reading and prayer. Will continue support through weekly visits, remaining available to patient and family as needed.
[2024-07-28 19:00] VITALS: BP 82/57
[2024-07-28] MEDS: NSS (PRESERVATIVE FREE) 0.25 ML IV (19:18)
[2024-07-28] MEDS: FLUSH (NSS) 2 FLUSH IV (19:19)
[2024-07-29] MEDS: ATIVAN 0.5 MG IV ×5 (02:57→22:02)
[2024-07-29] MEDS: ROBINUL 0.2 MG IV (03:04)
[2024-07-29] MEDS: NSS (PRESERVATIVE FREE) 0.25 ML IV ×2 (03:06→22:03)
[2024-07-29] MEDS: FLUSH (NSS) 3 FLUSH IV (03:07)
[2024-07-29 07:00] VITALS: BP 85/60
--- NOTE | 2024-07-29 12:28 | W.PN.HSP.1 ---
Assessment / Plan
-
59-year-old female with recent MRSA bacteremia and aspiration pneumonia now on hospice
# MRSA bacteremia with possible vegetation on aortic valve-[place] valve endocarditis
# Aspiration pneumonia
# Emphysematous cystitis
# TME
# Acute renal failure
# Chronic anemia
#'s systolic hypertension
# Paroxysmal atrial fibrillation
# History of CVA with residual right hemiparesis, dysarthria and dysphagia
# Hyperlipidemia
# Diabetes
# Underweight
# Tobacco dependence
Today's Communication
opens eyes
Dilaudid- drip for symptom management
Discussed with daughter at bedside using jewelry designer.
All questions answered.
Continue same
Physical Exam
-
Temp Pulse Resp BP Pulse Ox
97.2 F 79 16 85/60 85
07/29/24 07:00 07/29/24 07:00 07/29/24 07:00 07/29/24 07:00 07/29/24 07:00
--- NOTE | 2024-07-29 14:22 | HOSPNOTE ---
Daughter and son in law present during the visit, emotional support provided. Any questions and concerns addressed. Discussed limited life expectancy and changes patient may go through in the dying process. Patient minimally responsive, opens eyes
and mildly restless. Continues on Dilaudid drip step 1. PRN lorazepam administered during visit. Daughter feels patient appears more comfortable than before. Lungs course with Course cough. Oral care performed, attempted to remove thick mucousy
debris from tongue and oral cavity but patient biting down on swab sponge. Patient remains appropriate for a GIP level of care to management of symptoms.
[2024-07-29 19:00] VITALS: BP 89/58
[2024-07-30 07:05] VITALS: BP 166/72
--- NOTE | 2024-07-30 10:33 | W.PN.HSP.1 ---
Assessment / Plan
-
59-year-old female with recent MRSA bacteremia and aspiration pneumonia now on hospice
# MRSA bacteremia with possible vegetation on aortic valve-[place] valve endocarditis
# Aspiration pneumonia
# Emphysematous cystitis
# TME
# Acute renal failure
# Chronic anemia
#'s systolic hypertension
# Paroxysmal atrial fibrillation
# History of CVA with residual right hemiparesis, dysarthria and dysphagia
# Hyperlipidemia
# Diabetes
# Underweight
# Tobacco dependence
Today's Communication
Dilaudid- drip step 2 now for symptom management
Has some secretions-use glycopyrrolate
Discussed with daughter at bedside using nuclear design engineer.
All questions answered.
Discussed with nursing
Physical Exam
-
Temp Pulse Resp BP Pulse Ox
98.8 F 90 18 166/72 89
07/30/24 07:05 07/30/24 07:05 07/30/24 07:05 07/30/24 07:05 07/30/24 07:05
[2024-07-30] MEDS: ROBINUL 0.2 MG IV (13:03)
[2024-07-30] MEDS: DILAUDID 0.5 MG IV ×3 (13:04→16:09)
--- NOTE | 2024-07-30 15:21 | HOSPNOTE ---
Patient appears active, supported daughter and explained actively dying phase. Patient is on a drip and was medicated for change in breathing pattern and pain. Patient will be seen daily by hospice nurse.
--- NOTE | 2024-07-30 17:05 | CM ---
Maintained on [facility].
[2024-07-30] MEDS: ATIVAN 0.5 MG IV (21:45)
[2024-07-30] MEDS: NSS (PRESERVATIVE FREE) 0.25 ML IV (21:46)
--- NOTE | 2024-07-30 23:47 | W.PN.DEATH ---
Pronouncement of
-
Called to see patient to pronounce.
No spontaneous heart tones or respirations noted.
Patient not responsive to verbal stimuli.
Patient is pronounced .
Time of : 23:35
Date of : 07/30/24
Cause of : hypoxic respiratory failure d/t aspiration pneumonia d/t severe dysphagia from prior cva
Family Notified: Yes (daughter at bedside)
--- NOTE | 2024-07-31 03:03 | PTCARENOTE ---
Daughter called SN in about 23:30 to say mom was no longer breathing, no HR or Breathing noted, BUSINESS SUPPORT PROFESSIONAL made aware and came up to pronounce , post mortem care given, body sent to [facility].
--- NOTE | 2024-07-31 15:14 | W.PN.UPDATE ---
Update Note
Progress Note Update
[facility]- [id number]
== END 2024-07-30 23:35 | disposition expired | DRG 951 ==
LOC: 2 NORTH 11:30
PROVIDERS: ADMITTING PHYSICIAN Student in an Organized Health Care Education/Training Program; ATTENDING PHYSICIAN Hospitalist
DX: Z51.5 Encounter for palliative care (principal); A41.02 Sepsis due to Methicillin resistant Staphylococcus aureus; J18.9 Pneumonia, unspecified organism; J69.0 Pneumonitis due to inhalation of food and vomit; G92.8 Other toxic encephalopathy; J96.91 Respiratory failure, unspecified with hypoxia; R65.20 Severe sepsis without septic shock; N18.4 Chronic kidney disease, stage 4 (severe); I69.351 Hemiplegia and hemiparesis following cerebral infarction affecting right dominant side; N17.9 Acute kidney failure, unspecified; I38 Endocarditis, valve unspecified; Z68.1 Body mass index [BMI] 19.9 or less, adult; N30.80 Other cystitis without hematuria; I69.391 Dysphagia following cerebral infarction; R63.6 Underweight; F17.200 Nicotine dependence, unspecified, uncomplicated; D64.9 Anemia, unspecified; E11.22 Type 2 diabetes mellitus with diabetic chronic kidney disease; I12.9 Hypertensive chronic kidney disease with stage 1 through stage 4 chronic kidney disease, or unspecified chronic kidney disease; E78.00 Pure hypercholesterolemia, unspecified; R47.1 Dysarthria and anarthria; I48.0 Paroxysmal atrial fibrillation; Z66 Do not resuscitate; Z88.1 Allergy status to other antibiotic agents; Z91.048 Other nonmedicinal substance allergy status; Z79.82 Long term (current) use of aspirin; Z79.4 Long term (current) use of insulin